=== PATIENT | female | born 1970 | race Caucasian/White ===

== ENCOUNTER 2021-07-05 22:36 | Inpatient (IN) ==
[2021-07-05] MEDS ORDERED: ADENOSINE IV SOLN 3 MG/ML 2 ML VIAL IV STA ×2 (22:57→23:16)
[2021-07-05] MEDS ORDERED: SODIUM CHLORIDE 0.9% 1000ML 1,000 ML IV STA (22:57)
--- NOTE | 2021-07-05 22:59 | Emergency Department Note ---
Impression & Plan Atrial flutter ADMIT ED Provider Note HPI: The patient is a 51-year-old female with history of atrial fibrillation, status post ablation in October 2020, no longer on any anticoagulation, presents emergency department with a chief complaint of shortness of breath. Patient is noted to have a narrow complex tachycardia in the 160s on arrival. Patient tells me that over the past 2 weeks she has had shortness of breath, this seems to acutely worsen just over the past day where she is having shortness of breath now even at rest. Patient denies any sensation of palpitations, states she does have a sensation of chest "tightness". On arrival patient is otherwise hemodynamically stable, heart rate is in the 160s, she is saturating well on room air on arrival, she is alert and in no acute distress on my initial history. ROS: -Cardio: Tachycardia -Pulmonary: Shortness of breath *10 point review systems was conducted and is otherwise negative unless stated a eladio *Outpatient medications and allergy history reviewed PE: General: Alert, NAD HEENT: Normocephalic, atraumatic Eyes: Extraocular eye movement is intact, no scleral erythema Pulmonary: Clear to auscultation bilaterally, no wheezing Cardio: Tachycardic rate and regular rhythm GI: Abdomen is soft, nontender : No suprapubic tenderness MSK: No evidence of trauma or malformation of the extremities, no edema Skin: No evidence of rash Neuro: Alert, no focal deficits Psychiatric: Cooperative personnel monitor: - An order was placed for continuous cardiac monitoring - Patient was noted to be in a narrow complex rhythm with rate of 161 EKG: Rate: 163 Rhythm: Sinus tachycardia Intervals: QRS 144 ms, otherwise within normal limits ST changes: No ST elevation Time: 2243 Medical Decision Making: Patient presented to the emergency department with issues of shortness of breath, states this is been worsening throughout the day today. She denies any sensation of palpitations, states she has had some chest "pressure". On arrival here to the ED the patient is hemodynamically stable and saturating well on room air, she is noted to be tachycardic in the 160s with a narrow complex on EKG suspicious for SVT. IV was established, lab work was obtained, patient was placed on manager cardiac cath, she was trialed with a dose of 6 of adenosine without response, she was then given 12 adenosine and obvious flutter waves were noted. Lab work does not show any critical electrolyte abnormalities, high-sensitivity troponin is within normal limits. Patient was therefore loaded with diltiazem bolus, placed on diltiazem drip, this did not have any response in the patient's heart rate but blood pressure did remain stable. Patient did have some drop in her oxygen saturations to about 90% and therefore was placed on oxime mask without much improvement, CT angiography of the chest was obtained that does not show any evidence of pulmonary embolism but does show some venous congestion. Patient was then placed on BiPAP, this did result in improvement in her oxygenation into the high 90s, work of breathing was improved, I did discuss the case with on-call cardiology for [facility], Dr. Belle, who recommended a dose of metoprolol IV and if there is no response to load the patient with digoxin. Will hold on any potential cardioversion at this time as the patient is not anticoagulated and and it is unclear how long the patient has been in this tachyarrhythmia. Toprol was trialed without response and therefore the patient was loaded with digoxin, shortly after the patient being placed on BiPAP and being loaded with digoxin she did have some response in her heart rates down to the 120s. She appears symptomatically improved on my reassessment. I discussed the case with the on-call hospitalist for [facility], Dr. Flores, and the patient was admitted to the [facility] service in improved condition for further care. * CRITICAL CARE TIME: ( 60 ) minutes -Stabilization of tachyarrhythmia requiring multiple IV rate control medicati ons, initiation of BiPAP for hypoxia despite supplemental oxygen with oxygen saturations less than 90% on oximask, time spent at the bedside, interpretation of diagnostic studies and EKG, discussion with specialty physician/cardiology, arrangement of admission Diagnosis: 1. Atrial flutter 2. Dyspnea secondary to tachyarrhythmia 3. Pulmonary venous congestion on CT imaging 4. Hypoxia, acute Disposition: Admission Triston Vang DO Emergency Medicine Past Med/Surg History Medical History Anxiety Atrial fibrillation + FLUTTER (NEWLY DX) On Eliquis GERD (gastroesophageal reflux disease) History of kidney stones History of TMJ disorder Hypertension Per records RA (rheumatoid arthritis) On Arava Surgical History H/O wisdom tooth extraction History of colonoscopy History of esophagogastroduodenoscopy (EGD) Family History Other No family history of adverse response to anesthesia No significant family history Social History Smoking Status: Current every day smoker Tobacco Type: E-cigarettes / Vaping Cigarettes Per Day: 1 CART. 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 Required: No Beliefs That Will Affect Care: None Current Living Situation: Family Feels Safe at Home: Yes Assistive Devices: None Allergies Allergies Allergy/AdvReac Type Severity Reaction Status Date / Time No Known Allergies Allergy Mild Verified 07/05/21 23:24 Home Meds Home Medications Medication Instructions Recorded Confirmed alprazolam 0.5 mg tablet 0.5 mg PO HS PRN 09/14/18 07/05/21 fluoxetine 20 mg capsule (Prozac) 60 mg PO QAM 09/14/18 07/05/21 glycopyrrolate 1 mg tablet 2 mg PO QAM 09/14/18 07/05/21 folic acid 1 mg tablet 2 mg PO QAM 12/24/18 07/05/21 omeprazole 20 mg capsule,delayed 20 mg PO QAM 12/24/18 07/05/21 release leflunomide 10 mg tablet 10 mg PO QAM 04/23/19 07/05/21 etanercept 50 mg/mL (1 mL) 0 mg SUBCUT WK 07/05/21 07/05/21 subcutaneous pen injector (Enbrel SureClick) methylprednisolone 4 mg tablets in 0 mg PO DIRECTED PRN 07/05/21 07/05/21 a dose pack metoprolol succinate 25 mg 25 mg PO DAILY 07/05/21 07/05/21 tablet,extended release 24 hr Results & Data (ED) Vital Signs Vital Signs - 24 hr 07/05/21 22:37 07/05/21 23:52 07/06/21 00:42 Temperature 36.4 C L Temperature Source Temporal Artery Scan Pulse Rate 164 H 164 H Pulse Rate [Apical] 163 H Pulse Rhythm [Apical] Respiratory Rate 22 18 Respiratory Effort / Characteristics Non-Labored Spontaneous Respiratory Depth Normal Respiratory Pattern Blood Pressure 148/93 H 155/102 H Blood Pressure [Right Arm] 141/94 H Blood Pressure Mean 111 Blood Pressure Mean [Right Arm] 109 Blood Pressure Position [Right Arm] Pulse Oximetry 96 94 Oxygen Delivery Method Room Air Oxygen Flow Rate Fraction of Inspired Oxygen SaO2/FiO2 Ratio Sepsis New/Unexplained Change in Mental Status N/A Sepsis Action Taken by Nursing No Action Required 07/06/21 00:46 07/06/21 00:58 07/06/21 01:00 Temperature Temperature Source Pulse Rate Pulse Rate [Apical] 162 H 162 H 161 H Pulse Rhythm [Apical] Regular Respiratory Rate 20 30 H 26 H Respiratory Effort / Characteristics Short of Breath SOB on Exertion Short of Breath SOB on Exertion Respiratory Depth Normal Shallow Respiratory Pattern Blood Pressure Blood Pressure [Right Arm] 147/103 H 149/110 H Blood Pressure Mean Blood Pressure Mean [Right Arm] 117 123 Blood Pressure Position [Right Arm] Pulse Oximetry 91 90 89 L Oxygen Delivery Method Nasal Cannula Oxymask Oxymask Oxygen Flow Rate 4 8 8 Fraction of Inspired Oxygen SaO2/FiO2 Ratio Sepsis New/Unexplained Change in Mental Status Sepsis Action Taken by Nursing 07/06/21 01:20 07/06/21 01:27 07/06/21 01:29 Temperature Temperature Source Pulse Rate 166 H 165 H Pulse Rate [Apical] 164 H Pulse Rhythm [Apical] Respiratory Rate 30 H 33 H Respiratory Effort / Characteristics Short of Breath Spontaneous Short of Breath Respiratory Depth Shallow Respiratory Pattern Tachypnea Tachypnea Blood Pressure Blood Pressure [Right Arm] 143/107 H Blood Pressure Mean Blood Pressure Mean [Right Arm] 119 Blood Pressure Position [Right Arm] Pulse Oximetry 97 97 Oxygen Delivery Method BiPAP Oxygen Flow Rate Fraction of Inspired Oxygen 45 45 SaO2/FiO2 Ratio 215 Sepsis New/Unexplained Change in Mental Status Sepsis Action Taken by Nursing 07/06/21 01:32 07/06/21 01:49 Temperature Temperature Source Pulse Rate Pulse Rate [Apical] 128 H 117 H Pulse Rhythm [Apical] Irregular Respiratory Rate 26 H 24 Respiratory Effort / Characteristics Non-Labored Spontaneous Respiratory Depth Normal Respiratory Pattern Blood Pressure Blood Pressure [Right Arm] 134/80 Blood Pressure Mean Blood Pressure Mean [Right Arm] 98 Blood Pressure Position [Right Arm] Sitting Semi-fowlers Pulse Oximetry 98 96 Oxygen Delivery Method BiPAP BiPAP Oxygen Flow Rate Fraction of Inspired Oxygen 45 SaO2/FiO2 Ratio 217 Sepsis New/Unexplained Change in Mental Status Sepsis Action Taken by Nursing Laboratory Data Result diagrams: 07/05/21 Unknown 07/05/21 Unknown Lab Results 07/05/21 07/05/21 07/05/21 Range/Units Unknown Unknown Unknown WBC 10.71 (4.8-10.8) K/uL RBC 4.18 L (4.2-5.4) M/uL Hgb 11.7 L (12.0-16.0) g/dL Hct 36.6 L (37-47) % MCV 87.6 (80-100) fL MCH 28.0 (25-34) pg MCHC 32.0 (32-36) g/dL RDW Std Deviation 49.2 H (36.4-46.3) fL RDW Coeff of Bridget 15.3 H (11.5-14.5) % Plt Count 403 H (130-400) K/uL MPV 10.7 H (7.4-10.4) fL Immature Gran % (Auto) 0.1 % Neut % (Auto) 64.3 % Lymph % (Auto) 26.8 % [place] % (Auto) 6.4 % Eos % (Auto) 1.9 % Baso % (Auto) 0.5 % Neut # (Auto) 6.89 H (1.4-6.5) K/uL Lymph # (Auto) 2.87 (1.2-3.4) K/uL [place] # (Auto) 0.69 H (0.11-0.59) K/uL Eos # (Auto) 0.20 (0-0.5) K/uL Baso # (Auto) 0.05 (0-0.2) K/uL Immature Gran # (Auto) 0.01 (0.00-0.02) K/uL PT 10.9 (9.0-12.0) Seconds INR 1.0 (0.9-1.1) APTT 26.8 (21.0-31.0) Seconds PTT Ratio 1.0 D-Dimer 1040 H* (0-500) ug/L FEU Sodium 138 (136-145) mmol/L Potassium 3.8 (3.5-5.1) mmol/L Chloride 104 (98-107) mmol/L Carbon Dioxide 22 (21-32) mmol/L Anion Gap 12 H (3-11) BUN 12 (6-23) mg/dl Creatinine 0.65 (0.6-1.2) mg/dl Est Cr Clr Drug Dosing 92.7 ml/min Est GFR ( Amer) 120.0 ml/min Est GFR (Non-Af Amer) 103.5 ml/min BUN/Creatinine Ratio 18.5 (10-20) Glucose 75 (70-99(Fasting)) mg/dl Calcium 9.3 (8.5-10.1) mg/dl Magnesium 1.7 (1.7-2.4) mg/dl Total Bilirubin 0.4 (0.2-1.0) mg/dl AST 39 (13-39) U/L ALT 39 (7-52) U/L Alkaline Phosphatase 82 (34-104) U/L Troponin I High Sens 11.9 (0-14) pg/ml Total Protein 6.8 (6.0-8.3) gm/dl Albumin 3.8 (3.4-5.0) gm/dl Globulin 3.0 (2.5-4.0) gm/dl Albumin/Globulin Ratio 1.3 (0.9-2) TSH (0.300-4.500) uIu/ml Free T4 (0.61-1.60) ng/dl SARS-CoV-2, RNA, NAAT (NEGATIVE) 07/05/21 07/06/21 Range/Units Unknown 00:18 WBC (4.8-10.8) K/uL RBC (4.2-5.4) M/uL Hgb (12.0-16.0) g/dL Hct (37-47) % MCV (80-100) fL MCH (25-34) pg MCHC (32-36) g/dL RDW Std Deviation (36.4-46.3) fL RDW Coeff of Bridget (11.5-14.5) % Plt Count (130-400) K/uL MPV (7.4-10.4) fL Immature Gran % (Auto) % Neut % (Auto) % Lymph % (Auto) % [place] % (Auto) % Eos % (Auto) % Baso % (Auto) % Neut # (Auto) (1.4-6.5) K/uL Lymph # (Auto) (1.2-3.4) K/uL [place] # (Auto) (0.11-0.59) K/uL Eos # (Auto) (0-0.5) K/uL Baso # (Auto) (0-0.2) K/uL Immature Gran # (Auto) (0.00-0.02) K/uL PT (9.0-12.0) Seconds INR (0.9-1.1) APTT (21.0-31.0) Seconds PTT Ratio D-Dimer (0-500) ug/L FEU Sodium (136-145) mmol/L Potassium (3.5-5.1) mmol/L Chloride (98-107) mmol/L Carbon Dioxide (21-32) mmol/L Anion Gap (3-11) BUN (6-23) mg/dl Creatinine (0.6-1.2) mg/dl Est Cr Clr Drug Dosing ml/min Est GFR ( Amer) ml/min Est GFR (Non-Af Amer) ml/min BUN/Creatinine Ratio (10-20) Glucose (70-99(Fasting)) mg/dl Calcium (8.5-10.1) mg/dl Magnesium (1.7-2.4) mg/dl Total Bilirubin (0.2-1.0) mg/dl AST (13-39) U/L ALT (7-52) U/L Alkaline Phosphatase (34-104) U/L Troponin I High Sens (0-14) pg/ml Total Protein (6.0-8.3) gm/dl Albumin (3.4-5.0) gm/dl Globulin (2.5-4.0) gm/dl Albumin/Globulin Ratio (0.9-2) TSH 6.656 H (0.300-4.500) uIu/ml Free T4 0.91 (0.61-1.60) ng/dl SARS-CoV-2, RNA, NAAT NEGATIVE (NEGATIVE) Administered Medications Diltiazem HCl 125 mg/ Dextrose 125 mls @ 5 mls/hr IV .Q24H FOR[facility], 1928–1983; Protocol Stop: 08/04/21 23:14 Last Titration: 07/05/21 23:38 Dose: 10 mg/hr, 10 mls/hr Documented by: [id number] Cosigned by: [id number] Admin: 07/05/21 23:30 Dose: 5 mg/hr, 5 mls/hr Documented by: [id number] Cosigned by: [id number] Discontinued Medications Adenosine (Adenosine Iv Soln 3 Mg/Ml 2 Ml Vial) 6 mg IV NOW STA Stop: 07/05/21 22:58 Last Admin: 07/05/21 23:05 Dose: 6 mg Documented by: [id number] Adenosine (Adenosine Iv Soln 3 Mg/Ml 2 Ml Vial) 12 mg IV NOW STA Stop: 07/05/21 23:17 Last Admin: 07/05/21 23:08 Dose: 12 mg Documented by: [id number] Diltiazem HCl (Diltiazem Hcl 5 Mg/Ml 5 Ml Vial) 15 mg IV NOW STA Stop: 07/05/21 23:12 Last Admin: 07/05/21 23:20 Dose: 15 mg Documented by: [id number] Cosigned by: [id number] Sodium Chloride (Nss 1000ml) 1,000 mls @ 999 mls/hr IV .Q1H1M STA Stop: 07/05/21 23:57 Last Infusion: 07/06/21 00:21 Dose: 0 mls/hr Documented by: [id number] Admin: 07/05/21 23:05 Dose: 999 mls/hr Documented by: [id number] Sodium Chloride (Nss 1000ml) 1,000 mls @ 999 mls/hr IV .Q1H1M ONE Stop: 07/06/21 00:11 Last Infusion: 07/06/21 01:34 Dose: 0 mls/hr Documented by: [id number] Admin: 07/06/21 00:42 Dose: 999 mls/hr Documented by: [id number] Digoxin 500 mcg/ Syringe 2 mls @ 2 mls/min IV ONE ONE Stop: 07/06/21 01:05 Last Admin: 07/06/21 01:20 Dose: 2 mls/min Documented by: [id number] Ioversol (Optiray 320 125ml) 125 ml IV ONCE ONE Stop: 07/06/21 00:39 Last Admin: 07/06/21 00:38 Dose: 97 ml Documented by: [id number] Lorazepam (Lorazepam 2 Mg/1 Ml Vial) Confirm Administered Dose 2 mg .ROUTE .STK- MED ONE Stop: 07/06/21 01:43 Last Admin: 07/06/21 01:49 Dose: Not Given Documented by: [id number] Lorazepam (Lorazepam 2 Mg/1 Ml Vial) 0.5 mg IV NOW STA Stop: 07/06/21 01:49 Last Admin: 07/06/21 01:49 Dose: 0.5 mg Documented by: [id number] Metoprolol Tartrate (Metoprolol Tartrate 1 Mg/Ml Vial) 5 mg IV NOW STA Stop: 07/06/21 00:08 Last Admin: 07/06/21 00:42 Dose: 5 mg Documented by: [id number] Miscellaneous (Stat Iv Infusion Titration Per Protocol) 1 ea N/A NOW STA Stop: 07/05/21 23:12 Last Admin: 07/05/21 23:17 Dose: Not Given Documented by: [id number] Ondansetron HCl (Ondansetron Inj 2 Mg/Ml 2 Ml Vial) 4 mg IV NOW STA Stop: 07/06/21 00:00 Last Admin: 07/06/21 00:04 Dose: 4 mg Documented by: [id number] Discharge Plan Visit Data Chief Complaint: Chest Pain Stated Complaint: CHEST PAIN, SOB ED Provider: Triston Vang Discharge Problem: Atrial flutter Forms Stand Alone Forms: [facility] Prescriptions Prescriptions: No Action glycopyrrolate 1 mg tablet 2 mg PO QAM RF: 0 alprazolam 0.5 mg Tablet 0.5 mg PO HS PRN (Reason: RESTLESSNESS) RF: 0 fluoxetine [Prozac] 20 mg Capsule 60 mg PO QAM RF: 0 omeprazole 20 mg capsule,delayed release(DR/EC) 20 mg PO QAM RF: 0 folic acid 1 mg tablet 2 mg PO QAM RF: 0 leflunomide 10 mg tablet 10 mg PO QAM RF: 0 metoprolol succinate 25 mg tablet extended release 24 hr 25 mg PO DAILY RF: 0 methylprednisolone 4 mg tablets,dose pack 0 mg PO DIRECTED PRN (Reason: RA FLARE UP) RF: 0 Enbrel SureClick 50 mg/mL (1 mL) pen injector 0 mg SUBCUT WK RF: 0 Referrals Referrals: Balbir Hernandez MD [Primary Care Provider] - Discharge Problem: Atrial flutter Qualifiers: Atrial flutter type: unspecified Qualified Code(s): I48.92 - Unspecified atrial flutter
[2021-07-05] MEDS ORDERED: STAT IV Infusion **Titration per Protocol STA (23:11)
[2021-07-05] MEDS ORDERED: dilTIAZem HCl 5 MG/ML 5 ML VIAL IV STA (23:11)
[2021-07-05] MEDS ORDERED: SODIUM CHLORIDE 0.9% 1000ML 1,000 ML IV ONE (23:11)
[2021-07-05] MEDS ORDERED: dilTIAZem HCL 125 MG in DEXTROSE 5% 100 ML IV SCH (23:15)
[2021-07-05 23:32] LABS: Hematocrit (blood only) 36.6 % (37-47); Hemoglobin 11.7 g/dL (12.0-16.0); Mean Corpuscular Volume 87.6 fL (80-100); Mean Platelet Volume 10.7 fL (7.4-10.4); Platelet Count 403 K/uL (130-400); RDW Coefficient of Variation 15.3 % (11.5-14.5); RDW Standard Deviation 49.2 fL (36.4-46.3); Red Blood Count 4.18 M/uL (4.2-5.4); White Blood Count 10.71 K/uL (4.8-10.8)
[2021-07-05 23:47] LABS: Partial Thromboplastin Time 26.8 Seconds (21.0-31.0); Prothrombin Time 10.9 Seconds (9.0-12.0)
[2021-07-05 23:52] LABS: Albumin Globulin Ratio 1.3 (0.9-2); Albumin Level 3.8 gm/dl (3.4-5.0); BUN Creatinine Ratio 18.5 (10-20); Bilirubin,Total 0.4 mg/dl (0.2-1.0); Calcium 9.3 mg/dl (8.5-10.1); Creatinine Clr Calc Pharmacy 92.7 ml/min; Est GFR (Non-African American) 103.5 ml/min; Magnesium 1.7 mg/dl (1.7-2.4); Potassium 3.8 mmol/L (3.5-5.1); Total Protein 6.8 gm/dl (6.0-8.3)
[2021-07-05 23:53] LABS: Basophils # (auto) 0.05 K/uL (0-0.2); Basophils % (auto) 0.5 %; Eosinophils % (auto) 1.9 %; Immature Granulocytes # (auto) 0.01 K/uL (0.00-0.02); Immature Granulocytes % (auto) 0.1 %; Lymphocytes # (auto) 2.87 K/uL (1.2-3.4); Lymphocytes % (auto) 26.8 %; Monocytes # (auto) 0.69 K/uL (0.11-0.59); Monocytes % (auto) 6.4 %; Neutrophils # (auto) 6.89 K/uL (1.4-6.5); Neutrophils % (auto) 64.3 %; Troponin I High Sensitivity 11.9 pg/ml (0-14)
[2021-07-05 23:54] LABS: D Dimer 1040 ug/L FEU (0-500)
[2021-07-05] MEDS ORDERED: ONDANSETRON INJ 2 MG/ML 2 ML VIAL IV STA (23:59)
[2021-07-06 00:02] LABS: Thyroid Stimulating Hormone 6.656 uIu/ml (0.300-4.500)
[2021-07-06] MEDS ORDERED: METOPROLOL TARTRATE 1 MG/ML VIAL IV STA (00:07)
[2021-07-06 00:35] LABS: T4 Free Thyroxine 0.91 ng/dl (0.61-1.60)
[2021-07-06] MEDS ORDERED: OPTIRAY 320 125ml IV ONE (00:38)
[2021-07-06] MEDS ORDERED: DIGOXIN 500 MCG in SYRINGE 0 ML IV ONE (01:04)
[2021-07-06] MEDS ORDERED: LORazepam 2 MG/1 ML VIAL ONE (01:42)
[2021-07-06] MEDS ORDERED: LORazepam 2 MG/1 ML VIAL IV STA (01:48)
[2021-07-06] MEDS ORDERED: FUROSEMIDE 40 MG/4 ML VIAL IV ONE (02:24)
[2021-07-06] MEDS ORDERED: STAT IV Infusion **Titration per Protocol STA (02:32)
--- NOTE | 2021-07-06 04:27 | History and Physical Report ---
DATE OF ADMISSION: 07/06/2021. CHIEF COMPLAINT: Shortness of breath, rapid AFib. HISTORY OF PRESENT ILLNESS: A 51-year-old female with past medical history significant for paroxysmal atrial fibrillation, atrial flutter, gastritis, history of sweating abnormality, chronic headaches, rheumatoid arthritis of multiple sites, insomnia, anxiety, tobacco use disorder, presents with shortness of breath and palpitations. The patient was short of breath a couple of times in the last 2 weeks, but today it got progressively worse and she was feeling palpitations, walking, short distance causing significantly short of breath and also soreness in the legs. In the ER, when she came in, she was saturating okay, heart rate in 160s narrow complex tachycardia. Initially iv adenosine was given which showed a flutter.. ER gave IV Cardizem and as she was not improving, cardiology was notified and given a dose of digoxin and Lopressor, but her heart rate was still in the 160s. At the same time, her oxygen saturation was going down and she was placed on BiPAP. With the BiPAP, heart rate improved and currently is on Cardizem drip. She had an episode of nausea when BiPAP was taken, then heart rate worsened and also she became hypoxic. She was is back on BiPAP. She also had some chest pressure, some dizziness, no headache, no blurred visions, no earache, no runny nose, no sore throat. She started coughing when placed on BiPAP. Otherwise, at home did not have any cough. No fevers, no abdominal pain. Normal bowel and bladder movements. ALLERGIES: No known drug allergies. PAST MEDICAL HISTORY: As mentioned above. PAST SURGICAL HISTORY: Colonoscopy, dental surgery, EGD. MEDICATIONS: The patient is on alprazolam 0.5 mg p.o. at bedtime p.r.n., Enbrel shots weekly, Prozac 60 mg p.o. a.m., folic acid 2 mg p.o. a.m., glycopyrrolate 2 mg p.o. a.m., leflunomide 10 mg p.o. a.m., methylprednisone as directed p.r.n., metoprolol succinate 25 mg p.o. daily, omeprazole 20 mg p.o. a.m. FAMILY HISTORY: Significant for father had alcoholism; paternal grandmother had breast cancer. SOCIAL HISTORY: , smokes quarter pack a day for last 23 years. Alcohol 4 times a week. No drug use. REVIEW OF SYSTEMS: As per HPI. Rest of the review of systems is negative. PHYSICAL EXAMINATION: GENERAL: The patient is of moderate build, currently somewhat in respiratory distress. VITAL SIGNS: Temperature 36.4, pulse 118, respiratory rate 22, blood pressure 100/76, oxygen 94% on BiPAP. HEENT: Pupils equal, round and reactive to light, on BiPAP mask. NECK: No JVD seen. No neck masses seen. CARDIOVASCULAR: S1 and S2 heard. Irregular rhythm, tachycardia. RESPIRATORY SYSTEM: Normal AP diameter. Some accessory muscle use noted. Bilateral crackles heard. No wheezing. ABDOMEN: Soft, bowel sounds present, nontender, no distention. CENTRAL NERVOUS SYSTEM: Alert and oriented. No facial droop. Extraocular muscles intact. Obeys simple commands. Moves extremities. EXTREMITIES: No edema, no erythema. LABORATORY DATA: WBC 10.7, hemoglobin 11.7, hematocrit 36.6, platelets 403. PT 10.9, INR 1, APTT 26.8, D-dimer 1040. Sodium 138, potassium 3.8, chloride 104, bicarbonate 22, BUN 12, creatinine 0.6, serum glucose 175, calcium 9.3, magnesium 1.7, total bilirubin 0.4, AST 39, ALT 39, alkaline phosphatase 82. Troponin I high sensitivity 11.9. TSH is 6.6, free T4 0.9. SARS-CoV-2 rapid test negative. DATA: CT chest, no PE. Interlobular septal thickening and peribronchial cuffing is most consistent with pulmonary vascular congestion, most notable in the inferior lung zones with areas of ground-glass opacity, which may represent asymmetric edema or atelectasis. Layering pleural effusion, right greater than left with right effusion measuring approximately 2 cm. No loculation. No pneumothorax. Chest x-ray, pulmonary congestion seen. EKG: Initially sinus tachycardia at a rate of 163, right bundle-branch block. ASSESSMENT AND PLAN: This 51-year-old female presents with rapid atrial flutter. 1. Rapid atrial flutter: Presented with narrow complex tachycardia, after adenosine, flutter waves were seen and she was started on Cardizem and has not improved ER called cardiology and was IV digoxin 500 mcg and IV Lopressor 5 mg still HR in 160's and currently continued on Cardizem drip.Patient has history of atrial flutter and atrial fibrillation, she is status post ablation in October 2020. She was on Eliquis, but Eliquis was stopped after ablation because of history of heavy menstrual bleeding. Plan to restart if the atrial fibrillation recurs. Currently continue with IV Cardizem, IV heparin. Follow serial cardiac enzymes, echocardiogram. We will keep her n.p.o. until seen by cardiology. Closely monitor in the ICU, as the patient became hypoxic, requiring BiPAP and also if deteriorates jonatan need to cardiovert.After placing on bipap heart rates seems improving. Will hold home Toprol xl for now. 2. Acute respiratory failure: Most likely secondary to congestive heart failure, possibly from rapid atrial fibrillation. Getting IV Lasix. Continue with the BiPAP. Follow echocardiogram. Closely monitor in the ICU.Follow CE and rule out ACS. 3. History of rheumatoid arthritis: On leflunomide and Enbrel shots. 4. Depression: On Prozac. 5. Gastroesophageal reflux disease: Omeprazole. 6. Sweating abnormalities: On glycopyrrolate 7. Anxiety: On alprazolam p.r.n. 8. Deep venous thrombosis prophylaxis: On IV heparin. DISPOSITION: Closely monitor in the ICU. Level 1 full code. Job ID: [id number] [facility]
[2021-07-06] MEDS ORDERED: dilTIAZem HCL 125 MG in DEXTROSE 5% 100 ML IV SCH (04:33)
[2021-07-06] MEDS ORDERED: ICU PROTOCOL FOR HYPERGLYCEMIA PRN (04:33)
[2021-07-06] MEDS ORDERED: Heparin IV Adult Wt-Based Standard *NO* Bolus Protocol IV SCH (04:33)
[2021-07-06 05:14] LABS: Basophils # (auto) 0.04 K/uL (0-0.2); Basophils % (auto) 0.3 %; Eosinophils # (auto) 0.05 K/uL (0-0.5); Eosinophils % (auto) 0.4 %; Hematocrit (blood only) 36.9 % (37-47); Hemoglobin 11.8 g/dL (12.0-16.0); Immature Granulocytes # (auto) 0.04 K/uL (0.00-0.02); Immature Granulocytes % (auto) 0.3 %; Lymphocytes # (auto) 1.25 K/uL (1.2-3.4); Lymphocytes % (auto) 10.4 %; Mean Corpuscular Hemoglobin 28.1 pg (25-34); Mean Corpuscular Volume 87.9 fL (80-100); Mean Platelet Volume 9.9 fL (7.4-10.4); Monocytes # (auto) 0.79 K/uL (0.11-0.59); Monocytes % (auto) 6.6 %; Neutrophils # (auto) 9.86 K/uL (1.4-6.5); Platelet Count 376 K/uL (130-400); RDW Coefficient of Variation 15.3 % (11.5-14.5); RDW Standard Deviation 49.1 fL (36.4-46.3); White Blood Count 12.03 K/uL (4.8-10.8)
[2021-07-06] MEDS ORDERED: HEPARIN 25000 UNIT/500 ML D5W IV ONE (05:44)
[2021-07-06 05:48] LABS: BUN Creatinine Ratio 15.2 (10-20); Calcium 8.5 mg/dl (8.5-10.1); Creatinine Clr Calc Pharmacy 91.3 ml/min; Est GFR (African American) 119.4 ml/min; Magnesium 1.6 mg/dl (1.7-2.4); Potassium 3.5 mmol/L (3.5-5.1); Troponin I High Sensitivity 13.9 pg/ml (0-14)
[2021-07-06 06:41] LABS: Basophils # (auto) 0.04 K/uL (0-0.2); Basophils % (auto) 0.3 %; Eosinophils # (auto) 0.06 K/uL (0-0.5); Eosinophils % (auto) 0.4 %; Hematocrit (blood only) 36.7 % (37-47); Hemoglobin 11.7 g/dL (12.0-16.0); Immature Granulocytes # (auto) 0.05 K/uL (0.00-0.02); Immature Granulocytes % (auto) 0.4 %; Lymphocytes # (auto) 1.39 K/uL (1.2-3.4); Lymphocytes % (auto) 10.2 %; Mean Corpuscular Hemoglobin 28.1 pg (25-34); Mean Platelet Volume 10.4 fL (7.4-10.4); Monocytes % (auto) 8.8 %; Neutrophils # (auto) 10.95 K/uL (1.4-6.5); Neutrophils % (auto) 79.9 %; Platelet Count 376 K/uL (130-400); RDW Coefficient of Variation 15.2 % (11.5-14.5); RDW Standard Deviation 48.9 fL (36.4-46.3); Red Blood Count 4.17 M/uL (4.2-5.4); White Blood Count 13.69 K/uL (4.8-10.8)
[2021-07-06 06:43] LABS: Mean Corpuscular Hgb Conc 31.9 g/dL (32-36)
[2021-07-06 06:51] LABS: Partial Thromboplastin Time 26.5 Seconds (21.0-31.0); Prothrombin Time 10.9 Seconds (9.0-12.0)
--- NOTE | 2021-07-06 06:58 | Critical Care Consultation ---
Date of Consultation July 06, 2021 Assessment & Plan (1) Admitted to intensive care unit: Reason Critically Ill: 51-year-old female presenting in A. fib/flutter rhythm requiring close hemodynamic monitoring with volume overload likely secondary to poor forward flow. Patient currently on diltiazem drip. NEURO - * CAM ICU: NEGATIVE CARDIAC/VASCULAR - * A. fib/flutter: * Received metoprolol, digoxin, and now diltiazem drips. * Defer to cardiology for possible need for cardioversion. * Hemodynamically stable at this time. * Agree with initiation of heparin drip. * Monitor on telemetry. RESPIRATORY - * Respiratory distress with hypoxia: * Secondary to pulmonary edema from poor forward flow in the setting of A. fib/flutter rhythm GI/NUTRITION - * N.p.o. while on BiPAP RENAL/LYTES - * No significant electrolyte derangements - * Winn in place - Strict I&Os. ENDO - * No significant electrolyte derangements * BSGs per unit protocol. ISS --> gtt per unit policy. HEME - * Stable H&H ID - * No concerns for infectious contribution. LINES/IV ACCESS - * PIVs x2 DVT PROPHYLAXIS - * Heparin drip * SCDs I have personally spent 35 minutes of critical care time in the direct management of this patient. This is a life/limb threatening event. This includes time spent evaluating patient, direct bedside care, chart review, placing orders, interpretation of diagnostic studies, discussion with consultants, patient, and family members, as well as other required patient management activities. This time is exclusive of all separately billable procedures, and teaching time and separate from and in addition to any other critical care service time. Thank you for allowing us to participate in the care of this patient. Please refer to my attending physician's documentation for any further recommendations. (2) Atrial flutter: (3) Respiratory distress: History of Present Illness Attending Physician: Michel Hawk MD History of Present Illness Patient is a 51-year-old female with a significant past medical history of atrial fibrillation previously successfully ablated in November 2020. She reports that over the last 2 weeks she has occasionally felt palpitations and some occasions of shortness of breath. She states when she checks her rhythm at home and states "undetermined rhythm". Today, she developed intense shortness of breath which prompted visit to the emergency department. Initially, patient was noted to have heart rates in the 160s. She received adenosine x3 which did elicit a flutter rhythm. She received metoprolol followed by digoxin and diltiazem. Diltiazem did seem to help improve her heart rate. Unfortunately, with rate control, she developed hypoxia requiring 8 L oxime mask. She was subsequently placed on BiPAP after evaluation of CT demonstrates pleural effusions and pulmonary edema. She received dose of Lasix and was brought to the ICU for ongoing management. Upon evaluation in the ICU, the patient is awake, alert, and oriented. She states that as long as she is not moving, she does not have chest pressure palpitations. She states she is breathing better with the BiPAP in place. She does not feel nauseous or vomiting. She reports some chest tightness with coughing. Allergies Allergy/AdvReac Type Severity Reaction Status Date / Time No Known Allergies Allergy Mild Verified 07/05/21 23:24 Home Medications Medication Instructions Recorded Confirmed Type alprazolam 0.5 mg tablet 0.5 mg PO HS PRN 09/14/18 07/05/21 History fluoxetine 20 mg capsule (Prozac) 60 mg PO QAM 09/14/18 07/05/21 History glycopyrrolate 1 mg tablet 2 mg PO QAM 09/14/18 07/05/21 History folic acid 1 mg tablet 2 mg PO QAM 12/24/18 07/05/21 History omeprazole 20 mg capsule,delayed 20 mg PO QAM 12/24/18 07/05/21 History release leflunomide 10 mg tablet 10 mg PO QAM 04/23/19 07/05/21 History etanercept 50 mg/mL (1 mL) 0 mg SUBCUT WK 07/05/21 07/05/21 History subcutaneous pen injector (Enbrel SureClick) methylprednisolone 4 mg tablets in 0 mg PO DIRECTED PRN 07/05/21 07/05/21 History a dose pack metoprolol succinate 25 mg 25 mg PO DAILY 07/05/21 07/05/21 History tablet,extended release 24 hr Patient History Medical History Anxiety Atrial fibrillation + FLUTTER (NEWLY DX) On Eliquis GERD (gastroesophageal reflux disease) History of kidney stones History of TMJ disorder Hypertension Per records RA (rheumatoid arthritis) On Arava Surgical History H/O wisdom tooth extraction History of colonoscopy History of esophagogastroduodenoscopy (EGD) Family History Other No family history of adverse response to anesthesia No significant family history Social History Smoking Status: Current every day smoker Tobacco Type: E-cigarettes / Vaping Cigarettes Per Day: 1 CART. DAILY; Second Hand Exposure: No; Do You Dip or Chew Tobacco: No; Tobacco Cessation Education Requested by Patient: No Hx Alcohol Use: Yes Alcohol type: beer, wine and hard liquor Hx Substance Use: No Preferred Language: Upper Sorbian Communication Ability: Effective Supervisor Tellers Required: No Beliefs That Will Affect Care: None Current Living Situation: Spouse Other Information That Helps Us Care for You: No Feels Safe at Home: Yes Safety Concerns: Feels Safe At This Time Assistive Devices: None Review of Systems Review of Systems: All systems reviewed & are unremarkable except as noted in HPI & below Physical Exam Physical Exam: VITAL SIGNS - Vital signs and nursing notes were reviewed. GENERAL - 51-year-old female appearing her stated age who is in mild distress. Communicates well with provider and answers questions appropriately. HEAD - NC/AT. EYES - PERRL with EOMI bilaterally. Sclera anicteric. Palpebral conjunctiva pink and moist with no injection noted. EARS - No deformities of external structures noted on gross examination bilaterally. NOSE - Midline and without cyanosis. No epistaxis or purulent drainage noted. MOUTH/OROPHARYNX - Without perioral cyanosis. Buccal mucosa pink and moist and without leukoplakia. NECK - Neck with FROM. LUNGS - Chest wall symmetric without accessory muscle use, intercostals retractions, or central cyanosis. Normal vesicular breath sounds CTA B/L. No wheezes, rales, or rhonchi appreciated. CARDIAC - RRR with S1/S2. No murmur, rubs, or gallops appreciated. No reproducible tenderness to palpation appreciated over the anterior chest wall. ABDOMEN - Abdominal contour flat without pulsations or visible masses. BS normoactive all four quadrants. No tenderness, palpable masses, hepatosplenomegaly, or ascites noted. EXTREMITIES - No clubbing or peripheral cyanosis. No pretibial edema present. +3/5 radial and dorsalis pedis pulses palpated throughout. +5/5 strength noted in UE/LE bilaterally. NEUROLOGIC - Cranial nerves II through XII grossly intact. Sensory intact to light touch throughout. PSYCH - A&Ox3 and cooperates fully with examiner. Pt is very pleasant and interacts well with examiner. Results & Data Results & Data ([facility]) Vital Signs (Past 12 Hours) Vital Signs Temp Pulse Pulse Resp BP BP Pulse Ox 07/06/21 06:00 122 H 29 H 100/69 93 07/06/21 05:45 112 H 22 121/70 94 07/06/21 05:30 123 H 53 H 118/73 96 07/06/21 05:15 135 H 24 121/75 99 07/06/21 05:01 130 H 14 121/93 98 07/06/21 04:45 159 H 23 106/74 84 L 07/06/21 04:40 137 H 16 133/79 98 07/06/21 04:33 37.2 C 171 H 148 H 27 H 111/91 97 07/06/21 04:31 169 H 11 L 111/91 96 07/06/21 04:25 164 H 29 H 98 07/06/21 02:27 118 H 22 122/76 94 07/06/21 01:49 117 H 24 134/80 96 07/06/21 01:32 128 H 26 H 98 07/06/21 01:29 165 H 33 H 97 07/06/21 01:27 164 H 30 H 143/107 H 97 07/06/21 01:20 166 H 07/06/21 01:00 161 H 26 H 149/110 H 89 L 07/06/21 00:58 162 H 30 H 90 07/06/21 00:46 162 H 20 147/103 H 91 07/06/21 00:42 164 H 155/102 H 07/05/21 23:52 163 H 18 141/94 H 94 07/05/21 22:37 36.4 C L 164 H 22 148/93 H 96 Pulse Ox 07/06/21 06:00 07/06/21 05:45 07/06/21 05:30 07/06/21 05:15 05/17/22 05:01 07/06/21 04:45 07/06/21 04:40 07/06/21 04:33 96 07/06/21 04:31 07/06/21 04:25 07/06/21 02:27 07/06/21 01:49 07/06/21 01:32 07/06/21 01:29 07/06/21 01:27 07/06/21 01:20 07/06/21 01:00 07/06/21 00:58 07/06/21 00:46 07/06/21 00:42 07/05/21 23:52 07/05/21 22:37 Coding Level of Care Code Critical Care 1st 30-74 mins Diagnoses Admitted to intensive care unit Z78.9 Atrial flutter I48.92 Atrial flutter type: unspecified Respiratory distress R06.03 Time Spent (min) 35 (1) Atrial flutter Atrial flutter type: unspecified Qualified Code(s): I48.92 - Unspecified atrial flutter
[2021-07-06] MEDS ORDERED: PERFLUTREN LIPID MICROSPHERE (DEFINITY) IV ONE (07:34)
[2021-07-06] MEDS: HEPARIN SODIUM/DEXTROSE 25,000 UNITS/500 ML BAG IV SCH (07:35)
--- NOTE | 2021-07-06 08:07 | XRay Report ---
SINGLE VIEW CHEST CLINICAL HISTORY: Dysrhythmia. Dyspnea and weakness. FINDINGS: An AP, portable, upright chest radiograph is compared to study dated 01/29/2007. The heart is enlarged. There is pulmonary vascular congestion. Bilateral airspace opacities likely represented pulmonary edema. Trace pleural effusions are suspected. No pneumothorax is seen. The bony thorax is g rossly intact. IMPRESSION: 1. Cardiomegaly with evidence of congestive failure. 2. Bilateral airspace opacities likely represent pulmonary edema. Correlate clinically for evidence o f a superimposed infectious/inflammatory pneumonitis. Radiographic follow-up to resolution is recomme nded. 3. Suspect trace pleural effusions. ACT 112: Negative or not required by law. Electronically signed by: Cameron Leos M.D. 07/06/2021 8:05 AM
--- NOTE | 2021-07-06 08:08 | CT Scan Report ---
CT ANGIOGRAPHY OF THE CHEST, PULMONARY EMBOLUS PROTOCOL CLINICAL HISTORY: Shortness of breath. Chest pain. Evaluate for pulmonary embolus. COMPARISON STUDY: Chest radiograph July 05, 2021. TECHNIQUE: Following IV administration of 97 mL of Optiray, helical axial images of the chest were ob tained utilizing the pulmonary embolus protocol. Maximal intensity projections and sagittal and layo nal reformats were viewed on an independent 3D workstation. IV contrast was administered without com plication. Automated exposure control was utilized for the study. A dose lowering technique was uti lized adhering to the principles of ALARA. CT DOSE: 283.02 mGy.cm FINDINGS: No pulmonary emboli are identified. There is no thoracic aortic dissection. Borderline car diomegaly is noted. There is no pericardial effusion. Small hiatal hernia is present. Prominent media stinal and bilateral hilar lymph nodes are present. These are probably benign. There are small bilate ral pleural effusions, right larger than left. No pneumothorax is present. Central airways are patent . Interlobular septal thickening is noted. There are additional groundglass opacities within the lung s with lower lobe predominance. 6 mm left lower lobe nodule on image 102 186 is noted. There is a six -month right middle lobe nodule on image 106. Bronchial wall thickening is present. This is likely re lated to pulmonary edema. No acute fracture or suspicious lesion within the visualized bony thorax. V isualized portions of the upper abdomen are unremarkable. IMPRESSION: 1. No pulmonary emboli identified. 2. Interstitial and alveolar pulmonary edema, as described above. Small bilateral pleural effusions. Borderline cardiomegaly. 3. A few low suspicion pulmonary nodules that measure up to 6 mm. Follow-up chest CT in 6 months is r ecommended to ensure stability. ACT 112: Negative or not required by law. Electronically signed by: Holger Kim M.D. 07/06/2021 8:07 AM
[2021-07-06] MEDS: LEFLUNOMIDE 10 MG TAB PO SCH (08:47)
[2021-07-06] MEDS: PANTOprazole 40 MG TAB PO SCH (08:47)
[2021-07-06] MEDS: FOLIC ACID 1 MG TAB PO SCH (08:47)
[2021-07-06] MEDS: FLUoxetine HCL 20 MG CAP PO SCH (08:48)
[2021-07-06] MEDS: GLYCOPYRROLATE 1 MG TAB PO SCH (08:48)
[2021-07-06] MEDS ORDERED: METOPROLOL SUCC 25MG EXT REL TAB PO SCH (09:00)
[2021-07-06] MEDS ORDERED: MAGNESIUM SULFATE / D5W 1 GM/100 ML BAG IV ONE (09:23)
[2021-07-06] MEDS ORDERED: POTASSIUM CHLORIDE 10 MEQ TABCR PO STA (09:23)
--- NOTE | 2021-07-06 09:30 | Cardiology Consultation ---
Date of Consultation July 06, 2021 Assessment & Plan (1) Atrial flutter with rapid ventricular response: (2) Respiratory distress: (3) Acute decompensated heart failure: 51 year old female admitted to [facility] on 07/05/2021 with progressive exertional dyspnea with associated leg heaviness/soreness, recurrent symptomatic atrial flutter with a rapid ventricular response with resultant acute decompensated diastolic heart failure. Volume status has improved following administration of IV furosemide with rhythm spontaneously converting back to sinus with frequent premature atrial contractions this morning, while on IV cardizem and IV heparin, without clinical sequela. RECOMMENDATIONS: Electrocardiogram now, RE: spontaneous conversion, initiation of antiarrhythmic therapy. Supplement potassium and magnesium Resume beta-brenden therapy, metoprolol succinate 50 mg/day (increased dose) Wean off IV diltiazem Initiate antiarrhythmic therapy, Flecainide 50 mg twice a day. IV Heparin to Eliquis, 5 mg twice a day Outpatient EP follow-up with Dr. Laboy. Check blood cultures, RE: Elevated WBC count, immunocompromised status. Supervising Physician Co-Signing Physician Notes Patient seen and examined with Triston Velazquez PA-C. Agree with findings and assessment as above. Recurrent atrial flutter despite ablation. Will increase BB and start Eliquis and Flecainide. Follow on telemetry. History of Present Illness Reason for Consultation: Atrial flutter Requesting Physician: Sandra Attending Physician: Ulysses History of Present Illness Ms. Roseanne Powell is a 51 year old female who is being seen at the requst of Dr. Flores. Reason for consultation is atrial flutter with a rapid ventricular response. Approximately two weeks ago the patient started experiencing heaviness and soreness in the legs bilaterally with associated progressive dyspnea to the point that she had trouble catching her breath with minimal activity such as walking from room to room. She notes that she kept thinking it would get better on its own. Notes checking her pulse via her [employer] with heart rates of 160 bpm, demonstrating an "unclassified rhythm." She presented to the ER on 07/05/2021 with EKG revealing a narrow complex regular rhythm at 163 bpm. Patient was initially given IV Adenosine with atrial flutter observed. She was then given IVCardizem, 500 mcg of IV digoxin and 5 mg of IV Lopressor. Patient placed on BiPAP due to observed hypoxia x 2, with associated cough and nausea. Overnight she received IV diltiazem. This morning, just prior to my evaluation, patient spontaneous converted back to sinus rhythm with frequent premature atrial contractions. High sensitivity Troponin I negative x 2 at 11.9 and 13.9 pg/mL. Preliminary echo unremarkable. CT negative for PE. Full ROS: History of atrial flutter status post October 2020 ablation. Off anticoagulation since November 2020 due to menstrual bleeding. On Toprol XL 25 mg/day. Shingles on her back two weeks ago. Recent Botox injection (forehead). Rheumatoid arthritis. Gastritis. Chronic headaches. Insomnia. Anxiety. Chronic tobacco use disorder. Allergies Allergy/AdvReac Type Severity Reaction Status Date / Time No Known Allergies Allergy Mild Verified 07/05/21 23:24 Home Medications Medication Instructions Recorded Confirmed Type alprazolam 0.5 mg tablet 0.5 mg PO HS PRN 09/14/18 07/05/21 History fluoxetine 20 mg capsule (Prozac) 60 mg PO QAM 09/14/18 07/05/21 History glycopyrrolate 1 mg tablet 2 mg PO QAM 09/14/18 07/05/21 History folic acid 1 mg tablet 2 mg PO QAM 12/24/18 07/05/21 History omeprazole 20 mg capsule,delayed 20 mg PO QAM 12/24/18 07/05/21 History release leflunomide 10 mg tablet 10 mg PO QAM 04/23/19 07/05/21 History etanercept 50 mg/mL (1 mL) 0 mg SUBCUT WK 07/05/21 07/05/21 History subcutaneous pen injector (Enbrel SureClick) methylprednisolone 4 mg tablets in 0 mg PO DIRECTED PRN 07/05/21 07/05/21 History a dose pack metoprolol succinate 25 mg 25 mg PO DAILY 07/05/21 07/05/21 History tablet,extended release 24 hr Patient History Medical History (Updated 07/06/21 @ 12:12 by Lenore Arora DO) Anxiety Atrial fibrillation + FLUTTER (NEWLY DX) On Eliquis GERD (gastroesophageal reflux disease) History of kidney stones History of TMJ disorder Hypertension Per records RA (rheumatoid arthritis) On Arava Surgical History H/O wisdom tooth extraction History of colonoscopy History of esophagogastroduodenoscopy (EGD) Family History Other No family history of adverse response to anesthesia No significant family history Social History Smoking Status: Current every day smoker Tobacco Type: E-cigarettes / Vaping Cigarettes Per Day: 1 CART. DAILY; Second Hand Exposure: No; Do You Dip or Chew Tobacco: No; Tobacco Cessation Education Requested by Patient: No Hx Alcohol Use: Yes Alcohol type: beer, wine and hard liquor Hx Substance Use: No Preferred Language: Uzbek Communication Ability: Effective Warehouse Inventory Clerk Required: No Beliefs That Will Affect Care: None marital status: Current Living Situation: Spouse Other Information That Helps Us Care for You: No Feels Safe at Home: Yes Safety Concerns: Feels Safe At This Time Assistive Devices: None Review of Systems Review of Systems: Complete Review of Systems is as stated above, negative, or noncontributory. Physical Exam Physical Exam: General: A&Ox3. NAD. HENT: Normocephalic. Atraumatic. Eyes: PER. Conjunctiva pink, sclera clear. Neck: No carotid bruits. No JVD. Heart: Regular at 90 bpm with an occasional ectopic beat. No murmur. No rub. PMI is nondisplaced. Lungs: Clear to auscultation. Abdomen: +BS. Soft. Nontender. No masses or organomegaly. Extremities: No clubbing, cyanosis, or edema. Limited neurological examination is without focal deficits. Pulses: Posterior tibial=1/4. Results & Data ([facility]) Vital Signs (Past 12 Hours) Vital Signs Temp Pulse Pulse Resp BP BP Pulse Ox 07/06/21 08:30 127 H 22 111/69 90 07/06/21 08:00 131 H 24 100/72 90 07/06/21 07:37 110 H 22 104/61 95 07/06/21 07:30 113 H 22 115/70 93 07/06/21 07:16 109 H 25 H 106/76 98 07/06/21 07:00 37.6 C H 114 H 32 H 94 07/06/21 06:45 109 H 27 H 112/73 93 07/06/21 06:31 93 H 21 113/65 97 07/06/21 06:15 117 H 35 H 112/77 94 07/06/21 06:00 122 H 29 H 100/69 93 07/06/21 05:45 112 H 22 121/70 94 07/06/21 05:30 123 H 53 H 118/73 96 07/06/21 05:15 135 H 24 121/75 99 07/06/21 05:01 130 H 14 121/93 98 07/06/21 04:45 159 H 23 106/74 84 L 07/06/21 04:40 137 H 16 133/79 98 07/06/21 04:33 37.2 C 171 H 148 H 27 H 111/91 97 07/06/21 04:31 169 H 11 L 111/91 96 07/06/21 04:25 164 H 29 H 98 07/06/21 02:27 118 H 22 122/76 94 07/06/21 01:49 117 H 24 134/80 96 07/06/21 01:32 128 H 26 H 98 07/06/21 01:29 165 H 33 H 97 07/06/21 01:27 164 H 30 H 143/107 H 97 07/06/21 01:20 166 H 07/06/21 01:00 161 H 26 H 149/110 H 89 L 07/06/21 00:58 162 H 30 H 90 07/06/21 00:46 162 H 20 147/103 H 91 07/06/21 00:42 164 H 155/102 H 07/05/21 23:52 163 H 18 141/94 H 94 07/05/21 22:37 36.4 C L 164 H 22 148/93 H 96 Pulse Ox 07/06/21 08:30 07/06/21 08:00 93 07/06/21 07:37 07/06/21 07:30 07/06/21 07:16 07/06/21 07:00 07/06/21 06:45 07/06/21 06:31 07/06/21 06:15 07/06/21 06:00 07/06/21 05:45 07/06/21 05:30 07/06/21 05:15 07/06/21 05:01 07/06/21 04:45 07/06/21 04:40 07/06/21 04:33 96 07/06/21 04:31 07/06/21 04:25 07/06/21 02:27 07/06/21 01:49 07/06/21 01:32 07/06/21 01:29 07/06/21 01:27 07/06/21 01:20 07/06/21 01:00 07/06/21 00:58 07/06/21 00:46 07/06/21 00:42 07/05/21 23:52 07/05/21 22:37 Laboratory Results Laboratory Results - last 24 hr 07/05/21 07/05/21 07/05/21 Unknown Unknown Unknown WBC 10.71 RBC 4.18 L Hgb 11.7 L Hct 36.6 L MCV 87.6 MCH 28.0 MCHC 32.0 RDW Std Deviation 49.2 H RDW Coeff of Bridget 15.3 H Plt Count 403 H MPV 10.7 H Immature Gran % (Auto) 0.1 Neut % (Auto) 64.3 Lymph % (Auto) 26.8 Platte % (Auto) 6.4 Eos % (Auto) 1.9 Baso % (Auto) 0.5 Neut # (Auto) 6.89 H Lymph # (Auto) 2.87 Platte # (Auto) 0.69 H Eos # (Auto) 0.20 Baso # (Auto) 0.05 Immature Gran # (Auto) 0.01 PT 10.9 INR 1.0 APTT 26.8 PTT Ratio 1.0 D-Dimer 1040 H* Sodium 138 Potassium 3.8 Chloride 104 Carbon Dioxide 22 Anion Gap 12 H BUN 12 Creatinine 0.65 Est Cr Clr Drug Dosing 92.7 Est GFR ( Amer) 120.0 Est GFR (Non-Af Amer) 103.5 BUN/Creatinine Ratio 18.5 Glucose 75 POC Glucose Calcium 9.3 Magnesium 1.7 Total Bilirubin 0.4 AST 39 ALT 39 Alkaline Phosphatase 82 Troponin I High Sens 11.9 Total Protein 6.8 Albumin 3.8 Globulin 3.0 Albumin/Globulin Ratio 1.3 TSH Free T4 Nasal Screen MRSA (PCR) SARS-CoV-2, RNA, NAAT 07/05/21 07/06/21 07/06/21 Unknown 00:18 04:33 WBC RBC Hgb Hct MCV MCH MCHC RDW Std Deviation RDW Coeff of Bridget Plt Count MPV Immature Gran % (Auto) Neut % (Auto) Lymph % (Auto) Platte % (Auto) Eos % (Auto) Baso % (Auto) Neut # (Auto) Lymph # (Auto) Platte # (Auto) Eos # (Auto) Baso # (Auto) Immature Gran # (Auto) PT INR APTT PTT Ratio D-Dimer Sodium Potassium Chloride Carbon Dioxide Anion Gap BUN Creatinine Est Cr Clr Drug Dosing Est GFR ( Amer) Est GFR (Non-Af Amer) BUN/Creatinine Ratio Glucose POC Glucose Calcium Magnesium Total Bilirubin AST ALT Alkaline Phosphatase Troponin I High Sens Total Protein Albumin Globulin Albumin/Globulin Ratio TSH 6.656 H Free T4 0.91 Nasal Screen MRSA (PCR) Negative SARS-CoV-2, RNA, NAAT NEGATIVE 07/06/21 07/06/21 07/06/21 05:05 05:05 05:16 WBC 12.03 H RBC 4.20 Hgb 11.8 L Hct 36.9 L MCV 87.9 MCH 28.1 MCHC 32.0 RDW Std Deviation 49.1 H RDW Coeff of Bridget 15.3 H Plt Count 376 MPV 9.9 Immature Gran % (Auto) 0.3 Neut % (Auto) 82.0 Lymph % (Auto) 10.4 [place]atte % (Auto) 6.6 Eos % (Auto) 0.4 Baso % (Auto) 0.3 Neut # (Auto) 9.86 H Lymph # (Auto) 1.25 Platte # (Auto) 0.79 H Eos # (Auto) 0.05 Baso # (Auto) 0.04 Immature Gran # (Auto) 0.04 H PT INR APTT PTT Ratio D-Dimer Sodium 138 Potassium 3.5 Chloride 103 Carbon Dioxide 23 Anion Gap 12 H BUN 10 Creatinine 0.66 Est Cr Clr Drug Dosing 91.3 Est GFR ( Amer) 119.4 Est GFR (Non-Af Amer) 103.0 BUN/Creatinine Ratio 15.2 Glucose 95 POC Glucose 101 H Calcium 8.5 Magnesium 1.6 L Total Bilirubin AST ALT Alkaline Phosphatase Troponin I High Sens 13.9 Total Protein Albumin Globulin Albumin/Globulin Ratio TSH Free T4 Nasal Screen MRSA (PCR) SARS-CoV-2, RNA, NAAT 07/06/21 07/06/21 06:22 06:22 WBC 13.69 H RBC 4.17 L Hgb 11.7 L Hct 36.7 L MCV 88.0 MCH 28.1 MCHC 31.9 L RDW Std Deviation 48.9 H RDW Coeff of Bridget 15.2 H Plt Count 376 MPV 10.4 Immature Gran % (Auto) 0.4 Neut % (Auto) 79.9 Lymph % (Auto) 10.2 Platte % (Auto) 8.8 Eos % (Auto) 0.4 Baso % (Auto) 0.3 Neut # (Auto) 10.95 H Lymph # (Auto) 1.39 Platte # (Auto) 1.20 H Eos # (Auto) 0.06 Baso # (Auto) 0.04 Immature Gran # (Auto) 0.05 H PT 10.9 INR 1.0 APTT 26.5 PTT Ratio 1.0 D-Dimer Sodium Potassium Chloride Carbon Dioxide Anion Gap BUN Creatinine Est Cr Clr Drug Dosing Est GFR ( Amer) Est GFR (Non-Af Amer) BUN/Creatinine Ratio Glucose POC Glucose Calcium Magnesium Total Bilirubin AST ALT Alkaline Phosphatase Troponin I High Sens Total Protein Albumin Globulin Albumin/Globulin Ratio TSH Free T4 Nasal Screen MRSA (PCR) SARS-CoV-2, RNA, NAAT Diagnostic Findings Telemetry: Atrial flutter with spontaneous conversion this morning, to sinus rhythm at 90 bpm with frequent atrial ectopy July 06, 2021 TTE Interpretation Summary ([facility], Dr. Moreau): Normal LV chamber size. Mild concentric LVH. Normal LV systolic function. EF 55-60%. No segmental LV WMA's. No significant valvular pathology.
--- NOTE | 2021-07-06 09:44 | Communication Note ---
Date of Service: July 06, 2021 Patient has had spontaneous conversion to normal sinus rhythm. Heparin per cardiology. Work to discontinue diltiazem and stable for downgrade out of ICU. BiPAP decreasing to as needed and nightly Coding Level of Care Code None
--- NOTE | 2021-07-06 10:06 | Electrocardiogram Report ---
Test Reason : Blood Pressure : / mmHG Vent. Rate : 163 BPM Atrial Rate : 163 BPM P-R Int : 120 ms QRS Dur : 144 ms QT Int : 296 ms P-R-T Axes : 000 042 -48 degrees QTc Int : 487 ms Poor data quality, interpretation may be adversely affected Atrial flutter Abnormal ECG When compared with ECG of 11-NOV-2020 11:17, Vent. rate has increased BY 88 BPM Atrial flutter has replaced sinus rhythm Confirmed by Musa Gonzalez ([id number]) on 07/06/2021 10:06:10 AM Referred By: REFERRED SELF Confirmed By:Harpreet Gonzalez
[2021-07-06] MEDS: METOPROLOL SUCC 50MG EXT REL TAB PO SCH (10:16)
--- NOTE | 2021-07-06 11:34 | Electrocardiogram Report ---
Test Reason : Blood Pressure : / mmHG Vent. Rate : 094 BPM Atrial Rate : 094 BPM P-R Int : 164 ms QRS Dur : 076 ms QT Int : 354 ms P-R-T Axes : 054 058 057 degrees QTc Int : 442 ms Sinus rhythm with Premature atrial complexes Nonspecific ST and T wave abnormality Abnormal ECG When compared with ECG of 06-JUL-2021 05:28, (unconfirmed) Sinus rhythm has replaced Atrial flutter Nonspecific T wave abnormality no longer evident in Inferior leads Confirmed by Musa Gonzalez ([id number]) on 07/06/2021 11:34:19 AM Referred By: REFERRED SELF Confirmed By:Harpreet Gonzalez
--- NOTE | 2021-07-06 11:37 | Electrocardiogram Report ---
Test Reason : Blood Pressure : / mmHG Vent. Rate : 123 BPM Atrial Rate : 357 BPM P-R Int : 000 ms QRS Dur : 102 ms QT Int : 392 ms P-R-T Axes : -83 051 059 degrees QTc Int : 561 ms Atrial flutter with variable A-V block Nonspecific T wave abnormality Abnormal ECG When compared with ECG of 05-JUL-2021 22:43, (unconfirmed) Atrial flutter has replaced Sinus rhythm Right bundle branch block is no longer Present Confirmed by Musa Gonzalez ([id number]) on 07/06/2021 11:36:55 AM Referred By: REFERRED SELF Confirmed By:Harpreet Gonzalez
--- NOTE | 2021-07-06 12:13 | Hospitalist Progress Note ---
Date of Service July 06, 2021 Assessment & Plan (1) Acute decompensated heart failure: Plan: 2/2 symptomatic atrial flutter with rapid ventricular response. Volume status has improved following administration of IV furosemide however she still hypoxic and will continue daily Lasix with potassium replacement as needed. Notably potassium and magnesium were supplemented today, will trend labs in AM. Continue strict I's and O's, continue hospital stay while hypoxia persists. (2) Atrial flutter with rapid ventricular response: Plan: Weaned off IV diltiazem, initiating antiarrhythmic therapy with flecainide 50 mg twice daily. Converting IV heparin to Eliquis 5 mg twice daily all per cardiology. Additionally will resume beta-brenden therapy with increased dose of metoprolol succinate to 50 mg daily. (3) Respiratory distress: Plan: Improved with spontaneous conversion to sinus rhythm and diuresis overnight. (4) Admitted to intensive care unit: Plan: Downgraded to PCU status this morning. (5) DVT prophylaxis: Plan: IV heparin converting to Eliquis Full code Disposition-continue PCU and hospital stay while patient is recovering from a symptom standpoint, being monitored on new antiarrhythmic therapy and was still hypoxic. Plan for home in next few days. Lenore Arora DO [facility] Hospitalist Admission and Anticipated Discharge Date Admission Date: July 06, 2021 Subjective 51-year-old female with known history of atrial fibrillation status post ablat ion in October 2020 no longer on any anticoagulation presented to the ER with chief complaint of shortness of breath. She was noted to have a narrow top complex tachycardia in the 160s on arrival and has been short of breath for 2 weeks. She was given 6 mg of adenosine without response and then 12 mg of adenosine with obvious flutter waves noted on telemetry. Highly sensitive troponin was within normal limits. She was loaded with diltiazem and placed on a diltiazem drip without any response and heart rate. Blood pressure remained stable but she required an oxygen mask without much improvement. CT chest with contrast did not reveal evidence of PE but she did have some venous congestion. She was then placed on BiPAP with resultant improvement in her oxygenation into the 90s and work of breathing was improved. IV metoprolol was then given and patient was loaded with digoxin. IV Lasix was also given overnight and her heart rate improved. She was admitted to the critical care unit for continued management. Cardiology was consulted and feels she has acute decompensated diastolic heart failure. Volume status has improved following the administration of IV furosemide with rhythm spontaneously converting back to sinus rhythm with frequent premature atrial contractions this morning. She continues on IV cardiac exam and IV heparin. Echocardiogram was performed revealing a normal left ventricular chamber size with mild concentric LVH and normal systolic function with an EF of 55 to 60%. There were no segmental left ventricular wall motion abnormalities noted and no significant valvular pathology. She has been downgraded from ICU status to PCU status. IV heparin will be converted to Eliquis and she will resume her metoprolol succinate at an increased dose of 50 mg daily. Today she reports an improvement in her leg and arm soreness which has been ongoing for the last 2 weeks. Denies shortness of breath Denies chest pain Overall feels better. Review of Systems Review of Systems: All systems were reviewed and negative except as indicated above. Physical Exam Physical Exam: CONSTITUTIONAL: WNWD, vitals as above, generally well- appearing, NAD EYES: normal conjunctivae, no scleral icterus ENT: external ear and nose normal, MMM NECK: trachea midline, no lymphadenopathy RESPIRATORY: clear to auscultation bilaterally, no crackles, rales or wheezes, normal respiratory effort CARDIOVASCULAR: regular rate and rhythm, S1 and 2 heard without murmurs, gallops or rubs, no JVD, no peripheral edema CHEST: inspection of chest was normal GASTROINTESTINAL: soft, nontender, no guarding MUSCULOSKELETAL: strength 5/5 throughout, head is normocephalic and atraumatic, neck supple, normal palpation of chest wall without tenderness SKIN: warm and dry NEUROLOGIC: No facial palsy, no dysarthria. CN 2-12 grossly intact, no sensory deficit, normal cognition, normal speech, PSYCHIATRIC: alert cooperative and oriented to person, place and time. Euthymic mood, makes good eye contact, language grossly intact, recent and remote memory grossly intact. Results & Data Results & Data ([facility]) Vital Signs (Past 12 Hours) Vital Signs Temp Pulse Pulse Resp BP BP Pulse Ox 07/06/21 08:30 127 H 22 111/69 90 07/06/21 08:00 131 H 24 100/72 90 07/06/21 07:37 110 H 22 104/61 95 07/06/21 07:30 113 H 22 115/70 93 07/06/21 07:16 109 H 25 H 106/76 98 07/06/21 07:00 37.6 C H 114 H 32 H 94 07/06/21 06:45 109 H 27 H 112/73 93 07/06/21 06:31 93 H 21 113/65 97 07/06/21 06:15 117 H 35 H 112/77 94 07/06/21 06:00 122 H 29 H 100/69 93 07/06/21 05:45 112 H 22 121/70 94 07/06/21 05:30 123 H 53 H 118/73 96 07/06/21 05:15 135 H 24 121/75 99 07/06/21 05:01 130 H 14 121/93 98 07/06/21 04:45 159 H 23 106/74 84 L 07/06/21 04:40 137 H 16 133/79 98 07/06/21 04:33 37.2 C 171 H 148 H 27 H 111/91 97 07/06/21 04:31 169 H 11 L 111/91 96 07/06/21 04:25 164 H 29 H 98 07/06/21 02:27 118 H 22 122/76 94 07/06/21 01:49 117 H 24 134/80 96 07/06/21 01:32 128 H 26 H 98 07/06/21 01:29 165 H 33 H 97 07/06/21 01:27 164 H 30 H 143/107 H 97 07/06/21 01:20 166 H 07/06/21 01:00 161 H 26 H 149/110 H 89 L 07/06/21 00:58 162 H 30 H 90 07/06/21 00:46 162 H 20 147/103 H 91 07/06/21 00:42 164 H 155/102 H Pulse Ox 07/06/21 08:30 07/06/21 08:00 93 07/06/21 07:37 07/06/21 07:30 07/06/21 07:16 07/06/21 07:00 07/06/21 06:45 07/06/21 06:31 07/06/21 06:15 07/06/21 06:00 07/06/21 05:45 07/06/21 05:30 07/06/21 05:15 07/06/21 05:01 07/06/21 04:45 07/06/21 04:40 07/06/21 04:33 96 07/06/21 04:31 07/06/21 04:25 07/06/21 02:27 07/06/21 01:49 07/06/21 01:32 07/06/21 01:29 07/06/21 01:27 07/06/21 01:20 07/06/21 01:00 07/06/21 00:58 07/06/21 00:46 07/06/21 00:42 Laboratory Results Short CBC 07/05/21 07/06/21 07/06/21 Range/Units Unknown 05:05 06: WBC 10.71 12.03 H 13.69 H (4.8-10.8) K/uL Hgb 11.7 L 11.8 L 11.7 L (12.0-16.0) g/dL Hct 36.6 L 36.9 L 36.7 L (37-47) % Plt Count 403 H 376 376 (130-400) K/uL BMP 07/05/21 07/06/21 Unknown 05:05 Sodium 138 138 Potassium 3.8 3.5 Chloride 104 103 Carbon Dioxide 22 23 BUN 12 10 Creatinine 0.65 0.66 Glucose 75 95 Calcium 9.3 8.5 Liver Function 07/05/21 Range/Units Unknown Total Bilirubin 0.4 (0.2-1.0) mg/dl AST 39 (13-39) U/L ALT 39 (7-52) U/L Alkaline Phosphatase 82 (34-104) U/L Albumin 3.8 (3.4-5.0) gm/dl Diagnostic Findings Chest X-Ray 07/05/21 22:57 SINGLE VIEW CHEST CLINICAL HISTORY: Dysrhythmia. Dyspnea and weakness. FINDINGS: An AP, portable, upright chest radiograph is compared to study dated 01/29/2007. The heart is enlarged. There is pulmonary vascular congestion. Bilateral airspace opacities likely represented pulmonary edema. Trace pleural effusions are suspected. No pneumothorax is seen. The bony thorax is grossly intact. IMPRESSION: 1. Cardiomegaly with evidence of congestive failure. 2. Bilateral airspace opacities likely represent pulmonary edema. Correlate clinically for evidence of a superimposed infectious/inflammatory pneumonitis. Radiographic follow-up to resolution is recommended. 3. Suspect trace pleural effusions. ACT 112: Negative or not required by law. Electronically signed by: Cameron Leos M.D. 07/06/2021 8:05 AM Chest CTA 07/05/21 23:58 CT ANGIOGRAPHY OF THE CHEST, PULMONARY EMBOLUS PROTOCOL CLINICAL HISTORY: Shortness of breath. Chest pain. Evaluate for pulmonary embolus. COMPARISON STUDY: Chest radiograph July 05, 2021. TECHNIQUE: Following IV administration of 97 mL of Optiray, helical axial images of the chest were obtained utilizing the pulmonary embolus protocol. Maximal in tensity projections and sagittal and coronal reformats were viewed on an independent 3D workstation. IV contrast was administered without complication. Automated exposure control was utilized for the study. A dose lowering technique was utilized adhering to the principles of ALARA. CT DOSE: 283.02 mGy.cm FINDINGS: No pulmonary emboli are identified. There is no thoracic aortic dissection. Borderline cardiomegaly is noted. There is no pericardial effusion. Small hiatal hernia is present. Prominent mediastinal and bilateral hilar lymph nodes are present. These are probably benign. There are small bilateral pleural effusions, right larger than left. No pneumothorax is present. Central airways are patent. Interlobular septal thickening is noted. There are additional groundglass opacities within the lungs with lower lobe predominance. 6 mm left lower lobe nodule on image 102 186 is noted. There is a six-month right middle lobe nodule on image 106. Bronchial wall thickening is present. This is likely related to pulmonary edema. No acute fracture or suspicious lesion within the visualized bony thorax. Visualized portions of the upper abdomen are unremarkable. IMPRESSION: 1. No pulmonary emboli identified. 2. Interstitial and alveolar pulmonary edema, as described above. Small bilateral pleural effusions. Borderline cardiomegaly. 3. A few low suspicion pulmonary nodules that measure up to 6 mm. Follow-up chest CT in 6 months is recommended to ensure stability. ACT 112: Negative or not required by law. Electronically signed by: Holger Kim M.D. 07/06/2021 8:07 AM Medications Administered Current Inpatient Medications Acetaminophen (Acetaminophen 325 Mg Tab) 650 mg PO Q4H PRN PRN Reason: pain/fever Stop: 08/05/21 11:47 Alprazolam (Alprazolam 0.5 Mg Tablet) 0.5 mg PO HS PRN PRN Reason: RESTLESSNESS Stop: 08/05/21 09:47 Flecainide Acetate (Flecainide Acetate 100 Mg Tablet) 50 mg PO Q12 [facility] Stop: 08/05/21 20:59 Fluoxetine HCl (Fluoxetine Hcl 20 Mg Cap) 60 mg PO [facility] Stop: 08/05/21 08:59 Last Admin: 07/06/21 08:48 Dose: 60 mg Documented by: Folic Acid (Folic Acid 1 Mg Tab) 2 mg PO [facility] Stop: 08/05/21 08:59 Last Admin: 07/06/21 08:47 Dose: 2 mg Documented by: Glycopyrrolate (Glycopyrrolate 1 Mg Tab) 2 mg PO [facility] Stop: 08/05/21 08:59 Last Admin: 07/06/21 08:48 Dose: 2 mg Documented by: Heparin Sodium/Dextrose (Heparin Sodium/Dextrose) 25,000 units in 500 mls @ 20 mls/hr IV .Q24H [facility]; Protocol Stop: 08/05/21 04:32 Last Admin: 07/06/21 07:35 Dose: 1,000 units/hr, 20 mls/hr Documented by: Diltiazem HCl 125 mg/ Dextrose 125 mls @ 10 mls/hr IV .[id number] [facility]; Protocol Stop: 08/05/21 04:32 Last Titration: 07/06/21 12:04 Dose: 5 mg/hr, 5 mls/hr Documented by: Leflunomide (Leflunomide 10 Mg Tab) 10 mg PO [facility] Stop: 08/05/21 08:59 Last Admin: 07/06/21 08:47 Dose: 10 mg Documented by: Metoprolol Succinate (Metoprolol Succ 50mg Ext Rel Tab) 50 mg PO [facility] Stop: 08/05/21 09:29 Last Admin: 07/06/21 10:16 Dose: 50 mg Documented by: Miscellaneous (Enbrel~Order Awaiting Action) 1 ea N/A QS [facility] Stop: 08/06/21 07:59 Pantoprazole Sodium (Pantoprazole 40 Mg Tab) 40 mg PO [facility] Stop: 08/05/21 08:59 Last Admin: 07/06/21 08:47 Dose: 40 mg Documented by:
[2021-07-06] MEDS: ACETAMINOPHEN 325 MG TAB PO PRN (13:16)
[2021-07-06 14:24] LABS: Partial Thromboplastin Ratio 1.3; Partial Thromboplastin Time 36.8 Seconds (21.0-31.0)
[2021-07-06] MEDS ORDERED: HEPARIN SOD (PORCINE) 1000 UNIT/ML IV ONE (15:00)
[2021-07-06] MEDS: FLECAINIDE ACETATE 100 MG TABLET PO SCH (20:05)
[2021-07-06 21:30] LABS: Partial Thromboplastin Ratio 1.7
[2021-07-06] MEDS: ALPRAZolam 0.5 MG TABLET PO PRN (21:38)
[2021-07-06 21:56] LABS: Partial Thromboplastin Time 46.1 Seconds (21.0-31.0)
[2021-07-07 06:20] LABS: Hematocrit (blood only) 32.2 % (37-47); Mean Corpuscular Hemoglobin 27.7 pg (25-34); Mean Corpuscular Hgb Conc 31.1 g/dL (32-36); Mean Corpuscular Volume 89.2 fL (80-100); Mean Platelet Volume 10.6 fL (7.4-10.4); Platelet Count 312 K/uL (130-400); RDW Coefficient of Variation 15.2 % (11.5-14.5); RDW Standard Deviation 49.3 fL (36.4-46.3); Red Blood Count 3.61 M/uL (4.2-5.4); White Blood Count 8.79 K/uL (4.8-10.8)
[2021-07-07 06:42] LABS: Partial Thromboplastin Ratio 1.5; Partial Thromboplastin Time 42.4 Seconds (21.0-31.0)
[2021-07-07 06:46] LABS: Basophils # (auto) 0.04 K/uL (0-0.2); Basophils % (auto) 0.5 %; Eosinophils # (auto) 0.15 K/uL (0-0.5); Eosinophils % (auto) 1.7 %; Immature Granulocytes # (auto) 0.03 K/uL (0.00-0.02); Immature Granulocytes % (auto) 0.3 %; Lymphocytes # (auto) 2.13 K/uL (1.2-3.4); Lymphocytes % (auto) 24.2 %; Monocytes # (auto) 1.26 K/uL (0.11-0.59); Monocytes % (auto) 14.3 %; Neutrophils # (auto) 5.18 K/uL (1.4-6.5); RBC Morphology Unremarkable
[2021-07-07] MEDS: HEPARIN SODIUM/DEXTROSE 25,000 UNITS/500 ML BAG IV SCH ×2 (06:53→07:15)
[2021-07-07 07:01] LABS: BUN Creatinine Ratio 14.3 (10-20); Calcium 8.6 mg/dl (8.5-10.1); Creatinine Clr Calc Pharmacy 99.9 ml/min; Est GFR (African American) 121.2 ml/min; Est GFR (Non-African American) 104.6 ml/min; Magnesium 2.2 mg/dl (1.7-2.4); Potassium 3.3 mmol/L (3.5-5.1)
[2021-07-07] MEDS: FOLIC ACID 1 MG TAB PO SCH (08:03)
[2021-07-07] MEDS: LEFLUNOMIDE 10 MG TAB PO SCH (08:03)
[2021-07-07] MEDS: METOPROLOL SUCC 50MG EXT REL TAB PO SCH (08:03)
[2021-07-07] MEDS: FLECAINIDE ACETATE 100 MG TABLET PO SCH ×2 (08:03→20:09)
[2021-07-07] MEDS: POTASSIUM CHLORIDE CRTAB 20 MEQ TABCR PO SCH (08:03)
[2021-07-07] MEDS ORDERED: POTASSIUM CHLORIDE 10 MEQ TABCR PO ONE (08:03)
[2021-07-07] MEDS: FLUoxetine HCL 20 MG CAP PO SCH (08:03)
[2021-07-07] MEDS: GLYCOPYRROLATE 1 MG TAB PO SCH (08:03)
[2021-07-07] MEDS: PANTOprazole 40 MG TAB PO SCH (08:03)
[2021-07-07] MEDS: FUROSEMIDE 40 MG/4 ML VIAL IV SCH (08:04)
--- NOTE | 2021-07-07 09:51 | Cardiology Progress Note ---
Date of Service July 07, 2021 Assessment & Plan (1) Atrial flutter with rapid ventricular response: (2) Respiratory distress: (3) Acute decompensated heart failure: Plan: 51 year old female admitted to [facility] on 07/05/2021 with progressive exertional dyspnea with associated leg heaviness/soreness, recurrent symptomatic atrial flutter with a rapid ventricular response with resultant acute decompensated diastolic heart failure status post spontaneous conversion back to sinus rhythm with frequent premature atrial contractions on July 06, 2021 at 08:54. Volume status appears euvolemic following IV diuresis. Patient tolerating the increased dose of metoprolol as well as flecainide with EKG this morning revealing sinus rhythm at 96 bpm with premature atrial contractions and a QTc of 457 ms. RECOMMENDATIONS: PA and lateral chest x-ray. Suspect patient will require low-dose loop diuretic therapy with supplemental potassium for a few days Increase metoprolol succinate to 75 mg daily Continue flecainide at 50 mg twice per day IV Heparin to Eliquis, 5 mg twice a day Maintain electrolytes Anemia work-up/evaluation as per Hospitalist/PCP Outpatient cardiology follow-up with EKG in 1-2 weeks; requests Dr. Laboy, at [facility]. Admission and Anticipated Discharge Date Admission Date: July 06, 2021 Supervising Physician Co-Signing Physician Notes Patient seen and examined with Triston Velazquez PA-C. Agree with findings and assessment as above. Recurrent atrial flutter despite ablation. Beta-brenden uptitrated and flecainide restarted. Continue Eliquis. Recurrent bursts of A. Flutter this a.m. resolved with IV metoprolol. May also use 200 mg of flecainide as an additional as needed dose following a pill in the pocket strategy. Not to exceed 300 mg daily. Subjective Patient seen and examined. Chart, medications, and telemetry reviewed. Feeling better overall. No longer dyspneic. Leg heaviness/soreness has improved. She has not been ambulatory. Winn catheter remains in place. EKG this morning reveals sinus rhythm at 96 bpm with premature atrial contractions. QTc interval was 457 ms. Continuous telemetry monitoring reveals sinus with frequent PACs since conversion from atrial flutter with RVR on July 06, 2021 at 08:54 July 06, 2021 TTE Interpretation Summary ([facility], Dr. Linden): Normal LV chamber size with mild concentric LVH. Normal LV systolic function, EF 55 to 60%. No segmental left ventricular wall motion abnormalities. No significant valvular pathology. Review of Systems Review of Systems: Complete Review of Systems is as stated above, negative, or noncontributory. Physical Exam Physical Exam: General: A&Ox3. NAD. HENT: Normocephalic. Atraumatic. Eyes: PER. Conjunctiva pink, sclera clear. Neck: No carotid bruits. No JVD. Heart: Regular with ectopic beats, 90 bpm. No murmur. No rub. PMI is nondisplaced. Lungs: Clear to auscultation. Abdomen: +BS. Soft. Nontender. No masses or organomegaly. Extremities: No clubbing, cyanosis, or edema. Limited neurological examination is without focal deficits. Pulses: Posterior tibial=1/4. Results & Data ([facility]) Vital Signs (Past 12 Hours) Vital Signs Temp Pulse Pulse Resp BP BP Pulse Ox 07/07/21 07:30 36.7 C 87 17 113/69 92 07/07/21 04:15 36.9 C 90 16 134/59 L 95 07/06/21 23:24 37.1 C 87 18 118/77 95 07/06/21 23:00 95 H Laboratory Results Laboratory Results - last 24 hr 07/06/21 07/06/21 07/06/21 10:48 13:56 16:28 WBC RBC Hgb Hct MCV MCH MCHC RDW Std Deviation RDW Coeff of Bridget Plt Count MPV Immature Gran % (Auto) Neut % (Auto) Lymph % (Auto) Potter % (Auto) Eos % (Auto) Baso % (Auto) Neut # (Auto) Lymph # (Auto) Potter # (Auto) Eos # (Auto) Baso # (Auto) Immature Gran # (Auto) RBC Morphology APTT 36.8 H PTT Ratio 1.3 Sodium Potassium Chloride Carbon Dioxide Anion Gap BUN Creatinine Est Cr Clr Drug Dosing Est GFR ( Amer) Est GFR (Non-Af Amer) BUN/Creatinine Ratio Glucose Calcium Magnesium Troponin I High Sens 13.5 13.2 07/06/21 07/06/21 07/07/21 20:41 20:41 05:48 WBC 8.79 RBC 3.61 L Hgb 10.0 L Hct 32.2 L MCV 89.2 MCH 27.7 MCHC 31.1 L RDW Std Deviation 49.3 H RDW Coeff of Bridget 15.2 H Plt Count 312 MPV 10.6 H Immature Gran % (Auto) 0.3 Neut % (Auto) 59.0 Lymph % (Auto) 24.2 Potter % (Auto) 14.3 Eos % (Auto) 1.7 Baso % (Auto) 0.5 Neut # (Auto) 5.18 Lymph # (Auto) 2.13 Potter # (Auto) 1.26 H Eos # (Auto) 0.15 Baso # (Auto) 0.04 Immature Gran # (Auto) 0.03 H RBC Morphology Unremarkable APTT 46.1 H* PTT Ratio 1.7 Sodium Potassium Chloride Carbon Dioxide Anion Gap BUN Creatinine Est Cr Clr Drug Dosing Est GFR ( Amer) Est GFR (Non-Af Amer) BUN/Creatinine Ratio Glucose Calcium Magnesium Troponin I High Sens 12.7 07/07/21 07/07/21 05:48 05:48 WBC RBC Hgb Hct MCV MCH MCHC RDW Std Deviation RDW Coeff of Bridget Plt Count MPV Immature Gran % (Auto) Neut % (Auto) Lymph % (Auto) Potter % (Auto) Eos % (Auto) Baso % (Auto) Neut # (Auto) Lymph # (Auto) Potter # (Auto) Eos # (Auto) Baso # (Auto) Immature Gran # (Auto) RBC Morphology APTT 42.4 H PTT Ratio 1.5 Sodium 138 Potassium 3.3 L Chloride 105 Carbon Dioxide 26 Anion Gap 7 BUN 9 Creatinine 0.63 Est Cr Clr Drug Dosing 99.9 Est GFR ( Amer) 121.2 Est GFR (Non-Af Amer) 104.6 BUN/Creatinine Ratio 14.3 Glucose 91 Calcium 8.6 Magnesium 2.2 Troponin I High Sens
[2021-07-07] MEDS ORDERED: METOPROLOL SUCC 25MG EXT REL TAB PO ONE (10:15)
--- NOTE | 2021-07-07 11:04 | XRay Report ---
XR chest 2V PA/lateral HISTORY: 51 years-old Female CHF acute shortness of breath COMPARISON: CTA chest 07/06/2021 TECHNIQUE: PA and lateral views of the chest FINDINGS: Cardiac silhouette is upper limits of normal in size. Small pleural effusions. There is improved aera tion of the lungs with decreased pulmonary vascular congestion and interstitial coarsening. Bones antonio ear grossly intact. IMPRESSION: Small pleural effusions with resolving pulmonary edema. ACT 112: Negative or not required by law. The above report was generated using voice recognition software. It may contain grammatical, syntax o r spelling errors. Electronically signed by: Guilherme iMstry M.D. 07/07/2021 11:03 AM
[2021-07-07] MEDS ORDERED: METOPROLOL TARTRATE 1 MG/ML VIAL IV STA (11:48)
[2021-07-07] MEDS ORDERED: METOPROLOL TARTRATE 1 MG/ML VIAL IV ONE (11:53)
--- NOTE | 2021-07-07 12:04 | Hospitalist Progress Note ---
Date of Service July 07, 2021 Assessment & Plan (1) Acute decompensated heart failure: Plan: 2/2 symptomatic atrial flutter with rapid ventricular response. Volume status has improved following administration of IV furosemide however she still hypoxic and will continue daily Lasix with potassium replacement as needed. Continue strict I's and O's, continue hospital stay while hypoxia persists. With return to aflutter with RVR today, will likely continue to stay so will ensure no 2 step test needed prior to going home off oxygen in am. CXR today reveals resolving pulmonary edema and she is not SOB. Encouraged to ambulate around the hallways and test her abilities here prior to discharge. (2) Atrial flutter with rapid ventricular response: Plan: Weaned off IV diltiazem, initiating antiarrhythmic therapy with flecainide 50 mg twice daily. Converting IV heparin to Eliquis 5 mg twice daily. Cont increased dose of metoprolol succinate to 50 mg daily. This morning around 1130am convert ed back into atrial flutter with a rate of 150bpm. She is asymptomatic. Lopressor 5mg IV x 1 given. Cont to monitor on telemetry. (3) Respiratory distress: Plan: Improved with spontaneous conversion to sinus rhythm and diuresis overnight. She is still requiring a small amount of oxygen which is expected to resolve in the next 24-48 hours. (4) Hypokalemia: Plan: replacement given this morning. Repeat level in am. (5) DVT prophylaxis: Plan: IV heparin converting to Eliquis Full code Disposition-continue PCU. Likely to home once rhythm is improved. Lenore Arora DO [facility] Hospitalist Admission and Anticipated Discharge Date Admission Date: July 06, 2021 Subjective 51-year-old female with known history of atrial fibrillation status post ablation in October 2020 no longer on any anticoagulation presented to the ER with chief complaint of shortness of breath 2/2 atrial flutter with RVR. She is feeling well enough to go home but hasn't walked around much to test herself. Still on oxygen supplementation and 92% on 3LPM this am with CXR this am revealing resolving pulmonary edema. Denies shortness of breath Denies chest pain Overall feels better. Converted back into flutter with a rate of 150bpm-remained asymptomatic Lopressor 5mg IV given. Continuing to monitor on PCU. Cardiology team was made aware of the change. Review of Systems Review of Systems: All systems were reviewed and negative except as indicated above. Physical Exam Physical Exam: CONSTITUTIONAL: WNWD, vitals as above, generally well- appearing, NAD EYES: normal conjunctivae, no scleral icterus ENT: external ear and nose normal, MMM NECK: trachea midline, no lymphadenopathy RESPIRATORY: clear to auscultation bilaterally, no crackles, rales or wheezes, normal respiratory effort CARDIOVASCULAR: regular rate and rhythm, S1 and 2 heard without murmurs, gallops or rubs, no JVD, no peripheral edema CHEST: inspection of chest was normal GASTROINTESTINAL: soft, nontender, no guarding MUSCULOSKELETAL: strength 5/5 throughout, head is normocephalic and atraumatic, neck supple, normal palpation of chest wall without tenderness SKIN: warm and dry NEUROLOGIC: No facial palsy, no dysarthria. CN 2-12 grossly intact, no sensory deficit, normal cognition, normal speech, PSYCHIATRIC: alert cooperative and oriented to person, place and time. Euthymic mood, makes good eye contact, language grossly intact, recent and remote memory grossly intact. Results & Data Results & Data ([facility]) Vital Signs (Past 12 Hours) Vital Signs Temp Pulse Pulse Resp BP BP Pulse Ox 07/07/21 08:00 93 H 07/07/21 07:30 36.7 C 87 17 113/69 92 07/07/21 04:15 36.9 C 90 16 134/59 L 95 Laboratory Results Short CBC 07/07/21 Range/Units 05:48 WBC 8.79 (4.8-10.8) K/uL Hgb 10.0 L (12.0-16.0) g/dL Hct 32.2 L (37-47) % Plt Count 312 (130-400) K/uL BMP 07/07/21 05:48 Sodium 138 Potassium 3.3 L Chloride 105 Carbon Dioxide 26 BUN 9 Creatinine 0.63 Glucose 91 Calcium 8.6 Diagnostic Findings Chest X-Ray 07/07/21 09:52 XR chest 2V PA/lateral HISTORY: 51 years-old Female CHF acute shortness of breath COMPARISON: CTA chest 07/06/2021 TECHNIQUE: PA and lateral views of the chest FINDINGS: Cardiac silhouette is upper limits of normal in size. Small pleural effusions. There is improved aeration of the lungs with decreased pulmonary vascular congestion and interstitial coarsening. Bones appear grossly intact. IMPRESSION: Small pleural effusions with resolving pulmonary edema. ACT 112: Negative or not required by law. The above report was generated using voice recognition software. It may contain grammatical, syntax or spelling errors. Electronically signed by: Guilherme Mistry M.D. 07/07/2021 11:03 AM Medications Administered Current Inpatient Medications Acetaminophen (Acetaminophen 325 Mg Tab) 650 mg PO Q4H PRN PRN Reason: pain/fever Stop: 08/05/21 11:47 Last Admin: 07/06/21 13:16 Dose: 650 mg Documented by: Alprazolam (Alprazolam 0.5 Mg Tablet) 0.5 mg PO HS PRN PRN Reason: RESTLESSNESS Stop: 08/05/21 09:47 Last Admin: 07/06/21 21:38 Dose: 0.5 mg Documented by: Apixaban (Apixaban 5 Mg Tablet) 5 mg PO BID [facility] Stop: 08/06/21 20:59 Flecainide Acetate (Flecainide Acetate 100 Mg Tablet) 50 mg PO Q12 [facility] Stop: 08/05/21 20:59 Last Admin: 07/07/21 08:03 Dose: 50 mg Documented by: Fluoxetine HCl (Fluoxetine Hcl 20 Mg Cap) 60 mg PO QAM [facility] Stop: 08/05/21 08:59 Last Admin: 07/07/21 08:03 Dose: 60 mg Documented by: Folic Acid (Folic Acid 1 Mg Tab) 2 mg PO QAM [facility] Stop: 08/05/21 08:59 Last Admin: 07/07/21 08:03 Dose: 2 mg Documented by: Furosemide (Furosemide 40 Mg/4 Ml Vial) 40 mg IV DAILY [facility] Stop: 08/06/21 08:59 Last Admin: 07/07/21 08:04 Dose: 40 mg Documented by: Glycopyrrolate (Glycopyrrolate 1 Mg Tab) 2 mg PO QAM [facility] Stop: 08/05/21 08:59 Last Admin: 07/07/21 08:03 Dose: 2 mg Documented by: Heparin Sodium/Dextrose (Heparin Sodium/Dextrose) 25,000 units in 500 mls @ 23 mls/hr IV .[id number] [facility]; Protocol Stop: 07/07/21 21:00 Last Admin: 07/07/21 07:15 Dose: 1,150 units/hr, 23 mls/hr Documented by: Leflunomide (Leflunomide 10 Mg Tab) [address] [facility] Stop: 08/05/21 08:59 Last Admin: 07/07/21 08:03 Dose: 10 mg Documented by: Metoprolol Succinate (Metoprolol Succ 25mg Ext Rel Tab) [address] [facility] Stop: 08/07/21 08:59 Miscellaneous (Enbrel~Order Awaiting Action) 1 ea N/A [facility] Stop: 08/06/21 07:59 Last Admin: 07/07/21 08:02 Dose: Not Given Documented by: Pantoprazole Sodium (Pantoprazole 40 Mg Tab) [address] [facility] Stop: 08/05/21 08:59 Last Admin: 07/07/21 08:03 Dose: 40 mg Documented by: Potassium Chloride (Potassium Chloride Crtab 20 Meq Tabcr) [address] [facility] Stop: 08/06/21 08:59 Last Admin: 07/07/21 08:03 Dose: 20 meq Documented by:
[2021-07-07] MEDS ORDERED: STAT IV Infusion **Titration per Protocol STA (12:21)
[2021-07-07] MEDS ORDERED: dilTIAZem HCl 5 MG/ML 5 ML VIAL IV STA (12:21)
[2021-07-07] MEDS ORDERED: dilTIAZem HCl 5 MG/ML 5 ML VIAL IV ONE (12:31)
[2021-07-07 13:10] LABS: Partial Thromboplastin Ratio 1.4; Partial Thromboplastin Time 37.6 Seconds (21.0-31.0)
[2021-07-07] MEDS: dilTIAZem HCL 125 MG in DEXTROSE 5% 100 ML IV SCH ×2 (13:11→21:15)
[2021-07-07] MEDS ORDERED: HEPARIN SOD (PORCINE) 1000 UNIT/ML IV ONE (13:50)
--- NOTE | 2021-07-07 14:54 | Electrocardiogram Report ---
Test Reason : Blood Pressure : / mmHG Vent. Rate : 096 BPM Atrial Rate : 096 BPM P-R Int : 138 ms QRS Dur : 080 ms QT Int : 362 ms P-R-T Axes : 060 056 068 degrees QTc Int : 457 ms Sinus rhythm with Premature atrial complexes Otherwise normal ECG When compared with ECG of 06-JUL-2021 09:56, Nonspecific T wave abnormality no longer evident in Anterior leads Confirmed by Musa Gonzalez ([id number]) on 07/07/2021 2:53:41 PM Referred By: REFERRED SELF Confirmed By:Harpreet Gonzalez
--- NOTE | 2021-07-07 16:07 | Electrocardiogram Report ---
Test Reason : Blood Pressure : / mmHG Vent. Rate : 150 BPM Atrial Rate : 150 BPM P-R Int : 112 ms QRS Dur : 176 ms QT Int : 336 ms P-R-T Axes : 000 032 -58 degrees QTc Int : 530 ms Atrial flutter T wave abnormality, consider lateral ischemia Abnormal ECG When compared with ECG of 07-JUL-2021 05:33, (unconfirmed) Atrial flutter has replaced sinus rhythm Vent. rate has increased BY 54 BPM QRS duration has increased Nonspecific T wave abnormality now evident in Inferior leads T wave inversion now evident in Lateral leads Confirmed by Musa Gonzalez ([id number]) on 07/07/2021 4:07:14 PM Referred By: REFERRED SELF Confirmed By:Harpreet Gonzalez
[2021-07-07] MEDS: APIXABAN 5 MG TABLET PO SCH (20:09)
[2021-07-07 20:14] LABS: Partial Thromboplastin Ratio 1.5
[2021-07-07] MEDS: ALPRAZolam 0.5 MG TABLET PO PRN (21:20)
[2021-07-08] MEDS: dilTIAZem HCL 125 MG in DEXTROSE 5% 100 ML IV SCH ×3 (05:33→19:40)
[2021-07-08 07:34] LABS: BUN Creatinine Ratio 16.1 (10-20); Creatinine Clr Calc Pharmacy 112.4 ml/min; Est GFR (Non-African American) 108.7 ml/min; Magnesium 2.1 mg/dl (1.7-2.4); Potassium 3.5 mmol/L (3.5-5.1)
[2021-07-08] MEDS ORDERED: POTASSIUM CHLORIDE CRTAB 20 MEQ TABCR PO STA (07:57)
[2021-07-08] MEDS ORDERED: METOPROLOL SUCC 25MG EXT REL TAB PO SCH (09:00)
[2021-07-08] MEDS: APIXABAN 5 MG TABLET PO SCH ×2 (09:01→20:23)
[2021-07-08] MEDS: FLECAINIDE ACETATE 100 MG TABLET PO SCH ×2 (09:01→21:13)
[2021-07-08] MEDS: PANTOprazole 40 MG TAB PO SCH (09:04)
[2021-07-08] MEDS: GLYCOPYRROLATE 1 MG TAB PO SCH (09:04)
[2021-07-08] MEDS: FOLIC ACID 1 MG TAB PO SCH (09:05)
[2021-07-08] MEDS: FLUoxetine HCL 20 MG CAP PO SCH (09:05)
[2021-07-08] MEDS: LEFLUNOMIDE 10 MG TAB PO SCH (09:07)
[2021-07-08] MEDS: POTASSIUM CHLORIDE CRTAB 20 MEQ TABCR PO SCH (09:08)
--- NOTE | 2021-07-08 09:38 | Cardiology Progress Note ---
Date of Service July 08, 2021 Assessment & Plan (1) Atrial flutter with rapid ventricular response: (2) Respiratory distress: (3) Acute decompensated heart failure: Plan: 51 year old female admitted to [facility] on 07/05/2021 with progressive exertional dyspnea with associated leg heaviness/soreness, recurrent symptomatic atrial flutter with a rapid ventricular response with resultant acute decompensated diastolic heart failure. Patient spontaneous converted to sinus rhythm with frequent premature atrial contractions on July 06, 2021 at 08:54 with significant improvement in presenting symptoms, without overt clinical sequela. Patient unfortunately reverted back to atrial flutter on 07/07/2021 at 11:44 AM. Patient has been maintained on anticoagulation since presentation, initially with IV heparin and now Eliquis. Volume status appears euvolemic. 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 Potential risks fully explained. Plan as outlined below. RECOMMENDATIONS: Attempt pharmacological cardioversion with 200 mg Flecainide x 1. Continue beta-brenden therapy, metoprolol succinate at 75 mg/day. Consider titration of Flecainide to 100 mg twice a day pending the above Continue anticoagulation without interruption - Eliquis 5 mg twice a day Supplement potassium (already done), maintain electrolytes Maintain continuous telemetry monitoring Further recommendations to come. Admission and Anticipated Discharge Date Admission Date: July 06, 2021 Supervising Physician Co-Signing Physician Notes Patient seen and examined with Triston Velazquez PA-C. Agree with findings and assessment as above. Recurrent atrial flutter despite ablation. Beta-brenden uptitrated and flecainide restarted. Continue Eliquis. Recurrent bursts of A. Flutter without cardioversion despte 200mg of Flecainide. Staffing unavailable for ablation at this time. Discussed with EP with perform a cardioversion in the AM and f/u with EP as outpatient. Subjective Patient seen and examined. Chart, medications, and telemetry reviewed. Revert back to atrial flutter with a rapid ventricular response on 07/07/2021 at 11:44 AM. Receiving IV Cardizem. Notes dyspnea when ambulating to the bathroom. No chest pain. No overt palpitations. EKG this morning reveals atrial flutter with variable A-V block with premature ventricular or aberrantly conducted complexes, nonspecific ST abnormality, QTc 443 ms. Continuous telemetry monitoring reveals recurrent atrial flutter with variable ventricular rates since 11:44 AM on 07/07/2021. July 06, 2021 TTE Interpretation Summary ([facility], Dr. Moreau): Normal LV chamber size with mild concentric LVH. Normal LV systolic function, EF 55 to 60%. No segmental left ventricular wall motion abnormalities. No significant valvular pathology. Review of Systems Review of Systems: Complete Review of Systems is as stated above, negative, or noncontributory. Physical Exam Physical Exam: General: A&Ox3. NAD. HENT: Normocephalic. Atraumatic. Eyes: PER. Conjunctiva pink, sclera clear. Neck: No carotid bruits. No JVD. Heart: Irregular at 90 bpm. No murmur. No rub. PMI is nondisplaced. Lungs: Clear to auscultation. Abdomen: +BS. Soft. Nontender. No masses or organomegaly. Extremities: No clubbing, cyanosis, or edema. Limited neurological examination is without focal deficits. Pulses: Posterior tibial=1/4. Results & Data ([facility]) Vital Signs (Past 12 Hours) Vital Signs Temp Pulse Pulse Resp BP BP Pulse Ox 07/08/21 08:00 80 07/08/21 07:42 36.7 C 95 H 18 104/67 94 07/08/21 02:49 36.5 C 84 16 103/65 95 07/07/21 23:31 36.7 C 107 H 16 120/72 93 07/07/21 23:00 87 Laboratory Results Laboratory Results - last 24 hr 07/07/21 07/07/21 07/08/21 12:42 19:36 06:39 APTT 37.6 H 41.0 H PTT Ratio 1.4 1.5 Sodium 138 Potassium 3.5 Chloride 105 Carbon Dioxide 24 Anion Gap 9 BUN 9 Creatinine 0.56 L Est Cr Clr Drug Dosing 112.4 Est GFR ( Amer) 126.0 Est GFR (Non-Af Amer) 108.7 BUN/Creatinine Ratio 16.1 Glucose 91 Calcium 9.0 Magnesium 2.1
[2021-07-08] MEDS ORDERED: FLECAINIDE ACETATE 100 MG TABLET PO ONE (09:45)
[2021-07-08] MEDS: FUROSEMIDE 40 MG/4 ML VIAL IV SCH (10:25)
--- NOTE | 2021-07-08 11:16 | Hospitalist Progress Note ---
Date of Service July 08, 2021 Assessment & Plan (1) Acute decompensated heart failure: Plan: 2/2 symptomatic atrial flutter with rapid ventricular response. Volume status has improved following administration of IV furosemide-hypoxia has resolved. Continue strict I's and O's, and daily weights. CXR on 07/07 reveals resolving pulmonary edema and she is not SOB. Encouraged to ambulate around the hallways and test her abilities here prior to discharge. (2) Atrial flutter with rapid ventricular response: Plan: Weaned off IV diltiazem and initiated antiarrhythmic therapy with flecainide 50 mg twice daily. Converted IV heparin to Eliquis 5 mg twice daily. Increased dose of metoprolol succinate to 50 mg daily. Converted to sinus rhythm on morning of 07/06 07/07 converted back to aflutt with rate of 150bpm. She is asymptomatic. Lopressor 5mg IV given and dilt drip reinitiated. 07/08 continues at higher rates on max dilt drip 15mg/hr Considering inpatient transfer to [facility] for ablation. (3) Respiratory distress: Plan: resolved and hypoxia resolved. (4) Hypokalemia: Plan: replacement given this morning. Repeat level in am. (5) DVT prophylaxis: Plan: Eliquis Full code Disposition-continue PCU. Uncertain at this time. Lenore Arora DO [facility] Hospitalist Admission and Anticipated Discharge Date Admission Date: July 06, 2021 Subjective 51-year-old female with known history of atrial fibrillation status post ablation in October 2020 no longer on any anticoagulation presented to the ER with chief complaint of shortness of breath 2/2 atrial flutter with RVR. Feeling well but remains in atrial flutter with RVR this morning Dilt drip overnight was successful at controlling heart rate but now she is needing more. HR is 130-150 on max diltiazem drip Giving additional Lopressor now and consdering inpatient transfer to [facility] for ablation per cardiology Denies chest pain/SOB and is feeling well otherwise. Review of Systems Review of Systems: All systems were reviewed and negative except as indicated above. Physical Exam Physical Exam: CONSTITUTIONAL: WNWD, vitals as above, generally well- appearing, NAD EYES: normal conjunctivae, no scleral icterus ENT: external ear and nose normal, MMM NECK: trachea midline, no lymphadenopathy RESPIRATORY: clear to auscultation bilaterally, no crackles, rales or wheezes, normal respiratory effort CARDIOVASCULAR: tachy rate and reg rhythm, S1 and 2 heard without murmurs, gallops or rubs, no JVD, no peripheral edema CHEST: inspection of chest was normal GASTROINTESTINAL: soft, nontender, no guarding MUSCULOSKELETAL: strength 5/5 throughout, head is normocephalic and atraumatic, neck supple, normal palpation of chest wall without tenderness SKIN: warm and dry NEUROLOGIC: No facial palsy, no dysarthria. CN 2-12 grossly intact, no sensory deficit, normal cognition, normal speech, PSYCHIATRIC: alert cooperative and oriented to person, place and time. Euthymic mood, makes good eye contact, language grossly intact, recent and remote memory grossly intact. Results & Data Results & Data ([facility]) Vital Signs (Past 12 Hours) Vital Signs Temp Pulse Pulse Resp BP BP Pulse Ox 07/08/21 08:00 80 07/08/21 07:42 36.7 C 95 H 18 104/67 94 07/08/21 02:49 36.5 C 84 16 103/65 95 07/07/21 23:31 36.7 C 107 H 16 120/72 93 Laboratory Results [facility] 07/08/21 06:39 Sodium 138 Potassium 3.5 Chloride 105 Carbon Dioxide 24 BUN 9 Creatinine 0.56 L Glucose 91 Calcium 9.0 Medications Administered Current Inpatient Medications Acetaminophen (Acetaminophen 325 Mg Tab) 650 mg PO Q4H PRN PRN Reason: pain/fever Stop: 08/05/21 11:47 Last Admin: 07/06/21 13:16 Dose: 650 mg Documented by: Alprazolam (Alprazolam 0.5 Mg Tablet) 0.5 mg PO HS PRN PRN Reason: RESTLESSNESS Stop: 08/05/21 09:47 Last Admin: 07/07/21 21:20 Dose: 0.5 mg Documented by: Apixaban (Apixaban 5 Mg Tablet) 5 mg PO BID [facility] Stop: 08/06/21 20:59 Last Admin: 07/08/21 09:01 Dose: 5 mg Documented by: Flecainide Acetate (Flecainide Acetate 100 Mg Tablet) 50 mg PO Q12 [facility] Stop: 08/05/21 20:59 Last Admin: 07/08/21 09:01 Dose: 50 mg Documented by: Fluoxetine HCl (Fluoxetine Hcl 20 Mg Cap) 60 mg PO [facility] Stop: 08/05/21 08:59 Last Admin: 07/08/21 09:05 Dose: 60 mg Documented by: Folic Acid (Folic Acid 1 Mg Tab) [facility] Stop: 08/05/21 08:59 Last Admin: 07/08/21 09:05 Dose: 2 mg Documented by: Furosemide (Furosemide 40 Mg/4 Ml Vial) 40 mg IV DAILY [facility] Stop: 08/06/21 08:59 Last Admin: 07/08/21 10:25 Dose: 40 mg Documented by: Glycopyrrolate (Glycopyrrolate 1 Mg Tab) 2 mg PO [facility] Stop: 08/05/21 08:59 Last Admin: 07/08/21 09:04 Dose: 2 mg Documented by: Diltiazem HCl 125 mg/ Dextrose 125 mls @ 15 mls/hr IV .Q8H20M [facility]; Protocol Stop: 08/06/21 12:44 Last Admin: 07/08/21 05:33 Dose: 15 mg/hr, 15 mls/hr Documented by: Leflunomide (Leflunomide 10 Mg Tab) 10 mg PO [facility] Stop: 08/05/21 08:59 Last Admin: 07/08/21 09:07 Dose: 10 mg Documented by: Metoprolol Succinate (Metoprolol Succ 25mg Ext Rel Tab) 75 mg PO [facility] Stop: 08/07/21 08:59 Last Admin: 07/08/21 09:07 Dose: 75 mg Documented by: Miscellaneous (Enbrel~Order Awaiting Action) 1 ea N/A QS [facility] Stop: 08/06/21 07:59 Last Admin: 07/08/21 09:00 Dose: Not Given Documented by: Pantoprazole Sodium (Pantoprazole 40 Mg Tab) 40 mg PO [facility] Stop: 08/05/21 08:59 Last Admin: 07/08/21 09:04 Dose: 40 mg Documented by: Potassium Chloride (Potassium Chloride Crtab 20 Meq Tabcr) 20 meq PO [facility] Stop: 08/06/21 08:59 Last Admin: 07/08/21 09:08 Dose: 20 meq Documented by:
[2021-07-08] MEDS ORDERED: METOPROLOL TARTRATE 1 MG/ML VIAL IV STA (15:34)
[2021-07-08] MEDS ORDERED: METOPROLOL TARTRATE 1 MG/ML VIAL IV ONE (15:36)
[2021-07-08] MEDS: ACETAMINOPHEN 325 MG TAB PO PRN (15:48)
[2021-07-08] MEDS: ALPRAZolam 0.5 MG TABLET PO PRN (20:23)
[2021-07-09] MEDS: dilTIAZem HCL 125 MG in DEXTROSE 5% 100 ML IV SCH ×5 (04:07→16:12)
[2021-07-09] MEDS ORDERED: POTASSIUM CHLORIDE CRTAB 20 MEQ TABCR PO STA (06:07)
[2021-07-09] MEDS ORDERED: DIGOXIN 250 MCG in SYRINGE 9 ML IV ONE (06:20)
[2021-07-09] MEDS ORDERED: METOPROLOL SUCC 25MG EXT REL TAB PO SCH (06:30)
[2021-07-09 07:28] LABS: Calcium 9.5 mg/dl (8.5-10.1); Creatinine Clr Calc Pharmacy 91.1 ml/min; Est GFR (African American) 117.6 ml/min; Est GFR (Non-African American) 101.5 ml/min; Potassium 4.2 mmol/L (3.5-5.1)
[2021-07-09] MEDS: APIXABAN 5 MG TABLET PO SCH (08:16)
[2021-07-09] MEDS: FLUoxetine HCL 20 MG CAP PO SCH (08:17)
[2021-07-09] MEDS: PANTOprazole 40 MG TAB PO SCH (08:19)
[2021-07-09] MEDS: FOLIC ACID 1 MG TAB PO SCH (08:19)
[2021-07-09] MEDS: LEFLUNOMIDE 10 MG TAB PO SCH (08:20)
[2021-07-09] MEDS: GLYCOPYRROLATE 1 MG TAB PO SCH (08:21)
[2021-07-09] MEDS: FUROSEMIDE 40 MG/4 ML VIAL IV SCH (08:28)
[2021-07-09] MEDS: POTASSIUM CHLORIDE CRTAB 20 MEQ TABCR PO SCH (08:33)
[2021-07-09] MEDS ORDERED: MIDAZOLAM HCL 5 MG/ML 1 ML VIAL ONE (09:21)
--- NOTE | 2021-07-09 09:21 | Pre Anesthesia Assessment ---
Date of Service July 09, 2021 Pre Sedation Assessment Vital Signs Temp Pulse Pulse Resp BP BP BP 07/09/21 09:18 105 H 16 99/80 L 07/09/21 07:22 36.7 C 138 H 20 118/64 07/09/21 06:31 136 H 07/09/21 06:30 135 H 112/80 07/09/21 05:38 126 H 109/68 07/09/21 04:05 118 H 108/71 07/09/21 03:40 36.6 C 132 H 16 108/71 07/08/21 23:36 36.5 C 116 H 18 114/80 07/08/21 20:30 120 H 113/79 07/08/21 19:11 36.6 C 120 H 18 119/83 07/08/21 16:06 36.5 C 127 H 18 106/71 07/08/21 16:00 118 H 07/08/21 15:53 125 H 103/70 07/08/21 15:40 125 H 103/70 07/08/21 12:01 36.8 C 129 H 18 103/70 Pulse Ox 07/09/21 09:18 94 07/09/21 07:22 95 07/09/21 06:31 07/09/21 06:30 07/09/21 05:38 07/09/21 04:05 07/09/21 03:40 94 07/08/21 23:36 94 07/08/21 20:30 07/08/21 19:11 95 07/08/21 16:06 95 07/08/21 16:00 07/08/21 15:53 07/08/21 15:40 07/08/21 12:01 96 Pre-Sedation Airway Assessment Smoking Status: Current every day smoker Hx Sleep Apnea: No Short, Thick Neck: No Thyromental Distance: > or= 3.5 Finger Breadths Oral Cavity: + WNL Mallampati Class: II ASA: ASA3 NPO Status Date of Last Intake of Fluids: 07/08/21 Time of Last Intake of Fluids: 20:00 Date of Last Intake of Solid Food: 07/08/21 Time of Last Intake of Solid Foods: 20:00 Notes The planned sedation has been discussed with the patient. Informed Consent was obtained. I have identified the patient, determined the appropriateness of sedation and have assessed the patient immediately prior to the procedure. All medicine(s) and interventions are by my order.
--- NOTE | 2021-07-09 09:21 | Cardiology Progress Note ---
Date of Service July 09, 2021 Assessment & Plan (1) Atrial flutter with rapid ventricular response: (2) Respiratory distress: (3) Acute decompensated heart failure: Plan: 51 year old female admitted to [facility] on 07/05/2021 with progressive exertional dyspnea with associated leg heaviness/soreness, recurrent symptomatic atrial flutter with a rapid ventricular response with resultant acute decompensated diastolic heart failure. Patient spontaneous converted to sinus rhythm with frequent premature atrial contractions on July 06, 2021 at 08:54 with significant improvement in presenting symptoms, without overt clinical sequela. Patient unfortunately reverted back to atrial flutter on 07/07/2021 at 11:44 AM. Patient has been maintained on anticoagulation since presentation, initially with IV heparin and now Eliquis. Volume status appears euvolemic. 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 Potential risks fully explained. Plan as outlined below. RECOMMENDATIONS: Status post successful cardioversion to normal sinus rhythm. Continue Eliquis. Cardizem drip DC'd. Continue flecainide 50 mg p.o. twice daily. Discharge home on metoprolol succinate 50 mg p.o. daily. Discharge home with Lasix and potassium as needed volume overload. My office will call to arrange follow-up with EP as an outpatient. Okay to DC to home later today. Admission and Anticipated Discharge Date Admission Date: July 06, 2021 Subjective Patient seen and examined, chart reviewed. No events overnight. Still with continued heart racing. Telemetry reviewed: Atrial flutter with variable AV block Review of Systems Review of Systems: All systems reviewed & are unremarkable except as noted in HPI & below Physical Exam Physical Exam: General: Awake, alert and oriented x 3. No acute distress. HEENT: Normocephalic, atraumatic. Pupils equal, round and reactive to light and accommodation. Extraocular muscles are intact. Anicteric sclera. Moist mucous membranes. Neck: No JVD. No bruit. Cardiovascular: irregularly irregular, unable to appreciate murmur, rub or gallop. Pulmonary: Clear to auscultation bilaterally. No rales, rhonchi, or wheezing. Abdomen: Bowel sounds x 4, soft. No rebound, guarding or tenderness. No organomegaly. Extremities: No clubbing, cyanosis or edema. +2 pedal pulses bilaterally. Skin: Warm and dry. Results & Data ([facility]) Vital Signs (Past 12 Hours) Vital Signs Temp Pulse Pulse Resp BP BP Pulse Ox 07/09/21 07:22 36.7 C 138 H 20 118/64 95 07/09/21 06:31 136 H 07/09/21 06:30 135 H 112/80 07/09/21 05:38 126 H 109/68 07/09/21 04:05 118 H 108/71 07/09/21 03:40 36.6 C 132 H 16 108/71 94 07/08/21 23:36 36.5 C 116 H 18 114/80 94
[2021-07-09] MEDS ORDERED: fentaNYL citrate 100 MCG/2 ML VIAL ONE ×2 (09:22→09:40)
--- NOTE | 2021-07-09 09:23 | Hospitalist Progress Note ---
Date of Service July 09, 2021 Assessment & Plan (1) Acute decompensated heart failure: Plan: 2/2 symptomatic atrial flutter with rapid ventricular response. Volume status has improved following administration of IV furosemide-hypoxia has resolved. Continue strict I's and O's, and daily weights. CXR on 07/07 reveals resolving pulmonary edema and she is not SOB. Encouraged to ambulate around the hallways and test her abilities here prior to discharge. (2) Atrial flutter with rapid ventricular response: Plan: Weaned off IV diltiazem and initiated antiarrhythmic therapy with flecainide 50 mg twice daily. Converted IV heparin to Eliquis 5 mg twice daily. Increased dose of metoprolol succinate to 50 mg daily. Converted to sinus rhythm on morning of 07/06 07/07 converted back to aflutt with rate of 150bpm. She is asymptomatic. Lopressor 5mg IV given and dilt drip reinitiated. 07/08 continues at higher rates on max dilt drip 15mg/hr Considering inpatient transfer to [facility] for ablation. (3) Respiratory distress: Plan: resolved and hypoxia resolved. (4) Hypokalemia: Plan: replacement given this morning. Repeat level in am. (5) DVT prophylaxis: Plan: Eliquis Full code Disposition-continue PCU. Uncertain at this time. Lenore Arora DO [facility] Hospitalist Admission and Anticipated Discharge Date Admission Date: July 06, 2021 Subjective 51-year-old female with known history of atrial fibrillation status post ablation in October 2020 no longer on any anticoagulation presented to the ER with chief complaint of shortness of breath 2/2 atrial flutter with RVR. Feeling well but remains in atrial flutter with RVR this morning Dilt drip overnight was successful at controlling heart rate but now she is needing more. HR is 130-150 on max diltiazem drip Giving additional Lopressor now and consdering inpatient transfer to [facility] for ablation per cardiology Denies chest pain/SOB and is feeling well otherwise. Physical Exam Physical Exam: CONSTITUTIONAL: WNWD, vitals as above, generally well- appearing, NAD EYES: normal conjunctivae, no scleral icterus ENT: external ear and nose normal, MMM NECK: trachea midline, no lymphadenopathy RESPIRATORY: clear to auscultation bilaterally, no crackles, rales or wheezes, normal respiratory effort CARDIOVASCULAR: tachy rate and reg rhythm, S1 and 2 heard without murmurs, gallops or rubs, no JVD, no peripheral edema CHEST: inspection of chest was normal GASTROINTESTINAL: soft, nontender, no guarding MUSCULOSKELETAL: strength 5/5 throughout, head is normocephalic and atraumatic, neck supple, normal palpation of chest wall without tenderness SKIN: warm and dry NEUROLOGIC: No facial palsy, no dysarthria. CN 2-12 grossly intact, no sensory deficit, normal cognition, normal speech, PSYCHIATRIC: alert cooperative and oriented to person, place and time. Euthymic mood, makes good eye contact, language grossly intact, recent and remote memory grossly intact. Results & Data Results & Data ([facility]) Vital Signs (Past 12 Hours) Vital Signs Temp Pulse Pulse Resp BP BP Pulse Ox 07/09/21 09:18 105 H 16 99/80 L 94 07/09/21 07:22 36.7 C 138 H 20 118/64 95 07/09/21 06:31 136 H 07/09/21 06:30 135 H 112/80 07/09/21 05:38 126 H 109/68 07/09/21 04:05 118 H 108/71 07/09/21 03:40 36.6 C 132 H 16 108/71 94 07/08/21 23:36 36.5 C 116 H 18 114/80 94 Laboratory Results [facility] 07/09/21 06:45 Sodium 136 Potassium 4.2 Chloride 104 Carbon Dioxide 24 BUN 9 Creatinine 0.69 Glucose 101 H Calcium 9.5 Medications Administered Current Inpatient Medications Acetaminophen (Acetaminophen 325 Mg Tab) 650 mg PO Q4H PRN PRN Reason: pain/fever Stop: 08/05/21 11:47 Last Admin: 07/08/21 15:48 Dose: 650 mg Documented by: Alprazolam (Alprazolam 0.5 Mg Tablet) 0.5 mg PO HS PRN PRN Reason: RESTLESSNESS Stop: 08/05/21 09:47 Last Admin: 07/08/21 20:23 Dose: 0.5 mg Documented by: Apixaban (Apixaban 5 Mg Tablet) 5 mg PO BID MARY Stop: 08/06/21 20:59 Last Admin: 07/09/21 08:16 Dose: 5 mg Documented by: Flecainide Acetate (Flecainide Acetate 100 Mg Tablet) 50 mg PO Q12 [facility] Stop: 08/05/21 20:59 Last Admin: 07/08/21 21:13 Dose: 50 mg Documented by: Fluoxetine HCl (Fluoxetine Hcl 20 Mg Cap) 60 mg PO [facility] Stop: 08/05/21 08:59 Last Admin: 07/09/21 08:17 Dose: 60 mg Documented by: Folic Acid (Folic Acid 1 Mg Tab) 2 mg [facility] [place] Stop: 08/05/21 08:59 Last Admin: 07/09/21 08:19 Dose: 2 mg Documented by: Furosemide (Furosemide 40 Mg/4 Ml Vial) 40 mg IV DAILY [facility] Stop: 08/06/21 08:59 Last Admin: 07/09/21 08:28 Dose: 40 mg Documented by: Glycopyrrolate (Glycopyrrolate 1 Mg Tab) 2 mg PO [facility] Stop: 08/05/21 08:59 Last Admin: 07/09/21 08:21 Dose: 2 mg Documented by: Diltiazem HCl 125 mg/ Dextrose 125 mls @ 15 mls/hr IV .Q8H20M [facility]; Protocol Stop: 08/06/21 12:44 Last Titration: 07/09/21 07:13 Dose: 15 mg/hr, 15 mls/hr Documented by: Leflunomide (Leflunomide 10 Mg Tab) 10 mg PO [facility] Stop: 08/05/21 08:59 Last Admin: 07/09/21 08:20 Dose: 10 mg Documented by: Metoprolol Succinate (Metoprolol Succ 25mg Ext Rel Tab) 75 mg PO [facility] Stop: 08/08/21 06:29 Last Admin: 07/09/21 06:33 Dose: 75 mg Documented by: Miscellaneous (Enbrel~Order Awaiting Action) 1 ea N/A QS [facility] Stop: 08/06/21 07:59 Last Admin: 07/09/21 08:42 Dose: Not Given Documented by: Pantoprazole Sodium (Pantoprazole 40 Mg Tab) 40 mg PO [facility] Stop: 08/05/21 08:59 Last Admin: 07/09/21 08:19 Dose: 40 mg Documented by: Potassium Chloride (Potassium Chloride Crtab 20 Meq Tabcr) 20 meq PO [facility] Stop: 08/06/21 08:59 Last Admin: 07/09/21 08:33 Dose: 20 meq Documented by:
--- NOTE | 2021-07-09 09:43 | Post Anesthesia Assessment ---
Date of Service July 09, 2021 Post Sedation Assessment Vital Signs Temp Pulse Pulse Resp BP BP BP 07/09/21 09:18 105 H 16 99/80 L 07/09/21 07:22 36.7 C 138 H 20 118/64 07/09/21 06:31 136 H 07/09/21 06:30 135 H 112/80 07/09/21 05:38 126 H 109/68 07/09/21 04:05 118 H 108/71 07/09/21 03:40 36.6 C 132 H 16 108/71 07/08/21 23:36 36.5 C 116 H 18 114/80 07/08/21 20:30 120 H 113/79 07/08/21 19:11 36.6 C 120 H 18 119/83 07/08/21 16:06 36.5 C 127 H 18 106/71 07/08/21 16:00 118 H 07/08/21 15:53 125 H 103/70 07/08/21 15:40 125 H 103/70 07/08/21 12:01 36.8 C 129 H 18 103/70 Pulse Ox 07/09/21 09:18 94 07/09/21 07:22 95 07/09/21 06:31 07/09/21 06:30 07/09/21 05:38 07/09/21 04:05 07/09/21 03:40 94 07/08/21 23:36 94 07/08/21 20:30 07/08/21 19:11 95 07/08/21 16:06 95 07/08/21 16:00 07/08/21 15:53 07/08/21 15:40 07/08/21 12:01 96 Discharge Sedation Level of Care: Fast Track Phase II Post Sedation Plan On clinical assessment, the patient appears to have tolerated the sedation without complications. Patient is recovering as anticipated. Patient will continue to be monitored by nursing and may be discharged when sedation discharge criteria are met per below protocol. Upon Completions of procedure up to 15 minutes continue every 5 minute vital signs and the P.A.R. score; then discharge to a Phase I or Fast Track to Phase II per the following guidelines: * Discharge Patient to appropriate Phase II area if PAR is 8 or greater or return to pre- procedure baseline. The post - procedure orders will be as directed. * If PAR score is less than 8 or not return to pre-procedure baseline then patient will follow Phase I monitoring till PAR is reached for Phase II. The Phase I may be done in procedure room or may call to secure a Phase I area. * If naloxone or flumazenil are used for reversal, hold in Phase I for continued monitoring from when last reversal dose was given for a minimum of 60 minutes or longer pending the nurse and/or physician discretion of patient condition before discharge to Phase II. Please call the Sedation Physician to re-evaluate and complete post-note for discharge to Phase II area. Do NOT discharge from procedure sedation or Phase 1 until post- sedation evaluation note is complete by procedure /sedation MD Sedation Discharge Instructions to be given to the patient at discharge to home.
--- NOTE | 2021-07-09 09:44 | Cardioversion ---
Date of Service July 09, 2021 Electrical Cardioversion Rpt Electrical Cardioversion Report Informed consent obtained. Pt prepped. Adequate moderate sedation achieved with a total of Versed and Fentanyl 360J of energy deivered with successful cardioversion to sinus rhythm pt tolerated well. recover per protocol Start time: Stop time:
[2021-07-09] MEDS: FLECAINIDE ACETATE 100 MG TABLET PO SCH (12:31)
--- NOTE | 2021-07-09 17:46 | Electrocardiogram Report ---
Test Reason : Blood Pressure : / mmHG Vent. Rate : 076 BPM Atrial Rate : 303 BPM P-R Int : 000 ms QRS Dur : 074 ms QT Int : 394 ms P-R-T Axes : 265 044 028 degrees QTc Int : 443 ms Atrial flutter with variable A-V block with premature ventricular or aberrantly conducted complexes Abnormal ECG When compared with ECG of 07-JUL-2021 11:50, QRS duration has decreased ST now depressed in Inferior leads Nonspecific T wave abnormality, improved in Inferior leads T wave inversion no longer evident in Lateral leads Confirmed by Musa Gonzalez ([id number]) on 07/09/2021 5:45:39 PM Referred By: REFERRED SELF Confirmed By:Harpreet Gonzalez
--- NOTE | 2021-07-09 18:11 | Electrocardiogram Report ---
Test Reason : Blood Pressure : / mmHG Vent. Rate : 066 BPM Atrial Rate : 066 BPM P-R Int : 146 ms QRS Dur : 082 ms QT Int : 380 ms P-R-T Axes : 021 046 029 degrees QTc Int : 398 ms Normal sinus rhythm Normal ECG When compared with ECG of 08-JUL-2021 05:55, (unconfirmed) Sinus rhythm has replaced Atrial flutter Confirmed by Musa Gonzalez ([id number]) on 07/09/2021 6:11:14 PM Referred By: REFERRED SELF Confirmed By:Harpreet Gonzalez
--- NOTE | 2021-07-15 10:22 | Discharge Summary ---
Date of Service July 09, 2021 Admission HPI Per Admitting Provider A 51-year-old female with past medical history significant for paroxysmal atrial fibrillation, atrial flutter, gastritis, history of sweating abnormality, chronic headaches, rheumatoid arthritis of multiple sites, insomnia, anxiety, tobacco use disorder, presents with shortness of breath and palpitations. The patient was short of breath a couple of times in the last 2 weeks, but today it got progressively worse and she was feeling palpitations, walking, short distance causing significantly short of breath and also soreness in the legs. In the ER, when she came in, she was saturating okay, heart rate in 160s narrow complex tachycardia. Initially iv adenosine was given which showed a flutter.. ER gave IV Cardizem and as she was not improving, cardiology was notified and given a dose of digoxin and Lopressor, but her heart rate was still in the 160s. At the same time, her oxygen saturation was going down and she was placed on BiPAP. With the BiPAP, heart rate improved and currently is on Cardizem drip. She had an episode of nausea when BiPAP was taken, then heart rate worsened and also she became hypoxic. She was is back on BiPAP. She also had some chest pressure, some dizziness, no headache, no blurred visions, no earache, no runny nose, no sore throat. She started coughing when placed on BiPAP. Otherwise, at home did not have any cough. No fevers, no abdominal pain. Normal bowel and bladder movements. Admission Exam Per Admitting Provider GENERAL: The patient is of moderate build, currently somewhat in respiratory distress. VITAL SIGNS: Temperature 36.4, pulse 118, respiratory rate 22, blood pressure 100/76, oxygen 94% on BiPAP. HEENT: Pupils equal, round and reactive to light, on BiPAP mask. NECK: No JVD seen. No neck masses seen. CARDIOVASCULAR: S1 and S2 heard. Irregular rhythm, tachycardia. RESPIRATORY SYSTEM: Normal AP diameter. Some accessory muscle use noted. Bilateral crackles heard. No wheezing. ABDOMEN: Soft, bowel sounds present, nontender, no distention. CENTRAL NERVOUS SYSTEM: Alert and oriented. No facial droop. Extraocular muscles intact. Obeys simple commands. Moves extremities. EXTREMITIES: No edema, no erythema. Principal Diagnosis atrial flutter with rapid ventricular response s/p DCCV acute decompensated diastolic heart failure Discharge Exam CONSTITUTIONAL: WNWD, vitals as above, generally well-appearing, NAD EYES: normal conjunctivae, no scleral icterus ENT: external ear and nose normal, MMM NECK: trachea midline, no lymphadenopathy RESPIRATORY: clear to auscultation bilaterally, no crackles, rales or wheezes, normal respiratory effort CARDIOVASCULAR: reg rate and reg rhythm, S1 and 2 heard without murmurs, gallops or rubs, no JVD, no peripheral edema CHEST: inspection of chest was normal GASTROINTESTINAL: soft, nontender, no guarding MUSCULOSKELETAL: strength 5/5 throughout, head is normocephalic and atraumatic, neck supple, normal palpation of chest wall without tenderness SKIN: warm and dry NEUROLOGIC: No facial palsy, no dysarthria. CN 2-12 grossly intact, no sensory deficit, normal cognition, normal speech, PSYCHIATRIC: alert cooperative and oriented to person, place and time. Euthymic mood, makes good eye contact, language grossly intact, recent and remote memory grossly intact. Discharge Data Allergies Allergy/AdvReac Type Severity Reaction Status Date / Time No Known Allergies Allergy Mild Verified 07/05/21 23:24 Consultations 07/06/21 01:16 ED Decision to Admit Stat 07/06/21 04:33 Consult Garment Mender Routine 07/06/21 08:00 Consult Cardiology Routine Procedures Performed Operation Date: 07/09/21 09:30 Actual Procedures p Cardioversion - Po Moreau DO Ordered Studies 07/05/21 23:58 CT angio chest PE protocol Urgent Hospital Course (1) Acute decompensated heart failure: (2) Atrial flutter with rapid ventricular response: (3) Respiratory distress: (4) Hypokalemia: 51-year-old female with known history of atrial fibrillation status post ablation in October 2020 no longer on any anticoagulation presented to the ER with chief complaint of shortness of breath. She was noted to have a narrow complex tachycardia in the 160s on arrival and had been short of breath for 2 weeks. She was given 6 mg of adenosine without response and then 12 mg of adenosine with obvious flutter waves noted on telemetry. Highly sensitive troponin was within normal limits. She was loaded with diltiazem and placed on a diltiazem drip without any response in heart rate. Blood pressure remained stable, but she required an oxygen mask without much improvement. CT chest with contrast did not reveal evidence of PE but she did have some venous congestion. She was then placed on BiPAP with resultant improvement in her oxygenation into the 90s and work of breathing was improved. IV metoprolol was then given, and she was loaded with digoxin. IV Lasix was also given overnight, and her heart rate improved. She was admitted to the critical care unit for continued management. Cardiology was consulted and diagnosed her with acute decompensated diastolic heart failure. Volume status improved following the administration of IV furosemide with rhythm spontaneously converting back to sinus rhythm with frequent premature atrial contractions on HD2. She continued on IV cardizem and IV heparin and was moved out of the ICU to the PCU. She remained mildly hypoxic for the next couple of days. Echocardiogram was performed revealing a normal left ventricular chamber size with mild concentric LVH and normal systolic function with an EF of 55 to 60%. There were no segmental left ventricular wall motion abnormalities noted and no significant valvular pathology. IV heparin was converted to Eliquis, and she was placed back on metoprolol succinate at an increased dose of 50 mg daily. She was started on flecainide. Shortly afterwards she converted back into rapid atrial flutter and was placed back on intravenous diltiazem, receiving additional parenteral AV viola brenden medications. A one time dose of flecainide was unsuccessful at converting her rhythm back to sinus. Despite max dose diltiazem and an increase in her oral betablocker, she was still tachycardic, therefore, underwent a DCCV on the morning of 07/09. She was successfully converted to sinus rhythm and was asymptomatic. She was breathing well on room air at this point and was discharged in stable condition with close primary care follow-up recommended. She was also scheduled for a repeat ablation within the next week. Total Time Total Time Spent Total Time Spent (In Minutes): 60 Discharge Plan Discharge Items Patient Disposition: Home - Self-Care Reason For Visit: CHEST PRESSURE, SOB Discharge Diagnosis: (1) Atrial flutter with rapid ventricular response: (2) Respiratory distress: (3) Acute decompensated heart failure Condition on Discharge: Good Activity: Resume your previous activity Non-emergency contact: Primary Care Provider and Lock Assembler Call non-emergency contact if: you have any medication questions, your symptoms worsen, your pain is not controlled, your pain is worsening, your pain is unusual for you and your pain is concerning for you Follow-up/Referrals: Balbir Hernandez MD [Primary Care Provider] - (Date & Time 07/12/2021 10:00 AM Provider Balbir Hernandez MD Department Family Practice [facility] ) Vesna Laboy DO [Physician] - (Date & Time 07/20/2021 11:00 AM Provider Vesna Laboy DO Department Cardiology, [facility] ) Diet: Regular Addtl Attending Provider Instructions: Please take all medications as instructed on discharge list below. Please note the following changes: Start apixaban twice daily Start Flecainide twice daily Increase Metoprolol dose to 50mg once daily Use Lasix and potassium only as needed for swelling or weight gain Please follow-up with Cardiology per the appointment time above. It is recommended to follow-up with your primary care physician in one week to ensure you are still doing well after discharge, especially with medication changes. It was a pleasure taking care of you! Please call if you have any questions or problems. You can reach a [facility] hospitalist on duty at [facility] 24 hours a day by calling [phone]. Take care of yourself. Lenore Arora DO [facility] Addtl Agricultural Produce Sorter Provider Instructions: Call [phone] and go to the Emergency Room if: * You have tightness or pain in your chest that does not go away with rest or Nitroglycerin * You are very short of breath even with rest Call your doctor if any of the following symptoms or problems start or get worse: * Shortness of breath or difficulty breathing * Wake up at night short of breath * Chest pain * Cough * Swelling of your hands, fee, or legs * More fatigued or tired with your normal activity * Palpitations - sudden fast heart beats WEIGHT * Weigh yourself every morning after using the bathroom. * Use the same scale. * Wear the same amount of clothing. * Write your weight down on your chart. * Call your doctor if you gain more than 2-3 pounds in 1-2 days. MEDICATIONS * Use this discharge instruction sheet for instructions. * Take your medications at the time your doctor ordered. * Do not skip a dose of your medicines. * If you miss a dose of medicine, take as soon as possible, but DO NOT DOUBLE A DOSE. * Read your medicine information when you get home. * Know all of the side effects of your medicine. * Call your doctor's office if you have any side effects. * Be sure all of your doctors know what medicine and herbs you take (including cold, flu, and herbal medicine). * Pain Medicine: If you do not get relief from your pain, please call your doctor for help. Take the following with you to your follow-up doctor appointments: * Weight Chart * Medication List * List of questions Do not drink excessive alcohol, beer or wine. Pending Studies at Discharge: No Stand-Alone Forms: My [facility] Medications and DC Order Prescriptions: New Eliquis 5 mg Tablet 5 mg PO BID Qty: 60 RF: 0 metoprolol succinate [Toprol XL] 50 mg tablet extended release 24 hr 50 mg PO DAILY Qty: 30 RF: 0 flecainide 100 mg Tablet 50 mg PO Q12 Qty: 30 RF: 0 furosemide [Lasix] 20 mg tablet 20 mg PO DAILY PRN (Reason: swelling/weight gain) Qty: 30 RF: 0 potassium chloride 10 mEq capsule, extended release 10 meq PO DAILY PRN (Reason: only when taking furosemide) Qty: 30 RF: 0 Continued glycopyrrolate 1 mg tablet 2 mg PO QAM RF: 0 alprazolam 0.5 mg Tablet 0.5 mg PO HS PRN (Reason: RESTLESSNESS) RF: 0 fluoxetine [Prozac] 20 mg Capsule 60 mg PO QAM RF: 0 omeprazole 20 mg capsule,delayed release(DR/EC) 20 mg PO QAM RF: 0 folic acid 1 mg tablet 2 mg PO QAM RF: 0 leflunomide 10 mg tablet 10 mg PO QAM RF: 0 methylprednisolone 4 mg tablets,dose pack 0 mg PO DIRECTED PRN (Reason: RA FLARE UP) RF: 0 Enbrel SureClick 50 mg/mL (1 mL) pen injector 50 mg SUBCUT WK RF: 0 Discontinued metoprolol succinate 25 mg tablet extended release 24 hr 25 mg PO DAILY RF: 0 Discharge Orders: Discharge Order (Routine); Ordered 07/09/21 Ordered By: Lenore Arora Admission Data Admit Date/Time: 07/06/21 02:28 Attending Provider: Jones,Lenore M. Admit Provider: Calderon Flores Primary Care Provider: Balbir Hernandez Other Providers: Calderon Flores ; José Manuel Torres ; Neto Belle Other Interventions: Discharge Summary Assessment (RN) Last Done: 07/09/21 17:23
== END 2021-07-09 17:53 | disposition home or self-care (01) | DRG 308 ==
LOC: ED 22:36 → SUATTDRO 07-06 02:28 → 1E 07-06 02:28 → 2S 07-06 18:58

== ENCOUNTER 2021-07-14 09:20 | Inpatient (IN) ==
[2021-07-14] MEDS ORDERED: METOPROLOL TARTRATE 1 MG/ML VIAL IV STA (09:30)
[2021-07-14] MEDS: SODIUM CHLORIDE 0.9% 1000ML 1,000 ML IV STA ×2 (09:43→12:22)
[2021-07-14] MEDS ORDERED: dilTIAZem HCL 125 MG in DEXTROSE 5% 100 ML IV ONE (09:54)
[2021-07-14 10:04] LABS: Basophils # (auto) 0.07 K/uL (0-0.2); Basophils % (auto) 0.8 %; Eosinophils % (auto) 1.2 %; Hematocrit (blood only) 37.5 % (37-47); Immature Granulocytes # (auto) 0.01 K/uL (0.00-0.02); Immature Granulocytes % (auto) 0.1 %; Lymphocytes # (auto) 2.05 K/uL (1.2-3.4); Lymphocytes % (auto) 24.7 %; Mean Corpuscular Hemoglobin 28.4 pg (25-34); Mean Corpuscular Volume 88.9 fL (80-100); Mean Platelet Volume 10.7 fL (7.4-10.4); Monocytes # (auto) 0.85 K/uL (0.11-0.59); Monocytes % (auto) 10.2 %; Neutrophils # (auto) 5.23 K/uL (1.4-6.5); Platelet Count 383 K/uL (130-400); RDW Coefficient of Variation 14.2 % (11.5-14.5); RDW Standard Deviation 46.3 fL (36.4-46.3); Red Blood Count 4.22 M/uL (4.2-5.4); White Blood Count 8.31 K/uL (4.8-10.8)
[2021-07-14 10:07] LABS: Partial Thromboplastin Ratio 1.2; Partial Thromboplastin Time 33.6 Seconds (21.0-31.0); Prothrombin Time 10.9 Seconds (9.0-12.0)
[2021-07-14] MEDS ORDERED: ACETAMINOPHEN 500 MG TAB PO STA (10:08)
--- NOTE | 2021-07-14 10:10 | XRay Report ---
XR chest 1V portable HISTORY: Dysrhythmia COMPARISON: Chest 07/07/2021. FINDINGS: The lungs are clear. Cardiac silhouette is normal in size. No pleural effusions. No pneumot horax. IMPRESSION: No acute process. ACT 112: Negative or not required by law. Electronically signed by: Van William M.D. 07/14/2021 10:08 AM
[2021-07-14 10:18] LABS: Albumin Globulin Ratio 1.2 (0.9-2); Albumin Level 4.2 gm/dl (3.4-5.0); BUN Creatinine Ratio 16.9 (10-20); Bilirubin,Total 0.3 mg/dl (0.2-1.0); Calcium 9.6 mg/dl (8.5-10.1); Creatinine Clr Calc Pharmacy 95.8 ml/min; Est GFR (Non-African American) 103.5 ml/min; Globulin 3.4 gm/dl (2.5-4.0); Magnesium 2.1 mg/dl (1.7-2.4); Potassium 3.9 mmol/L (3.5-5.1); Total Protein 7.6 gm/dl (6.0-8.3)
[2021-07-14 10:20] LABS: Troponin I High Sensitivity 5.8 pg/ml (0-14)
--- NOTE | 2021-07-14 11:39 | History & Physical Report ---
Date of Service July 14, 2021 Assessment & Plan (1) Atrial flutter with rapid ventricular response: (2) RA (rheumatoid arthritis): Plan: This is a 51-year-old female who has significant past medical history of paroxysmal atrial fibrillation/flutter, rheumatoid arthritis, nicotine use, alcohol use, anxiety who presents ED secondary to tachycardia that started this morning. Atrial Flutter with RVR admit to PCU consult cardiology echo done during recent admit on 07/07- EF 55-60%, mild concentric LVH, no valvular pathology give 20meq kcl x 1, keep K > 4.0, mag > 2 NPO after midnight continue diltiazem gtt start metoprolol tartrate 25mg QID continue flecaninde continue eliquis - pt has been taking and has not missed any doses since discharge pt had previous DCCV on 07/09/21; also had EP ablation 10/[address] Laboy Nicotine use alcohol use pt uses vape, and admits to drinking 6 drinks/wk encourage cessation of both Hx of decompensated HFrEF in setting of aflutter with RVR pt currently euvolemic and saturating well on room air daily weights monitor volume status DVT ppx: continue eliquis Dispo: PCU PCP: Mary FULL CODE Pt was seen and examined in collaboration with Dr. Livingston, please see addendum History of Present Illness Chief Complaint: Tachycardia that started this morning. Primary Care Provider: Balbir Hernandez MD This is a 51-year-old female who has significant past medical history of paroxysmal atrial fibrillation/flutter, rheumatoid arthritis, tobacco use, anxiety who presents ED secondary to tachycardia that started this morning. Of significance patient was recently hospitalized 07/06-07/09 secondary to atrial flutter. She initially required admission to ICU secondary to decompensation of diastolic failure in setting of poor forward flow requiring BiPAP and IV diuresi s. Patient eventually required DCCV as she did not spontaneously convert. She was also treated with digoxin and diltiazem. She was placed on IV heparin drip and transition to Eliquis. She previously was not anticoagulated. During hospitalization she did undergo echocardiogram which revealed normal LV systolic function, EF 55 to 60%, no wall motion abnormalities, significant valvular pathology and normal LV chamber size with mild concentric LVH. She does have prior history of A. fib in the past and is established with EP Dr. Laboy as OP. She previously had an ablation in October. She has not missed any of her medications including metoprolol, flecaninde and eliquis. She went to bed last evening and felt well. When she first woke up this morning she felt really well, all things considered. She was sitting at her island drinking coffee and felt herself develop palpitations. She had a smart watch and checked her HR and it was showing high HRs. She sent Dr. Laboy a message to see what she should do and was instructed to come to ER. When she presented to hospital 1 week ago she was also have SOB and heavy legs and arms. At discharge she was told any HR over 100 is to be concerned about. She did follow up with Dr. Hernandez on 07/12 for ER follow up. She denies f/c/s, lightheaded, chest pain, URI sx, cough, n/v/d, abd pain, change in bowel or urinary habits. She did have some SOB this morning with palpitations when trying to put shoes on. She also complains of dizziness in a.m. which she feels is likely due to her RA. In ED patient was in A. fib/flutter with heart rates in the 150s to 160s. She initially was given IV metoprolol and started on diltiazem drip per cardiology. Her CBC and CMP was generally unremarkable except for mild low sodium 135. Her chest x-ray was negative for acute process. She was saturating well on room air. Allergies Allergy/AdvReac Type Severity Reaction Status Date / Time No Known Allergies Allergy Mild Verified 07/05/21 23:24 Home Medications Medication Instructions Recorded Confirmed Type alprazolam 0.5 mg tablet 0.5 mg PO HS PRN 09/14/18 07/14/21 History fluoxetine 20 mg capsule (Prozac) 60 mg PO QAM 09/14/18 07/14/21 History glycopyrrolate 1 mg tablet 2 mg PO QAM 09/14/18 07/14/21 History folic acid 1 mg tablet 2 mg PO QAM 12/24/18 07/14/21 History omeprazole 20 mg capsule,delayed 20 mg PO QAM 12/24/18 07/14/21 History release leflunomide 10 mg tablet 10 mg PO QAM 04/23/19 07/14/21 History etanercept 50 mg/mL (1 mL) 50 mg SUBCUT WK 07/05/21 07/14/21 History subcutaneous pen injector (Enbrel SureClick) methylprednisolone 4 mg tablets in 0 mg PO DIRECTED PRN 07/05/21 07/14/21 History a dose pack apixaban 5 mg tablet (Eliquis) 5 mg PO BID #60 tab 07/09/21 07/14/21 Rx flecainide 100 mg tablet 50 mg PO Q12 #30 tab 07/09/21 07/14/21 Rx furosemide 20 mg tablet (Lasix) 20 mg PO DAILY PRN #30 tab 07/09/21 07/14/21 Rx metoprolol succinate 50 mg 50 mg PO DAILY #30 tab 07/09/21 07/14/21 Rx tablet,extended release 24 hr (Toprol XL) potassium chloride 10 mEq 10 meq PO DAILY PRN #30 cap 07/09/21 07/14/21 Rx capsule,extended release Past Med/Surg History Medical History Anxiety Atrial fibrillation + FLUTTER (NEWLY DX) On Eliquis GERD (gastroesophageal reflux disease) History of kidney stones History of TMJ disorder Hypertension Per records RA (rheumatoid arthritis) On Arava Surgical History H/O wisdom tooth extraction History of colonoscopy History of esophagogastroduodenoscopy (EGD) Family History (Updated 07/14/21 @ 12:17 by Aimee Mayorga PA-C) Father Alcohol use Grandmother (Paternal) Breast cancer Other No family history of adverse response to anesthesia No significant family history Social History (Updated 07/14/21 @ 12:08 by Aimee Mayorga PA-C) Smoking Status: Current every day smoker Tobacco Type: E-cigarettes / Vaping Cigarettes Per Day: 1 CART. DAILY; Second Hand Exposure: No; Hx Alcohol Use: Yes Alcohol type: beer, wine and hard liquor Alcohol Intake Frequency: 2-3 x/Week Alcohol Intake Frequency Comment: 6 drinks/week Hx Substance Use: No Preferred Language: [place] Communication Ability: Effective Speech Scientist Required: No Beliefs That Will Affect Care: None marital status: Current Living Situation: Spouse Feels Safe at Home: Yes Assistive Devices: None Review of Systems Review of Systems: All systems reviewed & are unremarkable except as noted in HPI & below Physical Exam Physical Exam: Constitutional: WD/WN, vitals as above, NAD, sitting up in bed, pleasant, conversing easily Head: Normocephalic, Atraumatic Eyes: PERRL, conjunctivae normal, anicteric sclerae ENMT: external ear and nose normal, oropharynx normal Neck: trachea midline, no thyromegaly normal visual inspection Respiratory: normal respiratory effort, lungs clear to auscultation, no wheeze, rales, rhonchi. Normal insp/exp effort, no accessory muscle use Cardiovascular: Tachycardic rate, regular rhythm, no murmur, no edema Vessels: no JVD or carotid bruit Chest: normal inspection of chest Abdomen: normal bowel sounds, soft, nontender, no hepatosplenomegaly Musculoskeletal: no cyanosis or clubbing, AROM X 4 Skin: no rashes, warm and dry normal turgor Neurologic: PERRL, EOMI, accommodation nl, no face palsy, no dysarthria CN's II-XI intact bilaterally and moves all extremities Psychiatric: A+Ox3, euthymic affect : deferred Results & Data Results & Data ([facility]) Vital Signs (Past 12 Hours) Vital Signs Temp Pulse Pulse Resp BP BP Pulse Ox 07/14/21 10:21 148 H 14 130/97 98 07/14/21 10:08 146 H 14 114/89 99 07/14/21 09:42 146 H 132/101 H 07/14/21 09:24 36.7 C 148 H 18 104/81 97 Diagnostic Findings Chest X-Ray 07/14/21 09:27 XR chest 1V portable HISTORY: Dysrhythmia COMPARISON: Chest 07/07/2021. FINDINGS: The lungs are clear. Cardiac silhouette is normal in size. No pleural effusions. No pneumothorax. IMPRESSION: No acute process. ACT 112: Negative or not required by law. Electronically signed by: Van William M.D. 07/14/2021 10:08 AM Medications Administered Medication List Sodium Chloride (Nss 1000ml) 1,000 mls @ 125 mls/hr IV .Q8H STA Stop: 07/14/21 17:26 Last Admin: 07/14/21 09:43 Dose: 125 mls/hr Documented by: [id number] Diltiazem HCl 125 mg/ Dextrose 125 mls @ 5 mls/hr IV .Q24H ONE; Protocol Stop: 07/15/21 09:53 Last Titration: 07/14/21 11:16 Dose: 10 mg/hr, 10 mls/hr Documented by: [id number] Cosigned by: [id number] Admin: 07/14/21 10:17 Dose: 5 mg/hr, 5 mls/hr Documented by: [id number] Cosigned by: [id number] Discontinued Medications Acetaminophen (Acetaminophen 500 Mg Tab) 1,000 mg PO NOW STA Stop: 07/14/21 10:09 Last Admin: 07/14/21 10:11 Dose: 1,000 mg Documented by: [id number] Metoprolol Tartrate (Metoprolol Tartrate 1 Mg/Ml Vial) 5 mg IV NOW STA Stop: 07/14/21 09:31 Last Admin: 07/14/21 09:42 Dose: 5 mg Documented by: [id number] ECG Rate (beats per minute): 150 Rhythm: atrial flutter COVID-19 Results Results COVID-19 Adm Lab Results: RBC 4.22 M/uL (4.2-5.4) 07/14/21 WBC 8.31 K/uL (4.8-10.8) 07/14/21 Hgb 12.0 g/dL (12.0-16.0) 07/14/21 Hct 37.5 % (37-47) 07/14/21 Plt Count 383 K/uL (130-400) 07/14/21 Neutrophils (%) (Auto) 63.0 % 07/14/21 Lymphocytes (%) (Auto) 24.7 % 07/14/21 Monocytes # (Auto) 0.85 K/uL (0.11-0.59) H 07/14/21 Eosinophils # (Auto) 0.10 K/uL (0-0.5) 07/14/21 Immature Granulocyte % (Auto) 0.1 % 07/14/21 Neutrophils # (Auto) 5.23 K/uL (1.4-6.5) 07/14/21 Lymphocytes # (Auto) 2.05 K/uL (1.2-3.4) 07/14/21 Monocytes # (Auto) 0.85 K/uL (0.11-0.59) H 07/14/21 Eosinophils # (Auto) 0.10 K/uL (0-0.5) 07/14/21 Basophils # (Auto) 0.07 K/uL (0-0.2) 07/14/21 Immature Granulocyte # (Auto) 0.01 K/uL (0.00-0.02) 07/14/21 Na 135 mmol/L (136-145) L 07/14/21 K 3.9 mmol/L (3.5-5.1) 07/14/21 Cl 103 mmol/L (98-107) 07/14/21 CO2 23 mmol/L (21-32) 07/14/21 Anion Gap 9 (3-11) 07/14/21 BUN 11 mg/dl (6-23) 07/14/21 Creatinine 0.65 mg/dl (0.6-1.2) 07/14/21 BUN/Creatinine Ratio 16.9 (10-20) 07/14/21 Glucose Level 81 mg/dl (70-99(Fasting)) 07/14/21 Ca 9.6 mg/dl (8.5-10.1) 07/14/21 Total Bilirubin 0.3 mg/dl (0.2-1.0) 07/14/21 AST/SGOT 25 U/L (13-39) 07/14/21 ALT/SGPT 38 U/L (7-52) 07/14/21 Alkaline Phosphatase 80 U/L (34-104) 07/14/21 Total Protein 7.6 gm/dl (6.0-8.3) 07/14/21 Albumin 4.2 gm/dl (3.4-5.0) 07/14/21 Globulin 3.4 gm/dl (2.5-4.0) 07/14/21 Albumin/Globulin Ratio 1.2 (0.9-2) 07/14/21 PTT 33.6 Seconds (21.0-31.0) H 07/14/21 INR 1.0 (0.9-1.1) 07/14/21 SARS-CoV-2, RNA, NAAT NEGATIVE (NEGATIVE) 07/14/21 Chest X-Ray 07/14/21 Code Status & VTE Plan Code Status FULL CODE VTE Prophylaxis Plan VTE Prophylaxis will be ordered: No Supervising Physician Co-Signing Physician Notes Patient is a 51-year-old female with history of paroxysmal atrial fibrillation, rheumatoid arthritis, tobacco use and other medical problems presents with history of palpitations which started this morning. Palpitations are associated with shortness of breath on exertion, dizziness. She denies any chest pain, nausea, vomiting, fever, chills, abdominal pain, diarrhea. Patient is scheduled for ablation in October. She was recently admitted for similar episode and underwent successful cardioversion. She is states being compliant with her medications. Please review HPI for complete details of presentation. On exam patient is well-built and nourished, no apparent distress, normocephalic atraumatic, EOMI, normal breath sounds, clear to auscultation, tachycardia, no pedal edema, no obvious murmur, abdomen soft, nontender, normal bowel sounds, alert, awake, oriented, grossly no focal deficits. Heart rate was noted to be in 140s in ED. Blood work suggestive of normal TSH. Sodium 135, potassium 3.9, magnesium 2.1. Chest x-ray is normal. Patient is started on Cardizem drip while in ED. Patient is being admitted for management of atrial flutter RVR. Continue Cardizem drip. Metoprolol succinate changed to metoprolol tartrate 25 mg daily. Continue flecainide. Continue Eliquis for anticoagulation. Cardiology Consulted. Keep her n.p.o. after midnight for possible cardioversion/ablation. Monitor electrolytes, repeat EKG tomorrow. I personally reviewed the record. Patient is interviewed and examined at bedside. Patient's care is coordinated with Aimee Mayorga PA-C. Please refer to the documentation above for details of patient's presentation and for discussion of other issues.
--- NOTE | 2021-07-14 11:51 | Emergency Department Note ---
Impression & Plan Atrial flutter with rapid ventricular response ED Provider Note INFORMANT: Patient ED PROVIDER(S): Андрей Ha MD CHIEF COMPLAINT: Tachycardic PLAN: Disposition: Admitted Condition: Good Outpatient prescription management: none Referral: None MEDICAL DECISION MAKING: Patient presented due to complaints of tachycardia. Patient felt similar but although better than her last presentation I did review her EMR and discussed the case with her treating physician at that time patient had respiratory symptoms and required BiPAP. Currently she does not have any. ECG showed the rapid atrial flutter. She was given 5 mg of IV metoprolol with no effect. Patient had a consultation placed with [facility] cardiology, Dr. Belle. He was aware of the patient from her last hospitalization. He recommended initiation of a diltiazem drip and admission to the hospital. Diltiazem drip was initiated. Laboratory testing did not reveal any significant leukocytosis, electrolyte abnormality, or elevated troponin. Chest x-ray was unremarkable. Consultation was made with the [facility] hospitalist service. Patient was evaluated in the ER and admitted for further management. Triage Nursing notes reviewed and agree them. Vital Signs: reviewed and remarkable for tachycardia Differential diagnosis: Premature contractions, electrolyte abnormality, cardiac dysrhythmia, thyroid dysfunction, pulmonary embolism, infection, gastrointestinal, as well as other pathologies. Diagnostics interpreted by me: ECG: Twelve-lead ECG reveals atrial flutter at [address] elevation or depression. No PVCs. Cardiac Monitoring: Cardiac monitoring ordered by me: The patient was placed on continuous cardiac monitoring and observed. It revealed atrial flutter at 146 b pm Imaging studies: Chest x-ray. Findings: A chest x-ray was performed and revealed no pneumothorax, effusion, infiltrate, pulmonary edema, free air under the diaphragm, or wide mediastinum. Impression: No acute disease. HPI: The patient is a 51 year old female who presents to the Emergency Room with complaints of tachycardia. This started this morning at 6 AM and is persisting . The patient also notes the following associated symptoms, mild headache. The patient has taken no medication for relieving factors. Current pain is rated as 2/10. Patient has a history of rapid a flutter. She was recently admitted to the hospital and discharged about 5 days ago after requiring cardioversion pt denies LOC, fevers, chills, diaphoresis, visual changes, neck pain, chest pain, breathing difficulties, nausea, vomiting, abdominal pain, back pain, melena, hematochezia, urinary symptoms, numbness, weakness, lymphadenopathy, rash, or other complaints. ROS: See above HPI for pertinent positives & negatives. A total of 10 systems reviewed and were otherwise negative. PAST MEDICAL HISTORY:See Below , atrial flutter PAST SURGICAL HISTORY:See Below, ablation FAMILY HISTORY:See Below SOCIAL HISTORY:See Below, HOME MEDICATIONS:See Below ALLERGIES:See Below VITALS:See Below PHYSICAL EXAMINATION: GENERAL: Awake, alert, well-appearing, in no distress HENT: Normocephalic, atraumatic. Oropharynx unremarkable. EYES: Normal conjunctiva. Sclera non-icteric. NECK: Inspection normal. Non-tender. Supple. No nuchal rigidity. FROM. No masses. RESPIRATORY: Clear to auscultation. No wheezes. No rales. Normal respiratory effort. CARDIAC: Very tachycardic rate. Normal rhythm. No murmurs. No rubs. Extremities warm and well perfused. Pulses equal. No JVD. GI: Soft, non-distended. No tenderness to palpation. No rebound or guarding. No masses. RECTAL: Deferred. MUSCULOSKELETAL: Atraumatic. Chest examination reveals no tenderness. The back is symmetrical on inspection without obvious abnormality. There is no CVA tenderness to palpation. No joint edema. LOWER EXTREMITIES: Calves are equal size bilaterally and non-tender. No edema. No discoloration. NEURO: Normal sensorium. No sensory or motor deficits noted. SKIN: No rash or jaundice noted. CRITICAL CARE: I have personally spent greater than 35 minutes of critical care time in the direct management of this patient. This includes bedside care, interpretation of diagnostic studies, and testing, discussion with consultants, patient, and family members, and other required patient management activities. These minutes are in excess of all separately billable procedures. Андрей Ha MD Past Med/Surg History Medical History Anxiety Atrial fibrillation + FLUTTER (NEWLY DX) On Eliquis GERD (gastroesophageal reflux disease) History of kidney stones History of TMJ disorder Hypertension Per records RA (rheumatoid arthritis) On Arava Surgical History H/O wisdom tooth extraction History of colonoscopy History of esophagogastroduodenoscopy (EGD) Family History Other No family history of adverse response to anesthesia No significant family history Social History Smoking Status: Current every day smoker Tobacco Type: E-cigarettes / Vaping Cigarettes Per Day: 1 CART. 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 Required: No Beliefs That Will Affect Care: None marital status: Current Living Situation: Spouse Feels Safe at Home: Yes Assistive Devices: None Allergies Allergies Allergy/AdvReac Type Severity Reaction Status Date / Time No Known Allergies Allergy Mild Verified 07/05/21 23:24 Home Meds Home Medications Medication Instructions Recorded Confirmed alprazolam 0.5 mg tablet 0.5 mg PO HS PRN 09/14/18 07/05/21 fluoxetine 20 mg capsule (Prozac) 60 mg PO QAM 09/14/18 07/05/21 glycopyrrolate 1 mg tablet 2 mg PO QAM 09/14/18 07/05/21 folic acid 1 mg tablet 2 mg PO QAM 12/24/18 07/05/21 omeprazole 20 mg capsule,delayed 20 mg PO QAM 12/24/18 07/05/21 release leflunomide 10 mg tablet 10 mg PO QAM 04/23/19 07/05/21 etanercept 50 mg/mL (1 mL) 0 mg SUBCUT WK 07/05/21 07/05/21 subcutaneous pen injector (Enbrel SureClick) methylprednisolone 4 mg tablets in 0 mg PO DIRECTED PRN 07/05/21 07/05/21 a dose pack Previous Rx's Medication Instructions Recorded apixaban 5 mg tablet (Eliquis) 5 mg PO BID #60 tab 07/09/21 flecainide 100 mg tablet 50 mg PO Q12 #30 tab 07/09/21 furosemide 20 mg tablet (Lasix) 20 mg PO DAILY PRN #30 tab 07/09/21 metoprolol succinate 50 mg 50 mg PO DAILY #30 tab 07/09/21 tablet,extended release 24 hr (Toprol XL) potassium chloride 10 mEq 10 meq PO DAILY PRN #30 cap 07/09/21 capsule,extended release Results & Data (ED) Vital Signs Vital Signs - 24 hr 07/14/21 09:24 07/14/21 09:42 07/14/21 10:08 Temperature 36.7 C Temperature Source Temporal Artery Scan Pulse Rate 148 H 146 H Pulse Rate [Finger] 146 H Respiratory Rate 18 14 Respiratory Effort / Characteristics Non-Labored Respiratory Depth Normal Respiratory Pattern Regular Blood Pressure 104/81 132/101 H Blood Pressure [Left Arm] 114/89 Blood Pressure Mean 88 Blood Pressure Mean [Left Arm] 97 Pulse Oximetry 97 99 Oxygen Delivery Method Room Air Room Air Sepsis Recent Fever Within 48 Hours No Sepsis New/Unexplained Change in Mental Status No Sepsis Action Taken by Nursing No Action Required 07/14/21 10:21 Temperature Temperature Source Pulse Rate Pulse Rate [Finger] 148 H Respiratory Rate 14 Respiratory Effort / Characteristics Respiratory Depth Respiratory Pattern Blood Pressure Blood Pressure [Left Arm] 130/97 Blood Pressure Mean Blood Pressure Mean [Left Arm] 108 Pulse Oximetry 98 Oxygen Delivery Method Room Air Sepsis Recent Fever Within 48 Hours Sepsis New/Unexplained Change in Mental Status Sepsis Action Taken by Nursing Laboratory Data Result diagrams: 07/14/21 09:35 07/14/21 09:35 Lab Results 07/14/21 07/14/21 07/14/21 Range/Units 09:35 09:35 09:35 WBC 8.31 (4.8-10.8) K/uL RBC 4.22 (4.2-5.4) M/uL Hgb 12.0 (12.0-16.0) g/dL Hct 37.5 (37-47) % MCV 88.9 (80-100) fL MCH 28.4 (25-34) pg MCHC 32.0 (32-36) g/dL RDW Std Deviation 46.3 (36.4-46.3) fL RDW Coeff of Bridget 14.2 (11.5-14.5) % Plt Count 383 (130-400) K/uL MPV 10.7 H (7.4-10.4) fL Immature Gran % (Auto) 0.1 % Neut % (Auto) 63.0 % Lymph % (Auto) 24.7 % Murray % (Auto) 10.2 % Eos % (Auto) 1.2 % Baso % (Auto) 0.8 % Neut # (Auto) 5.23 (1.4-6.5) K/uL Lymph # (Auto) 2.05 (1.2-3.4) K/uL Murray # (Auto) 0.85 H (0.11-0.59) K/uL Eos # (Auto) 0.10 (0-0.5) K/uL Baso # (Auto) 0.07 (0-0.2) K/uL Immature Gran # (Auto) 0.01 (0.00-0.02) K/uL PT 10.9 (9.0-12.0) Seconds INR 1.0 (0.9-1.1) APTT 33.6 H (21.0-31.0) Seconds PTT Ratio 1.2 Sodium 135 L (136-145) mmol/L Potassium 3.9 (3.5-5.1) mmol/L Chloride 103 (98-107) mmol/L Carbon Dioxide 23 (21-32) mmol/L Anion Gap 9 (3-11) BUN 11 (6-23) mg/dl Creatinine 0.65 (0.6-1.2) mg/dl Est Cr Clr Drug Dosing 95.8 ml/min Est GFR ( Amer) 120.0 ml/min Est GFR (Non-Af Amer) 103.5 ml/min BUN/Creatinine Ratio 16.9 (10-20) Glucose 81 (70-99(Fasting)) mg/dl Calcium 9.6 (8.5-10.1) mg/dl Magnesium 2.1 (1.7-2.4) mg/dl Total Bilirubin 0.3 (0.2-1.0) mg/dl AST 25 (13-39) U/L ALT 38 (7-52) U/L Alkaline Phosphatase 80 (34-104) U/L Troponin I High Sens 5.8 D (0-14) pg/ml Total Protein 7.6 (6.0-8.3) gm/dl Albumin 4.2 (3.4-5.0) gm/dl Globulin 3.4 (2.5-4.0) gm/dl Albumin/Globulin Ratio 1.2 (0.9-2) TSH (0.300-4.500) uIu/ml Digoxin (0.8-2.0) ng/ml SARS-CoV-2, RNA, NAAT (NEGATIVE) 07/14/21 07/14/21 07/14/21 Range/Units 09:35 09:50 10:06 WBC (4.8-10.8) K/uL RBC (4.2-5.4) M/uL Hgb (12.0-16.0) g/dL Hct (37-47) % MCV (80-100) fL MCH (25-34) pg MCHC (32-36) g/dL RDW Std Deviation (36.4-46.3) fL RDW Coeff of Bridget (11.5-14.5) % Plt Count (130-400) K/uL MPV (7.4-10.4) fL Immature Gran % (Auto) % Neut % (Auto) % Lymph % (Auto) % Murray % (Auto) % Eos % (Auto) % Baso % (Auto) % Neut # (Auto) (1.4-6.5) K/uL Lymph # (Auto) (1.2-3.4) K/uL Murray # (Auto) (0.11-0.59) K/uL Eos # (Auto) (0-0.5) K/uL Baso # (Auto) (0-0.2) K/uL Immature Gran # (Auto) (0.00-0.02) K/uL PT (9.0-12.0) Seconds INR (0.9-1.1) APTT (21.0-31.0) Seconds PTT Ratio Sodium (136-145) mmol/L Potassium (3.5-5.1) mmol/L Chloride (98-107) mmol/L Carbon Dioxide (21-32) mmol/L Anion Gap (3-11) BUN (6-23) mg/dl Creatinine (0.6-1.2) mg/dl Est Cr Clr Drug Dosing ml/min Est GFR ( Amer) ml/min Est GFR (Non-Af Amer) ml/min BUN/Creatinine Ratio (10-20) Glucose (70-99(Fasting)) mg/dl Calcium (8.5-10.1) mg/dl Magnesium (1.7-2.4) mg/dl Total Bilirubin (0.2-1.0) mg/dl AST (13-39) U/L ALT (7-52) U/L Alkaline Phosphatase (34-104) U/L Troponin I High Sens (0-14) pg/ml Total Protein (6.0-8.3) gm/dl Albumin (3.4-5.0) gm/dl Globulin (2.5-4.0) gm/dl Albumin/Globulin Ratio (0.9-2) TSH 1.194 (0.300-4.500) uIu/ml Digoxin < 0.3 L (0.8-2.0) ng/ml SARS-CoV-2, RNA, NAAT NEGATIVE (NEGATIVE) Administered Medications Sodium Chloride (Nss 1000ml) 1,000 mls @ 125 mls/hr IV .Q8H STA Stop: 07/14/21 17:26 Last Admin: 07/14/21 09:43 Dose: 125 mls/hr Documented by: [id number] Diltiazem HCl 125 mg/ Dextrose 125 mls @ 10 mls/hr IV .[id number] ONE; Protocol Stop: 07/14/21 22:23 Last Titration: 07/14/21 11:16 Dose: 10 mg/hr, 10 mls/hr Documented by: [id number] Cosigned by: [id number] Admin: 07/14/21 10:17 Dose: 5 mg/hr, 5 mls/hr Documented by: [id number] Cosigned by: [id number] Discontinued Medications Acetaminophen (Acetaminophen 500 Mg Tab) 1,000 mg PO NOW STA Stop: 07/14/21 10:09 Last Admin: 07/14/21 10:11 Dose: 1,000 mg Documented by: [id number] Metoprolol Tartrate (Metoprolol Tartrate 1 Mg/Ml Vial) 5 mg IV NOW STA Stop: 07/14/21 09:31 Last Admin: 07/14/21 09:42 Dose: 5 mg Documented by: [id number] Imaging Data Radiologist's Impression: Chest X-Ray 07/14/21 09:27 XR chest 1V portable HISTORY: Dysrhythmia COMPARISON: Chest 07/07/2021. FINDINGS: The lungs are clear. Cardiac silhouette is normal in size. No pleural effusions. No pneumothorax. IMPRESSION: No acute process. ACT 112: Negative or not required by law. Electronically signed by: Van William M.D. 07/14/2021 10:08 AM Discharge Plan Visit Data Chief Complaint: Tachycardia Stated Complaint: TACHYCARDIA ED Provider: Андрей Ha Discharge Problem: Atrial flutter with rapid ventricular response Forms Stand Alone Forms: [facility] [place] [facility] Prescriptions Prescriptions: No Action glycopyrrolate 1 mg tablet 2 mg PO QAM RF: 0 alprazolam 0.5 mg Tablet 0.5 mg PO HS PRN (Reason: RESTLESSNESS) RF: 0 fluoxetine [Prozac] 20 mg Capsule 60 mg PO QAM RF: 0 omeprazole 20 mg capsule,delayed release(DR/EC) 20 mg PO QAM RF: 0 folic acid 1 mg tablet 2 mg PO QAM RF: 0 leflunomide 10 mg tablet 10 mg PO QAM RF: 0 methylprednisolone 4 mg tablets,dose pack 0 mg PO DIRECTED PRN (Reason: RA FLARE UP) RF: 0 Enbrel SureClick 50 mg/mL (1 mL) pen injector 0 mg SUBCUT WK RF: 0 Eliquis 5 mg Tablet 5 mg PO BID Qty: 60 RF: 0 metoprolol succinate [Toprol XL] 50 mg tablet extended release 24 hr 50 mg PO DAILY Qty: 30 RF: 0 flecainide 100 mg Tablet 50 mg PO Q12 Qty: 30 RF: 0 furosemide [Lasix] 20 mg tablet 20 mg PO DAILY PRN (Reason: swelling/weight gain) Qty: 30 RF: 0 potassium chloride 10 mEq capsule, extended release 10 meq PO DAILY PRN (Reason: only when taking furosemide) Qty: 30 RF: 0 Referrals Referrals: Balbir Hernandez MD [Primary Care Provider] -
[2021-07-14] MEDS ORDERED: POTASSIUM CHLORIDE CRTAB 20 MEQ TABCR PO STA (11:53)
[2021-07-14] MEDS ORDERED: STAT IV Infusion **Titration per Protocol STA (12:04)
[2021-07-14] MEDS ORDERED: ONDANSETRON INJ 2 MG/ML 2 ML VIAL IV PRN (13:06)
[2021-07-14] MEDS ORDERED: dilTIAZem HCL 125 MG in DEXTROSE 5% 100 ML IV SCH (13:06)
[2021-07-14] MEDS ORDERED: POLYETHYLENE (MIRALAX) 17 GM PACK PO PRN (13:06)
[2021-07-14] MEDS ORDERED: ALPRAZolam 0.5 MG TABLET PO PRN (13:06)
[2021-07-14] MEDS ORDERED: METOPROLOL TARTRATE 25 MG TAB PO SCH (13:06)
--- NOTE | 2021-07-14 14:09 | Electrocardiogram Report ---
Test Reason : Blood Pressure : / mmHG Vent. Rate : 150 BPM Atrial Rate : 150 BPM P-R Int : 082 ms QRS Dur : 158 ms QT Int : 296 ms P-R-T Axes : 000 051 -63 degrees QTc Int : 467 ms Poor data quality, interpretation may be adversely affected Atrial flutter with 2 to 1 block Abnormal ECG When compared with ECG of 09-JUL-2021 09:33, Significant changes have occurred Confirmed by Ash Ramon ([id number]) on 07/14/2021 2:09:43 PM Referred By: REFERRED SELF Confirmed By:Ash Ramon
[2021-07-14] MEDS: ACETAMINOPHEN 325 MG TAB PO PRN ×2 (16:37→20:37)
[2021-07-14] MEDS: FLECAINIDE ACETATE 100 MG TABLET PO SCH (19:38)
[2021-07-14] MEDS: APIXABAN 5 MG TABLET PO SCH (19:38)
[2021-07-14] MEDS ORDERED: FLECAINIDE ACETATE 100 MG TABLET PO SCH (21:00)
[2021-07-14] MEDS ORDERED: dilTIAZem HCl 60 MG TAB PO SCH (21:00)
[2021-07-15 05:43] LABS: Hematocrit (blood only) 32.5 % (37-47); Hemoglobin 10.2 g/dL (12.0-16.0); Mean Corpuscular Hemoglobin 27.6 pg (25-34); Mean Corpuscular Hgb Conc 31.4 g/dL (32-36); Mean Corpuscular Volume 87.8 fL (80-100); Mean Platelet Volume 9.9 fL (7.4-10.4); Platelet Count 325 K/uL (130-400); RDW Coefficient of Variation 14.5 % (11.5-14.5); RDW Standard Deviation 46.6 fL (36.4-46.3); White Blood Count 6.35 K/uL (4.8-10.8)
[2021-07-15 06:14] LABS: Albumin Globulin Ratio 1.2 (0.9-2); Albumin Level 3.7 gm/dl (3.4-5.0); BUN Creatinine Ratio 15.8 (10-20); Bilirubin,Total 0.3 mg/dl (0.2-1.0); Calcium 9.1 mg/dl (8.5-10.1); Creatinine Clr Calc Pharmacy 108.6 ml/min; Est GFR (African American) 125.3 ml/min; Est GFR (Non-African American) 108.1 ml/min; Potassium 3.7 mmol/L (3.5-5.1); Total Protein 6.7 gm/dl (6.0-8.3)
[2021-07-15] MEDS ORDERED: GLYCOPYRROLATE 1 MG TAB PO SCH (09:00)
[2021-07-15] MEDS ORDERED: dilTIAZem ER 180 MG CAPCR PO SCH (09:00)
[2021-07-15] MEDS ORDERED: PANTOprazole 40 MG TAB PO SCH (09:00)
[2021-07-15] MEDS ORDERED: LEFLUNOMIDE 10 MG TAB PO SCH (09:00)
[2021-07-15] MEDS ORDERED: FOLIC ACID 1 MG TAB PO SCH (09:00)
[2021-07-15] MEDS ORDERED: FLUoxetine HCL 20 MG CAP PO SCH (09:00)
[2021-07-15] MEDS: FLECAINIDE ACETATE 100 MG TABLET PO SCH (09:21)
[2021-07-15] MEDS: APIXABAN 5 MG TABLET PO SCH (09:23)
--- NOTE | 2021-07-15 11:34 | Cardiology Progress Note ---
Date of Service July 15, 2021 Assessment & Plan (1) Atrial flutter with rapid ventricular response: Plan: The patient is tolerating the increased dose of flecainide as well as oral Cardizem. She can be discharged today and we will arrange follow-up for her ablation next week. Admission and Anticipated Discharge Date Admission Date: July 14, 2021 Subjective The patient had an uneventful night. She maintained sinus rhythm Review of Systems Review of Systems: Review of Systems: See HPI for pertinent positives. All other 10 point review of systems are negative. Physical Exam Physical Exam: General: no acute distress and stated age Head: normocephalic, no masses, lesions, tenderness or abnormalities Eyes: conjunctiva are pink and non-injected, sclera clear Neck: supple, no adenopathy, no bruits, normal jugular venous pulse, no hepatojugular reflux Chest: normal shape and normal respiratory effort Lungs: clear to auscultation and percussion Cardiac Exam: - regular rate & rhythm, no murmurs gallops or rubs - normal S1, normal S2 Pulses: 2(+) throughout Abdomen: abdomen soft, non-tender, no abnormal masses and no hepatosplenomegaly Musculoskeletal: no gait disturbance, no joint inflammation, no deforming arthritis Extremities: no edema and no cyanosis Neuro: grossly normal exam Results & Data ([facility]) Vital Signs (Past 12 Hours) Vital Signs Temp Pulse Pulse Resp BP BP Pulse Ox 07/15/21 04:00 36.5 C 69 16 122/59 L 97 07/15/21 01:55 67 07/14/21 23:36 36.6 C 66 16 126/65 95 Laboratory Results Laboratory Results - last 24 hr 07/14/21 07/14/21 07/15/21 16:05 22:31 05:34 WBC 6.35 RBC 3.70 L Hgb 10.2 L Hct 32.5 L MCV 87.8 MCH 27.6 MCHC 31.4 L RDW Std Deviation 46.6 H RDW Coeff of Bridget 14.5 Plt Count 325 MPV 9.9 Sodium Potassium Chloride Carbon Dioxide Anion Gap BUN Creatinine Est Cr Clr Drug Dosing Est GFR ( Amer) Est GFR (Non-Af Amer) BUN/Creatinine Ratio Glucose Calcium Magnesium Total Bilirubin AST ALT Alkaline Phosphatase Troponin I High Sens 5.2 4.5 Total Protein Albumin Globulin Albumin/Globulin Ratio 07/15/21 05:34 WBC RBC Hgb Hct MCV MCH MCHC RDW Std Deviation RDW Coeff of Bridget Plt Count MPV Sodium 139 Potassium 3.7 Chloride 108 H Carbon Dioxide 24 Anion Gap 7 BUN 9 Creatinine 0.57 L Est Cr Clr Drug Dosing 108.6 Est GFR ( Amer) 125.3 Est GFR (Non-Af Amer) 108.1 BUN/Creatinine Ratio 15.8 Glucose 91 Calcium 9.1 Magnesium 2.0 Total Bilirubin 0.3 AST 16 ALT 27 Alkaline Phosphatase 63 Troponin I High Sens Total Protein 6.7 Albumin 3.7 Globulin 3.0 Albumin/Globulin Ratio 1.2 Medications Administered Current Inpatient Medications Acetaminophen (Acetaminophen 325 Mg Tab) 650 mg PO Q4H PRN PRN Reason: Pain or Fever Stop: 08/13/21 13:05 Last Admin: 07/14/21 20:37 Dose: 650 mg Documented by: Alprazolam (Alprazolam 0.5 Mg Tablet) 0.5 mg PO HS PRN PRN Reason: RESTLESSNESS Stop: 08/13/21 13:05 Last Admin: 07/14/21 20:37 Dose: 0.5 mg Documented by: Apixaban (Apixaban 5 Mg Tablet) 5 mg PO BID [facility] Stop: 08/13/21 20:59 Last Admin: 07/15/21 09:23 Dose: 5 mg Documented by: Diltiazem HCl (Diltiazem Er 180 Mg Capcr) [facility] Stop: 08/14/21 08:59 Last Admin: 07/15/21 09:28 Dose: 180 mg Documented by: Flecainide Acetate (Flecainide Acetate 100 Mg Tablet) 100 mg PO Q12 [facility] Stop: 08/13/21 20:59 Last Admin: 07/15/21 09:21 Dose: 100 mg Documented by: Fluoxetine HCl (Fluoxetine Hcl 20 Mg Cap) 60 mg PO QAM [facility] Stop: 08/14/21 08:59 Last Admin: 07/15/21 09:22 Dose: 60 mg Documented by: Folic Acid (Folic Acid 1 Mg Tab) 2 mg PO QAM [facility] Stop: 08/14/21 08:59 Last Admin: 07/15/21 09:22 Dose: 2 mg Documented by: Glycopyrrolate (Glycopyrrolate 1 Mg Tab) 2 [facility] [place] Stop: 08/14/21 08:59 Last Admin: 07/15/21 09:23 Dose: 2 mg Documented by: Leflunomide (Leflunomide 10 Mg Tab) 10 mg PO QAM [facility] Stop: 08/14/21 08:59 Last Admin: 07/15/21 09:21 Dose: 10 mg Documented by: Ondansetron HCl (Ondansetron Inj 2 Mg/Ml 2 Ml Vial) 4 mg IV Q6H PRN PRN Reason: Nausea Stop: 08/13/21 13:05 Pantoprazole Sodium (Pantoprazole 40 Mg Tab) 40 [facility] [place] Stop: 08/14/21 08:59 Last Admin: 07/15/21 09:21 Dose: 40 mg Documented by: Polyethylene Glycol (Polyethylene (Miralax) 17 Gm Pack) 17 gm PO DAILY PRN PRN Reason: Constipation Stop: 08/13/21 13:05
--- NOTE | 2021-07-15 12:56 | Hospitalist Progress Note ---
Date of Service July 15, 2021 Assessment & Plan (1) Atrial flutter with rapid ventricular response: (2) RA (rheumatoid arthritis): Plan: per admitting service notes with addendum: This is a 51-year-old female who has significant past medical history of paroxysmal atrial fibrillation/flutter, rheumatoid arthritis, nicotine use, alcohol use, anxiety who presents ED secondary to tachycardia that started this morning. Atrial Flutter with RVR admitted to PCU echo done during recent admit on 07/07- EF 55-60%, mild concentric LVH, no valvular pathology pt had previous DCCV on 07/09/21; also had EP ablation 10/[address] Laboy 07/15 converted to sinus rhythm asymptomatic evaluated by Dr. Belle recommend to d/c on the following medications: Diltiazem 180mg daily increase Flecainide to 100mg BID stop Metoprolol continue Eliquis patient to be called by Cardiology clinic for ablation Nicotine use alcohol use pt uses vape, and admits to drinking 6 drinks/wk encourage cessation of both Hx of decompensated HFrEF in setting of aflutter with RVR pt currently euvolemic and saturating well on room air DVT ppx: continue eliquis Dispo: d/c home ff up with [employer] in 1 week Admission and Anticipated Discharge Date Admission Date: July 14, 2021 Subjective ff up for a flutter, etc seen resting in bed, sitting up in good spirits no chest pain, dyspnea, palpitations, dizziness no other symptoms states she is ready for discharge today Review of Systems Review of Systems: all noted and negative except for above Physical Exam Physical Exam: General- oriented x 3, not in distress, speaks in sentences with no effort or accessory muscle use Eyes- anicteric Neck- no JVD Lungs- clear breath sounds bilaterally, no rales/wheezes Heart- normal rate, regular rhythm; no murmurs Abdomen- normal bowel sounds, nondistended, soft, nontender Extremities- no pretibial edema, no calf tenderness Neuro- alert, oriented x 3; no gross focal neurologic deficits Skin- warm & dry Results & Data Results & Data ([facility]) Vital Signs (Past 12 Hours) Vital Signs Temp Pulse Pulse Resp BP BP Pulse Ox 07/15/21 11:58 36.5 C 69 16 126/65 122/59 L 97 07/15/21 04:00 36.5 C 69 16 122/59 L 97 07/15/21 01:55 67 all noted and reviewed including below
--- NOTE | 2021-07-15 12:57 | Discharge Summary ---
Date of Service July 15, 2021 Admission HPI Per Admitting Provider This is a 51-year-old female who has significant past medical history of paroxysmal atrial fibrillation/flutter, rheumatoid arthritis, tobacco use, anxiety who presents ED secondary to tachycardia that started this morning. Of significance patient was recently hospitalized 07/06-07/09 secondary to atrial flutter. She initially required admission to ICU secondary to decompensation of diastolic failure in setting of poor forward flow requiring BiPAP and IV diuresis. Patient eventually required DCCV as she did not spontaneously convert. She was also treated with digoxin and diltiazem. She was placed on IV heparin drip and transition to Eliquis. She previously was not anticoagulated. During hospitalization she did undergo echocardiogram which revealed normal LV systolic function, EF 55 to 60%, no wall motion abnormalities, significant valvular pathology and normal LV chamber size with mild concentric LVH. She does have prior history of A. fib in the past and is established with EP Dr. Laboy as OP. She previously had an ablation in October. She has not missed any of her medications including metoprolol, flecaninde and eliquis. She went to bed last evening and felt well. When she first woke up this morning she felt really well, all things considered. She was sitting at her island drinking coffee and felt herself develop palpitations. She had a smart watch and checked her HR and it was showing high HRs. She sent Dr. Laboy a message to see what she should do and was instructed to come to ER. When she presented to hospital 1 week ago she was also have SOB and heavy legs and arms. At discharge she was told any HR over 100 is to be concerned about. She did follow up with Dr. Hernandez on 07/12 for ER follow up. She denies f/c/s, lightheaded, chest pain, URI sx, cough, n/v/d, abd pain, change in bowel or urinary habits. She did have some SOB this morning with palpitations when trying to put shoes on. She also complains of dizziness in a.m. which she feels is likely due to her RA. In ED patient was in A. fib/flutter with heart rates in the 150s to 160s. She initially was given IV metoprolol and started on diltiazem drip per cardiology. Her CBC and CMP was generally unremarkable except for mild low sodium 135. Her chest x-ray was negative for acute process. She was saturating well on room air. Admission Exam Per Admitting Provider Constitutional: WD/WN, vitals as above, NAD, sitting up in bed, pleasant, conversing easily Head: Normocephalic, Atraumatic Eyes: PERRL, conjunctivae normal, anicteric sclerae ENMT: external ear and nose normal, oropharynx normal Neck: trachea midline, no thyromegaly normal visual inspection Respiratory: normal respiratory effort, lungs clear to auscultation, no wheeze, rales, rhonchi. Normal insp/exp effort, no accessory muscle use Cardiovascular: Tachycardic rate, regular rhythm, no murmur, no edema Vessels: no JVD or carotid bruit Chest: normal inspection of chest Abdomen: normal bowel sounds, soft, nontender, no hepatosplenomegaly Musculoskeletal: no cyanosis or clubbing, AROM X 4 Skin: no rashes, warm and dry normal turgor Neurologic: PERRL, EOMI, accommodation nl, no face palsy, no dysarthria CN's II-XI intact bilaterally and moves all extremities Psychiatric: A+Ox3, euthymic affect : deferred Principal Diagnosis ATRIAL FLUTTER IN RVR Discharge Exam General- oriented x 3, not in distress, speaks in sentences with no effort or accessory muscle use Eyes- anicteric Neck- no JVD Lungs- clear breath sounds bilaterally, no rales/wheezes Heart- normal rate, regular rhythm; no murmurs Abdomen- normal bowel sounds, nondistended, soft, nontender Extremities- no pretibial edema, no calf tenderness Neuro- alert, oriented x 3; no gross focal neurologic deficits Skin- warm & dry Discharge Data Allergies Allergy/AdvReac Type Severity Reaction Status Date / Time No Known Allergies Allergy Mild Verified 07/05/21 23:24 Consultations 07/14/21 11:35 Consult Cardiology Routine 07/14/21 11:49 ED Decision to Admit Stat Hospital Course (1) Atrial flutter with rapid ventricular response: (2) RA (rheumatoid arthritis): per admitting service notes with addendum: This is a 51-year-old female who has significant past medical history of paroxysmal atrial fibrillation/flutter, rheumatoid arthritis, nicotine use, alcohol use, anxiety who presents ED secondary to tachycardia that started this morning. Atrial Flutter with RVR admitted to PCU echo done during recent admit on 07/07- EF 55-60%, mild concentric LVH, no valvular pathology pt had previous DCCV on 07/09/21; also had EP ablation 10/[address] Laboy 07/15 converted to sinus rhythm asymptomatic evaluated by Dr. Belle recommend to d/c on the following medications: Diltiazem 180mg daily increase Flecainide to 100mg BID stop Metoprolol continue Eliquis patient to be called by Cardiology clinic for ablation Nicotine use alcohol use pt uses vape, and admits to drinking 6 drinks/wk encourage cessation of both Hx of decompensated HFrEF in setting of aflutter with RVR pt currently euvolemic and saturating well on room air DVT ppx: continue eliquis Dispo: d/c home ff up with [employer] in 1 week Total Time Total Time Spent Total Time Spent (In Minutes): >30 MINUTES Discharge Plan Discharge Items Patient Disposition: Home - Self-Care Reason For Visit: RECURRENT AFIB/FLUTTER Discharge Diagnosis: ATRIAL FLUTTER IN RAPID VENTRICULAR RESPONSE Activity: As commented below Activity Comment: INCREASE GRADUALLY TOLERATED Lifting: Wait until after follow-up appointment Exercise/Sports: Wait until after follow-up appointment Driving/Machine Use: NO DRIVING UNTIL RE-EVALUATED AND ALLOWED BY PRIMARY CARE PHYSICIAN Non-emergency contact: Primary Care Provider Call non-emergency contact if: you have any medication questions and your symptoms worsen Follow-up/Referrals: Balbir Hernandez MD [Primary Care Provider] - (Date & Time 07/22/2021 10:00 AM Provider Kurtis Loza MD Department Family Practice [facility] ) Neto Belle DO [[employer]] - Vesna Laboy DO [Physician] - (Date & Time 07/20/2021 11:00 AM Provider Vesna Laboy DO Department Cardiology, [facility] ) Diet: Heart Healthy Addtl Attending Provider Instructions: PLEASE REFER TO YOUR NEW MEDICATION LIST AND FOLLOW INSTRUCTIONS CAREFULLY. YOUR NEW MEDICATIONS INCLUDE: DILTIAZEM - for atrial flutter INCREASE FLECAINIDE TO 100MG EVERY 12 HOURS. PLEASE CALL YOUR PRIMARY CARE PHYSICIAN OR RETURN TO THE ER IF WITH WORSENING OF SYMPTOMS, INCLUDING CHEST PAIN, PALPITATIONS, DIZZINESS, SHORTNESS OF BREATH. FOLLOW UP WITH PRIMARY CARE PHYSICIAN OUTLINED ABOVE. Pending Studies at Discharge: No Stand-Alone Forms: [facility] [place], Smoking Cessation Medications and DC Order Prescriptions: New diltiazem HCl [Tiazac] 180 mg Capsule,Extended Release 24 Hr 180 mg PO QAM 30 Days Qty: 30 RF: 1 flecainide 100 mg Tablet 100 mg PO Q12 30 Days Qty: 60 RF: 1 Continued glycopyrrolate 1 mg tablet 2 mg PO QAM RF: 0 alprazolam 0.5 mg Tablet 0.5 mg PO HS PRN (Reason: RESTLESSNESS) RF: 0 fluoxetine [Prozac] 20 mg Capsule 60 mg PO QAM RF: 0 omeprazole 20 mg capsule,delayed release(DR/EC) 20 mg PO QAM RF: 0 folic acid 1 mg tablet 2 mg PO QAM RF: 0 leflunomide 10 mg tablet 10 mg PO QAM RF: 0 methylprednisolone 4 mg tablets,dose pack 0 mg PO DIRECTED PRN (Reason: RA FLARE UP) RF: 0 Enbrel SureClick 50 mg/mL (1 mL) pen injector 50 mg SUBCUT WK RF: 0 Eliquis 5 mg Tablet 5 mg PO BID Qty: 60 RF: 0 furosemide [Lasix] 20 mg tablet 20 mg PO DAILY PRN (Reason: swelling/weight gain) Qty: 30 RF: 0 potassium chloride 10 mEq capsule, extended release 10 meq PO DAILY PRN (Reason: only when taking furosemide) Qty: 30 RF: 0 Discontinued metoprolol succinate [Toprol XL] 50 mg tablet extended release 24 hr 50 mg PO DAILY Qty: 30 RF: 0 flecainide 100 mg Tablet 50 mg PO Q12 Qty: 30 RF: 0 Discharge Orders: Discharge Order (Routine); Ordered 07/15/21 Ordered By: Michel Hawk Admission Data Admit Date/Time: 07/14/21 11:35 Attending Provider: Michel Hawk Admit Provider: Roque Livingston Primary Care Provider: Balbir Hernandez Other Providers: Neto Belle ; Roque Livingston Other Interventions: Discharge Summary Assessment (RN) Last Done: 07/15/21 11:58
--- NOTE | 2021-07-16 06:10 | Electrocardiogram Report ---
Test Reason : Blood Pressure : / mmHG Vent. Rate : 079 BPM Atrial Rate : 079 BPM P-R Int : 120 ms QRS Dur : 078 ms QT Int : 398 ms P-R-T Axes : 000 058 049 degrees QTc Int : 456 ms Sinus rhythm When compared with ECG of 14-JUL-2021 09:35, Sinus rhythm has replaced Atrial flutter Confirmed by Julio De La Cruz ([id number]) on 07/16/2021 6:10:05 AM Referred By: REFERRED SELF Confirmed By:Julio De La Cruz
== END 2021-07-15 12:30 | disposition home or self-care (01) | DRG 309 ==
LOC: ED 09:20 → EDINP 11:35 → SUATTDRO 11:35 → EDINP 13:03 → 1E 15:14

== ENCOUNTER 2021-10-10 19:25 | Inpatient (IN) ==
[2021-10-10] MEDS ORDERED: dilTIAZem HCl 5 MG/ML 5 ML VIAL IV STA ×2 (19:44→20:36)
[2021-10-10] MEDS ORDERED: dilTIAZem HCL 125 MG in DEXTROSE 5% 100 ML IV ONE (19:44)
[2021-10-10 19:49] LABS: Basophils # (auto) 0.12 K/uL (0-0.2); Basophils % (auto) 1.2 %; Eosinophils # (auto) 0.21 K/uL (0-0.50); Hematocrit (blood only) 33.3 % (34.1-44.9); Hemoglobin 10.8 g/dl (12.0-16.0); Immature Granulocytes # (auto) 0.03 K/uL (0.00-0.02); Immature Granulocytes % (auto) 0.3 %; Lymphocytes # (auto) 3.62 K/uL (1.2-3.4); Lymphocytes % (auto) 35.2 %; Mean Corpuscular Hemoglobin 27.5 pg (25.0-34.0); Mean Corpuscular Hgb Conc 32.4 g/dL (32.0-36.0); Mean Corpuscular Volume 84.7 fL (80.0-100.0); Mean Platelet Volume 10.4 fL (9.4-12.3); Monocytes % (auto) 10.7 %; Neutrophils # (auto) 5.19 K/uL (1.4-6.5); Neutrophils % (auto) 50.6 %; Platelet Count 455 K/uL (130-400); RDW Coefficient of Variation 15.2 % (11.5-14.5); RDW Standard Deviation 46.5 fL (36.4-46.3); Red Blood Count 3.93 M/uL (3.93-5.22); White Blood Count 10.27 K/ul (4.8-10.8)
[2021-10-10 20:02] LABS: Partial Thromboplastin Ratio 1.1; Partial Thromboplastin Time 30.2 Seconds (21.0-31.0); Prothrombin Time 10.7 Seconds (9.0-12.0)
--- NOTE | 2021-10-10 20:05 | XRay Report ---
XR chest 1V portable HISTORY: Atypical Chest Pain COMPARISON: Chest 07/14/2021. FINDINGS: The lungs are clear. Cardiac silhouette is normal in size. No pleural effusions. No pneumot horax. IMPRESSION: No acute process. ACT 112: Negative or not required by law. Electronically signed by: Van William M.D. 10/10/2021 8:03 PM
[2021-10-10 20:16] LABS: Albumin Globulin Ratio 1.3 (0.9-2); BUN Creatinine Ratio 14.9 (10-20); Bilirubin,Total 0.2 mg/dl (0.2-1.0); Calcium 9.4 mg/dl (8.5-10.1); Creatinine Clr Calc Pharmacy 85.3 ml/min; Est GFR (African American) 109.5 ml/min; Est GFR (Non-African American) 94.5 ml/min; Globulin 3.2 gm/dl (2.5-4.0); Total Protein 7.2 gm/dl (6.0-8.3)
[2021-10-10 20:17] LABS: Troponin I High Sensitivity 5.3 pg/ml (0-14)
--- NOTE | 2021-10-10 21:02 | Emergency Department Note ---
Impression & Plan Atrial flutter with rapid ventricular response ED Provider Note INFORMANT: Patient ED PROVIDER(S): Андрей Ha MD CHIEF COMPLAINT: Tachycardia PLAN: Disposition: Admitted Condition: Good Outpatient prescription management: none Referral: None MEDICAL DECISION MAKING: Patient presented because of tachycardia. She was found to be in an a flutter with variable response. She had periods of sinus rhythm. She went back into a flutter in the rate of 150 and was given 2 doses of 10 mg of IV Cardizem. Her blood work was unremarkable. I did discuss the case with Dr. Biggs of [facility]. He asked for the patient to get 20 mEq of oral potassium and 80 mg of oral sotalol. Patient would be treated with a 5 mg/h diltiazem drip. Prior to the administration of the sotalol and the drip the patient converted back to a sinus rhythm. He asked for the sotalol to be decreased to 40 mg and to hold the diltiazem drip. He asked that no diltiazem be given now that she has converted back to sinus rhythm and has gotten the extra sotalol. He did recommend observation in the hospital. I discussed this with the patient. She was in agreement. [facility] Patient was evaluated in the ER admitted for further management. Triage Nursing notes reviewed and agree them. Vital Signs: reviewed and remarkable for tachycardia Differential diagnosis: Premature contractions, electrolyte abnormality, cardiac dysrhythmia, thyroid dysfunction, pulmonary embolism, infection, gastrointestinal, as well as other pathologies. Diagnostics interpreted by me: ECG: Twelve-lead ECG reveals atrial flutter with variable block at [address] elevation. When compared to 15 Jul 2021 a flutter has replaced sinus rhythm. Cardiac Monitoring: Cardiac monitoring ordered by me: The patient was placed on continuous cardiac monitoring and observed. It revealed a flutter at a rate of 155 bpm. Imaging studies: Chest x-ray. Findings: A chest x-ray was performed and revealed no pneumothorax, effusion, infiltrate, pulmonary edema, free air under the diaphragm, or wide mediastinum. Impression: No acute disease. HPI: The patient is a 51 year old female who presents to the Emergency Room with complaints of tachycardia. This started about 3 hours ago and is persisting. The patient also notes the following associated symptoms, shortness of breath. The patient has taken no new medication relieving factors. Current pain is rated as 0/10. Patient has a history of atrial flutter with rapid response. She has had multiple cardioversions in the past. She is pending a surgical ablation like treatment. Denies any recent illness. Pt denies LOC, headache, fevers, chills, diaphoresis, visual changes, neck pain, chest pain, nausea, vomiting, abdominal pain, back pain, melena, hematochezia, urinary symptoms, numbness, weakness, lymphadenopathy, rash, or other complaints. ROS: See above HPI for pertinent positives & negatives. A total of 10 systems reviewed and were otherwise negative. PAST MEDICAL HISTORY:See Below , a flutter PAST SURGICAL HISTORY:See Below, FAMILY HISTORY:See Below SOCIAL HISTORY:See Below, HOME MEDICATIONS:See Below ALLERGIES:See Below VITALS:See Below PHYSICAL EXAMINATION: GENERAL: Awake, alert, mildly anxious-appearing, in no distress HENT: Normocephalic, atraumatic. Oropharynx unremarkable. EYES: Normal conjunctiva. Sclera non-icteric. NECK: Inspection normal. Non-tender. Supple. No nuchal rigidity. FROM. No masses. RESPIRATORY: Clear to auscultation. No wheezes. No rales. Normal respiratory effort. CARDIAC: Tachycardic rate. Irregular rhythm. No murmurs. No rubs. Extremities warm and well perfused. Pulses equal. No JVD. GI: Soft, non-distended. No tenderness to palpation. No rebound or guarding. No masses. RECTAL: Deferred. MUSCULOSKELETAL: Atraumatic. Chest examination reveals no tenderness. The back is symmetrical on inspection without obvious abnormality. There is no CVA tenderness to palpation. No joint edema. LOWER EXTREMITIES: Calves are equal size bilaterally and non-tender. No edema. No discoloration. NEURO: Normal sensorium. No sensory or motor deficits noted. SKIN: No rash or jaundice noted. CRITICAL CARE: I have personally spent greater than 33 minutes of critical care time in the direct management of this patient. This includes bedside care, interpretation of diagnostic studies, and testing, discussion with consultants, patient, and family members, and other required patient management activities. These minutes are in excess of all separately billable procedures. Андрей Ha MD Past Med/Surg History Medical History Anxiety Atrial fibrillation + FLUTTER (NEWLY DX) On Eliquis Atrial flutter GERD (gastroesophageal reflux disease) History of kidney stones History of TMJ disorder Hypertension Per records RA (rheumatoid arthritis) On Arava Surgical History H/O wisdom tooth extraction History of colonoscopy History of esophagogastroduodenoscopy (EGD) Family History Father Alcohol use Grandmother (Paternal) Breast cancer Other No family history of adverse response to anesthesia No significant family history Social History Smoking Status: Current every day smoker Tobacco Type: Cigarettes Cigarettes Per Day: 1 CART. DAILY; Second Hand Exposure: No; Hx Alcohol Use: No Hx Substance Use: No Preferred Language: Palestinian Communication Ability: Effective Compliance Monitor Required: No Beliefs That Will Affect Care: None marital status: Current Living Situation: Spouse Feels Safe at Home: Yes Assistive Devices: None Allergies Allergies Allergy/AdvReac Type Severity Reaction Status Date / Time No Known Allergies Allergy Mild Verified 10/10/21 22:44 Home Meds Home Medications Medication Instructions Recorded Confirmed fluoxetine 20 mg capsule (Prozac) 60 mg PO QAM 09/14/18 10/10/21 folic acid 1 mg tablet 2 mg PO QAM 12/24/18 10/10/21 omeprazole 20 mg capsule,delayed 20 mg PO QAM 12/24/18 10/10/21 release leflunomide 10 mg tablet 10 mg PO QAM 04/23/19 10/10/21 alprazolam 0.5 mg tablet 0.5 mg PO HS 10/10/21 10/10/21 etanercept 50 mg/mL (1 mL) 50 mg subcut WK 10/10/21 10/10/21 subcutaneous pen injector (Enbrel SureJuanick) glycopyrrolate 1 mg tablet 2 mg PO QAM 10/10/21 10/10/21 prednisone 1 mg tablet 4 mg PO DAILY PRN .FLARES 10/10/21 10/10/21 sotalol 80 mg tablet 80 mg PO BID 10/10/21 10/10/21 Previous Rx's Medication Instructions Recorded apixaban 5 mg tablet (Eliquis) 5 mg PO BID #60 tabs 07/09/21 Results & Data (ED) Vital Signs Vital Signs - 24 hr 10/10/21 19:29 10/10/21 19:51 10/10/21 19:33 Temperature 36.4 C L Temperature Source Temporal Artery Scan Pulse Rate 89 87 Pulse Rate [Apical] Pulse Rate from SpO2 Sensor Respiratory Rate 18 Respiratory Effort / Characteristics Non-Labored Spontaneous Respiratory Depth Normal Blood Pressure 134/86 Blood Pressure [Right Arm] Blood Pressure Mean 102 Blood Pressure Mean [Right Arm] Pulse Oximetry 98 98 99 Oxygen Delivery Method Room Air Room Air Room Air Sepsis Recent Fever Within 48 Hours No Sepsis New/Unexplained Change in Mental Status No Sepsis Action Taken by Nursing No Action Required 10/10/21 20:17 10/10/21 19:49 10/10/21 20:00 Temperature Temperature Source Pulse Rate 89 157 H Pulse Rate [Apical] 153 H Pulse Rate from SpO2 Sensor 80 157 H Respiratory Rate 20 12 14 Respiratory Effort / Characteristics Respiratory Depth Blood Pressure Blood Pressure [Right Arm] 137/93 Blood Pressure Mean Blood Pressure Mean [Right Arm] 107 Pulse Oximetry 98 99 99 Oxygen Delivery Method Room Air Room Air Room Air Sepsis Recent Fever Within 48 Hours Sepsis New/Unexplained Change in Mental Status Sepsis Action Taken by Nursing 10/10/21 20:44 10/10/21 20:34 10/10/21 20:46 Temperature Temperature Source Pulse Rate 152 H Pulse Rate [Apical] 153 H 80 Pulse Rate from SpO2 Sensor 154 H Respiratory Rate 18 16 Respiratory Effort / Characteristics Respiratory Depth Blood Pressure 140/99 Blood Pressure [Right Arm] Blood Pressure Mean 112 Blood Pressure Mean [Right Arm] Pulse Oximetry 97 98 97 Oxygen Delivery Method Room Air Room Air Room Air Sepsis Recent Fever Within 48 Hours Sepsis New/Unexplained Change in Mental Status Sepsis Action Taken by Nursing 10/10/21 21:00 10/10/21 21:15 10/10/21 21:30 Temperature Temperature Source Pulse Rate 69 65 65 Pulse Rate [Apical] Pulse Rate from SpO2 Sensor 69 68 68 Respiratory Rate 20 17 21 Respiratory Effort / Characteristics Respiratory Depth Blood Pressure 102/79 126/83 124/79 Blood Pressure [Right Arm] Blood Pressure Mean 86 97 94 Blood Pressure Mean [Right Arm] Pulse Oximetry 95 98 96 Oxygen Delivery Method Room Air Room Air Room Air Sepsis Recent Fever Within 48 Hours Sepsis New/Unexplained Change in Mental Status Sepsis Action Taken by Nursing 10/10/21 22:00 Temperature Temperature Source Pulse Rate 66 Pulse Rate [Apical] Pulse Rate from SpO2 Sensor 65 Respiratory Rate 15 Respiratory Effort / Characteristics Respiratory Depth Blood Pressure 138/75 Blood Pressure [Right Arm] Blood Pressure Mean 96 Blood Pressure Mean [Right Arm] Pulse Oximetry 98 Oxygen Delivery Method Room Air Sepsis Recent Fever Within 48 Hours Sepsis New/Unexplained Change in Mental Status Sepsis Action Taken by Nursing Laboratory Data Result diagrams: 10/10/21 19:38 10/10/21 19:38 Lab Results 10/10/21 10/10/21 10/10/21 Range/Units 19:38 19:38 19:38 WBC 10.27 (4.8-10.8) K/ul RBC 3.93 (3.93-5.22) M/uL Hgb 10.8 L (12.0-16.0) g/dl Hct 33.3 L (34.1-44.9) % MCV 84.7 (80.0-100.0) fL MCH 27.5 (25.0-34.0) pg MCHC 32.4 (32.0-36.0) g/dL RDW Std Deviation 46.5 H (36.4-46.3) fL RDW Coeff of Bridget 15.2 H (11.5-14.5) % Plt Count 455 H (130-400) K/uL MPV 10.4 (9.4-12.3) fL Immature Gran % (Auto) 0.3 % Neut % (Auto) 50.6 % Lymph % (Auto) 35.2 % [place] % (Auto) 10.7 % Eos % (Auto) 2.0 % Baso % (Auto) 1.2 % Neut # (Auto) 5.19 (1.4-6.5) K/uL Lymph # (Auto) 3.62 H (1.2-3.4) K/uL [place] # (Auto) 1.10 H (0.24-0.82) K/uL Eos # (Auto) 0.21 (0-0.50) K/uL Baso # (Auto) 0.12 (0-0.2) K/uL Immature Gran # (Auto) 0.03 H (0.00-0.02) K/uL PT 10.7 (9.0-12.0) Seconds INR 1.0 (0.9-1.1) APTT 30.2 (21.0-31.0) Seconds PTT Ratio 1.1 Sodium 138 (136-145) mmol/L Potassium 4.0 (3.5-5.1) mmol/L Chloride 105 (98-107) mmol/L Carbon Dioxide 22 (21-32) mmol/L Anion Gap 11 (3-11) BUN 11 (6-23) mg/dl Creatinine 0.74 (0.6-1.2) mg/dl Est Cr Clr Drug Dosing 85.3 ml/min Est GFR ( Amer) 109.5 ml/min Est GFR (Non-Af Amer) 94.5 ml/min BUN/Creatinine Ratio 14.9 (10-20) Glucose 88 (70-99(Fasting)) mg/dl Calcium 9.4 (8.5-10.1) mg/dl Magnesium 2.0 (1.7-2.4) mg/dl Total Bilirubin 0.2 (0.2-1.0) mg/dl AST 15 (13-39) U/L ALT 12 (7-52) U/L Alkaline Phosphatase 71 (34-104) U/L Troponin I High Sens 5.3 (0-14) pg/ml Total Protein 7.2 (6.0-8.3) gm/dl Albumin 4.0 (3.4-5.0) gm/dl Globulin 3.2 (2.5-4.0) gm/dl Albumin/Globulin Ratio 1.3 (0.9-2) Lipase 19 (11-82) U/L SARS-CoV-2, RNA, NAAT (NEGATIVE) 10/10/21 Range/Units 20:01 WBC (4.8-10.8) K/ul RBC (3.93-5.22) M/uL Hgb (12.0-16.0) g/dl Hct (34.1-44.9) % MCV (80.0-100.0) fL MCH (25.0-34.0) pg MCHC (32.0-36.0) g/dL RDW Std Deviation (36.4-46.3) fL RDW Coeff of Bridget (11.5-14.5) % Plt Count (130-400) K/uL MPV (9.4-12.3) fL Immature Gran % (Auto) % Neut % (Auto) % Lymph % (Auto) % [place] % (Auto) % Eos % (Auto) % Baso % (Auto) % Neut # (Auto) (1.4-6.5) K/uL Lymph # (Auto) (1.2-3.4) K/uL [place] # (Auto) (0.24-0.82) K/uL Eos # (Auto) (0-0.50) K/uL Baso # (Auto) (0-0.2) K/uL Immature Gran # (Auto) (0.00-0.02) K/uL PT (9.0-12.0) Seconds INR (0.9-1.1) APTT (21.0-31.0) Seconds PTT Ratio Sodium (136-145) mmol/L Potassium (3.5-5.1) mmol/L Chloride (98-107) mmol/L Carbon Dioxide (21-32) mmol/L Anion Gap (3-11) BUN (6-23) mg/dl Creatinine (0.6-1.2) mg/dl Est Cr Clr Drug Dosing ml/min Est GFR ( Amer) ml/min Est GFR (Non-Af Amer) ml/min BUN/Creatinine Ratio (10-20) Glucose (70-99(Fasting)) mg/dl Calcium (8.5-10.1) mg/dl Magnesium (1.7-2.4) mg/dl Total Bilirubin (0.2-1.0) mg/dl AST (13-39) U/L ALT (7-52) U/L Alkaline Phosphatase (34-104) U/L Troponin I High Sens (0-14) pg/ml Total Protein (6.0-8.3) gm/dl Albumin (3.4-5.0) gm/dl Globulin (2.5-4.0) gm/dl Albumin/Globulin Ratio (0.9-2) Lipase (11-82) U/L SARS-CoV-2, RNA, NAAT NEGATIVE (NEGATIVE) Administered Medications Discontinued Medications Diltiazem HCl (Diltiazem Hcl 5 Mg/Ml 5 Ml Vial) 10 mg IV NOW STA Stop: 10/10/21 19:45 Last Admin: 10/10/21 20:13 Dose: 10 mg Documented By: STEPHANIE Co-signed By: JAKOB Diltiazem HCl (Diltiazem Hcl 5 Mg/Ml 5 Ml Vial) 10 mg IV NOW STA Stop: 10/10/21 20:37 Last Admin: 10/10/21 20:39 Dose: 10 mg Documented By: STEPHANIE Co-signed By: GOLDIE Diltiazem HCl 125 mg/ Dextrose 125 mls @ 5 mls/hr IV .Q24H ONE; Protocol Stop: 10/11/21 19:43 Last Admin: 10/10/21 21:19 Dose: Not Given Documented By: STEPHANIE Potassium Chloride (Potassium Chloride Crtab 20 Meq Tabcr) 20 meq PO NOW STA Stop: 10/10/21 21:05 Last Admin: 10/10/21 21:11 Dose: 20 meq Documented By: STEPHANIE Sotalol HCl (Sotalol Hcl 80 Mg Tab) 80 mg PO NOW ONE Stop: 10/10/21 21:05 Last Admin: 10/10/21 21:30 Dose: Not Given Documented By: STEPHANIE Sotalol HCl (Sotalol Hcl 80 Mg Tab) 40 mg PO NOW ONE Stop: 10/10/21 21:17 Last Admin: 10/10/21 21:56 Dose: 40 mg Documented By: STEPHANIE Imaging Data Radiologist's Impression: Chest X-Ray 10/10/21 19:33 XR chest 1V portable HISTORY: Atypical Chest Pain COMPARISON: Chest 07/14/2021. FINDINGS: The lungs are clear. Cardiac silhouette is normal in size. No pleural effusions. No pneumothorax. IMPRESSION: No acute process. ACT 112: Negative or not required by law. Electronically signed by: Van William M.D. 10/10/2021 8:03 PM Discharge Plan Visit Data Chief Complaint: Cardiac Assessment Stated Complaint: CHEST PAINS, TACHYCARDIA 172, SOB ED Provider: Андрей Ha Discharge Problem: Atrial flutter with rapid ventricular response Patient Disposition: Admitted As Inpatient Discharge Instructions Interventions: ED Discharge Assessment Last Done: 10/10/21 22:55
[2021-10-10] MEDS ORDERED: POTASSIUM CHLORIDE CRTAB 20 MEQ TABCR PO STA (21:04)
[2021-10-10] MEDS ORDERED: SOTALOL HCL 80 MG TAB PO ONE ×2 (21:04→21:16)
[2021-10-10] MEDS ORDERED: POTASSIUM CHLORIDE 10 MEQ TABCR PO PRN (23:00)
[2021-10-10] MEDS ORDERED: ALPRAZolam 0.5 MG TABLET PO PRN (23:00)
[2021-10-10] MEDS ORDERED: ACETAMINOPHEN 325 MG TAB PO PRN (23:00)
[2021-10-10] MEDS ORDERED: FUROSEMIDE 20 MG TAB PO PRN (23:00)
[2021-10-10] MEDS ORDERED: NITROGLYCERIN SL 0.4 MG/TAB TAB SL PRN (23:00)
--- NOTE | 2021-10-11 00:20 | History and Physical Report ---
DATE OF ADMISSION: 10/10/2021. CHIEF COMPLAINT: Rapid AFib. HISTORY OF PRESENT ILLNESS: A 51-year-old female with past medical history significant for AFib, paroxysmal atrial flutter, history of gastritis, history of sweating abnormality, chronic headaches, rheumatoid arthritis of multiple sites, anxiety, insomnia, tobacco use, presents with rapid AFib. At one time, she required ICU admission for diastolic failure in the setting of rapid AFib, requiring Bipap IV diuretics and eventually required a direct cardioversion. The patient also had ablation done in 10/2020. She was on diltiazem and also she was on flecainide in the past. She also used to take metoprolol in the past. Currently, she is only on sotalol. She is on Eliquis. The patient says there is a plan for surgical ablation at the end of this month or next month. Today at 4:00 p.m. when she was sitting on the couch , she noticed palpitations coming on. Generally, they resolve in about 10 minutes, but it was not getting better. She called her cardiology office and was advised to come to the ER. When she came to the ER, she was in on and off AFib/A-flutter. ER initially started on Cardizem drip, then she converted to regular rhythm. Again, she went into rapid AFib. ER called cardiology and they recommended to give a dose of sotalol. Initially was planned to do 80mg, but as she converted back to regular rhythm, she was given 40 of sotalol. Plan to observe overnight. Currently resting comfortably, hemodynamically stable. When she had the symptoms, she had some mild chest discomfort, shortness of breath, dizziness that is all resolved now. She also had some mild headache. Currently, denies any headache. No blurred visions, no earache, no runny nose, no sore throat, no cough. Appetite is okay. No difficulty swallowing. Currently, no chest pain, no shortness of breath, no nausea, no vomiting, no abdominal pain. Normal bowel and bladder movements. No swelling in the legs. She says she has some dyspnea on exertion. Coming from the basement steps, she feels tired in the legs and also gets short of breath. ALLERGIES: No known drug allergies. PAST MEDICAL HISTORY: As mentioned above. PAST SURGICAL HISTORY: Colonoscopy, dental surgery, EGD, heart cardioversion, status post ablation. MEDICATIONS: The patient is on sotalol 80 mg p.o. b.i.d., alprazolam 0.5 mg p.o. at bedtime p.r.n., Eliquis 5 mg p.o. b.i.d., Enbrel 50 mg subcutaneous weekly, Prozac 60 mg p.o. a.m., folic acid 4 mg p.o. daily, Lasix 20 mg p.r.n. for swelling, potassium chloride 10 mEq when taking Lasix, glycopyrrolate 1 mg p.o. b.i.d., leflunomide 10 mg p.o. a.m., omeprazole 20 mg p.o. a.m. FAMILY HISTORY: Significant for father has alcoholism; paternal grandmother has breast cancer. SOCIAL HISTORY: . Smokes quarter pack a day for 23 years. Alcohol occasional. No drug use. REVIEW OF SYSTEMS: As per HPI. Rest of the review of systems is negative. PHYSICAL EXAMINATION: GENERAL: The patient is of moderate build, not in acute distress. VITAL SIGNS: Temperature 36.4, pulse 66, respiratory rate 15, blood pressure 138/75, oxygen 98% on room air. HEENT: Pupils equal, round and reactive to light. Oral mucosa moist. NECK: No JVD, no neck masses. CARDIOVASCULAR: S1 and S2 heard. Irregular rhythm. No murmur, no gallop. RESPIRATORY SYSTEM: Normal AP diameter. No accessory muscle use. No wheezing, no crackles. ABDOMEN: Soft, bowel sounds present, nontender, no distention. CENTRAL NERVOUS SYSTEM: Cranial nerves II through XII are grossly intact, nonfocal. EXTREMITIES: No edema, no erythema. LABORATORY DATA: WBC 10.2, hemoglobin 10.8, hematocrit 33.3, platelets 455. PT 10.7, INR 1, APTT 30.2. Sodium 138, potassium 4, chloride 105, bicarbonate 22, BUN 11, creatinine 0.7, serum glucose 88, calcium 9.4, magnesium 2, total bilirubin 0.2, AST 15, ALT 12, alkaline phosphatase 71. Troponin I high sensitivity 5.3. Lipase 19. SARS-CoV-2 rapid test negative. IMAGING: Chest x-ray, no acute process. ELECTROCARDIOGRAM: Initial EKG showed atrial fibrillation with rapid ventricular response at a rate of 138, no acute ST-T changes seen. Repeat EKG currently showing sinus rhythm with PVCs at a rate of 67. ASSESSMENT AND PLAN: This is a 51-year-old female who presents with rapid atrial fibrillation, currently converted to regular sinus rhythm. 1. Rapid atrial fibrillation, history of cardioversion, history of ablation: Plan for surgical ablation as per patient. Currently on sotalol 80 mg b.i.d. Initially started on Cardizem drip. Emergency Room spoke with cardiology and recommended extra dose of sotalol 40 mg and monitor for now as she converted to sinus rhythm. Continue her Eliquis. We will closely monitor in the telemetry floor. We will keep her n.p.o. for now. Cardiology consult in a.m.Plan for cardioversion if necessary 2. History of rheumatoid arthritis: On leflunomide. She is also on Enbrel for rheumatoid arthritis. 3. History of anxiety: On Ativan p.r.n. and also fluoxetine. 4. Gastroesophageal reflux disease: On omeprazole. 5. Deep venous thrombosis prophylaxis: On Eliquis. DISPOSITION: Closely monitor in the tele floor. Level 1, full code. Expect to discharge home and follow with family doctor. Job ID: [id number] [facility] CENTERDarling
[2021-10-11] MEDS ORDERED: SOTALOL HCL 80 MG TAB PO STA (00:50)
[2021-10-11 05:56] LABS: Basophils # (auto) 0.09 K/uL (0-0.2); Basophils % (auto) 1.3 %; Eosinophils # (auto) 0.18 K/uL (0-0.50); Eosinophils % (auto) 2.6 %; Hematocrit (blood only) 32.4 % (34.1-44.9); Hemoglobin 10.3 g/dl (12.0-16.0); Immature Granulocytes # (auto) 0.03 K/uL (0.00-0.02); Immature Granulocytes % (auto) 0.4 %; Lymphocytes # (auto) 2.48 K/uL (1.2-3.4); Lymphocytes % (auto) 35.8 %; Mean Corpuscular Hemoglobin 27.7 pg (25.0-34.0); Mean Corpuscular Hgb Conc 31.8 g/dL (32.0-36.0); Mean Corpuscular Volume 87.1 fL (80.0-100.0); Mean Platelet Volume 10.1 fL (9.4-12.3); Neutrophils # (auto) 3.25 K/uL (1.4-6.5); Neutrophils % (auto) 46.9 %; Platelet Count 391 K/uL (130-400); RDW Coefficient of Variation 15.4 % (11.5-14.5); RDW Standard Deviation 48.9 fL (36.4-46.3); Red Blood Count 3.72 M/uL (3.93-5.22); White Blood Count 6.93 K/ul (4.8-10.8)
[2021-10-11 06:17] LABS: BUN Creatinine Ratio 16.7 (10-20); Creatinine Clr Calc Pharmacy 94.2 ml/min; Est GFR (African American) 119.4 ml/min; Magnesium 2.2 mg/dl (1.7-2.4)
[2021-10-11] MEDS: APIXABAN 5 MG TABLET PO SCH ×2 (08:17→20:34)
[2021-10-11] MEDS: FLUoxetine HCL 20 MG CAP PO SCH (08:18)
[2021-10-11] MEDS: FOLIC ACID 1 MG TAB PO SCH (08:18)
[2021-10-11] MEDS: PANTOprazole 40 MG TAB PO SCH (08:18)
[2021-10-11] MEDS: LEFLUNOMIDE 10 MG TAB PO SCH (08:18)
[2021-10-11] MEDS: GLYCOPYRROLATE 1 MG TAB PO SCH ×2 (08:19→20:33)
[2021-10-11] MEDS ORDERED: SOTALOL HCL 80 MG TAB PO SCH (09:00)
[2021-10-11] MEDS ORDERED: SOTALOL HCL 80 MG TAB PO ONE (10:15)
--- NOTE | 2021-10-11 10:39 | Cardiology Consultation ---
Date of Consultation October 11, 2021 Assessment & Plan (1) Paroxysmal atrial flutter: (2) Hypertension: (3) RA (rheumatoid arthritis): Plan Patient is a 51-year-old female with paroxysmal atypical atrial flutter with recurrence on current dosing of sotalol recently initiated. Tolerated additional dose last evening and currently in sinus rhythm Plan: Maintain telemetry additional 24 hours with increase in sotalol to 120 mg twice per day. Change potassium supplement to 10 mill colons daily Continue Eliquis anticoagulation Discussed options of long-term management in detail with patient. Patient already being considered for repeat ablation attempt. Additional options of antiarrhythmic therapy with Tikosyn discussed but would need to fail higher dose sotalol as initiated today History of Present Illness Reason for Consultation: Paroxysmal atrial fibrillation Requesting Physician: Dr Flores Attending Physician: Douglas Schaeffer MD History of Present Illness Patient is a 51-year-old female with ongoing issues which include 1. Paroxysmal atypical atrial flutter on antiarrhythmic therapy with sotalol, status post flutter ablation October 2019 2. Rheumatoid arthritis 3. Hypertension Patient presents this admission with recent history notable for change in antiarrhythmic therapy from flecainide and diltiazem to sotalol in July 2021. Patient underwent electrical cardioversion at that time Patient initially been doing well with rare episodes of brief tachypalpitations but evening of admission lapsed into sustained A. fib flutter and presented to the emergency room. Patient treated with IV diltiazem with intermittent break and arrhythmia. Additional dose of oral sotalol 40 mg given with ultimate conversion to sinus rhythm. No further arrhythmias overnight. Patient denies fevers chills or unexplained infections. No chest pains. Does feel breathless and tight in the chest when tachycardic. No acute weight loss or gain. No edema. No bleeding difficulties on anticoagulation. Allergies Allergy/AdvReac Type Severity Reaction Status Date / Time No Known Allergies Allergy Mild Verified 10/10/21 22:44 Home Medications Medication Instructions Recorded Confirmed Type fluoxetine 20 mg capsule (Prozac) 60 mg PO QAM 09/14/18 10/10/21 History folic acid 1 mg tablet 2 mg PO QAM 12/24/18 10/10/21 History omeprazole 20 mg capsule,delayed 20 mg PO QAM 12/24/18 10/10/21 History release leflunomide 10 mg tablet 10 mg PO QAM 04/23/19 10/10/21 History apixaban 5 mg tablet (Eliquis) 5 mg PO BID #60 tabs 07/09/21 10/10/21 Rx alprazolam 0.5 mg tablet 0.5 mg PO HS 10/10/21 10/10/21 History etanercept 50 mg/mL (1 mL) 50 mg subcut WK 10/10/21 10/10/21 History subcutaneous pen injector (Enbrel SureClick) glycopyrrolate 1 mg tablet 2 mg PO QAM 10/10/21 10/10/21 History prednisone 1 mg tablet 4 mg PO DAILY PRN .FLARES 10/10/21 10/10/21 History sotalol 80 mg tablet 80 mg PO BID 10/10/21 10/10/21 History Patient History Medical History Anxiety Atrial fibrillation + FLUTTER (NEWLY DX) On Eliquis Atrial flutter GERD (gastroesophageal reflux disease) History of kidney stones History of TMJ disorder Hypertension Per records RA (rheumatoid arthritis) On Arava Surgical History H/O wisdom tooth extraction History of colonoscopy History of esophagogastroduodenoscopy (EGD) Family History Father Alcohol use Grandmother (Paternal) Breast cancer Other No family history of adverse response to anesthesia No significant family history Social History Smoking Status: Current every day smoker Tobacco Type: Cigarettes Cigarettes Per Day: 1 CART. 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: No Beliefs That Will Affect Care: None marital status: Current Living Situation: Spouse and Family How many Children do You have: 2 Feels Safe at Home: Yes Safety Concerns: Feels Safe At This Time Assistive Devices: None Review of Systems Review of Systems: All systems reviewed & are unremarkable except as noted in HPI & below Physical Exam Constitutional: WD/WN, vitals as above Eyes: PERRL, conjunctivae normal, anicteric sclerae ENMT: external ear and nose normal, oropharynx normal Neck: trachea midline, no thyromegaly Respiratory: normal respiratory effort, lungs clear to auscultation Cardiovascular: Rate/Rhythm: regular rate and regular rhythm Heart Sounds: normal S1 and normal S2; no gallop and no murmur Palpation: normal PMI Vessels: normal carotid upstroke and radial pulses present; no JVD and no carotid bruit Extremities: no edema Gastrointestinal (Abdomen): normal bowel sounds, soft, nontender, no hepatosplenomegaly Musculoskeletal: no cyanosis or clubbing, extremities motor strength 5/5 Skin: no rashes, warm and dry Neurologic: PERRL, EOMI, accommodation nl, no face palsy, no dysarthria Psychiatric: A+Ox3, euthymic affect Results & Data ([facility]) Vital Signs (Past 12 Hours) Vital Signs Temp Pulse Pulse Resp BP Pulse Ox O2 Del Method 10/11/21 09:41 Room Air 10/11/21 09:35 Room Air 10/11/21 08:05 36.6 C 60 16 120/75 98 Room Air 10/11/21 04:21 36.5 C 63 16 117/77 98 Room Air 10/10/21 22:50 36.5 C 91 H 18 145/69 H 99 Room Air 10/10/21 23:12 72 Laboratory Results Laboratory Results - last 24 hr 10/10/21 10/10/21 10/10/21 19:38 19:38 19:38 WBC 10.27 RBC 3.93 Hgb 10.8 L Hct 33.3 L MCV 84.7 MCH 27.5 MCHC 32.4 RDW Std Deviation 46.5 H RDW Coeff of Bridget 15.2 H Plt Count 455 H MPV 10.4 Immature Gran % (Auto) 0.3 Neut % (Auto) 50.6 Lymph % (Auto) 35.2 [place] % (Auto) 10.7 Eos % (Auto) 2.0 Baso % (Auto) 1.2 Neut # (Auto) 5.19 Lymph # (Auto) 3.62 H [place] # (Auto) 1.10 H Eos # (Auto) 0.21 Baso # (Auto) 0.12 Immature Gran # (Auto) 0.03 H PT 10.7 INR 1.0 APTT 30.2 PTT Ratio 1.1 Sodium 138 Potassium 4.0 Chloride 105 Carbon Dioxide 22 Anion Gap 11 BUN 11 Creatinine 0.74 Est Cr Clr Drug Dosing 85.3 Est GFR ( Amer) 109.5 Est GFR (Non-Af Amer) 94.5 BUN/Creatinine Ratio 14.9 Glucose 88 Calcium 9.4 Magnesium 2.0 Total Bilirubin 0.2 AST 15 ALT 12 Alkaline Phosphatase 71 Troponin I High Sens 5.3 Total Protein 7.2 Albumin 4.0 Globulin 3.2 Albumin/Globulin Ratio 1.3 Lipase 19 SARS-CoV-2, RNA, NAAT 10/10/21 10/11/21 10/11/21 20:01 05:24 05:24 WBC 6.93 RBC 3.72 L Hgb 10.3 L Hct 32.4 L MCV 87.1 MCH 27.7 MCHC 31.8 L RDW Std Deviation 48.9 H RDW Coeff of Bridget 15.4 H Plt Count 391 MPV 10.1 Immature Gran % (Auto) 0.4 Neut % (Auto) 46.9 Lymph % (Auto) 35.8 [place] % (Auto) 13.0 Eos % (Auto) 2.6 Baso % (Auto) 1.3 Neut # (Auto) 3.25 Lymph # (Auto) 2.48 [place] # (Auto) 0.90 H Eos # (Auto) 0.18 Baso # (Auto) 0.09 Immature Gran # (Auto) 0.03 H PT INR APTT PTT Ratio Sodium Potassium Chloride Carbon Dioxide Anion Gap BUN Creatinine Est Cr Clr Drug Dosing Est GFR ( Amer) Est GFR (Non-Af Amer) BUN/Creatinine Ratio Glucose Calcium Magnesium Total Bilirubin AST ALT Alkaline Phosphatase Troponin I High Sens 5.1 Total Protein Albumin Globulin Albumin/Globulin Ratio Lipase SARS-CoV-2, RNA, NAAT NEGATIVE 10/11/21 05:24 WBC RBC Hgb Hct MCV MCH MCHC RDW Std Deviation RDW Coeff of Bridget Plt Count MPV Immature Gran % (Auto) Neut % (Auto) Lymph % (Auto) [place] % (Auto) Eos % (Auto) Baso % (Auto) Neut # (Auto) Lymph # (Auto) [place] # (Auto) Eos # (Auto) Baso # (Auto) Immature Gran # (Auto) PT INR APTT PTT Ratio Sodium 139 Potassium 4.0 Chloride 106 Carbon Dioxide 28 Anion Gap 5 BUN 11 Creatinine 0.66 Est Cr Clr Drug Dosing 94.2 Est GFR ( Amer) 119.4 Est GFR (Non-Af Amer) 103.0 BUN/Creatinine Ratio 16.7 Glucose 84 Calcium 9.0 Magnesium 2.2 Total Bilirubin AST ALT Alkaline Phosphatase Troponin I High Sens Total Protein Albumin Globulin Albumin/Globulin Ratio Lipase SARS-CoV-2, RNA, NAAT ECG Additional Comments: EKG 10/11/2021 Normal sinus rhythm normal tracing at 67 bpm QT corrected 458
[2021-10-11] MEDS: POTASSIUM CHLORIDE 10 MEQ TABCR PO SCH (10:44)
--- NOTE | 2021-10-11 10:59 | Electrocardiogram Report ---
Test Reason : Blood Pressure : / mmHG Vent. Rate : 067 BPM Atrial Rate : 067 BPM P-R Int : 120 ms QRS Dur : 080 ms QT Int : 434 ms P-R-T Axes : 034 052 057 degrees QTc Int : 458 ms Normal sinus rhythm Normal ECG When compared with ECG of 10-OCT-2021 21:16, Premature supraventricular complexes are no longer Present Confirmed by Tobias Lagos ([id number]) on 10/11/2021 10:59:38 AM Referred By: Miles Mendoza Confirmed By:Tobias Lagos
--- NOTE | 2021-10-11 12:28 | Electrocardiogram Report ---
Test Reason : Blood Pressure : / mmHG Vent. Rate : 138 BPM Atrial Rate : 166 BPM P-R Int : 000 ms QRS Dur : 066 ms QT Int : 328 ms P-R-T Axes : 000 056 042 degrees QTc Int : 496 ms Poor data quality, interpretation may be adversely affected Atrial fibrillation with rapid ventricular response Abnormal ECG When compared with ECG of 15-JUL-2021 05:30, Atrial fibrillation has replaced Sinus rhythm Vent. rate has increased BY 59 BPM Confirmed by Tobias Lagos ([id number]) on 10/11/2021 12:28:24 PM Referred By: Miles Mendoza Confirmed By:Tobias Lagos
--- NOTE | 2021-10-11 12:29 | Electrocardiogram Report ---
Test Reason : Blood Pressure : / mmHG Vent. Rate : 067 BPM Atrial Rate : 067 BPM P-R Int : 118 ms QRS Dur : 082 ms QT Int : 422 ms P-R-T Axes : 029 046 052 degrees QTc Int : 445 ms Sinus rhythm with Premature supraventricular complexes Otherwise normal ECG When compared with ECG of 10-OCT-2021 19:33, Sinus rhythm has replaced Atrial fibrillation Vent. rate has decreased BY 71 BPM Confirmed by Tobias Lagos ([id number]) on 10/11/2021 12:29:15 PM Referred By: Miles Mendoza Confirmed By:Tobias Lagos
--- NOTE | 2021-10-11 14:15 | Hospitalist Progress Note ---
Date of Service October 11, 2021 Assessment & Plan (1) Atrial fibrillation with RVR: Plan: Hx of Cardioversion and ablation in the past. EKG on admission showed A. fib with ventricular rate of 138. She converted to sinus rhythm without any intervention Her last echo is from 07/11 which showed mild concentric LVH with EF of 55 to 60% with no significant valvular pathology. Plan; Plan for telemetry monitoring for next 24 hours. Sotalol dose increased to 120 mg twice daily. -Continue Eliquis for anticoagulation. Chronic Conditions: 2. History of rheumatoid arthritis: On leflunomide. She is also on Enbrel for rheumatoid arthritis. 3. History of anxiety: On Ativan p.r.n. and also fluoxetine. 4. Gastroesophageal reflux disease: On omeprazole. 5. Deep venous thrombosis prophylaxis: On Eliquis. (2) RA (rheumatoid arthritis): Admission and Anticipated Discharge Date Admission Date: October 10, 2021 Subjective Patient seen and examined at bedside. She is sitting up on the bed; not in any acute distress. She denies any palpitation, shortness of breath or dizziness. She is currently in sinus rhythm Review of Systems Review of Systems: All systems reviewed & are unremarkable except as noted in Subjective Physical Exam Physical Exam: Constitutional: Comfortable; sitting up on the bed. Respiratory: normal respiratory effort, lungs clear to auscultation, no wheeze, rales, rhonchi. Normal insp/exp effort, no accessory muscle use Cardiovascular: RRR, no murmur, no edema Vessels: no JVD or carotid bruit Chest: normal inspection of chest Abdomen: normal bowel sounds, soft, nontender, no hepatosplenomegaly Musculoskeletal: no cyanosis or clubbing, extremities motor strength 5/5 Skin: no rashes, warm and dry normal turgor Neurologic: PERRL, EOMI, accommodation nl, no face palsy, no dysarthria CN's II- XI intact bilaterally and moves all extremities Psychiatric: A+Ox3, euthymic affect Lymphatic: no cervical or axillary lymphadenopathy : deferred Results & Data Results & Data ([facility]) Vital Signs (Past 12 Hours) Vital Signs Temp Pulse Resp BP Pulse Ox O2 Del Method 10/11/21 11:49 36.6 C 68 16 129/79 97 Room Air 10/11/21 09:41 Room Air 10/11/21 09:35 Room Air 10/11/21 08:05 36.6 C 60 16 120/75 98 Room Air 10/11/21 04:21 36.5 C 63 16 117/77 98 Room Air COVID-19 Results Results COVID-19 Adm Lab Results: RBC 3.72 M/uL (3.93-5.22) L 10/11/21 WBC 6.93 K/ul (4.8-10.8) 10/11/21 Hgb 10.3 g/dl (12.0-16.0) L 10/11/21 Hct 32.4 % (34.1-44.9) L 10/11/21 Plt Count 391 K/uL (130-400) 10/11/21 Neutrophils (%) (Auto) 46.9 % 10/11/21 Lymphocytes (%) (Auto) 35.8 % 10/11/21 Monocytes # (Auto) 0.90 K/uL (0.24-0.82) H 10/11/21 Eosinophils # (Auto) 0.18 K/uL (0-0.50) 10/11/21 Immature Granulocyte % (Auto) 0.4 % 10/11/21 Neutrophils # (Auto) 3.25 K/uL (1.4-6.5) 10/11/21 Lymphocytes # (Auto) 2.48 K/uL (1.2-3.4) 10/11/21 Monocytes # (Auto) 0.90 K/uL (0.24-0.82) H 10/11/21 Eosinophils # (Auto) 0.18 K/uL (0-0.50) 10/11/21 Basophils # (Auto) 0.09 K/uL (0-0.2) 10/11/21 Immature Granulocyte # (Auto) 0.03 K/uL (0.00-0.02) H 10/11 Na 139 mmol/L (136-145) 10/11/21 K 4.0 mmol/L (3.5-5.1) 10/11/21 Cl 106 mmol/L (98-107) 10/11/21 CO2 28 mmol/L (21-32) 10/11/21 Anion Gap 5 (3-11) 10/11/21 BUN 11 mg/dl (6-23) 10/11/21 Creatinine 0.66 mg/dl (0.6-1.2) 10/11/21 BUN/Creatinine Ratio 16.7 (10-20) 10/11/21 Glucose Level 84 mg/dl (70-99(Fasting)) 10/11/21 Ca 9.0 mg/dl (8.5-10.1) 10/11/21 Total Bilirubin 0.2 mg/dl (0.2-1.0) 10/10/21 AST/SGOT 15 U/L (13-39) 10/10/21 ALT/SGPT 12 U/L (7-52) 10/10/21 Alkaline Phosphatase 71 U/L (34-104) 10/10/21 Total Protein 7.2 gm/dl (6.0-8.3) 10/10/21 Albumin 4.0 gm/dl (3.4-5.0) 10/10/21 Globulin 3.2 gm/dl (2.5-4.0) 10/10/21 Albumin/Globulin Ratio 1.3 (0.9-2) 10/10/21 PTT 30.2 Seconds (21.0-31.0) 10/10/21 INR 1.0 (0.9-1.1) 10/10/21 SARS-CoV-2, RNA, NAAT NEGATIVE (NEGATIVE) 10/10/21 Chest X-Ray 10/10/21
[2021-10-11] MEDS: SOTALOL HCL 80 MG TAB PO SCH (20:34)
[2021-10-12] MEDS: SOTALOL HCL 80 MG TAB PO SCH (08:41)
[2021-10-12] MEDS: APIXABAN 5 MG TABLET PO SCH (08:41)
[2021-10-12] MEDS: POTASSIUM CHLORIDE 10 MEQ TABCR PO SCH (08:46)
[2021-10-12] MEDS: GLYCOPYRROLATE 1 MG TAB PO SCH (08:47)
[2021-10-12] MEDS: FOLIC ACID 1 MG TAB PO SCH (08:47)
[2021-10-12] MEDS: FLUoxetine HCL 20 MG CAP PO SCH (08:47)
[2021-10-12] MEDS: PANTOprazole 40 MG TAB PO SCH (08:48)
[2021-10-12] MEDS: LEFLUNOMIDE 10 MG TAB PO SCH (08:48)
--- NOTE | 2021-10-12 09:01 | Electrocardiogram Report ---
Test Reason : Blood Pressure : / mmHG Vent. Rate : 061 BPM Atrial Rate : 061 BPM P-R Int : 122 ms QRS Dur : 072 ms QT Int : 458 ms P-R-T Axes : 044 046 040 degrees QTc Int : 461 ms Normal sinus rhythm Normal ECG When compared with ECG of 11-OCT-2021 05:32, No significant change was found Confirmed by Tobias Lagos ([id number]) on 10/12/2021 9:00:53 AM Referred By: Miles Mendoza Confirmed By:Tobias Lagos
--- NOTE | 2021-10-12 09:40 | Electrocardiogram Report ---
Test Reason : Blood Pressure : / mmHG Vent. Rate : 066 BPM Atrial Rate : 066 BPM P-R Int : 132 ms QRS Dur : 082 ms QT Int : 450 ms P-R-T Axes : 040 048 044 degrees QTc Int : 471 ms Normal sinus rhythm Normal ECG When compared with ECG of 11-OCT-2021 10:54, No significant change was found Confirmed by Tobias Lagos ([id number]) on 10/12/2021 9:39:52 AM Referred By: Miles Mendoza Confirmed By:Tobias Lagos
--- NOTE | 2021-10-12 11:31 | Cardiology Progress Note ---
Date of Service October 12, 2021 Assessment & Plan (1) Paroxysmal atrial flutter: (2) Hypertension: (3) RA (rheumatoid arthritis): Plan Patient is a 51-year-old female with paroxysmal atypical atrial flutter with recurrence on current dosing of sotalol recently initiated. Tolerated additional dose last evening and currently in sinus rhythm Plan: Maintain telemetry additional 24 hours with increase in sotalol to 120 mg twice per day. Change potassium supplement to 10 mill colons daily Continue Eliquis anticoagulation Discussed options of long-term management in detail with patient. Patient already being considered for repeat ablation attempt. Additional o ptions of antiarrhythmic therapy with Tikosyn discussed but would need to fail higher dose sotalol as initiated today 10/12/2021. Patient doing well tolerated increase in sotalol dosing without any significant change in QT interval. Plan discharge to home on sotalol 120 mg twice per day. Follow-up EP as scheduled for consideration of atypical atrial flutter ablation Admission and Anticipated Discharge Date Admission Date: October 10, 2021 Subjective Patient was seen and examined, chart, medications telemetry reviewed. No difficulties overnight. No arrhythmias no recurrence of atrial fibrillation. EKG this morning without QT prolongation Physical Exam Constitutional: WD/WN, vitals as above Eyes: PERRL, conjunctivae normal, anicteric sclerae ENMT: external ear and nose normal, oropharynx normal Neck: trachea midline, no thyromegaly Respiratory: normal respiratory effort, lungs clear to auscultation Cardiovascular: Rate/Rhythm: regular rate and regular rhythm Heart Sounds: normal S1 and normal S2; no gallop and no murmur Palpation: normal PMI Vessels: normal carotid upstroke and radial pulses present; no JVD and no carot id bruit Extremities: no edema Gastrointestinal (Abdomen): normal bowel sounds, soft, nontender, no hepatosplenomegaly Musculoskeletal: no cyanosis or clubbing, extremities motor strength 5/5 Skin: no rashes, warm and dry Neurologic: PERRL, EOMI, accommodation nl, no face palsy, no dysarthria Psychiatric: A+Ox3, euthymic affect Results & Data ([facility]) Vital Signs (Past 12 Hours) Vital Signs Temp Pulse Pulse Resp BP BP Pulse Ox 10/12/21 11:12 36.4 C L 70 18 137/77 130/81 98 10/12/21 07:20 36.4 C L 70 18 137/77 98 10/12/21 07:04 67 10/12/21 03:00 36.6 C 72 16 130/81 98 O2 Del Method 10/12/21 11:12 10/12/21 07:20 Room Air 10/12/21 07:04 10/12/21 03:00 Laboratory Results Laboratory Results - last 24 hr 10/11/21 10/11/21 11:05 16:54 Troponin I High Sens 4.1 3.9
--- NOTE | 2021-10-12 15:20 | Discharge Summary ---
Date of Service October 12, 2021 Admission HPI Per Admitting Provider A 51-year-old female with past medical history significant for AFib, paroxysmal atrial flutter, history of gastritis, history of sweating abnormality, chronic headaches, rheumatoid arthritis of multiple sites, anxiety, insomnia, tobacco use, presents with rapid AFib. At one time, she required ICU admission for diastolic failure in the setting of rapid AFib, requiring Bipap IV diuretics and eventually required a direct cardioversion. The patient also had ablation done in 10/2020. She was on diltiazem and also she was on flecainide in the past. She also used to take metoprolol in the past. Currently, she is only on sotalol. She is on Eliquis. The patient says there is a plan for surgical ablation at the end of this month or next month. Today at 4:00 p.m. when she was sitting on the couch , she noticed palpitations coming on. Generally, they resolve in about 10 minutes, but it was not getting better. She called her cardiology office and was advised to come to the ER. When she came to the ER, she was in on and off AFib/A-flutter. ER initially started on Cardizem drip, then she converted to regular rhythm. Again, she went into rapid AFib. ER called cardiology and they recommended to give a dose of sotalol. Initially was planned to do 80mg, but as she converted back to regular rhythm, she was given 40 of sotalol. Plan to observe overnight. Currently resting comfortably, hemodynamically stable. When she had the symptoms, she had some mild chest discomfort, shortness of breath, dizziness that is all resolved now. She also had some mild headache. Currently, denies any headache. No blurred visions, no earache, no runny nose, no sore throat, no cough. Appetite is okay. No difficulty swallowing. Currently, no chest pain, no shortness of breath, no nausea, no vomiting, no abdominal pain. Normal bowel and bladder movements. No swelling in the legs. She says she has some dyspnea on exertion. Coming from the basement steps, she feels tired in the legs and also gets short of breath. Admission Exam Per Admitting Provider GENERAL: The patient is of moderate build, not in acute distress. VITAL SIGNS: Temperature 36.4, pulse 66, respiratory rate 15, blood pressure 138/75, oxygen 98% on room air. HEENT: Pupils equal, round and reactive to light. Oral mucosa moist. NECK: No JVD, no neck masses. CARDIOVASCULAR: S1 and S2 heard. Irregular rhythm. No murmur, no gallop. RESPIRATORY SYSTEM: Normal AP diameter. No accessory muscle use. No wheezing, no crackles. ABDOMEN: Soft, bowel sounds present, nontender, no distention. CENTRAL NERVOUS SYSTEM: Cranial nerves II through XII are grossly intact, nonfocal. EXTREMITIES: No edema, no erythema. Principal Diagnosis 1) Atrial Fibrillation with RVR 2) Hx of RA Discharge Exam Constitutional: Comfortable; sitting up on the bed. Respiratory: normal respiratory effort, lungs clear to auscultation, no wheeze, rales, rhonchi. Normal insp/exp effort, no accessory muscle use Cardiovascular: RRR, no murmur, no edema Vessels: no JVD or carotid bruit Chest: normal inspection of chest Abdomen: normal bowel sounds, soft, nontender, no hepatosplenomegaly Musculoskeletal: no cyanosis or clubbing, extremities motor strength 5/5 Skin: no rashes, warm and dry normal turgor Neurologic: PERRL, EOMI, accommodation nl, no face palsy, no dysarthria CN's II- XI intact bilaterally and moves all extremities Psychiatric: A+Ox3, euthymic affect Lymphatic: no cervical or axillary lymphadenopathy : deferred Discharge Data Allergies Allergy/AdvReac Type Severity Reaction Status Date / Time No Known Allergies Allergy Mild Verified 10/10/21 22:44 Consultations 10/10/21 22:12 ED Decision to Admit Stat 10/11/21 08:00 Consult Cardiology Routine Hospital Course (1) Atrial flutter with rapid ventricular response: (2) Hypertension: Plan Patient is a 51-year-old female with past medical history of A. fib ( Hx of ablation) on sotalol and eliquis, HTN presented to the ED with shortness of breath and palpitation. She converted to sinus rhythm after presentation to the ED without any intervention. Cardiology was consulted for further recommendation. Her sotalol was increased from 80mg twice daily to 120 mg twice daily. Patient was then monitored on telemetry for 24 hours. She continued to maintain sinus rhythm throughout the hospitalization. EKG done at the time of the discharge shows normal sinus rhythm with QTC of 471. Prescription for sotalol 120 mg and potassium supplement was sent to the pharmacy. Patient was asked to follow-up with PCP and cardiology. Total Time Total Time Spent Total Time Spent (In Minutes): 35 Total Time Includes: Examination of the Patient, Discharge Planning, Medication Reconciliation, Communication With Other Providers and Other Discharge Plan Discharge Items Patient Disposition: Home - Self-Care Reason For Visit: PALPITATIONS Discharge Diagnosis: Atrial Fibrillation with RVR. Activity: Resume your previous activity Non-emergency contact: Primary Care Provider and Rail Specialist Call non-emergency contact if: you have any medication questions and your symptoms worsen Follow-up/Referrals: Balbir Hernandez MD [Primary Care Provider] - (Date & Time 10/18/2021 11:00 AM Provider Tobias Munoz MD Department Family [facility] ) Diet: Regular Addtl Attending Provider Instructions: We are increasing dose of Sotalol to 120mg twice daily. Take 80mg one and half tablet twice daily. We are prescribing you Potassium supplement 10meq once daily. Pending Studies at Discharge: No Stand-Alone Forms: My [facility] [employer], Smoking Cessation Medications and DC Order Prescriptions: New sotalol 80 mg Tablet 120 mg PO BID 30 Days Qty: 90 0RF potassium chloride 10 mEq Tablet,Er Particles/Crystals 10 meq PO DAILY 30 Days Qty: 30 0RF Continued fluoxetine [Prozac] 20 mg Capsule 60 mg PO QAM omeprazole 20 mg capsule,delayed release(DR/EC) 20 mg PO QAM folic acid 1 mg tablet 2 mg PO QAM leflunomide 10 mg tablet 10 mg PO QAM Eliquis 5 mg Tablet 5 mg PO BID Qty: 60 0RF alprazolam 0.5 mg tablet 0.5 mg PO HS glycopyrrolate 1 mg tablet 2 mg PO QAM Enbrel SureClick 50 mg/mL (1 mL) pen injector 50 mg SUBCUT WK Rx Instructions: TAKE THIS MED EVERY MONDAY prednisone 1 mg Tablet 4 mg PO DAILY PRN (Reason: .FLARES) Discontinued sotalol 80 mg tablet 80 mg PO BID Discharge Orders: Discharge Order (Routine); Ordered 10/12/21 Ordered By: Douglas Schaeffer Admission Data Admit Date/Time: 10/10/21 22:25 Attending Provider: Douglas Schaeffer Admit Provider: Calderon Flores Primary Care Provider: Balbir Hernandez Other Providers: Calderon Flores ; Sundeep Biggs Other Interventions: Discharge Summary Assessment (RN) Last Done: 10/12/21 11:12
== END 2021-10-12 11:30 | disposition home or self-care (01) | DRG 310 ==
LOC: ED 19:25 → 2S 22:25

== ENCOUNTER 2022-07-25 06:07 | Inpatient (IN) ==
[2022-07-25] MEDS ORDERED: OPTIRAY 320 500ml IV ONE (06:50)
--- NOTE | 2022-07-25 06:51 | Emergency Department Note ---
ED Provider Note CHIEF COMPLAINT: Shortness of breath HISTORY OF PRESENT ILLNESS: This 52-year-old female with past medical history of rheumatoid arthritis, paroxysmal atrial fib, hypertension patient presents to the emergency department with complaints of increased shortness of breath. Patient states she has been under evaluation for anemia and was due to have an iron infusion today. Her shortness of breath has been progressive but became much worse overnight. She is anticoagulated due to her history of paroxysmal atrial fibrillation. She does have chronic diarrhea and is a daily smoker. The patient admits to some dark stools recently but states she had an upper EGD and there was no active bleeding found. She is scheduled for colonoscopy soon. Patient denies any fevers, vomiting. She denies any significant chest pain. She does not wear home oxygen. REVIEW OF SYSTEMS: A review of systems was performed with positives and pertinent negatives listed in the history of present illness. 10 systems were reviewed and are otherwise negative. ALLERGIES: see below MEDICATIONS: see below PMH: see below SOCIAL HISTORY: Smokes 1/2 pack of cigarettes per day. DDx: Reactive airway disease, pneumonia, pneumothorax, COPD, CHF, infections, cardiac ischemia, pulmonary embolism, musculoskeletal, gastrointestinal, as well as other pathologies. PHYSICAL EXAM: Vital signs reviewed. Noted to be hypoxic and hypertensive. General: Chronically ill-appearing 52 yo female, in no significant distress. HEENT: No scleral icterus, PERRLA, neck supple. Atraumatic. Cardiovascular: Regular rate and rhythm, no extra sounds. Pulmonary: Faint crackles bilaterally with diminished lung sounds at the bases, increased work of breathing. Abdomen: Soft, nontender, nondistended, positive bowel sounds. Musculoskeletal: Atraumatic, no peripheral edema. Neurologic: Patient awake alert and oriented x 3, speech is clear Skin: Clammy, pale, no rash EMERGENCY DEPARTMENT COURSE/MDM: [] MONITORING: An order for cardiac monitoring was placed and the patient is noted to be in a normal sinus rhythm at 97 beats per minute. RADIOLOGY: Chest x-ray to my interpretation reveals bilateral pulmonary infiltrates, pleural effusions. Otherwise defer to radiology. CT imaging of the chest to my review reveals bilateral pulmonary infiltrates and pleural effusions. Otherwise defer to radiology below EKG: To my interpretation reveals a sinus rhythm at [address] segments. QTc is 434. When compared to previous dated October 12, 2021, no significant changes found DISPOSITION: Admission Past Med/Surg History Medical History Anxiety Atrial fibrillation + FLUTTER (NEWLY DX) On Eliquis Atrial flutter GERD (gastroesophageal reflux disease) History of kidney stones History of TMJ disorder Hypertension Per records RA (rheumatoid arthritis) On Arava Surgical History H/O wisdom tooth extraction History of colonoscopy History of esophagogastroduodenoscopy (EGD) Family History Father Alcohol use Grandmother (Paternal) Breast cancer Other No family history of adverse response to anesthesia No significant family history Social History Smoking Status: Current every day smoker Tobacco Type: Cigarettes Cigarettes Per Day: 1 CART. DAILY; Second Hand Exposure: No; Do You Dip or Chew Tobacco: No; Hx Alcohol Use: Yes Alcohol type: beer, wine and hard liquor Alcohol Intake Frequency: 2-3 x/Week Alcohol Intake Frequency Comment: 6 drinks/week Hx Substance Use: No Preferred Language: Yi Communication Ability: Effective Disassembler Product Required: No Beliefs That Will Affect Care: None marital status: Current Living Situation: Spouse and Family How many Children do You have: 2 Feels Safe at Home: Yes Assistive Devices: None Allergies Allergies Allergy/AdvReac Type Severity Reaction Status Date / Time No Known Allergies Allergy Mild Verified 10/10/21 22:44 Home Meds Home Medications Medication Instructions Recorded Confirmed fluoxetine 20 mg capsule (Prozac) 60 mg PO QAM 09/14/18 10/10/21 folic acid 1 mg tablet 2 mg PO QAM 12/24/18 10/10/21 omeprazole 20 mg capsule,delayed 20 mg PO QAM 12/24/18 10/10/21 release leflunomide 10 mg tablet 10 mg PO QAM 04/23/19 10/10/21 alprazolam 0.5 mg tablet 0.5 mg PO HS 10/10/21 10/10/21 etanercept 50 mg/mL (1 mL) 50 mg subcut WK 10/10/21 10/10/21 subcutaneous pen injector (Enbrel SureClick) glycopyrrolate 1 mg tablet 2 mg PO QAM 10/10/21 10/10/21 prednisone 1 mg tablet 4 mg PO DAILY PRN .FLARES 10/10/21 10/10/21 Previous Rx's Medication Instructions Recorded apixaban 5 mg tablet (Eliquis) 5 mg PO BID #60 tabs 07/09/21 Results & Data (ED) Vital Signs Vital Signs - 24 hr 07/25/22 06:14 07/25/22 06:23 07/25/22 06:20 Temperature 36.8 C Temperature Source Temporal Artery Scan Pulse Rate 92 H 97 H 86 Respiratory Rate 26 H 22 Respiratory Effort / Characteristics Labored Respiratory Depth Deep Blood Pressure 151/87 H 165/114 H Blood Pressure Mean 108 131 Pulse Oximetry 91 88 L Oxygen Delivery Method Room Air Room Air Oxygen Flow Rate Sepsis Recent Fever Within 48 Hours No Sepsis New/Unexplained Change in Mental Status N/A Sepsis Action Taken by Nursing No Action Required 07/25/22 06:20 07/25/22 06:43 Temperature Temperature Source Pulse Rate Respiratory Rate Respiratory Effort / Characteristics Respiratory Depth Blood Pressure Blood Pressure Mean Pulse Oximetry 98 Oxygen Delivery Method Nasal Cannula Nasal Cannula Oxygen Flow Rate 4 4 Sepsis Recent Fever Within 48 Hours Sepsis New/Unexplained Change in Mental Status Sepsis Action Taken by Halfway Medications Current Medication List: was personally reviewed by me Laboratory Data Attestation: I reviewed the patient's lab results. 07/25/22 06:29 07/25/22 06:29 Lab Results 07/25/22 07/25/22 07/25/22 Range/Units 06:26 06:29 06:29 WBC 10.81 H (4.8-10.8) K/ul RBC 3.51 L (4.20-5.40) M/uL Hgb 9.3 L (12.0-16.0) g/dl POC Hgb (12.0-16.0) g/dl Hct 29.2 L (37.0-47.0) % POC Hct (37-47) % MCV 83.2 (80.0-100.0) fL MCH 26.5 (25.0-34.0) pg MCHC 31.8 L (32.0-36.0) g/dL RDW Std Deviation 48.2 H (36.4-46.3) fL RDW Coeff of Bridget 15.9 H (11.5-14.5) % Plt Count 405 H (130-400) K/uL MPV 10.6 (9.4-12.4) fL Immature Gran % (Auto) 0.3 % Neut % (Auto) 71.0 % Lymph % (Auto) 16.9 % [place] % (Auto) 9.1 % Eos % (Auto) 2.0 % Baso % (Auto) 0.7 % Neut # (Auto) 7.67 H (1.40-6.50) K/uL Lymph # (Auto) 1.83 (1.2-3.4) K/uL [place] # (Auto) 0.98 H (0.11-0.59) K/uL Eos # (Auto) 0.22 (0-0.50) K/uL Baso # (Auto) 0.08 (0-0.2) K/uL Immature Gran # (Auto) 0.03 (0.01-0.20) K/uL PT (9.0-12.0) Seconds INR (0.9-1.1) APTT (21.0-31.0) Seconds PTT Ratio POC Sodium (135-144) mmol/L Sodium 140 (136-145) mmol/L POC Potassium (3.3-5.0) mmol/L Potassium 4.0 (3.5-5.1) mmol/L POC Chloride (101-112) mmol/L Chloride 108 H (98-107) mmol/L Carbon Dioxide 24 (21-32) mmol/L POC Total CO2 (24-31) mmol/L Anion Gap 8 (3-11) POC Anion Gap (16-25) mmol/L POC BUN (7-18) mg/dl BUN 11 (6-23) mg/dl Creatinine 0.70 (0.6-1.2) mg/dl POC Creatinine (0.6-1.3) mg/dl Est Cr Clr Drug Dosing 95.6 ml/min Est GFR ( Amer) 116.3 ml/min Est GFR (Non-Af Amer) 100.3 ml/min BUN/Creatinine Ratio 15.7 (10-20) Glucose 91 (70-99(Fasting)) mg/dl POC Glucose (other) (70-99) mg/dl Lactate (0.4-2.0) mmol/L Calcium 9.1 (8.6-10.3) mg/dl POC Ioniz Calcium Chris (1.12-1.32) mmol/l Total Bilirubin 0.3 (0.2-1.0) mg/dl AST 16 (13-39) U/L ALT 13 (7-52) U/L Alkaline Phosphatase 93 (34-104) U/L Troponin I High Sens 6.6 (0-14) pg/ml B-Natriuretic Peptide (0-100) pg/ml Total Protein 6.8 (6.0-8.3) gm/dl Albumin 3.8 (3.4-5.0) gm/dl Globulin 3.0 (2.5-4.0) gm/dl Albumin/Globulin Ratio 1.3 (0.9-2) SARS-CoV-2, RNA, NAAT NEGATIVE (NEGATIVE) Blood Type Antibody Screen 07/25/22 07/25/22 07/25/22 Range/Units 06:29 06:30 06:31 WBC (4.8-10.8) K/ul RBC (4.20-5.40) M/uL Hgb (12.0-16.0) g/dl POC Hgb (12.0-16.0) g/dl Hct (37.0-47.0) % POC Hct (37-47) % MCV (80.0-100.0) fL MCH (25.0-34.0) pg MCHC (32.0-36.0) g/dL RDW Std Deviation (36.4-46.3) fL RDW Coeff of Bridget (11.5-14.5) % Plt Count (130-400) K/uL MPV (9.4-12.4) fL Immature Gran % (Auto) % Neut % (Auto) % Lymph % (Auto) % [place] % (Auto) % Eos % (Auto) % Baso % (Auto) % Neut # (Auto) (1.40-6.50) K/uL Lymph # (Auto) (1.2-3.4) K/uL [place] # (Auto) (0.11-0.59) K/uL Eos # (Auto) (0-0.50) K/uL Baso # (Auto) (0-0.2) K/uL Immature Gran # (Auto) (0.01-0.20) K/uL PT 11.3 (9.0-12.0) Seconds INR 1.0 (0.9-1.1) APTT 29.3 (21.0-31.0) Seconds PTT Ratio 1.0 POC Sodium (135-144) mmol/L Sodium (136-145) mmol/L POC Potassium (3.3-5.0) mmol/L Potassium (3.5-5.1) mmol/L POC Chloride (101-112) mmol/L Chloride (98-107) mmol/L Carbon Dioxide (21-32) mmol/L POC Total CO2 (24-31) mmol/L Anion Gap (3-11) POC Anion Gap (16-25) mmol/L POC BUN (7-18) mg/dl BUN (6-23) mg/dl Creatinine (0.6-1.2) mg/dl POC Creatinine (0.6-1.3) mg/dl Est Cr Clr Drug Dosing ml/min Est GFR ( Amer) ml/min Est GFR (Non-Af Amer) ml/min BUN/Creatinine Ratio (10-20) Glucose (70-99(Fasting)) mg/dl POC Glucose (other) (70-99) mg/dl Lactate (0.4-2.0) mmol/L Calcium (8.6-10.3) mg/dl POC Ioniz Calcium Chris (1.12-1.32) mmol/l Total Bilirubin (0.2-1.0) mg/dl AST (13-39) U/L ALT (7-52) U/L Alkaline Phosphatase (34-104) U/L Troponin I High Sens (0-14) pg/ml B-Natriuretic Peptide 550 H (0-100) pg/ml Total Protein (6.0-8.3) gm/dl Albumin (3.4-5.0) gm/dl Globulin (2.5-4.0) gm/dl Albumin/Globulin Ratio (0.9-2) SARS-CoV-2, RNA, NAAT (NEGATIVE) Blood Type A Positive Antibody Screen NEGATIVE 07/25/22 07/25/22 Range/Units 06:35 07:35 WBC (4.8-10.8) K/ul RBC (4.20-5.40) M/uL Hgb (12.0-16.0) g/dl POC Hgb 10.2 L (12.0-16.0) g/dl Hct (37.0-47.0) % POC Hct 30 L (37-47) % MCV (80.0-100.0) fL MCH (25.0-34.0) pg MCHC (32.0-36.0) g/dL RDW Std Deviation (36.4-46.3) fL RDW Coeff of Bridget (11.5-14.5) % Plt Count (130-400) K/uL MPV (9.4-12.4) fL Immature Gran % (Auto) % Neut % (Auto) % Lymph % (Auto) % [place] % (Auto) % Eos % (Auto) % Baso % (Auto) % Neut # (Auto) (1.40-6.50) K/uL Lymph # (Auto) (1.2-3.4) K/uL [place] # (Auto) (0.11-0.59) K/uL Eos # (Auto) (0-0.50) K/uL Baso # (Auto) (0-0.2) K/uL Immature Gran # (Auto) (0.01-0.20) K/uL PT (9.0-12.0) Seconds INR (0.9-1.1) APTT (21.0-31.0) Seconds PTT Ratio POC Sodium 141 (135-144) mmol/L Sodium (136-145) mmol/L POC Potassium 4.1 (3.3-5.0) mmol/L Potassium (3.5-5.1) mmol/L POC Chloride 106 (101-112) mmol/L Chloride (98-107) mmol/L Carbon Dioxide (21-32) mmol/L POC Total CO2 20 L (24-31) mmol/L Anion Gap (3-11) POC Anion Gap 19.0 (16-25) mmol/L POC BUN 9 (7-18) mg/dl BUN (6-23) mg/dl Creatinine (0.6-1.2) mg/dl POC Creatinine 0.7 (0.6-1.3) mg/dl Est Cr Clr Drug Dosing ml/min Est GFR ( Amer) ml/min Est GFR (Non-Af Amer) ml/min BUN/Creatinine Ratio (10-20) Glucose (70-99(Fasting)) mg/dl POC Glucose (other) 97 (70-99) mg/dl Lactate 0.7 (0.4-2.0) mmol/L Calcium (8.6-10.3) mg/dl POC Ioniz Calcium Chris 1.22 (1.12-1.32) mmol/l Total Bilirubin (0.2-1.0) mg/dl AST (13-39) U/L ALT (7-52) U/L Alkaline Phosphatase (34-104) U/L Troponin I High Sens (0-14) pg/ml B-Natriuretic Peptide (0-100) pg/ml Total Protein (6.0-8.3) gm/dl Albumin (3.4-5.0) gm/dl Globulin (2.5-4.0) gm/dl Albumin/Globulin Ratio (0.9-2) SARS-CoV-2, RNA, NAAT (NEGATIVE) Blood Type Antibody Screen Administered Medications Discontinued Medications Albuterol (Albut/Ipratrop 3mg/0.5mg Neb 3 Ml Vial) 3 ml NEB NOW STA; Protocol Stop: 07/25/22 07:22 Last Admin: 07/25/22 07:43 Dose: 3 ml Documented By: CARMINE Furosemide (Furosemide 40 Mg/4 Ml Vial) 40 mg IV ONE ONE Stop: 07/25/22 07:04 Last Admin: 07/25/22 07:58 Dose: Not Given Documented By: RSL Piperacillin Sod/Tazobactam Sod (Zosyn) 4.5 gm in 120 mls @ 240 mls/hr IV NOW ONE Stop: 07/25/22 07:49 Last Admin: 07/25/22 07:43 Dose: 240 mls/hr Documented By: RSAnthony Ioversol (Optiray 320 500ml) 120 ml IV ONCE ONE Stop: 07/25/22 06:51 Last Admin: 07/25/22 06:51 Dose: 120 ml Documented By: YOUSIF Imaging Data Radiologist's Impression: Chest X-Ray 07/25/22 06:18 XR chest 1V portable CLINICAL HISTORY: Dyspnea TECHNIQUE: Single frontal radiograph of the chest was obtained. Comparison: Comparison is made to chest radiograph 10/10/2021 FINDINGS: No lines and tubes are seen. The cardiomediastinal silhouette is normal. Bilateral airspace opacities are seen. No evidence of pleural effusion or pneumothorax. IMPRESSION: Bilateral airspace opacities are compatible with pneumonia, with or without superimposed aspiration/atelectasis. ACT 112: Negative or not required by law. Electronically signed by: Ghassan Higuera M.D. 07/25/2022 7:38 AM Chest CTA 07/25/22 06:37 CT angio chest PE protocol CLINICAL HISTORY: PE TECHNIQUE: Multidetector row helical CT of the chest was performed with angiographic protocol. Coronal and sagittal reformations were obtained. Coronal and sagittal MIPS were obtained from the axial data set and were submitted for review. Automated dose lowering techniques and/or adjustment according to patient size were utilized for this exam. Comparison: Comparison is made to CTA chest 07/06/2021 FINDINGS: Lungs and pleura: Moderate bilateral pleural effusions and bronchial wall thickening are seen. Airspace opacities are seen in the bilateral lower lungs. Heart and pericardium: Heart size is normal. No pericardial effusion. Vessels: No evidence of pulmonary embolism. Mediastinum and mikki: Subcentimeter lymph nodes are seen. Chest wall and lower neck: Unremarkable. Abdomen: Unremarkable. Bones: Degenerative changes in the thoracic spine. IMPRESSION: 1. No pulmonary embolus is seen. 2. Scattered groundglass opacities are seen compatible with pneumonia. 3. Moderate bilateral pleural effusions, increased from prior. ACT 112: Negative or not required by law. Electronically signed by: Ghassan Higuera M.D. 07/25/2022 7:10 AM Discharge Plan Visit Data Chief Complaint: Respiratory Problems Stated Complaint: HAVING TROUBLE BREATHING, CAN'T CATCH BREATH ED Provider: Andria Lockwood Forms Stand Alone Forms: My [facility] Prescriptions Prescriptions: No Action fluoxetine [Prozac] 20 mg Capsule 60 mg PO QAM omeprazole 20 mg capsule,delayed release(DR/EC) 20 mg PO QAM folic acid 1 mg tablet 2 mg PO QAM leflunomide 10 mg tablet 10 mg PO QAM Eliquis 5 mg Tablet 5 mg PO BID Qty: 60 0RF alprazolam 0.5 mg tablet 0.5 mg PO HS glycopyrrolate 1 mg tablet 2 mg PO QAM Enbrel SureClick 50 mg/mL (1 mL) pen injector 50 mg SUBCUT WK Rx Instructions: TAKE THIS MED EVERY MONDAY prednisone 1 mg Tablet 4 mg PO DAILY PRN (Reason: .FLARES) Referrals Referrals: Balbir Hernandez MD [Primary Care Provider] -
[2022-07-25 06:52] LABS: iSTAT Creatinine 0.7 mg/dl (0.6-1.3); iSTAT Hemoglobin 10.2 g/dl (12.0-16.0); iSTAT Ionized Calcium 1.22 mmol/l (1.12-1.32); iSTAT Potassium 4.1 mmol/L (3.3-5.0)
[2022-07-25] MEDS ORDERED: FUROSEMIDE 40 MG/4 ML VIAL IV ONE ×2 (07:03→08:00)
--- NOTE | 2022-07-25 07:13 | CT Scan Report ---
CT angio chest PE protocol CLINICAL HISTORY: PE TECHNIQUE: Multidetector row helical CT of the chest was performed with angiographic protocol. Finch l and sagittal reformations were obtained. Coronal and sagittal MIPS were obtained from the axial helga a set and were submitted for review. Automated dose lowering techniques and/or adjustment according to patient size were utilized for this exam. Comparison: Comparison is made to CTA chest 07/06/2021 FINDINGS: Lungs and pleura: Moderate bilateral pleural effusions and bronchial wall thickening are seen. Airspa ce opacities are seen in the bilateral lower lungs. Heart and pericardium: Heart size is normal. No pericardial effusion. Vessels: No evidence of pulmonary embolism. Mediastinum and mikki: Subcentimeter lymph nodes are seen. Chest wall and lower neck: Unremarkable. Abdomen: Unremarkable. Bones: Degenerative changes in the thoracic spine. IMPRESSION: 1. No pulmonary embolus is seen. 2. Scattered groundglass opacities are seen compatible with pneumonia. 3. Moderate bilateral pleural effusions, increased from prior. ACT 112: Negative or not required by law. Electronically signed by: Ghassan Higuera M.D. 07/25/2022 7:10 AM
[2022-07-25 07:17] LABS: Basophils # (auto) 0.08 K/uL (0-0.2); Basophils % (auto) 0.7 %; Eosinophils # (auto) 0.22 K/uL (0-0.50); Hematocrit (blood only) 29.2 % (37.0-47.0); Hemoglobin 9.3 g/dl (12.0-16.0); Immature Granulocytes # (auto) 0.03 K/uL (0.01-0.20); Immature Granulocytes % (auto) 0.3 %; Lymphocytes # (auto) 1.83 K/uL (1.2-3.4); Lymphocytes % (auto) 16.9 %; Mean Corpuscular Hemoglobin 26.5 pg (25.0-34.0); Mean Corpuscular Hgb Conc 31.8 g/dL (32.0-36.0); Mean Corpuscular Volume 83.2 fL (80.0-100.0); Mean Platelet Volume 10.6 fL (9.4-12.4); Monocytes # (auto) 0.98 K/uL (0.11-0.59); Monocytes % (auto) 9.1 %; Neutrophils # (auto) 7.67 K/uL (1.40-6.50); Platelet Count 405 K/uL (130-400); RDW Coefficient of Variation 15.9 % (11.5-14.5); RDW Standard Deviation 48.2 fL (36.4-46.3); Red Blood Count 3.51 M/uL (4.20-5.40); White Blood Count 10.81 K/ul (4.8-10.8)
[2022-07-25] MEDS ORDERED: PIPERACILLIN/TAZOBACTAM 4.5 GM/120 ML BAG IV ONE (07:20)
[2022-07-25] MEDS ORDERED: ALBUT/IPRATROP 3MG/0.5MG NEB 3 ML VIAL NEB STA (07:21)
[2022-07-25 07:26] LABS: Albumin Globulin Ratio 1.3 (0.9-2); Albumin Level 3.8 gm/dl (3.4-5.0); BUN Creatinine Ratio 15.7 (10-20); Bilirubin,Total 0.3 mg/dl (0.2-1.0); Calcium 9.1 mg/dl (8.6-10.3); Creatinine Clr Calc Pharmacy 95.6 ml/min; Est GFR (African American) 116.3 ml/min; Est GFR (Non-African American) 100.3 ml/min; Total Protein 6.8 gm/dl (6.0-8.3)
[2022-07-25 07:32] LABS: Troponin I High Sensitivity 6.6 pg/ml (0-14)
[2022-07-25 07:37] LABS: Partial Thromboplastin Time 29.3 Seconds (21.0-31.0); Prothrombin Time 11.3 Seconds (9.0-12.0)
--- NOTE | 2022-07-25 07:40 | XRay Report ---
XR chest 1V portable CLINICAL HISTORY: Dyspnea TECHNIQUE: Single frontal radiograph of the chest was obtained. Comparison: Comparison is made to chest radiograph 10/10/2021 FINDINGS: No lines and tubes are seen. The cardiomediastinal silhouette is normal. Bilateral airspace opacities are seen. No evidence of pleural effusion or pneumothorax. IMPRESSION: Bilateral airspace opacities are compatible with pneumonia, with or without superimposed aspiration/a telectasis. ACT 112: Negative or not required by law. Electronically signed by: Ghassan Higuera M.D. 07/25/2022 7:38 AM
[2022-07-25] MEDS ORDERED: AZITHROMYCIN 250 MG TAB PO SCH (07:50)
--- NOTE | 2022-07-25 08:34 | History & Physical Report ---
Date of Service July 25, 2022 Assessment & Plan (1) Acute respiratory failure with hypoxia: (2) Bilateral pneumonia: (3) Immunosuppressed status: (4) Paroxysmal atrial flutter: (5) RA (rheumatoid arthritis): (6) Tobacco abuse: Plan This is a 52-year-old female who has a significant past medical history of atrial fibrillation/flutter anticoagulated on Eliquis, history of ablation 11/11/2020 and 10/11 now on sotalol, rheumatoid arthritis, chronic headaches, iron deficiency anemia, anxiety, tobacco use disorder who presents to ED secondary to shortness of breath. Acute hypoxic respiratory failure Bilateral pneumonia Immunosuppressed status Admit to telemetry Continue supplemental oxygen, titrate to keep O2 sats greater than 92% IV antibiotics with Zosyn, oral azithromycin Urine Legionella Blood cultures pending Pulmonary toilet with incentive spirometry, nebs as needed Mucinex twice daily Repeat chest x-ray in a.m. If no significant improvement consider pulm consult Obtain echocardiogram Procalcitonin WNL Possible CHF component as well check ecg in a.m. and monitor qtc History of atrial flutter History of ablation Currently in sinus rhythm Continue sotalol and Eliquis History of HFpEF Decompensation in setting of arrhythmias in past Patient with elevated BNP and complaining of orthopnea, 10 pound weight gain No overt overload on exam Received 40 mg IV Lasix in ED [place] placed due to desaturation with minimal walking Obtain echocardiogram We will monitor diuretic response today Consider additional diuresis in a.m. or this afternoon Rheumatoid arthritis hold Enbrel Discussed with rheumatology Iron deficiency anemia Patient recently established with hematology [place] anemia likely multifactorial in setting of immunosuppression ferritin level 8 Receive IV Venofer today, will need to reschedule this Tobacco abuse encourage cessation patch declined Anxiety continue xanax at HS DVT ppx: Rajesh PCP: Mary FULL CODE Dispo: admit to PCU Pt was seen and examined in collaboration with Dr. Rios, please see addendum A total of 75was spent coordinating, documenting, and providing care for this patient excluding time spent in the performance of separately billed services. This included personally viewing all current laboratories and imaging studies, medication reconciliation, outpatient chart review, and discussion with specialists. History of Present Illness Chief Complaint: SOB. Primary Care Provider: Balbir Hernandez MD This is a 52-year-old female who has a significant past medical history of atrial fibrillation/flutter anticoagulated on Eliquis, history of ablation 11/11/2020 and 10/11 now on sotalol, rheumatoid arthritis, chronic headaches, iron deficiency anemia, anxiety, tobacco use disorder who presents to ED secondary to shortness of breath. Of significance patient recently established with hematology. She has past medical history of gastric ulceration/erosions in 2019 found on EGD. At that time she was taking a lot of NSAIDs. She is on PPI twice daily. She has had a mild normocytic anemia's in October 2020, hemoglobin in the 11 range. It has since slowly decreased to 9 over the last year. Patient symptomatic including extreme fatigue. Recently underwent EGD which was normal. [place] because of anemia likely multifactorial in setting of RA, immunosuppression, vitamin B12 deficiency and likely iron deficiency. She was started on oral B12 supplement. She was also started on IV iron which was to start today. Her ferritin was 8. Patient states her shortness of breath started approximately 1 month ago. It has progressively worsened. Initially she was mostly short of breath with activity but now even minimal activity causes her to be short of breath including walking to and from the bathroom. She also complains of orthopnea that is worsened over the past 2 weeks. She admits to a 10 pound weight gain and has had off-and-on lower extremity edema, but today denies any edema.Cough that is occasionally productive. This morning she produced a significant amount of clear/white sputum. She denies feeling fever or chills. She does occas ionally get dizziness with standing for [place] in the morning. She denies any sick contacts. She denies any chest pain, hemoptysis, nausea, vomiting, abdominal pain, dysuria, increased urgency or frequency with urination. She does have chronic diarrhea over the past 5 years.Of significance patient is immunosuppressed on Enbrel, her next dose was to be today. She also was to receive iron infusion today. She thought a lot of her shortness of breath over the last month was attributed to her anemia and iron deficiency. She denies history of pneumonia or requiring oxygen in the past. She is a daily smoker using a vape. She also uses alcohol approximately 3 times a week. She follows with Dr. Laboy of EP and Daniela Peoples of cardiology. Her last echocardiogram was 06/2021 which revealed EF 55%, no wall motion abn, mild left atrial enlargement, mild MR. Improved since arriving in the ED with supplemental oxygen. She also received nebulizer treatment which helped her symptoms. She also received IV antibiotic with Zosyn and oral azithromycin. Allergies Allergy/AdvReac Type Severity Reaction Status Date / Time No Known Allergies Allergy Mild Verified 10/10/21 22:44 Home Medications Medication Instructions Recorded Confirmed Type fluoxetine 20 mg capsule (Prozac) 60 mg PO QAM 09/14/18 07/25/22 History folic acid 1 mg tablet 2 mg PO QAM 12/24/18 07/25/22 History apixaban 5 mg tablet (Eliquis) 5 mg PO BID #60 tabs 07/09/21 07/25/22 Rx alprazolam 0.5 mg tablet 0.5 mg PO HS 10/10/21 07/25/22 History etanercept 50 mg/mL (1 mL) 50 mg subcut WK 10/10/21 07/25/22 History subcutaneous pen injector (Enbrel SureClick) glycopyrrolate 1 mg tablet 2 mg PO QAM 10/10/21 07/25/22 History prednisone 1 mg tablet 4 mg PO DAILY PRN .FLARES 10/10/21 07/25/22 History famotidine 20 mg tablet 20 mg PO BID 07/25/22 07/25/22 History omeprazole 40 mg capsule,delayed 40 mg PO BID 07/25/22 07/25/22 History release sotalol 80 mg tablet 120 mg PO BID 07/25/22 07/25/22 History Past Med/Surg History Medical History Acute decompensated heart failure Admitted to intensive care unit Anxiety Atrial fibrillation + FLUTTER (NEWLY DX) On Eliquis Atrial fibrillation with RVR Atrial flutter Atrial flutter with rapid ventricular response Atrial flutter with rapid ventricular response DVT prophylaxis GERD (gastroesophageal reflux disease) History of kidney stones History of TMJ disorder Hypertension Per records Hypokalemia RA (rheumatoid arthritis) On Arava Respiratory distress Surgical History H/O wisdom tooth extraction History of colonoscopy History of esophagogastroduodenoscopy (EGD) Family History Father Alcohol use Grandmother (Paternal) Breast cancer Other No family history of adverse response to anesthesia No significant family history Social History Smoking Status: Current every day smoker Tobacco Type: Cigarettes Cigarettes Per Day: 1 CART. DAILY; Second Hand Exposure: No; Do You Dip or Chew Tobacco: No; Hx Alcohol Use: Yes Alcohol type: beer, wine and hard liquor Alcohol Intake Frequency: 2-3 x/Week Alcohol Intake Frequency Comment: 6 drinks/week Hx Substance Use: No Preferred Language: Bruneian Communication Ability: Effective Consulting Solution Manager Required: No Beliefs That Will Affect Care: None marital status: Current Living Situation: Spouse How many Children do You have: 2 Feels Safe at Home: Yes Safety Concerns: Feels Safe At This Time Assistive Devices: None Review of Systems Review of Systems: All systems reviewed & are unremarkable except as noted in HPI & below Physical Exam Physical Exam: Constitutional: WD/WN, vitals as above, NAD, sitting up in bed, pleasant, conversing easily Head: Normocephalic, Atraumatic Eyes: PERRL, conjunctivae normal, anicteric sclerae ENMT: external ear and nose normal, oropharynx normal Neck: trachea midline, no thyromegaly normal visual inspection Respiratory: normal respiratory effort, on 4L of O2 via NC, lungs clear to auscultation, b/l crackles L > R, no no wheeze or rhonchi. Normal insp/exp effort, no accessory muscle use Cardiovascular: RRR, no murmur, trace pre tibial edema Vessels: no JVD or carotid bruit Chest: normal inspection of chest Abdomen: normal bowel sounds, soft, nontender, no hepatosplenomegaly Musculoskeletal: no cyanosis or clubbing, extremities motor strength 5/5 Skin: no rashes, warm and dry normal turgor Neurologic: PERRL, EOMI, accommodation nl, no face palsy, no dysarthria CN's II-XI intact bilaterally and moves all extremities Psychiatric: A+Ox3, euthymic affect Lymphatic: no cervical or axillary lymphadenopathy : deferred Results & Data Results & Data Vital Signs (Past 12 Hours) Vital Signs Temp Pulse Resp BP Pulse Ox O2 Del Method O2 Flow Rate 07/25/22 06:43 98 Nasal Cannula 4 07/25/22 06:20 Nasal Cannula 4 07/25/22 06:20 86 22 165/114 H 88 L Room Air 07/25/22 06:23 97 H 07/25/22 06:14 36.8 C 92 H 26 H 151/87 H 91 Room Air Diagnostic Findings Chest X-Ray 07/25/22 06:18 XR chest 1V portable CLINICAL HISTORY: Dyspnea TECHNIQUE: Single frontal radiograph of the chest was obtained. Comparison: Comparison is made to chest radiograph 10/10/2021 FINDINGS: No lines and tubes are seen. The cardiomediastinal silhouette is normal. Bilateral airspace opacities are seen. No evidence of pleural effusion or pneumothorax. IMPRESSION: Bilateral airspace opacities are compatible with pneumonia, with or without superimposed aspiration/atelectasis. ACT 112: Negative or not required by law. Electronically signed by: Ghassan Higuera M.D. 07/25/2022 7:38 AM Chest CTA 07/25/22 06:37 CT angio chest PE protocol CLINICAL HISTORY: PE TECHNIQUE: Multidetector row helical CT of the chest was performed with angiographic protocol. Coronal and sagittal reformations were obtained. Coronal and sagittal MIPS were obtained from the axial data set and were submitted for review. Automated dose lowering techniques and/or adjustment according to patient size were utilized for this exam. Comparison: Comparison is made to CTA chest 07/06/2021 FINDINGS: Lungs and pleura: Moderate bilateral pleural effusions and bronchial wall thickening are seen. Airspace opacities are seen in the bilateral lower lungs. Heart and pericardium: Heart size is normal. No pericardial effusion. Vessels: No evidence of pulmonary embolism. Mediastinum and mikki: Subcentimeter lymph nodes are seen. Chest wall and lower neck: Unremarkable. Abdomen: Unremarkable. Bones: Degenerative changes in the thoracic spine. IMPRESSION: 1. No pulmonary embolus is seen. 2. Scattered groundglass opacities are seen compatible with pneumonia. 3. Moderate bilateral pleural effusions, increased from prior. ACT 112: Negative or not required by law. Electronically signed by: Ghassan Higuera M.D. 07/25/2022 7:10 AM Medications Administered Medication List Azithromycin (Azithromycin 250 Mg Tab) 500 mg PO DAILY MARY Stop: 08/01/22 07:49 Last Admin: 07/25/22 08:05 Dose: 500 mg Documented By: RSAnthony Discontinued Medications Albuterol (Albut/Ipratrop 3mg/0.5mg Neb 3 Ml Vial) 3 ml NEB NOW STA; Protocol Stop: 07/25/22 07:22 Last Admin: 07/25/22 07:43 Dose: 3 ml Documented By: RSAnthony Furosemide (Furosemide 40 Mg/4 Ml Vial) 40 mg IV ONE ONE Stop: 07/25/22 07:04 Last Admin: 07/25/22 07:58 Dose: Not Given Documented By: RSAnthony Piperacillin Sod/Tazobactam Sod (Zosyn) 4.5 gm in 120 mls @ 240 mls/hr IV NOW ONE Stop: 07/25/22 07:49 Last Infusion: 07/25/22 08:17 Dose: 0 mls/hr Documented By: RSAnthony Admin: 07/25/22 07:43 Dose: 240 mls/hr Documented By: RSAnthony Ioversol (Optiray 320 500ml) 120 ml IV ONCE ONE Stop: 07/25/22 06:51 Last Admin: 07/25/22 06:51 Dose: 120 ml Documented By: YOUSIF ECG Rate (beats per minute): 96 Additional Comments: SR @96bpm, QC 434ms. COVID-19 Results Results COVID-19 Adm Lab Results: RBC 3.51 M/uL (4.20-5.40) L 07/25/22 WBC 10.81 K/ul (4.8-10.8) H 07/25/22 Hgb 9.3 g/dl (12.0-16.0) L 07/25/22 Hct 29.2 % (37.0-47.0) L 07/25/22 Plt Count 405 K/uL (130-400) H 07/25/22 Neutrophils (%) (Auto) 71.0 % 07/25/22 Lymphocytes (%) (Auto) 16.9 % 07/25/22 Monocytes # (Auto) 0.98 K/uL (0.11-0.59) H 07/25/22 Eosinophils # (Auto) 0.22 K/uL (0-0.50) 07/25/22 Immature Granulocyte % (Auto) 0.3 % 07/25/22 Neutrophils # (Auto) 7.67 K/uL (1.40-6.50) H 07/25/22 Lymphocytes # (Auto) 1.83 K/uL (1.2-3.4) 07/25/22 Monocytes # (Auto) 0.98 K/uL (0.11-0.59) H 07/25/22 Eosinophils # (Auto) 0.22 K/uL (0-0.50) 07/25/22 Basophils # (Auto) 0.08 K/uL (0-0.2) 07/25/22 Immature Granulocyte # (Auto) 0.03 K/uL (0.01-0.20) 3 Na 140 mmol/L (136-145) 07/25/22 K 4.0 mmol/L (3.5-5.1) 07/25/22 Cl 108 mmol/L (98-107) H 07/25/22 CO2 24 mmol/L (21-32) 07/25/22 Anion Gap 8 (3-11) 07/25/22 BUN 11 mg/dl (6-23) 07/25/22 Creatinine 0.70 mg/dl (0.6-1.2) 07/25/22 BUN/Creatinine Ratio 15.7 (10-20) 07/25/22 Glucose Level 91 mg/dl (70-99(Fasting)) 07/25/22 Ca 9.1 mg/dl (8.6-10.3) 07/25/22 Total Bilirubin 0.3 mg/dl (0.2-1.0) 07/25/22 AST/SGOT 16 U/L (13-39) 07/25/22 ALT/SGPT 13 U/L (7-52) 07/25/22 Alkaline Phosphatase 93 U/L (34-104) 07/25/22 Total Protein 6.8 gm/dl (6.0-8.3) 07/25/22 Albumin 3.8 gm/dl (3.4-5.0) 07/25/22 Globulin 3.0 gm/dl (2.5-4.0) 07/25/22 Albumin/Globulin Ratio 1.3 (0.9-2) 07/25/22 Procalcitonin < 0.05 ng/ml (0-0.5) 07/25/22 PTT 29.3 Seconds (21.0-31.0) 07/25/22 INR 1.0 (0.9-1.1) 07/25/22 Adenovirus (PCR) Not Detected (NotDetected) 07/25/22 B. parapertussis DNA (PCR) Not Detected (NotDetected) 07/12 B. pertussis DNA (PCR) Not Detected (NotDetected) 07/25/22 C. pneumoniae DNA (PCR) Not Detected (NotDetected) 3 Coronavirus Type OC43 (PCR) Not Detected (NotDetected) 07/12 Coronavirus Type HKU1 (PCR) Not Detected (NotDetected) 07/12 Coronavirus Type 229E (PCR) Not Detected (NotDetected) 07/12 COVID-19 PCR Not Detected (NotDetected) 07/25/22 Coronavirus Type NL63 (PCR) Not Detected (NotDetected) 07/12 Human Metapneumovirus (PCR) Not Detected (NotDetected) 07/12 Influenza Virus Type A (PCR) Not Detected (NotDetected) Influenza Virus Type B (PCR) Not Detected (NotDetected) M. pneumoniae (PCR) Not Detected (NotDetected) 07/25/22 Parainfluenza Type 1 (PCR) Not Detected (NotDetected) 07/12 Parainfluenza Type 2 (PCR) Not Detected (NotDetected) 07/12 Parainfluenza Type 3 (PCR) Not Detected (NotDetected) 07/12 Parainfluenza Type 4 (PCR) Not Detected (NotDetected) 07/12 RSV (PCR) Not Detected (NotDetected) 07/25/22 Enterovirus/Rhinovirus (PCR) Not Detected (NotDetected) SARS-CoV-2, RNA, NAAT NEGATIVE (NEGATIVE) 07/25/22 Chest X-Ray 07/25/22 Code Status & VTE Plan Code Status FULL CODE Supervising Physician Co-Signing Physician Notes Pt was seen and examined. Agreed with Aimee CHENEY exam, assessment and plan. 52-year-old female with significant past medical history of atrial fibrilla tion/flutter anticoagulated on Eliquis, history of ablation 11/11/2020 and 10/11 now on sotalol, rheumatoid arthritis, chronic headaches, iron deficiency anemia, anxiety, tobacco use disorder who presents to ED secondary to shortness of breath. Pt has been having SOB for the past 1 month. She was supposed to start on iron infusion today, but due to worsening SOB she came to the ER. Currently she said that she feels much better. Denies any chest pain, palpitation, dizziness and fever. CTA chest showed showed Scattered ground glass opacities are seen compatible with pneumonia. Moderate bilateral pleural effusions, increased from prior. Received IV lasix, Zithromax and Zosyn in the ER. Blood cx collected in the ER, pending result. Check for legionella. Will continue Lasix daily. Will repeat CXR in am to re-assess the pleural effusion. Will get an echo. Continue abx for now. Continue monitor closely. MD Blanca
[2022-07-25 08:54] LABS: Adenovirus PCR Not Detected (NotDetected); Bordetella parapertussis PCR Not Detected (NotDetected); Bordetella pertussis PCR Not Detected (NotDetected); Chlamydia pneumoniae PCR Not Detected (NotDetected); Coronavirus 229E PCR Not Detected (NotDetected); Coronavirus CoV-2 (COVID19)PCR Not Detected (NotDetected); Coronavirus HKU1 PCR Not Detected (NotDetected); Coronavirus NL63 PCR Not Detected (NotDetected); Coronavirus OC43PCR Not Detected (NotDetected); Human Metapneumovirus PCR Not Detected (NotDetected); Influenza A PCR Not Detected (NotDetected); Influenza B PCR Not Detected (NotDetected); Mycoplasma pneumoniae PCR Not Detected (NotDetected); Parainfluenza Virus 1 PCR Not Detected (NotDetected); Parainfluenza Virus 2 PCR Not Detected (NotDetected); Parainfluenza Virus 3 PCR Not Detected (NotDetected); Parainfluenza Virus 4 PCR Not Detected (NotDetected); Respiratory Syncytial VirusPCR Not Detected (NotDetected); Rhinovirus/Enterovirus PCR Not Detected (NotDetected)
[2022-07-25 09:01] LABS: Appearance Urine Clear (Clear); Bilirubin Urine Negative (Negative); Blood Urine Negative (Negative); Color Urine Yellow; Glucose Urine UA Negative (Negative); Ketones Urine Negative (Negative); Leukocyte Esterase Urine Negative (Negative); Nitrite Urine Negative (Negative); Protein Urine Negative (Negative); Specific Gravity Urine > 1.045 (1.000-1.030); Urobilinogen Urine Negative (Negative)
[2022-07-25] MEDS ORDERED: APIXABAN 5 MG TABLET PO STA (09:09)
[2022-07-25] MEDS ORDERED: SOTALOL HCL 80 MG TAB PO ONE (09:10)
[2022-07-25] MEDS ORDERED: ALBUT/IPRATROP 3MG/0.5MG NEB 3 ML VIAL NEB PRN (09:53)
[2022-07-25] MEDS ORDERED: ACETAMINOPHEN 325 MG TAB PO PRN (09:53)
[2022-07-25] MEDS ORDERED: ONDANSETRON INJ 2 MG/ML 2 ML VIAL IV PRN (09:53)
[2022-07-25] MEDS ORDERED: ALUMINUM/MAGNESIUM SUSP 30 ML UDC PO PRN (09:53)
[2022-07-25] MEDS: PIPERACILLIN/TAZOBACTAM 4.5 GM in DEXTROSE 5% 100 ML IV SCH ×2 (12:02→19:48)
[2022-07-25] MEDS: SOTALOL HCL 80 MG TAB PO SCH (19:49)
[2022-07-25] MEDS: PANTOprazole 40 MG TAB PO SCH (19:50)
[2022-07-25] MEDS: FAMOTIDINE 20 MG TAB PO SCH (19:51)
[2022-07-25] MEDS: APIXABAN 5 MG TABLET PO SCH (19:51)
[2022-07-25] MEDS: ALPRAZolam 0.5 MG TABLET PO SCH (21:43)
[2022-07-26] MEDS: PIPERACILLIN/TAZOBACTAM 4.5 GM in DEXTROSE 5% 100 ML IV SCH ×3 (04:18→19:25)
[2022-07-26 06:35] LABS: Basophils # (auto) 0.05 K/uL (0-0.2); Basophils % (auto) 0.7 %; Eosinophils # (auto) 0.21 K/uL (0-0.50); Hematocrit (blood only) 28.6 % (37.0-47.0); Hemoglobin 8.9 g/dl (12.0-16.0); Immature Granulocytes # (auto) 0.01 K/uL (0.01-0.20); Immature Granulocytes % (auto) 0.1 %; Lymphocytes # (auto) 1.66 K/uL (1.2-3.4); Lymphocytes % (auto) 23.9 %; Mean Corpuscular Hemoglobin 25.6 pg (25.0-34.0); Mean Corpuscular Hgb Conc 31.1 g/dL (32.0-36.0); Mean Corpuscular Volume 82.2 fL (80.0-100.0); Mean Platelet Volume 10.5 fL (9.4-12.4); Monocytes # (auto) 0.96 K/uL (0.11-0.59); Monocytes % (auto) 13.8 %; Neutrophils # (auto) 4.05 K/uL (1.40-6.50); Neutrophils % (auto) 58.5 %; Platelet Count 306 K/uL (130-400); RDW Coefficient of Variation 15.7 % (11.5-14.5); RDW Standard Deviation 46.5 fL (36.4-46.3); Red Blood Count 3.48 M/uL (4.20-5.40); White Blood Count 6.94 K/ul (4.8-10.8)
[2022-07-26 06:46] LABS: Albumin Globulin Ratio 1.1 (0.9-2); Albumin Level 3.6 gm/dl (3.4-5.0); BUN Creatinine Ratio 14.5 (10-20); Bilirubin,Total 0.6 mg/dl (0.2-1.0); Calcium 9.2 mg/dl (8.6-10.3); Creatinine Clr Calc Pharmacy 87.4 ml/min; Est GFR (African American) 116.8 ml/min; Est GFR (Non-African American) 100.8 ml/min; Globulin 3.4 gm/dl (2.5-4.0); Magnesium 2.1 mg/dl (1.7-2.4); Potassium 2.9 mmol/L (3.5-5.1)
--- NOTE | 2022-07-26 07:20 | XRay Report ---
XR chest 1V portable HISTORY: 52 years-old Female repeat xr acute shortness of breath COMPARISON: 07/25/2022 TECHNIQUE: AP view of the chest FINDINGS: Moderately improved aeration of the lungs. Trace pleural effusions without pneumothorax. Cardiac silh ouette is upper limits of normal in size with persistent pulmonary vascular congestion. Bones appear grossly intact. IMPRESSION: 1. Cardiomegaly with moderately improved pulmonary edema. 2. Small pleural effusions have also decreased in size. ACT 112: Negative or not required by law. The above report was generated using voice recognition software. It may contain grammatical, syntax o r spelling errors. Electronically signed by: Guilherme Mistry M.D. 07/26/2022 7:17 AM
[2022-07-26] MEDS: FAMOTIDINE 20 MG TAB PO SCH ×2 (08:16→20:52)
[2022-07-26] MEDS: POTASSIUM CHLORIDE CRTAB 20 MEQ TABCR PO SCH ×3 (08:16→20:53)
[2022-07-26] MEDS: FUROSEMIDE 40 MG/4 ML VIAL IV SCH (08:16)
[2022-07-26] MEDS: APIXABAN 5 MG TABLET PO SCH ×2 (08:16→20:53)
[2022-07-26] MEDS: FOLIC ACID 1 MG TAB PO SCH (08:17)
[2022-07-26] MEDS: PANTOprazole 40 MG TAB PO SCH ×2 (08:17→20:53)
[2022-07-26] MEDS: FLUoxetine HCL 20 MG CAP PO SCH (08:17)
[2022-07-26] MEDS: SOTALOL HCL 80 MG TAB PO SCH ×2 (08:17→20:54)
[2022-07-26] MEDS: GLYCOPYRROLATE 1 MG TAB PO SCH (08:17)
[2022-07-26] MEDS: POTASSIUM CHLORIDE / WTR 10 MEQ/100 ML PLCT IV SCH ×2 (08:22→09:21)
[2022-07-26] MEDS ORDERED: AZITHROMYCIN 250 MG TAB PO SCH (09:00)
--- NOTE | 2022-07-26 11:22 | Hospitalist Progress Note ---
Date of Service July 26, 2022 Assessment & Plan (1) Acute respiratory failure with hypoxia: (2) Bilateral pneumonia: (3) Immunosuppressed status: (4) Paroxysmal atrial flutter: (5) RA (rheumatoid arthritis): (6) Tobacco abuse: Plan This is a 52-year-old female who has a significant past medical history of atrial fibrillation/flutter anticoagulated on Eliquis, history of ablation 11/11/2020 and 10/11 now on sotalol, rheumatoid arthritis, chronic headaches, iron deficiency anemia, anxiety, tobacco use disorder who presents to ED secondary to shortness of breath. CTA chest 1. No pulmonary embolus is seen. 2. Scattered groundglass opacities are seen compatible with pneumonia. 3. Moderate bilateral pleural effusions, increased from prior. Repeat chest x-ray this morning 07/26 1. Cardiomegaly with moderately improved pulmonary edema. 2. Small pleural effusions have also decreased in size. Echo-EF 60-65%, normal left ventricle systolic and diastolic function, mild MR Acute hypoxic respiratory failure due to pneumonia and pulmonary edema-resolved. Currently on room air, maintaining saturations well. Multifocal pneumonia with bilateral pleural effusion Immunosuppressed status - CT and chest x-ray reviewed as above. Respiratory pathogen panel negative. Blood cultures negative till date. Urine Legionella antigen pending. Procalcitonin negative. Mild leukocytosis resolved. - BNP 550. Echo unremarkable. - Improving on empiric antibiotics Zosyn/azithromycin and IV Lasix. Since QTc significantly prolonged with azithromycin, and she is on sotalol, will change azithromycin to doxycycline, otherwise continue current management. Since she is significantly improved with current management, will hold off on pulm consult/thoracentesis. Hypokalemia-due to diuresis. Aggressively repleted. Recheck in a.m. Paroxysmal atrial flutter status post ablation- currently in sinus rhythm, Continue sotalol and Eliquis History of HFpEF- BNP 550 on admission. Echo unremarkable. She had orthopnea and 10 pound weight gain prior to admission. -No overt volume overload, however CT with bilateral pleural effusion and pulm edema on x-ray. -Currently on IV Lasix daily and responding well, will continue for now. Reevaluate in a.m. for need for further Lasix. Rheumatoid arthritis- hold Enbrel, Discussed with rheumatology Iron deficiency anemia- Patient recently established with hematology, [place] anemia likely multifactorial in setting of immunosuppression - ferritin level 8, Patient was scheduled to receive IV Venofer yesterday, will need to reschedule this Tobacco abuse- encourage cessation, NicoDerm patch declined Anxiety- continue xanax at HS DVT ppx: Rajesh Dispo: Continue current management. Anticipate stable for discharge home in 1 to 2 days Admission and Anticipated Discharge Date Admission Date: July 25, 2022 Subjective Patient was seen and examined at bedside. She feels much better compared to yesterday. Her shortness of breath has significantly improved. She has been off of oxygen and was maintaining saturation at 95% during my encounter. States she walked into her room and felt okay. No fever, chills, chest pain, nausea or vomiting. Review of Systems Review of Systems: All systems reviewed & are unremarkable except as noted in Subjective Physical Exam Physical Exam: General: Lying comfortably in bed, not in distress, on room air HEENT: EOMI, KUMAR, MMM Chest: Fair breath sounds bilaterally, decreased at bases CVS: Regular rate and rhythm, normal heart sounds, no murmur Abdomen: Soft, non tender, not distended, normal bowel sounds Neuro: Awake, alert, oriented, conversing well, non focal Extremities: No cyanosis, clubbing or edema On [place] with clear urine Results & Data Results & Data Vital Signs (Past 12 Hours) Vital Signs Temp Pulse Pulse Resp BP Pulse Ox O2 Del Method 07/26/22 11:08 36.9 C 76 18 109/68 92 Room Air 07/26/22 07:58 60 07/26/22 07:58 Nasal Cannula 07/26/22 07:43 36.9 C 76 18 119/68 96 Nasal Cannula 07/26/22 03:04 37.1 C 72 14 133/68 90 Nasal Cannula 07/26/22 01:08 67 O2 Flow Rate 07/26/22 11:08 07/26/22 07:58 07/26/22 07:58 2 07/26/22 07:43 2.0 07/26/22 03:04 2 07/26/22 01:08 Laboratory Results Short CBC 07/26/22 Range/Units 05:52 WBC 6.94 (4.8-10.8) K/ul Hgb 8.9 L (12.0-16.0) g/dl Hct 28.6 L (37.0-47.0) % Plt Count 306 (130-400) K/uL BMP 07/26/22 05:52 Sodium 139 Potassium 2.9 L D Chloride 103 Carbon Dioxide 27 BUN 10 Creatinine 0.69 Glucose 90 Calcium 9.2 Liver Function 07/26/22 Range/Units 05:52 Total Bilirubin 0.6 (0.2-1.0) mg/dl AST 17 (13-39) U/L ALT 13 (7-52) U/L Alkaline Phosphatase 85 (34-104) U/L Albumin 3.6 (3.4-5.0) gm/dl Diagnostic Findings Current Inpatient Medications Acetaminophen (Acetaminophen 325 Mg Tab) 650 mg PO Q4H PRN PRN Reason: Pain or Fever Stop: 08/24/22 09:52 Al Hydrox/Mg Hydrox/Simethicone (Aluminum/Magnesium Susp 30 Ml Udc) 15 ml PO Q4H PRN PRN Reason: Dyspepsia Stop: 08/24/22 09:52 Albuterol (Albut/Ipratrop 3mg/0.5mg Neb 3 Ml Vial) 3 ml NEB Q4R PRN; Protocol PRN Reason: sob/wheezing Stop: 08/24/22 09:52 Alprazolam (Alprazolam 0.5 Mg Tablet) 0.5 mg PO [facility] Stop: 08/24/22 20:59 Last Admin: 07/25/22 21:43 Dose: Not Given Apixaban (Apixaban 5 Mg Tablet) 5 mg PO BID [facility] Stop: 08/24/22 20:59 Last Admin: 07/26/22 08:16 Dose: 5 mg Azithromycin (Azithromycin 250 Mg Tab) 500 mg PO [facility]; Protocol Stop: 07/31/22 09:01 Last Admin: 07/26/22 08:17 Dose: 500 mg Famotidine (Famotidine 20 Mg Tab) 20 mg PO BID [facility] Stop: 08/24/22 20:59 Last Admin: 07/26/22 08:16 Dose: 20 mg Fluoxetine HCl (Fluoxetine Hcl 20 Mg Cap) 60 mg PO [facility] Stop: 08/25/22 08:59 Last Admin: 07/26/22 08:17 Dose: 60 mg Folic Acid (Folic Acid 1 Mg Tab) 2 mg PO [facility] Stop: 08/25/22 08:59 Last Admin: 07/26/22 08:17 Dose: 2 mg Furosemide (Furosemide 40 Mg/4 Ml Vial) 40 mg IV DAILY [facility] Stop: 08/25/22 08:59 Last Admin: 07/26/22 08:16 Dose: 40 mg Glycopyrrolate (Glycopyrrolate 1 Mg Tab) 2 mg PO QAM [facility] Stop: 08/25/22 08:59 Last Admin: 07/26/22 08:17 Dose: 2 mg Piperacillin Sod/Tazobactam (Sod 4.5 gm/ Dextrose) 120 mls @ 30 mls/hr IV Q8H [facility]; Protocol Stop: 08/01/22 11:59 Last Infusion: 07/26/22 08:39 Dose: Infused Ondansetron HCl (Ondansetron Inj 2 Mg/Ml 2 Ml Vial) 4 mg IV Q6H PRN; Protocol PRN Reason: Nausea Stop: 08/24/22 09:52 Last Admin: 07/26/22 09:17 Dose: 4 mg Pantoprazole Sodium (Pantoprazole 40 Mg Tab) 40 mg PO BID [facility] Stop: 08/24/22 20:59 Last Admin: 07/26/22 08:17 Dose: 40 mg Potassium Chloride (Potassium Chloride Crtab 20 Meq Tabcr) 40 meq PO BID [facility] Stop: 08/25/22 07:44 Last Admin: 07/26/22 08:16 Dose: 40 meq Sotalol HCl (Sotalol Hcl 80 Mg Tab) 120 mg PO BID [facility]; Protocol Stop: 08/24/22 20:59 Last Admin: 07/26/22 08:17 Dose: 120 mg Medications Administered Current Inpatient Medications Acetaminophen (Acetaminophen 325 Mg Tab) 650 mg PO Q4H PRN PRN Reason: Pain or Fever Stop: 08/24/22 09:52 Al Hydrox/Mg Hydrox/Simethicone (Aluminum/Magnesium Susp 30 Ml Udc) 15 ml PO Q4H PRN PRN Reason: Dyspepsia Stop: 08/24/22 09:52 Albuterol (Albut/Ipratrop 3mg/0.5mg Neb 3 Ml Vial) 3 ml NEB Q4R PRN; Protocol PRN Reason: sob/wheezing Stop: 08/24/22 09:52 Alprazolam (Alprazolam 0.5 Mg Tablet) 0.5 mg PO HS [facility] Stop: 08/24/22 20:59 Last Admin: 07/25/22 21:43 Dose: Not Given Apixaban (Apixaban 5 Mg Tablet) 5 mg PO BID [facility] Stop: 08/24/22 20:59 Last Admin: 07/26/22 08:16 Dose: 5 mg Azithromycin (Azithromycin 250 Mg Tab) 500 mg PO QAM [facility]; Protocol Stop: 07/31/22 09:01 Last Admin: 07/26/22 08:17 Dose: 500 mg Famotidine (Famotidine 20 Mg Tab) 20 mg PO BID [facility] Stop: 08/24/22 20:59 Last Admin: 07/26/22 08:16 Dose: 20 mg Fluoxetine HCl (Fluoxetine Hcl 20 Mg Cap) 60 mg PO QAM [facility] Stop: 08/25/22 08:59 Last Admin: 07/26/22 08:17 Dose: 60 mg Folic Acid (Folic Acid 1 Mg Tab) 2 mg PO QAM [facility] Stop: 08/25/22 08:59 Last Admin: 07/26/22 08:17 Dose: 2 mg Furosemide (Furosemide 40 Mg/4 Ml Vial) 40 mg IV DAILY [facility] Stop: 08/25/22 08:59 Last Admin: 07/26/22 08:16 Dose: 40 mg Glycopyrrolate (Glycopyrrolate 1 Mg Tab) 2 mg PO QAM [facility] Stop: 08/25/22 08:59 Last Admin: 07/26/22 08:17 Dose: 2 mg Piperacillin Sod/Tazobactam (Sod 4.5 gm/ Dextrose) 120 mls @ 30 mls/hr IV Q8H [facility]; Protocol Stop: 08/01/22 11:59 Last Infusion: 07/26/22 08:39 Dose: Infused Ondansetron HCl (Ondansetron Inj 2 Mg/Ml 2 Ml Vial) 4 mg IV Q6H PRN; Protocol PRN Reason: Nausea Stop: 08/24/22 09:52 Last Admin: 07/26/22 09:17 Dose: 4 mg Pantoprazole Sodium (Pantoprazole 40 Mg Tab) 40 mg PO BID [facility] Stop: 08/24/22 20:59 Last Admin: 07/26/22 08:17 Dose: 40 mg Potassium Chloride (Potassium Chloride Crtab 20 Meq Tabcr) 40 meq PO BID [facility] Stop: 08/25/22 07:44 Last Admin: 07/26/22 08:16 Dose: 40 meq Sotalol HCl (Sotalol Hcl 80 Mg Tab) 120 mg PO BID [facility]; Protocol Stop: 08/24/22 20:59 Last Admin: 07/26/22 08:17 Dose: 120 mg
[2022-07-26] MEDS: ALPRAZolam 0.5 MG TABLET PO SCH (20:53)
[2022-07-26] MEDS: DOXYCYCLINE HYCLATE 100 MG CAP PO SCH (20:53)
[2022-07-27] MEDS: PIPERACILLIN/TAZOBACTAM 4.5 GM in DEXTROSE 5% 100 ML IV SCH ×2 (04:03→11:17)
--- NOTE | 2022-07-27 05:17 | Electrocardiogram Report ---
Test Reason : Blood Pressure : / mmHG Vent. Rate : 096 BPM Atrial Rate : 000 BPM P-R Int : 000 ms QRS Dur : 066 ms QT Int : 344 ms P-R-T Axes : 000 058 049 degrees QTc Int : 434 ms Sinus rhythm When compared with ECG of 12-OCT-2021 05:24, No significant change Confirmed by Julio De La Cruz ([id number]) on 07/27/2022 5:17:07 AM Referred By: REFERRED SELF Confirmed By:Julio De La Cruz
[2022-07-27 06:54] LABS: BUN Creatinine Ratio 15.3 (10-20); Calcium 9.2 mg/dl (8.6-10.3); Creatinine Clr Calc Pharmacy 84.1 ml/min; Est GFR (African American) 112.4 ml/min; Magnesium 2.2 mg/dl (1.7-2.4); Potassium 4.1 mmol/L (3.5-5.1)
[2022-07-27 07:34] LABS: Hematocrit (blood only) 30.2 % (37.0-47.0); Hemoglobin 9.3 g/dl (12.0-16.0); Mean Corpuscular Hgb Conc 30.8 g/dL (32.0-36.0); Mean Corpuscular Volume 84.4 fL (80.0-100.0); Mean Platelet Volume 10.6 fL (9.4-12.4); Platelet Count 297 K/uL (130-400); RDW Coefficient of Variation 15.8 % (11.5-14.5); Red Blood Count 3.58 M/uL (4.20-5.40); White Blood Count 6.41 K/ul (4.8-10.8)
[2022-07-27] MEDS: PANTOprazole 40 MG TAB PO SCH (08:32)
[2022-07-27] MEDS: FAMOTIDINE 20 MG TAB PO SCH (08:32)
[2022-07-27] MEDS: APIXABAN 5 MG TABLET PO SCH (08:32)
[2022-07-27] MEDS: SOTALOL HCL 80 MG TAB PO SCH (08:32)
[2022-07-27] MEDS: FLUoxetine HCL 20 MG CAP PO SCH (08:33)
[2022-07-27] MEDS: FOLIC ACID 1 MG TAB PO SCH (08:33)
[2022-07-27] MEDS: POTASSIUM CHLORIDE CRTAB 20 MEQ TABCR PO SCH (08:33)
[2022-07-27] MEDS: DOXYCYCLINE HYCLATE 100 MG CAP PO SCH (08:33)
[2022-07-27] MEDS: GLYCOPYRROLATE 1 MG TAB PO SCH (08:33)
[2022-07-27] MEDS: FUROSEMIDE 40 MG/4 ML VIAL IV SCH (08:33)
--- NOTE | 2022-07-27 12:25 | Discharge Summary ---
Date of Service July 27, 2022 Admission HPI Per Admitting Provider This is a 52-year-old female who has a significant past medical history of atrial fibrillation/flutter anticoagulated on Eliquis, history of ablation 11/11/2020 and 10/11 now on sotalol, rheumatoid arthritis, chronic headaches, iron deficiency anemia, anxiety, tobacco use disorder who presents to ED secondary to shortness of breath. Of significance patient recently established with hematology. She has past medical history of gastric ulceration/erosions in 2019 found on EGD. At that time she was taking a lot of NSAIDs. She is on PPI twice daily. She has had a mild normocytic anemia's in October 2020, hemoglobin in the 11 range. It has since slowly decreased to 9 over the last year. Patient symptomatic including extreme fatigue. Recently underwent EGD which was normal. [place] because of anemia likely multifactorial in setting of RA, immunosuppression, vitamin B12 deficiency and likely iron deficiency. She was started on oral B12 supplement. She was also started on IV iron which was to start today. Her ferritin was 8. Patient states her shortness of breath started approximately 1 month ago. It has progressively worsened. Initially she was mostly short of breath with activity but now even minimal activity causes her to be short of breath including walking to and from the bathroom. She also complains of orthopnea that is worsened over the past 2 weeks. She admits to a 10 pound weight gain and has had off-and-on lower extremity edema, but today denies any edema.Cough that is occasionally productive. This morning she produced a significant amount of clear/white sputum. She denies feeling fever or chills. She does occasionally get dizziness with standing for [place] in the morning. She denies any sick contacts. She denies any chest pain, hemoptysis, nausea, vomiting, abdominal pain, dysuria, increased urgency or frequency with urination. She does have chronic diarrhea over the past 5 years.Of significance patient is immunosuppressed on Enbrel, her next dose was to be today. She also was to receive iron infusion today. She thought a lot of her shortness of breath over the last month was attributed to her anemia and iron deficiency. She denies history of pneumonia or requiring oxygen in the past. She is a daily smoker using a vape. She also uses alcohol approximately 3 times a week. She follows with Dr. Laboy of EP and Daniela Peoples of cardiology. Her last echocardiogram was 06/2021 which revealed EF 55%, no wall motion abn, mild left atrial enlargement, mild MR. Improved since arriving in the ED with supplemental oxygen. She also received nebulizer treatment which helped her symptoms. She also received IV antibiotic with Zosyn and oral azithromycin. Admission Exam Per Admitting Provider Constitutional: WD/WN, vitals as above, NAD, sitting up in bed, pleasant, conversing easily Head: Normocephalic, Atraumatic Eyes: PERRL, conjunctivae normal, anicteric sclerae ENMT: external ear and nose normal, oropharynx normal Neck: trachea midline, no thyromegaly normal visual inspection Respiratory: normal respiratory effort, on 4L of O2 via NC, lungs clear to auscultation, b/l crackles L > R, no no wheeze or rhonchi. Normal insp/exp effort, no accessory muscle use Cardiovascular: RRR, no murmur, trace pre tibial edema Vessels: no JVD or carotid bruit Chest: normal inspection of chest Abdomen: normal bowel sounds, soft, nontender, no hepatosplenomegaly Musculoskeletal: no cyanosis or clubbing, extremities motor strength 5/5 Skin: no rashes, warm and dry normal turgor Neurologic: PERRL, EOMI, accommodation nl, no face palsy, no dysarthria CN's II-XI intact bilaterally and moves all extremities Psychiatric: A+Ox3, euthymic affect Lymphatic: no cervical or axillary lymphadenopathy : deferred Principal Diagnosis Multifocal pneumonia Iron deficiency anemia Discharge Exam Constitutional: WD/WN, vitals as above, NAD, sitting up in bed, pleasant, conversing easily Respiratory: normal respiratory effort, lungs clear to auscultation, no wheeze, rales, rhonchi. Normal insp/exp effort, no accessory muscle use Cardiovascular: RRR, no murmur, no edema Vessels: no JVD or carotid bruit Chest: normal inspection of chest Abdomen: normal bowel sounds, soft, nontender, no hepatosplenomegaly Musculoskeletal: no cyanosis or clubbing, extremities motor strength 5/5 Skin: no rashes, warm and dry normal turgor Neurologic: PERRL, EOMI, accommodation nl, no face palsy, no dysarthria CN's II- XI intact bilaterally and moves all extremities Psychiatric: A+Ox3, euthymic affect Discharge Data Allergies Allergy/AdvReac Type Severity Reaction Status Date / Time No Known Allergies Allergy Mild Verified 10/10/21 22:44 Consultations 07/25/22 07:28 ED Decision to Admit Stat Ordered Studies 07/25/22 06:37 CT angio chest PE protocol Stat Hospital Course (1) Acute respiratory failure with hypoxia: (2) Bilateral pneumonia: (3) Immunosuppressed status: (4) Paroxysmal atrial flutter: (5) RA (rheumatoid arthritis): (6) Tobacco abuse: Plan This is a 52-year-old female who has a significant past medical history of atrial fibrillation/flutter anticoagulated on Eliquis, history of ablation 11/11/2020 and 10/11 now on sotalol, rheumatoid arthritis, chronic headaches, iron deficiency anemia, anxiety, tobacco use disorder who presents to ED secondary to shortness of breath. She was admitted to telemetry for and underwent treatment for following conditions Acute hypoxic respiratory failure Multifocal pneumonia with bilateral pleural effusion Immunosuppressed status -CTA chest 1. No pulmonary embolus is seen. 2. Scattered groundglass opacities are seen compatible with pneumonia. 3. Moderate bilateral pleural effusions, increased from prior. Repeat chest x-ray this morning 07/26 1. Cardiomegaly with moderately improved pulmonary edema. 2. Small pleural effusions have also decreased in size. Echo-EF 60-65%, normal left ventricle systolic and diastolic function, mild MR. Respiratory pathogen panel negative. Blood cultures negative till date. Urine Legionella antigen pending. Procalcitonin negative. Mild leukocytosis resolved. - BNP 550. During the hospitalization, patient was started on IV antibiotics and IV Lasix. She continued to show signs of improvement with weaning down off for supplemental oxygen. Repeat chest x-ray showed improvement in venous congestion and pleural effusions. Patient was discharged home on oral antibiotics. She was asked to follow-up with PCP and cardiology. Also recommended to repeat chest x-ray/CT chest in 4 weeks time to ensure resolution of pneumonia. Paroxysmal atrial flutter status post ablation-remained sinus rhythm throughout the hospitalization. On sotalol and Eliquis. History of HFpEF- BNP 550 on admission. Echo unremarkable. She had orthopnea and 10 pound weight gain prior to admission. -No overt volume overload, however CT with bilateral pleural effusion and pulm edema on x-ray. -Treated with IV diuretics. Needs to follow-up with PCP and cardiology. Total Time Total Time Spent Total Time Spent (In Minutes): 40 Total Time Includes: Examination of the Patient, Discharge Planning, Medication Reconciliation, Communication With Other Providers and Other Discharge Plan Discharge Items Patient Disposition: Home - Self-Care Reason For Visit: ACUTE HYPOXIC RESP FAILURE, PNEUMONIA Discharge Diagnosis: (1) Acute respiratory failure with hypoxia: (2) Bilateral pneumonia: Activity: Resume your previous activity Non-emergency contact: Primary Care Provider Call non-emergency contact if: you have any medication questions and your symptoms worsen Follow-up/Referrals: Balbir Hernandez MD [Primary Care Provider] - (Date & Time 08/03/2022 10:00 AM Provider Balbir Hernandez MD Department Family [facility] ) Diet: Regular Addtl Attending Provider Instructions: You were admitted to the hospital with bilateral pneumonia. You are prescribed cefdinir and doxycycline to be taken twice daily for 6 more days to complete the treatment course. CT chest done during the hospitalization showed scattered groundglass opacities bilaterally and moderate bilateral pleural effusion. You will need follow-up chest x-ray or CT chest to follow-up on the pleural effusions in 4 weeks. Please discuss that with your primary care doctor. Please schedule follow-up with cardiology given your history of atrial fibrillation. Follow-up with gastroenterology for work-up for anemia. Pending Studies at Discharge: No Stand-Alone Forms: My [facility], Smoking Cessation Medications and DC Order Prescriptions: New doxycycline hyclate 100 mg Capsule 100 mg PO BID 6 Days Qty: 12 0RF cefdinir 300 mg capsule 300 mg PO BID 6 Days Qty: 12 0RF Continued fluoxetine [Prozac] 20 mg Capsule 60 mg PO QAM folic acid 1 mg tablet 2 mg PO QAM Eliquis 5 mg Tablet 5 mg PO BID Qty: 60 0RF alprazolam 0.5 mg tablet 0.5 mg PO HS glycopyrrolate 1 mg tablet 2 mg PO QAM Enbrel SureClick 50 mg/mL (1 mL) pen injector 50 mg SUBCUT WK Rx Instructions: TAKE THIS MED EVERY MONDAY- Patient stated she takes this medication every Monday or Monday prednisone 1 mg Tablet 4 mg PO DAILY PRN (Reason: .FLARES) sotalol 80 mg tablet 120 mg PO BID famotidine 20 mg tablet 20 mg PO BID omeprazole 40 mg capsule,delayed release(DR/EC) 40 mg PO BID Discharge Orders: Discharge Order (Routine); Ordered 07/27/22 Ordered By: Douglas Schaeffer Admission Data Admit Date/Time: 07/25/22 08:42 Attending Provider: Douglas Schaeffer Admit Provider: Ben Riso Primary Care Provider: Balbir Hernandez Other Providers: Carmita Virk ; Willie Navarro
--- NOTE | 2022-07-27 23:08 | Electrocardiogram Report ---
Test Reason : Blood Pressure : / mmHG Vent. Rate : 068 BPM Atrial Rate : 068 BPM P-R Int : 116 ms QRS Dur : 072 ms QT Int : 472 ms P-R-T Axes : 045 058 045 degrees QTc Int : 501 ms Normal sinus rhythm Prolonged QT Abnormal ECG When compared with ECG of 25-JUL-2022 06:25, QT has lengthened Confirmed by Julio De La Cruz ([id number]) on 07/27/2022 11:08:23 PM Referred By: REFERRED SELF Confirmed By:Julio De La Cruz
== END 2022-07-27 17:30 | disposition home or self-care (01) | DRG 193 ==
LOC: ED 06:07 → SUATTDRO 08:42 → 2E 08:42

== ENCOUNTER 2024-08-17 18:05 | Observation (INO) ==
--- NOTE | 2024-08-17 18:18 | Emergency Department Note ---
History of Present Illness General Chief Complaint: Tachycardia Stated Complaint: TACHYCARDIA Time Seen by Provider: 08/17/24 18:12 History of Present Illness Provider Complaint: + "heart racing" and + palpitations Onset (ago): 1 day(s) Duration: + Constant Severity: similar to previous episodes (Atrial fibrillation) Context: + occurred during rest Arrhythmia history: + atrial fibrillation; no on anti-coagulants Associated symptoms: + shortness of breath; no chest pain, no syncope, no vomiting or no cough Home Medications Medication Instructions Recorded Confirmed Type fluoxetine 20 mg capsule (Prozac) 60 mg PO QAM 09/14/18 08/17/24 History alprazolam 0.5 mg tablet 0.5 mg PO BID PRN Anxiety 10/10/21 08/17/24 History etanercept 50 mg/mL (1 mL) 50 mg subcut WK 10/10/21 08/17/24 History subcutaneous pen injector (Enbrel SureClick) famotidine 20 mg tablet 20 mg PO AMHS 07/25/22 08/17/24 History bupropion HCl 300 mg 24 hr tablet, 300 mg PO QAM 08/17/24 08/17/24 History extended release cyanocobalamin (vitamin B-12) 1,000 mcg sublingual DAILY 08/17/24 08/17/24 History 1,000 mcg sublingual tablet estradiol 0.05 mg-norethindrone 1 patch transdermal 2XWK 08/17/24 08/17/24 History 0.14 mg/24 hr semiwkly transderm patch (CombiPatch) glycopyrrolate 1 mg tablet 1 mg PO BID 08/17/24 08/17/24 History pantoprazole 40 mg tablet,delayed 40 mg PO DAILYBB 08/17/24 08/17/24 History release rosuvastatin 5 mg tablet 5 mg PO QAM 08/17/24 08/17/24 History semaglutide (weight loss) 1 mg/0.5 1 mg subcut WK 08/17/24 08/17/24 History mL subcutaneous pen injector (Wegovy) Allergies Allergy/AdvReac Type Severity Reaction Status Date / Time No Known Allergies Allergy Mild Verified 10/10/21 22:44 Past Med/Surg History Problem List (Updated 08/17/24 @ 22:56 by Dallin Coker MD) Elevated troponin (Acute) Palpitations (Acute) Bilateral pleural effusion (Acute) Immunosuppressed status Bilateral pneumonia (Acute) Acute respiratory failure with hypoxia (Acute) Paroxysmal atrial flutter Hypertension Per records RA (rheumatoid arthritis) On Arava Open wound of lip due to dog bite Encounter for pre-operative examination Medical History Tobacco abuse Atrial fibrillation with RVR Atrial flutter with rapid ventricular response Hypokalemia DVT prophylaxis Acute decompensated heart failure Atrial flutter with rapid ventricular response Respiratory distress Admitted to intensive care unit Atrial flutter GERD (gastroesophageal reflux disease) History of TMJ disorder Atrial fibrillation + FLUTTER (NEWLY DX) On Eliquis History of kidney stones Anxiety Surgical History History of esophagogastroduodenoscopy (EGD) H/O wisdom tooth extraction History of colonoscopy Family History Father Alcohol use Grandmother (Paternal) Breast cancer Other No family history of adverse response to anesthesia No significant family history Social History Smoking Status: Never smoker Tobacco Type: Cigarettes Cigarettes Per Day: 1 CART. DAILY; Second Hand Exposure: No; Do You Dip or Chew Tobacco: No; Hx Alcohol Use: Yes Alcohol type: beer, wine and hard liquor Alcohol Intake Frequency: 2-3 x/Week Alcohol Intake Frequency Comment: 6 drinks/week Hx Substance Use: No Preferred Language: Kazakh Communication Ability: Effective Ice Skating Instructor Required: No Beliefs That Will Affect Care: None marital status: Current Living Situation: Spouse How many Children do You have: 2 Feels Safe at Home: Yes Assistive Devices: None Physical Exam 2 Vital Signs: Vital Signs - 24 hr 08/17/24 18:09 08/17/24 18:12 08/17/24 18:14 Temperature 36.6 C Temperature Source Temporal Artery Sc an Pulse Rate 187 H 188 H 108 H Pulse Rate from Sp O2 Sensor Respiratory Rate 18 16 Respiratory Effort / Characteristics Non-Labored Sponta neous Respiratory Depth Normal Respiratory Patter n Regular Blood Pressure 109/73 161/101 H Blood Pressure Kirsten n 85 118 Blood Pressure Pos ition Sitting Pulse Oximetry 98 95 Oxygen Delivery Me thod Room Air Room Air Sepsis Recent Feve r Within 48 Hours No Sepsis New/Unexpla ined Change in Men alfredo Status N/A Sepsis Action Take n by Nursing No Action Required 08/17/24 18:20 08/17/24 18:36 08/17/24 18:39 Temperature Temperature Source Pulse Rate 110 H 98 H 102 H Pulse Rate from Sp O2 Sensor 101 H Respiratory Rate 22 16 Respiratory Effort / Characteristics Respiratory Depth Respiratory Patter n Blood Pressure 137/94 Blood Pressure Kirsten n 108 Blood Pressure Pos ition Pulse Oximetry 97 97 Oxygen Delivery Me thod Room Air Sepsis Recent Feve r Within 48 Hours Sepsis New/Unexpla ined Change in Men alfredo Status Sepsis Action Take n by Nursing 08/17/24 18:40 08/17/24 18:57 08/17/24 19:00 Temperature Temperature Source Pulse Rate 94 H Pulse Rate from Sp O2 Sensor 94 H Respiratory Rate 16 Respiratory Effort / Characteristics Respiratory Depth Respiratory Patter n Blood Pressure 137/94 156/91 H Blood Pressure Kirsten n 111 124 Blood Pressure Pos ition Pulse Oximetry 97 Oxygen Delivery Me thod Sepsis Recent Feve r Within 48 Hours Sepsis New/Unexpla ined Change in Men alfredo Status Sepsis Action Take n by Nursing 08/17/24 19:00 08/17/24 19:03 08/17/24 19:27 Temperature Temperature Source Pulse Rate 97 H 90 Pulse Rate from Sp O2 Sensor 98 H 90 Respiratory Rate 21 15 Respiratory Effort / Characteristics Respiratory Depth Respiratory Patter n Blood Pressure 156/91 H Blood Pressure Kirsten n 124 Blood Pressure Pos ition Pulse Oximetry 97 98 Oxygen Delivery Me thod Sepsis Recent Feve r Within 48 Hours Sepsis New/Unexpla ined Change in Men alfredo Status Sepsis Action Take n by Nursing 08/17/24 19:30 08/17/24 19:39 08/17/24 20:01 Temperature Temperature Source Pulse Rate 92 H Pulse Rate from Sp O2 Sensor 92 H Respiratory Rate 16 Respiratory Effort / Characteristics Respiratory Depth Respiratory Patter n Blood Pressure 119/91 127/78 Blood Pressure Kirsten n 101 100 Blood Pressure Pos ition Pulse Oximetry 99 Oxygen Delivery Me thod Sepsis Recent Feve r Within 48 Hours Sepsis New/Unexpla ined Change in Men alfredo Status Sepsis Action Take n by Nursing 08/17/24 20:09 08/17/24 20:45 08/17/24 20:57 Temperature Temperature Source Pulse Rate 93 H 88 87 Pulse Rate from Sp O2 Sensor 92 H 88 87 Respiratory Rate 23 23 16 Respiratory Effort / Characteristics Respiratory Depth Respiratory Patter n Blood Pressure Blood Pressure Kirsten n Blood Pressure Pos ition Pulse Oximetry 99 98 98 Oxygen Delivery Me thod Sepsis Recent Feve r Within 48 Hours Sepsis New/Unexpla ined Change in Men alfredo Status Sepsis Action Take n by Nursing 08/17/24 21:03 08/17/24 21:30 08/17/24 21:30 Temperature Temperature Source Pulse Rate 85 Pulse Rate from Sp O2 Sensor 85 Respiratory Rate 21 Respiratory Effort / Characteristics Respiratory Depth Respiratory Patter n Blood Pressure 143/82 H 134/79 134/79 Blood Pressure Kirsten n 102 98 98 Blood Pressure Pos ition Pulse Oximetry 98 Oxygen Delivery Me thod Sepsis Recent Feve r Within 48 Hours Sepsis New/Unexpla ined Change in Men alfredo Status Sepsis Action Take n by Nursing 08/17/24 21:30 08/17/24 21:54 08/17/24 21:56 Temperature Temperature Source Pulse Rate 89 Pulse Rate from Sp O2 Sensor 89 86 Respiratory Rate 20 Respiratory Effort / Characteristics Respiratory Depth Respiratory Patter n Blood Pressure 128/81 Blood Pressure Kirsten n 97 Blood Pressure Pos ition Pulse Oximetry 98 98 Oxygen Delivery Me thod Sepsis Recent Feve r Within 48 Hours Sepsis New/Unexpla ined Change in Men alfredo Status Sepsis Action Take n by Nursing 08/17/24 21:56 08/17/24 22:00 08/17/24 22:00 Temperature Temperature Source Pulse Rate Pulse Rate from Sp O2 Sensor Respiratory Rate Respiratory Effort / Characteristics Non-Labored Sponta neous Respiratory Depth Normal Respiratory Patter n Blood Pressure 128/81 140/88 Blood Pressure Kirsten n 97 113 Blood Pressure Pos ition Pulse Oximetry Oxygen Delivery Me thod Sepsis Recent Feve r Within 48 Hours Sepsis New/Unexpla ined Change in Men alfredo Status Sepsis Action Take n by Nursing 08/17/24 22:06 Temperature Temperature Source Pulse Rate Pulse Rate from Sp O2 Sensor 92 H Respiratory Rate 16 Respiratory Effort / Characteristics Respiratory Depth Respiratory Patter n Blood Pressure Blood Pressure Kirsten n Blood Pressure Pos ition Pulse Oximetry 100 Oxygen Delivery Me thod Sepsis Recent Feve r Within 48 Hours Sepsis New/Unexpla ined Change in Men alfredo Status Sepsis Action Take n by Nursing Physical Exam: Physical Exam GENERAL: oriented to person, place, and time. appears well-developed and well- nourished. HENT: Exam performed. - Head: Normocephalic and atraumatic. EYES: Conjunctivae and EOM are normal. Right eye exhibits no discharge. Left eye exhibits no discharge. No scleral icterus. NECK: Normal range of motion. Neck supple. No JVD present. CV: Tachycardic rate, regular rhythm, normal heart sounds and intact distal pulses. There is no peripheral edema. Palpable radial pulses bue. PULM/CHEST: Effort normal and breath sounds normal. No respiratory distress. No stridor. no wheezes. no rales. ABD: The abdomen is soft. There is no tenderness. NEURO: Motor and sensation grossly intact. SKIN: Skin is warm and dry. He is not diaphoretic. PSYCH: normal mood and affect. Behavior is normal. Judgment and thought content normal. Course Course 1811: The patient was evaluated in room B1. A complete history and physical exam was performed Cardiac monitoring: An order was placed for continuous cardiac monitoring. The monitor shows a rate of 180 with atrial fibrillation rhythm interpreted by me While large-bore IV access was being obtained and EKG was being obtained the patient converted into sinus rhythm with a rate of 100 on the sanitation worker. EKG confirms sinus rhythm. 1954: Vital signs stable. Patient remains in sinus rhythm. Labs are significant for an elevated high-sensitivity troponin of 17.4. D-dimer negative. Chest x-ray negative. Will conduct delta troponin. 2254: Vital signs stable. Patient reporting no chest pain. Patient marcela in sinus rhythm. Delta troponin 1-25.4 greater than 20% increase. Given the patient's rising delta troponin, history of atrial fibrillation on any medications, patient will be admitted to the hospitalist team for cardiology further evaluation. Patient is in agreement. Administered Medications Discontinued Medications Aspirin (Aspirin Chew 324 Mg) 324 mg PO NOW STA Stop: 08/17/24 18:16 Last Admin: 08/17/24 18:24 Dose: 324 mg Documented By: FLIP Sodium Chloride (Nss) 1,000 mls @ 999 mls/hr IV .Q1H1M STA Stop: 08/17/24 19:15 Last Infusion: 08/17/24 20:59 Dose: Infused Documented By: Admin: 08/17/24 18:26 Dose: 999 mls/hr Documented By: FLIP Medical Decision Making Laboratory Data Attestation: I reviewed the patient's lab results. 08/17/24 18:20 08/17/24 19:55 Lab Results 08/17/24 08/17/24 Range/Units 18:20 19:55 WBC 9.03 (4.8-10.8) K/ul RBC 4.84 (4.20-5.40) M/uL Hgb 14.8 (12.0-16.0) g/dl Hct 43.5 (37.0-47.0) % MCV 89.9 (80.0-100.0) fL MCH 30.6 (25.0-34.0) pg MCHC 34.0 (32.0-36.0) g/dL RDW Std Deviation 43.3 (36.4-46.3) fL RDW Coeff of Bridget 13.2 (11.5-14.5) % Plt Count 338 (130-400) K/uL MPV 10.8 (9.4-12.4) fL Immature Gran % (Auto) 0.2 % Neut % (Auto) 51.4 % Lymph % (Auto) 33.3 % Wood % (Auto) 12.5 % Eos % (Auto) 1.8 % Baso % (Auto) 0.8 % Neut # (Auto) 4.64 (1.40-6.50) K/uL Lymph # (Auto) 3.01 (1.20-3.40) K/uL Wood # (Auto) 1.13 H (0.11-0.59) K/uL Eos # (Auto) 0.16 (0.00-0.50) K/uL Baso # (Auto) 0.07 (0.00-0.20) K/uL Immature Gran # (Auto) 0.02 (0.01-0.20) K/uL PT 10.9 (9.0-12.0) Seconds INR 1.0 (0.9-1.1) APTT 29 (21-31) Seconds PTT Ratio 1.1 D-Dimer < 190 (0-500) ug/L FEU Sodium 141 (136-145) mmol/L Potassium TNP 3.0 L Chloride 105 (98-107) mmol/L Carbon Dioxide 28 (21-32) mmol/L Anion Gap 8 (3-11) BUN 9 (6-23) mg/dl Creatinine 0.78 (0.6-1.2) mg/dl Est Cr Clr Drug Dosing Not Reportable eGFR 90.76 BUN/Creatinine Ratio 11.5 (10-20) Glucose 73 (70-99(Fasting)) mg/dl Calcium 9.6 (8.6-10.3) mg/dl Magnesium 2.1 (1.7-2.4) mg/dl Troponin I High Sens 17.4 H 25.4 H (0-14) pg/ml Lipase 16 (11-82) U/L Imaging Data Attestation: I personally reviewed and interpreted this imaging study as follows: My Impression: Chest x-ray negative. Airway clear. No pneumothorax. No consolidation. No cardiomegaly or cephalization.. No free air under the diaphragm. No fractures of the skeletal structures. Radiologist's Impression: Chest X-Ray 08/17/24 18:15 Chest radiograph, one view History: Chest pain Comparison: None Findings: Single AP view of the chest performed. No focal consolidation or pleural effusion. No pneumothorax. The cardiomediastinal silhouette is within normal limits. Normal pulmonary vascularity. No evidence for lymphadenopathy. No visualized bony or soft tissue abnormality. Impression: Normal chest radiograph Electronically signed by Musa Mendoza 08-17-2024 7:06 PM ECG Data Attestation: I personally reviewed and interpreted this ECG as follows: Rate (beats per minute): 108 Rhythm: normal sinus Findings: no ST depression, no ST elevation or no prolonged QT Additional Comments: RI 116 QRS 72 QTc 415. No delta wave. [facility] Narrative 1811: The patient was evaluated in room B1. A complete history and physical exam was performed Cardiac monitoring: An order was placed for continuous cardiac monitoring. The monitor shows a rate of 180 with atrial fibrillation rhythm interpreted by me While large-bore IV access was being obtained and EKG was being obtained the patient converted into sinus rhythm with a rate of 100 on the sanitation worker. EKG confirms sinus rhythm. 1954: Vital signs stable. Patient remains in sinus rhythm. Labs are significant for an elevated high-sensitivity troponin of 17.4. D-dimer negative. Chest x-ray negative. Will conduct delta troponin. 2254: Vital signs stable. Patient reporting no chest pain. Patient marcela in sinus rhythm. Delta troponin 1-25.4 greater than 20% increase. Given the patient's rising delta troponin, history of atrial fibrillation on any medications, patient will be admitted to the hospitalist team for cardiology further evaluation. Patient is in agreement. Impression & Plan Palpitations, Elevated troponin Discharge Plan Visit Data Chief Complaint: Tachycardia Stated Complaint: TACHYCARDIA ED Provider: Dallin Coker Discharge Problem: Palpitations, Elevated troponin Patient Disposition: Admitted As Inpatient Condition: Fair Forms Stand Alone Forms: [facility] Prescriptions Prescriptions: No Action fluoxetine [Prozac] 20 mg Capsule 60 mg PO QAM alprazolam 0.5 mg tablet 0.5 mg PO BID PRN (Reason: Anxiety) Enbrel SureClick 50 mg/mL (1 mL) pen injector 50 mg SUBCUT WK famotidine 20 mg tablet 20 mg PO AMHS Wegovy 1 mg/0.5 mL pen injector 1 mg SUBCUT WK bupropion HCl 300 mg tablet extended release 24 hr 300 mg PO QAM CombiPatch 0.05-0.14 mg/24 hr patch semiweekly 1 patch transdermal 2XWK glycopyrrolate 1 mg tablet 1 mg PO BID pantoprazole 40 mg tablet,delayed release (DR/EC) 40 mg PO DAILYBB rosuvastatin 5 mg tablet 5 mg PO QAM cyanocobalamin (vitamin B-12) [Vitamin B-12] 1,000 mcg Tablet, Sublingual 1,000 mcg SUBLINGUAL DAILY Referrals Referrals: Balbir Hernandez MD [Primary Care Provider] -
[2024-08-17] MEDS: ASPIRIN CHEW 324 MG PO STA (18:24)
[2024-08-17] MEDS: SODIUM CHLORIDE 0.9% 1,000 ML IV STA (18:26)
[2024-08-17 18:33] LABS: Basophils # (auto) 0.07 K/uL (0.00-0.20); Basophils % (auto) 0.8 %; Eosinophils # (auto) 0.16 K/uL (0.00-0.50); Eosinophils % (auto) 1.8 %; Hematocrit (blood only) 43.5 % (37.0-47.0); Hemoglobin 14.8 g/dl (12.0-16.0); Immature Granulocytes # (auto) 0.02 K/uL (0.01-0.20); Immature Granulocytes % (auto) 0.2 %; Lymphocytes # (auto) 3.01 K/uL (1.20-3.40); Lymphocytes % (auto) 33.3 %; Mean Corpuscular Hemoglobin 30.6 pg (25.0-34.0); Mean Corpuscular Volume 89.9 fL (80.0-100.0); Mean Platelet Volume 10.8 fL (9.4-12.4); Monocytes # (auto) 1.13 K/uL (0.11-0.59); Monocytes % (auto) 12.5 %; Neutrophils # (auto) 4.64 K/uL (1.40-6.50); Neutrophils % (auto) 51.4 %; Platelet Count 338 K/uL (130-400); RDW Coefficient of Variation 13.2 % (11.5-14.5); RDW Standard Deviation 43.3 fL (36.4-46.3); Red Blood Count 4.84 M/uL (4.20-5.40); White Blood Count 9.03 K/ul (4.8-10.8)
[2024-08-17 18:57] LABS: Anion Gap 8 (3-11); BUN Creatinine Ratio 11.5 (10-20); Blood Urea Nitrogen 9 mg/dl (6-23); Calcium 9.6 mg/dl (8.6-10.3); Carbon Dioxide 28 mmol/L (21-32); Chloride 105 mmol/L (98-107); Glucose 73 mg/dl (70-99(Fasting)); Lipase 16 U/L (11-82); Magnesium 2.1 mg/dl (1.7-2.4); Sodium 141 mmol/L (136-145); Troponin I High Sensitivity 17.4 pg/ml (0-14)
[2024-08-17 19:00] LABS: D Dimer < 190 ug/L FEU (0-500); Partial Thromboplastin Ratio 1.1; Partial Thromboplastin Time 29 Seconds (21-31); Prothrombin Time 10.9 Seconds (9.0-12.0)
--- NOTE | 2024-08-17 19:06 | XRay Report ---
Chest radiograph, one view History: Chest pain Comparison: None Findings: Single AP view of the chest performed. No focal consolidation or pleural effusion. No pneumothorax. The cardiomediastinal silhouette is within normal limits. Normal pulmonary vascularity. No evidence for lymphadenopathy. No visualized bony or soft tissue abnormality. Impression: Normal chest radiograph Electronically signed by Musa Mendoza 08-17-2024 7:06 PM
[2024-08-17 22:09] LABS: Troponin I High Sensitivity 25.4 pg/ml (0-14)
[2024-08-17] MEDS ORDERED: POTASSIUM CHLORIDE 10 MEQ TABCR PO STA (22:38)
--- NOTE | 2024-08-17 22:42 | History & Physical Report ---
Date of Service August 17, 2024 Assessment & Plan (1) PSVT (paroxysmal supraventricular tachycardia): Plan: Assessment and plan below following discussion of case with ED provider and reviewing patient history/pertinent normal/abnormal diagnostic test results. PSVT hx PAF/atrial flutter status post ablation currently not on maintenance medication/anticoagulation Intermittent episodes for almost a year Troponin elevation secondary to above Hypokalemia mild MR hypertension, stable off maintenance medications rheumatoid arthritis on Enbrel anxiety disorder, at baseline ongoing vape use OBS PCU TTE, Cardiology consult re: PSVT, history PAF/PAFL (Discussed with Dr. Lama who recommends metoprolol for now and restarting patient's Eliquis. Possible sotalol load after evaluation in a.m as per discussion.) Follow troponin Replace potassium DVT prophylaxis. Eliquis Full code Text document was generated using Kalion voice recognition software. It may contain grammatical or spelling errors. Kindly contact undersigned for clarification of any documentation item in question. History of Present Illness Chief Complaint: Palpitations, SOB Primary Care Provider: Balbir Hernandez MD History obtained from patient, family, and records. Medical history significant for PAF/atrial flutter status post ablation currently not on maintenance medication/anticoagulation, mild MR, hypertension, rheumatoid arthritis on Enbrel, GERD, anxiety disorder, ongoing vape use. Last confinement July 2022 for multifocal pneumonia and iron deficiency anemia. Patient off sotalol and Eliquis Rx following last outpatient [facility] visit last February,. Patient with weekly episodes of palpitations with occasional SOB since August,. No chest pain. No unusual stress. 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 Symptoms noted to be worse yesterday. She told her who urged her to come to ER. Patient noted to be in SVT, heart rate 180s upon arrival at the ER. Spontaneous conversion later noted. Patient currently comfortable. Medical History as above Surgical History : None Family History : Breast cancer, alcoholism Personal/Social history : Ongoing vape use, occasional EtOH intake, [employer] employee Allergies Allergy/AdvReac Type Severity Reaction Status Date / Time No Known Allergies Allergy Mild Verified 10/10/21 22:44 Home Medications Medication Instructions Recorded Confirmed Type fluoxetine 20 mg capsule (Prozac) 60 mg PO QAM 09/14/18 08/17/24 History alprazolam 0.5 mg tablet 0.5 mg PO BID PRN Anxiety 10/10/21 08/17/24 History etanercept 50 mg/mL (1 mL) 50 mg subcut WK 10/10/21 08/17/24 History subcutaneous pen injector (Enbrel SureClick) famotidine 20 mg tablet 20 mg PO AMHS 07/25/22 08/17/24 History bupropion HCl 300 mg 24 hr tablet, 300 mg PO QAM 08/17/24 08/17/24 History extended release cyanocobalamin (vitamin B-12) 1,000 mcg sublingual DAILY 08/17/24 08/17/24 History 1,000 mcg sublingual tablet estradiol 0.05 mg-norethindrone 1 patch transdermal 2XWK 08/17/24 08/17/24 History 0.14 mg/24 hr semiwkly transderm patch (CombiPatch) glycopyrrolate 1 mg tablet 1 mg PO BID 08/17/24 08/17/24 History pantoprazole 40 mg tablet,delayed 40 mg PO DAILYBB 08/17/24 08/17/24 History release rosuvastatin 5 mg tablet 5 mg PO QAM 08/17/24 08/17/24 History semaglutide (weight loss) 1 mg/0.5 1 mg subcut WK 08/17/24 08/17/24 History mL subcutaneous pen injector (Wegovy) Past Med/Surg History Problem List (Updated 08/18/24 @ 08:31 by Juarez Jerome MD) PSVT (paroxysmal supraventricular tachycardia) Elevated troponin (Acute) Palpitations (Acute) Bilateral pleural effusion (Acute) Immunosuppressed status Bilateral pneumonia (Acute) Acute respiratory failure with hypoxia (Acute) Paroxysmal atrial flutter Hypertension Per records RA (rheumatoid arthritis) On Arava Open wound of lip due to dog bite Encounter for pre-operative examination Medical History Tobacco abuse Atrial fibrillation with RVR Atrial flutter with rapid ventricular response Hypokalemia DVT prophylaxis Acute decompensated heart failure Atrial flutter with rapid ventricular response Respiratory distress Admitted to intensive care unit Atrial flutter GERD (gastroesophageal reflux disease) History of TMJ disorder Atrial fibrillation + FLUTTER (NEWLY DX) On Eliquis History of kidney stones Anxiety Surgical History History of esophagogastroduodenoscopy (EGD) H/O wisdom tooth extraction History of colonoscopy Family History Father Alcohol use Grandmother (Paternal) Breast cancer Other No family history of adverse response to anesthesia No significant family history Social History Smoking Status: Current every day smoker Tobacco Type: E-cigarettes / Vaping Cigarettes Per Day: 1 CART. 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 Required: No Beliefs That Will Affect Care: None marital status: Current Living Situation: Spouse How many Children do You have: 2 Feels Safe at Home: Yes Safety Concerns: Feels Safe At This Time Assistive Devices: Glasses Review of Systems Review of Systems: As per HPI, all other systems reviewed and negative Physical Exam Physical Exam: GENERAL: Comfortable, pleasant, slightly anxious, no respiratory distress SKIN: Normal color, warm HEENT: Caroline palpebral conjunctivae, no ptosis, moist buccal mucosa NECK : Supple, no tenderness CHEST : CTA, no tenderness HEART : RRR, no obvious murmurs ABDOMEN: Some distention, nontender EXTREMITIES : No LE swelling/tenderness, palpable pulses, no other conspicuous deformities noted NEUROLOGIC : Coherent, no facial asymmetry, no other gross focality Results & Data Results & Data Vital Signs (Past 12 Hours) Vital Signs Temp Pulse Resp BP Pulse Ox O2 Del Method 08/17/24 22:06 16 100 08/17/24 22:00 140/88 08/17/24 21:56 128/81 08/17/24 21:56 128/81 08/17/24 21:54 98 08/17/24 21:30 89 20 98 08/17/24 21:30 134/79 08/17/24 21:30 134/79 08/17/24 21:03 85 21 143/82 H 98 08/17/24 20:57 87 16 98 06/28/25 20:45 88 23 98 08/17/24 20:09 93 H 23 99 08/17/24 20:01 127/78 08/17/24 19:39 92 H 16 99 08/17/24 19:30 119/91 08/17/24 19:27 90 15 98 08/17/24 19:03 97 H 21 97 08/17/24 19:00 156/91 H 08/17/24 19:00 156/91 H 08/17/24 18:57 94 H 16 97 08/17/24 18:40 137/94 08/17/24 18:39 102 H 16 97 08/17/24 18:36 98 H 22 137/94 97 Room Air 08/17/24 18:20 110 H 08/17/24 18:14 108 H 16 161/101 H 95 Room Air 08/17/24 18:12 188 H 08/17/24 18:09 36.6 C 187 H 18 109/73 98 Room Air Laboratory Results Laboratory Results WBC 9.03 K/ul (4.8-10.8) 08/17/24 18:20 RBC 4.84 M/uL (4.20-5.40) 08/17/24 18:20 Hgb 14.8 g/dl (12.0-16.0) 08/17/24 18:20 Hct 43.5 % (37.0-47.0) 08/17/24 18:20 MCV 89.9 fL (80.0-100.0) 08/17/24 18:20 MCH 30.6 pg (25.0-34.0) 08/17/24 18:20 MCHC 34.0 g/dL (32.0-36.0) 08/17/24 18:20 RDW Std Deviation 43.3 fL (36.4-46.3) 08/17/24 18:20 RDW Coeff of Bridget 13.2 % (11.5-14.5) 08/17/24 18:20 Plt Count 338 K/uL (130-400) 08/17/24 18:20 MPV 10.8 fL (9.4-12.4) 08/17/24 18:20 Immature Gran % (Auto) 0.2 % 08/17/24 18:20 Neut % (Auto) 51.4 % 08/17/24 18:20 Lymph % (Auto) 33.3 % 08/17/24 18:20 [place] % (Auto) 12.5 % 08/17/24 18:20 Eos % (Auto) 1.8 % 08/17/24 18:20 Baso % (Auto) 0.8 % 08/17/24 18:20 Neut # (Auto) 4.64 K/uL (1.40-6.50) 08/17/24 18:20 Lymph # (Auto) 3.01 K/uL (1.20-3.40) 08/17/24 18:20 [place] # (Auto) 1.13 K/uL (0.11-0.59) H 08/17/24 18:20 Eos # (Auto) 0.16 K/uL (0.00-0.50) 08/17/24 18:20 Baso # (Auto) 0.07 K/uL (0.00-0.20) 08/17/24 18:20 Immature Gran # (Auto) 0.02 K/uL (0.01-0.20) 08/17/24 18:20 PT 10.9 Seconds (9.0-12.0) 08/17/24 18:20 INR 1.0 (0.9-1.1) 08/17/24 18:20 APTT 29 Seconds (21-31) 08/17/24 18:20 PTT Ratio 1.1 08/17/24 18:20 D-Dimer < 190 ug/L FEU (0-500) 08/17/24 18:20 Sodium 141 mmol/L (136-145) 08/17/24 18:20 Potassium 3.0 mmol/L (3.5-5.1) L 08/17/24 19:55 Chloride 105 mmol/L (98-107) 08/17/24 18:20 Carbon Dioxide 28 mmol/L (21-32) 08/17/24 18:20 Anion Gap 8 (3-11) 08/17/24 18:20 BUN 9 mg/dl (6-23) 08/17/24 18:20 Creatinine 0.78 mg/dl (0.6-1.2) 08/17/24 18:20 Est Cr Clr Drug Dosing Not Reportable 08/17/24 18:20 eGFR 90.76 08/17/24 18:20 BUN/Creatinine Ratio 11.5 (10-20) 08/17/24 18:20 Glucose 73 mg/dl (70-99(Fasting)) 08/17/24 18:20 Calcium 9.6 mg/dl (8.6-10.3) 08/17/24 18:20 Magnesium 2.1 mg/dl (1.7-2.4) 08/17/24 18:20 Troponin I High Sens 25.4 pg/ml (0-14) H 08/17/24 19:55 Lipase 16 U/L (11-82) 08/17/24 18:20 Impressions Chest X-Ray 08/17/24 18:15 Chest radiograph, one view History: Chest pain Comparison: None Findings: Single AP view of the chest performed. No focal consolidation or pleural effusion. No pneumothorax. The cardiomediastinal silhouette is within normal limits. Normal pulmonary vascularity. No evidence for lymphadenopathy. No visualized bony or soft tissue abnormality. Impression: Normal chest radiograph Electronically signed by Musa Mendoza 08-17-2024 7:06 PM Diagnostic Findings EKG as per my interpretation :Rate 110, sinus tachycardia, normal axis, T wave abnormalities septal leads
[2024-08-17] MEDS: POTASSIUM CHLORIDE CRTAB 20 MEQ TABCR PO STA (22:55)
[2024-08-17 23:21] LABS: Thyroid Stimulating Hormone 0.819 uIu/ml (0.300-4.500)
[2024-08-17] MEDS ORDERED: ALPRAZolam 0.5 MG TABLET PO PRN (23:38)
[2024-08-17] MEDS ORDERED: oxyCODONE HCL IR 5 MG TAB (IMMEDIATE RELEASE) PO PRN (23:39)
[2024-08-17] MEDS ORDERED: ACETAMINOPHEN 325 MG TAB PO PRN (23:39)
[2024-08-17] MEDS ORDERED: PROMETHAZINE 6.25 MG/50.25 ML BAG IV PRN (23:39)
[2024-08-17] MEDS ORDERED: NITROGLYCERIN SL 0.4 MG/TAB TAB SL PRN (23:48)
[2024-08-17] MEDS: POTASSIUM CHLORIDE / WTR 10 MEQ/100 ML PLCT IV SCH (23:54)
[2024-08-17] MEDS: POTASSIUM CHLORIDE CRTAB 20 MEQ TABCR PO ONE (23:54)
[2024-08-18] MEDS: APIXABAN 5 MG TABLET PO SCH (00:28)
[2024-08-18] MEDS: METOPROLOL TARTRATE 25 MG TAB PO STA (00:28)
[2024-08-18 04:35] VITALS: O2SAT 98
[2024-08-18 06:27] LABS: Basophils # (auto) 0.05 K/uL (0.00-0.20); Basophils % (auto) 0.7 %; Eosinophils # (auto) 0.23 K/uL (0.00-0.50); Eosinophils % (auto) 3.4 %; Hematocrit (blood only) 37.5 % (37.0-47.0); Hemoglobin 12.3 g/dl (12.0-16.0); Immature Granulocytes # (auto) 0.01 K/uL (0.01-0.20); Immature Granulocytes % (auto) 0.1 %; Lymphocytes # (auto) 2.32 K/uL (1.20-3.40); Lymphocytes % (auto) 34.1 %; Mean Corpuscular Hemoglobin 30.5 pg (25.0-34.0); Mean Corpuscular Hgb Conc 32.8 g/dL (32.0-36.0); Mean Corpuscular Volume 93.1 fL (80.0-100.0); Mean Platelet Volume 11.2 fL (9.4-12.4); Monocytes # (auto) 0.76 K/uL (0.11-0.59); Monocytes % (auto) 11.2 %; Neutrophils # (auto) 3.43 K/uL (1.40-6.50); Neutrophils % (auto) 50.5 %; Platelet Count 268 K/uL (130-400); RDW Coefficient of Variation 13.2 % (11.5-14.5); RDW Standard Deviation 45.2 fL (36.4-46.3); Red Blood Count 4.03 M/uL (4.20-5.40)
[2024-08-18] MEDS: PANTOprazole 40 MG TAB PO SCH (06:32)
[2024-08-18 07:14] LABS: BUN Creatinine Ratio 14.5 (10-20); Troponin I High Sensitivity 21.6 pg/ml (0-14)
[2024-08-18 07:28] VITALS: RESP 18; TEMP 98.1
[2024-08-18] MEDS: FLUoxetine HCL 20 MG CAP PO SCH (09:31)
[2024-08-18] MEDS: ROSUVASTATIN CALCIUM 5 MG TAB PO SCH (09:33)
[2024-08-18] MEDS: CYANOCOBALAMIN (B-12) 500 MCG TABLET PO SCH (09:33)
[2024-08-18] MEDS: METOPROLOL TARTRATE 25 MG TAB PO SCH (09:33)
[2024-08-18] MEDS: buPROPion XL 300 MG TABCR PO SCH (09:34)
[2024-08-18] MEDS: FAMOTIDINE 20 MG TAB PO SCH (09:35)
[2024-08-18 11:41] VITALS: BP 118/81; PULSE 85
--- NOTE | 2024-08-18 12:09 | Cardiology Consultation ---
Date of Consultation August 18, 2024 Assessment & Plan (1) PSVT (paroxysmal supraventricular tachycardia): (2) Paroxysmal atrial flutter: (3) Palpitations: Plan 54 year old female with past medical history of paroxysmal atrial fibrillation s/p ablation in 2020 and 2021, HTN, RA, who presents with palpitations. In ED, initial heart rate in 180s, possible SVT, spontaneously converted, EKG with sinus tachycardia, 108 bpm. Labs with hypokalemia on presentation, now corrected. - feeling well today on exam from cardiac standpoint - sinus rhythm on telemetry, rates 80-90s - start metoprolol succinate 25 mg daily - start Eliquis 5 mg twice daily if patient agreeable - continue to monitor on telemetry - no further cardiac testing inpatient - follow up with outpatient cardiology Case discussed with attending physician, further recommendations per Dr. Fuller. I spent a total of 30 minutes on the date of service in preparation, delivery, and documentation of the care provided to this patient excluding any time spent in the performance of separately billed services. This visit was a split-shared visit with the substantial portion of the decision making performed by the supervising sales research analyst/billing provider. Bekah Escobar PA-C [facility] Supervising Physician Co-Signing Physician Notes I have reviewed the advanced practitioner's documentation on the date of service referenced in note, and I agree with, and take responsibility for the plan of care. 54-year-old female with known history of paroxysmal atrial fibrillation with prior ablation previously on sotalol and Eliquis for the past year has not been on any medications presents with intermittent episodes of palpitations have been going on once or twice per week. Usually last for about 30 minutes to 1 hour but never longer than that. However yesterday patient had palpitations her heart rate was up to 180 bpm she did not feel well lasted for almost the entire day In the emergency room converted to sinus rhythm We discussed about further options Medical therapy follow-up with EP for further evaluation Initiation of sotalol will wait 3 days in the hospital. Referred to follow-up with EP for further management plan. Take metoprolol XL and Eliquis. Zio patch monitor as outpatient and EP follow-up with Dr. Laboy I spent a total of [30] minutes coordinating, documenting, and providing care for this patient excluding time spent in the performance of separately billed services or time spent by another provider. History of Present Illness Reason for Consultation: tachyarrythmia, hx paf Requesting Physician: Rebecca olson Attending Physician: Roque Livingston MD History of Present Illness 54 year old female with past medical history of paroxysmal atrial fibrillation s/p ablation in 2020 and 2021, HTN, RA, who presents with palpitations. States she did not feel well yesterday and stayed in bed. Had heart racing and palpitations, watch showed heart rate in 180s. Had mild shortness of breath. States symptoms lasted about 8 hours. In ED, initial heart rate in 180s, spontaneously converted, EKG with sinus tachycardia, 108 bpm. Labs with hypokal emia, K 3.0. Admitted for further workup. On exam today, she states she is feeling better. Denies chest pain, palpitations, shortness of breath, edema. Previously was on Eliquis, sotalol, this was discontinued at last outpatient EP appointment. Had Zio 02/2023 which showed episodes of afib with RVR. She denies abnormal bleeding. Vapes nicotine daily. Denies alcohol use. Normal appetite. Allergies Allergy/AdvReac Type Severity Reaction Status Date / Time No Known Allergies Allergy Mild Verified 10/10/21 22:44 Home Medications Medication Instructions Recorded Confirmed Type fluoxetine 20 mg capsule (Prozac) 60 mg PO QAM 09/14/18 08/17/24 History alprazolam 0.5 mg tablet 0.5 mg PO BID PRN Anxiety 10/10/21 08/17/24 History etanercept 50 mg/mL (1 mL) 50 mg subcut WK 10/10/21 08/17/24 History subcutaneous pen injector (Enbrel SureClick) famotidine 20 mg tablet 20 mg PO AMHS 07/25/22 08/17/24 History bupropion HCl 300 mg 24 hr tablet, 300 mg PO QAM 08/17/24 08/17/24 History extended release cyanocobalamin (vitamin B-12) 1,000 mcg sublingual DAILY 08/17/24 08/17/24 History 1,000 mcg sublingual tablet estradiol 0.05 mg-norethindrone 1 patch transdermal 2XWK 08/17/24 08/17/24 History 0.14 mg/24 hr semiwkly transderm patch (CombiPatch) glycopyrrolate 1 mg tablet 1 mg PO BID 08/17/24 08/17/24 History pantoprazole 40 mg tablet,delayed 40 mg PO DAILYBB 08/17/24 08/17/24 History release rosuvastatin 5 mg tablet 5 mg PO QAM 08/17/24 08/17/24 History semaglutide (weight loss) 1 mg/0.5 1 mg subcut WK 08/17/24 08/17/24 History mL subcutaneous pen injector (Weanandvy) apixaban 5 mg tablet (Eliquis) 5 mg PO BID #60 tabs 08/18/24 Rx metoprolol succinate 25 mg 25 mg PO BID #60 tabs 08/18/24 Rx tablet,extended release 24 hr potassium chloride 20 mEq 20 meq PO DAILY #5 tabs 08/18/24 Rx tablet,extended release Patient History Medical History Tobacco abuse Atrial fibrillation with RVR Atrial flutter with rapid ventricular response Hypokalemia DVT prophylaxis Acute decompensated heart failure Atrial flutter with rapid ventricular response Respiratory distress Admitted to intensive care unit Atrial flutter GERD (gastroesophageal reflux disease) History of TMJ disorder Atrial fibrillation + FLUTTER (NEWLY DX) On Eliquis History of kidney stones Anxiety Surgical History History of esophagogastroduodenoscopy (EGD) H/O wisdom tooth extraction History of colonoscopy Family History Father Alcohol use Grandmother (Paternal) Breast cancer Other No family history of adverse response to anesthesia No significant family history Social History Smoking Status: Current every day smoker Tobacco Type: E-cigarettes / Vaping Cigarettes Per Day: 1 CART. DAILY; Second Hand Exposure: No; Do You Dip or Chew Tobacco: No; Hx Alcohol Use: Yes Alcohol type: beer, wine and hard liquor Alcohol Intake Frequency: 2-3 x/Week Alcohol Intake Frequency Comment: 6 drinks/week Hx Substance Use: No Preferred Language: Macedonian Communication Ability: Effective Trace Clerk Required: No Beliefs That Will Affect Care: None marital status: Current Living Situation: Spouse How many Children do You have: 2 Feels Safe at Home: Yes Safety Concerns: Feels Safe At This Time Assistive Devices: Glasses Review of Systems Review of Systems: CONSTITUTIONAL: No change in weight, No weakness, No fatigue and No fevers, No sweats or chills. PULMONARY: No cough, sputum, or hemoptysis, No wheezing, No shortness of breath and No recent change in breathing. CARDIOVASCULAR: No chest pain, No dyspnea on exertion, No edema, No palpitations and No syncope. GASTROINTESTINAL: No abdominal pain, No change in bowel habits, No significant heartburn, No nausea, No vomiting, No diarrhea, No constipation, No blood in stools or black tarry stools. No dysphagia. HEMATOLOGIC: No abnormal bleeding and No bruising. NEUROLOGICAL: Normal balance, No headaches and No weakness. Physical Exam Physical Exam: General: No acute distress. A+Ox3. HEENT: Normocephalic. Atraumatic. PERRL. EOMI. Conjunctiva and sclera clear. NECK: No carotid bruits. No JVD. Carotid upstrokes are brisk. Heart: Tachycardic, regular. S1 and S2 noted. No murmur. No rubs or gallops. PMI non displaced. Lungs: Clear to auscultation. No wheezes. No rhonchi. No rales. Abdomen: Normal bowel sounds. Soft. Nontender. No masses or organomegaly. No abdominal bruits. Extremities: No edema. No clubbing or cyanosis. Pulses: radial=2/4, posterior tibial=2/4, dorsalis pedis = 2/4. NEURO: No focal deficits. PSYCH: Appropriate affect and insight. Results & Data Vital Signs (Past 12 Hours) Vital Signs Temp Pulse Resp BP Pulse Ox O2 Del Method 08/18/24 11:40 36.7 C 85 18 118/81 98 Room Air 08/18/24 07:27 36.7 C 83 18 121/78 98 Room Air 08/18/24 03:40 36.6 C 89 16 113/73 98 Room Air Laboratory Results Cardiac Enzymes 08/17/24 08/17/24 08/18/24 Range/Units 18:20 19:55 05:23 Troponin I High Sens 17.4 H 25.4 H 21.6 H (0-14) pg/ml Coagulation 08/17/24 Range/Units 18:20 PT 10.9 (9.0-12.0) Seconds APTT 29 (21-31) Seconds CBC 08/17/24 08/18/24 Range/Units 18:20 05:23 WBC 9.03 6.80 (4.8-10.8) K/ul RBC 4.84 4.03 L (4.20-5.40) M/uL Hgb 14.8 12.3 (12.0-16.0) g/dl Hct 43.5 37.5 (37.0-47.0) % Plt Count 338 268 (130-400) K/uL Neut # (Auto) 4.64 3.43 (1.40-6.50) K/uL Lymph # (Auto) 3.01 2.32 (1.20-3.40) K/uL [place] # (Auto) 1.13 H 0.76 H (0.11-0.59) K/uL Eos # (Auto) 0.16 0.23 (0.00-0.50) K/uL Baso # (Auto) 0.07 0.05 (0.00-0.20) K/uL Comprehensive Metabolic Panel 08/17/24 08/17/24 08/18/24 Range/Units 18:20 19:55 05:23 Sodium 141 142 (136-145) mmol/L Potassium TNP 3.0 L 4.0 D Chloride 105 110 H (98-107) mmol/L Carbon Dioxide 28 28 (21-32) mmol/L BUN 9 9 (6-23) mg/dl Creatinine 0.78 0.62 (0.6-1.2) mg/dl Glucose 73 81 (70-99(Fasting)) mg/dl Calcium 9.6 9.0 (8.6-10.3) mg/dl Intake and Output 08/17/24 08/18/24 08/18/24 22:59 06:59 14:59 Intake Total 1000 / 1200 200 / 1200 Balance 1000 / 1200 200 / 1200 Intake: IV 1000 / 1200 200 / 1200 Potassium Chloride / Wtr 10 meq 200 / 200 In 100 ml @ 100 mls/hr IV Q1H [facility] Rx#:[id number] Sodium Chloride 0.9% 1,000 ml @ 1000 / 1000 999 mls/hr IV .Q1H1M [facility] Rx#: [id number] Other: Weight 59.8 kg Weight Measurement Method Standing Scale Medications Administered EKG 08/17/24: sinus tachycardia, 108 bpm, nonspecific ST abnormality
--- NOTE | 2024-08-18 13:18 | Electrocardiogram Report ---
Test Reason : Blood Pressure : */* mmHG Vent. Rate : 108 BPM Atrial Rate : 108 BPM P-R Int : 116 ms QRS Dur : 72 ms QT Int : 310 ms P-R-T Axes : 64 65 67 degrees QTcB Int : 415 ms Sinus tachycardia Nonspecific ST abnormality Abnormal ECG When compared with ECG of 26-Jul-2022 06:46, Vent. rate has increased by 40 bpm QT has shortened Confirmed by Musa Gonzalez ([id number]) on 08/18/2024 1:17:38 PM Referred By: Confirmed By: Musa Gonzalez
--- NOTE | 2024-08-18 13:41 | Hospitalist Progress Note ---
Date of Service August 18, 2024 Assessment & Plan (1) PSVT (paroxysmal supraventricular tachycardia): Plan: Assessment and plan below following discussion of case with ED provider and reviewing patient history/pertinent normal/abnormal diagnostic test results. PSVT H/O PAF/atrial flutter S/P Ablation X2 currently not on maintenance medication/anticoagulation --ECHO: Pending --Normal TSH --CXR: No acute process Received IV fluids Monitor and replete electrolytes as needed Continue metoprolol, Eliquis Appreciate cardiology input Monitor on telemetry Needs follow-up with cardiology on discharge Mild troponin elevation Likely demand ischemia secondary to above Denies any chest pain Monitor Hypokalemia Replete electrolytes as needed Magnesium within normal limits Monitor Hypertension Continue metoprolol Monitor blood pressure Hyperlipidemia Continue Crestor Rheumatoid arthritis on Enbrel Anxiety disorder, at baseline ongoing vape use Continue home medications DVT Px: Eliquis Code Status Full Code Admission and Anticipated Discharge Date Admission Date: August 17, 2024 Subjective Patient is seen and examined at bedside States feeling tired today but otherwise no complaints Palpitations resolved Sinus on monitor Denies any chest pain, dizziness, nausea, vomiting, abdominal pain, diarrhea Review of Systems Review of Systems: All systems reviewed & are unremarkable except as noted in Subjective Physical Exam Physical Exam: Physical Exam: Vitals signs as noted above General Appearance:Moderately built and nourished, no apparent distress Head: normocephalic, Atraumatic Eyes: normal inspection, EOMI Neck: supple, Trachea midline Respiratory/Chest: Normal breath sounds, CTA, No accessory muscle use Cardiovascular: S1, S2, No murmur Abdomen/GI:Soft, Non tender, Bowel sounds present Extremities/Musculoskeletal:normal inspection, no edema Neurologic/Psych:AAOX3, grossly no focal neurological deficits Skin: normal color, warm Results & Data Results & Data Vital Signs (Past 12 Hours) Vital Signs Temp Pulse Resp BP Pulse Ox O2 Del Method 08/18/24 11:40 36.7 C 85 18 118/81 98 Room Air 08/18/24 07:27 36.7 C 83 18 121/78 98 Room Air 08/18/24 03:40 36.6 C 89 16 113/73 98 Room Air Laboratory Results Short CBC 08/17/24 08/18/24 Range/Units 18:20 05:23 WBC 9.03 6.80 (4.8-10.8) K/ul Hgb 14.8 12.3 (12.0-16.0) g/dl Hct 43.5 37.5 (37.0-47.0) % Plt Count 338 268 (130-400) K/uL BMP 08/17/24 08/17/24 08/18/24 18:20 19:55 05:23 Sodium 141 142 Potassium TNP 3.0 L 4.0 D Chloride 105 110 H Carbon Dioxide 28 28 BUN 9 9 Creatinine 0.78 0.62 Glucose 73 81 Calcium 9.6 9.0
--- NOTE | 2024-08-18 14:00 | Discharge Summary ---
Date of Service August 18, 2024 Admission HPI Per Admitting Provider History obtained from patient, family, and records. Medical history significant for PAF/atrial flutter status post ablation currently not on maintenance medication/anticoagulation, mild MR, hypertension, rheumatoid arthritis on Enbrel, GERD, anxiety disorder, ongoing vape use. Last confinement July 2022 for multifocal pneumonia and iron deficiency anemia. Patient off sotalol and Eliquis Rx following last outpatient [facility] visit last February,. Patient with weekly episodes of palpitations with occasional SOB since August,. No chest pain. No unusual stress. Patient did not inform relationship advisor because she knew she might have to go for appointments. Symptoms noted to be worse yesterday. She told her who urged her to come to ER. Patient noted to be in SVT, heart rate 180s upon arrival at the ER. Spontaneous conversion later noted. Patient currently comfortable. Medical History as above Surgical History : None Family History : Breast cancer, alcoholism Personal/Social history : Ongoing vape use, occasional EtOH intake, [employer] employee Admission Exam Per Admitting Provider GENERAL: Comfortable, pleasant, slightly anxious, no respiratory distress SKIN: Normal color, warm HEENT: [place] palpebral conjunctivae, no ptosis, moist buccal mucosa NECK : Supple, no tenderness CHEST : CTA, no tenderness HEART : RRR, no obvious murmurs ABDOMEN: Some distention, nontender EXTREMITIES : No LE swelling/tenderness, palpable pulses, no other conspicuous deformities noted NEUROLOGIC : Coherent, no facial asymmetry, no other gross focality Principal Diagnosis Paroxysmal supraventricular tachycardia Hypokalemia Discharge Data Allergies Allergy/AdvReac Type Severity Reaction Status Date / Time No Known Allergies Allergy Mild Verified 10/10/21 22:44 Consultations 08/17/24 22:31 ED Decision to Admit Stat 08/17/24 23:56 Consult Cardiology Routine Procedures Performed Laboratory Results WBC 6.80 K/ul (4.8-10.8) 08/18/24 05:23 RBC 4.03 M/uL (4.20-5.40) L 08/18/24 05:23 Hgb 12.3 g/dl (12.0-16.0) 08/18/24 05:23 Hct 37.5 % (37.0-47.0) 08/18/24 05:23 MCV 93.1 fL (80.0-100.0) 08/18/24 05:23 MCH 30.5 pg (25.0-34.0) 08/18/24 05:23 MCHC 32.8 g/dL (32.0-36.0) 08/18/24 05:23 RDW Std Deviation 45.2 fL (36.4-46.3) 08/18/24 05:23 RDW Coeff of Bridget 13.2 % (11.5-14.5) 08/18/24 05:23 Plt Count 268 K/uL (130-400) 08/18/24 05:23 MPV 11.2 fL (9.4-12.4) 08/18/24 05:23 Immature Gran % (Auto) 0.1 % 08/18/24 05:23 Neut % (Auto) 50.5 % 08/18/24 05:23 Lymph % (Auto) 34.1 % 08/18/24 05:23 [place] % (Auto) 11.2 % 08/18/24 05:23 Eos % (Auto) 3.4 % 08/18/24 05:23 Baso % (Auto) 0.7 % 08/18/24 05:23 Neut # (Auto) 3.43 K/uL (1.40-6.50) 08/18/24 05:23 Lymph # (Auto) 2.32 K/uL (1.20-3.40) 08/18/24 05:23 [place] # (Auto) 0.76 K/uL (0.11-0.59) H 08/18/24 05:23 Eos # (Auto) 0.23 K/uL (0.00-0.50) 08/18/24 05:23 Baso # (Auto) 0.05 K/uL (0.00-0.20) 08/18/24 05:23 Immature Gran # (Auto) 0.01 K/uL (0.01-0.20) 08/18/24 05:23 PT 10.9 Seconds (9.0-12.0) 08/17/24 18:20 INR 1.0 (0.9-1.1) 08/17/24 18:20 APTT 29 Seconds (21-31) 08/17/24 18:20 PTT Ratio 1.1 08/17/24 18:20 D-Dimer < 190 ug/L FEU (0-500) 08/17/24 18:20 Sodium 142 mmol/L (136-145) 08/18/24 05:23 Potassium 4.0 mmol/L (3.5-5.1) D 08/18/24 05:23 Chloride 110 mmol/L (98-107) H 08/18/24 05:23 Carbon Dioxide 28 mmol/L (21-32) 08/18/24 05:23 Anion Gap 4 (3-11) 08/18/24 05:23 BUN 9 mg/dl (6-23) 08/18/24 05:23 Creatinine 0.62 mg/dl (0.6-1.2) 08/18/24 05:23 Est Cr Clr Drug Dosing 83.0 ml/min 08/18/24 05:23 eGFR 106.42 08/18/24 05:23 BUN/Creatinine Ratio 14.5 (10-20) 08/18/24 05:23 Glucose 81 mg/dl (70-99(Fasting)) 08/18/24 05:23 Calcium 9.0 mg/dl (8.6-10.3) 08/18/24 05:23 Magnesium 2.1 mg/dl (1.7-2.4) 08/17/24 18:20 Troponin I High Sens 21.6 pg/ml (0-14) H 08/18/24 05:23 Lipase 16 U/L (11-82) 08/17/24 18:20 TSH 0.819 uIu/ml (0.300-4.500) 08/17/24 19:55 Impressions Chest X-Ray 08/17/24 18:15 Chest radiograph, one view History: Chest pain Comparison: None Findings: Single AP view of the chest performed. No focal consolidation or pleural effusion. No pneumothorax. The cardiomediastinal silhouette is within normal limits. Normal pulmonary vascularity. No evidence for lymphadenopathy. No visualized bony or soft tissue abnormality. Impression: Normal chest radiograph Electronically signed by Musa Mendoza 08-17-2024 7:06 PM Hospital Course (1) PSVT (paroxysmal supraventricular tachycardia): Assessment and plan below following discussion of case with ED provider and revi juarez patient history/pertinent normal/abnormal diagnostic test results. PSVT H/O PAF/atrial flutter S/P Ablation X2 currently not on maintenance medication/anticoagulation --ECHO: Left ventricular ejection fraction is borderline reduced. EF 50%. Mild to moderate mitral regurgitation. Mitral regurgitant jet is eccentrically directed. Normal inferior vena cava size and collapsibility with sniff indicates a normal right atrial pressure of 3 mmHg. --Normal TSH --CXR: No acute process Received IV fluids Monitor and replete electrolytes as needed Continue metoprolol succinate 25 mg twice a day, Eliquis 5 mg twice a day Appreciate cardiology input: Advised to discharge on Toprol XL twice a day along with Eliquis. ZIO monitor as outpatient. EP follow-up as outpatient Monitor on telemetry Needs follow-up with cardiology on discharge Mild troponin elevation Likely demand ischemia secondary to above Denies any chest pain Monitor Hypokalemia Replete electrolytes as needed Magnesium within normal limits Monitor Hypertension Continue metoprolol Monitor blood pressure Hyperlipidemia Continue Crestor Rheumatoid arthritis on Enbrel Anxiety disorder, at baseline ongoing vape use Continue home medications DVT Px: Eliquis Code Status Full Code Disposition Home Total Time Total Time Spent Total Time Spent (In Minutes): 54 minutes Discharge Plan Discharge Items Patient Disposition: Home - Self-Care Reason For Visit: PAF Discharge Diagnosis: Paroxysmal supraventricular tachycardia Hypokalemia Condition on Discharge: Fair Activity: Per Instructions section Exercise/Sports: Wait until after follow-up appointment Non-emergency contact: Primary Care Provider and Distance Learning Administrator Call non-emergency contact if: you have any medication questions, your symptoms worsen, your pain is concerning for you and you have a fever Follow-up/Referrals: Balbir Hernandez MD [Primary Care Provider] - Diet: Heart Healthy Add Attending Provider Instructions: Follow-up with your primary care physician in 1 week Follow-up with your relationship advisor in 2 to 3 weeks as advised -- Get basic metabolic panel, magnesium levels (blood work) in 1 week and follow-up with your physician for further recommendations. --Start taking metoprolol succinate 25 mg twice daily along with Eliquis 5 mg twice daily as recommended by your relationship advisor. --Get ZIO monitor (arranged as outpatient) to rule out arrhythmias as recommended by your relationship advisor. Seek immediate medical attention if your symptoms reoccur or worsen Please review medication list provided on discharge for any medication changes as instructed. Please call if you have any questions or problems. You can reach a [facility] hospitalist on duty at [facility] 24 hours a day by calling [phone] Pending Studies at Discharge: No Stand-Alone Forms: My [facility], Smoking Cessation Medications and DC Order Prescriptions: New Eliquis 5 mg Tablet 5 mg PO BID Qty: 60 1RF metoprolol succinate 25 mg tablet extended release 24 hr 25 mg PO BID Qty: 60 1RF potassium chloride 20 mEq tablet extended release 20 meq PO DAILY Qty: 5 0RF Continued fluoxetine [Prozac] 20 mg Capsule 60 mg PO QAM alprazolam 0.5 mg tablet 0.5 mg PO BID PRN (Reason: Anxiety) Enbrel SureClick 50 mg/mL (1 mL) pen injector 50 mg SUBCUT WK famotidine 20 mg tablet 20 mg PO AMHS Wegovy 1 mg/0.5 mL pen injector 1 mg SUBCUT WK bupropion HCl 300 mg tablet extended release 24 hr 300 mg PO QAM CombiPatch 0.05-0.14 mg/24 hr patch semiweekly 1 patch transdermal 2XWK glycopyrrolate 1 mg tablet 1 mg PO BID pantoprazole 40 mg tablet,delayed release (DR/EC) 40 mg PO DAILYBB rosuvastatin 5 mg tablet 5 mg PO QAM cyanocobalamin (vitamin B-12) 1,000 mcg Tablet, Sublingual 1,000 mcg SUBLINGUAL DAILY Discharge Orders: Discharge Order (Routine); Ordered 08/18/24 Ordered By: Roque Livingston Admission Data Admit Date/Time: 08/17/24 22:42 Attending Provider: Roque Livingston Admit Provider: Juarez Jerome Primary Care Provider: Balbir Hernandez Other Providers: Juarez Jerome; Shital Fuller
== END 2024-08-18 15:57 | disposition home or self-care (01) ==
LOC: ED 18:05 → 2E 18:05

== ENCOUNTER 2025-01-14 22:30 | Inpatient (IN) ==
--- NOTE | 2025-01-14 23:04 | Emergency Department Note ---
Impression & Plan Severe sepsis, Total body pain, Elevated LFTs ED Provider Note Name: TAYLOR COX Age: 54 Sex: Female Arrives Via: Walk-In Informant: Patient, ED Provider: Dante Islas MD Chief Complaint: Diffuse body pain Impression: As per impression above Medical Decision Making: Pleasant 54-year-old female with a history of RA, A-fib amongst other arrives for evaluation of diffuse body aches and pain. This is following an initial upper respiratory like illness. She has been taking large doses of prednisone, Aleve without much improvement in her symptoms. On examination patient is dehydrated and tachycardic. She was given initial 500 mL liter bolus of fluid as she has a history of fluid overload. As heart rate did improve somewhat that another 1 L was then ordered with good improvement in heart rate. Laboratory workup remarkable for quite elevated white blood cell count of 24. With the report of infectious like symptoms earlier in the week and now tachycardia there is concern that underlying severe sepsis. At this point blood cultures and lactic acid were obtained. She was given broad-spectrum antibiotic and Zosyn. Other laboratory workup is relatively benign other than an elevated LFTs. She has 0 tenderness to palpation of the right upper quadrant she is not having nausea or vomiting she is able to sit up without any discomfort and she does not have an elevated bilirubin. I think it is less likely that this is an acute surgical abdomen and we will hold off on CT imaging of the abdomen at this time. Other infectious workup negative for chest x-ray and urinalysis is reassuring. Her COVID testing is negative. Patient was given small doses of Dilaudid with good improvement in her pain. I discussed the case with Dr. Jerome given the patient's findings as well as her history of immunocompromise state and he will bring her in for further management and evaluation Triage/Nursing Notes reviewed by Me External Chart Review by me: I reviewed a discharge summary from 08/18/2024 discussing past medical history. Differential:Infection, dehydration, metabolic abnormality, hypo/hyperglycemia, electrolyte disturbance, anemia, hypoxia, cardiac sources, intracerebral event, toxicologic, neurologic, as well as other pathologies. Vital Signs: reviewed and remarkable for tachycardia Interventions: dilaudid iv x 2, nss bolus 1.5L IV Labs:ED labs Reviewed by me and remarkable for elevated wbc, elevated lfts Imaging:X ray results are stated below per my interpretation: Chest: 1 view: No infiltrate, no effusion, normal cardiac border. EKG:As per my interpretation. Indication tachycardia. Sinus tachycardia 103 bpm with PVCs noted. There is no ischemia appreciated. When compared to EKG of 08/17/2024 no significant change. Cardiac/Tele Monitoring: Cardiac Monitoring: An Order was placed for continuous cardiac monitoring. The monitor shows a rate of 105 with a sinus tach rhythm. Consults:I discussed case with Dr. Jerome who will evaluate the patient for hospitalization Plan: Disposition:Hospitalization. Condition: Fair History of Present Illness: 54-year-old female with a history of severe RA, A- fib, arrives for evaluation of worsening RA flare. States that for the last 5 to 6 days she has been feeling bit under the weather with a cough sore throat runny nose and some body aches. Over the last 3 to 4 days she had severe worsening of her body aches. Primarily in her joints but also feels quite fatigued and washed out. She felt this was consistent with her previous RA flares though started taking increasing doses of prednisone. She believes she took roughly 120 mg of prednisone today. Due to persistent pain and inability to sleep due to it she arrives to the ER for further evaluation patient notes currently having diffuse bodyaches. She denies any specific shortness of breath. She has been having increasing rashes. These are consistent with her previous RA flares. The result and nodules over hands and arms and some other places on her body as well as some open ulcerations on the top of her tongue. States these are severely painful. Denies any specific headache or neurologic deficits or fevers. She is not currently having any difficulty breathing. She has not had any recent palpitations or lightheadedness. Patient notes she is also been taking increasing doses of Aleve in addition to her prednisone. She does take Eliquis for A-fib. She is adamant though that she has not been having any black or bloody stools. Past Medical History:See Below Home Medications:See Below Allergies: No known drug allergy Vitals:Blood Pressure: 153/81, Pulse 108, RR 20, T 36.7C, O2 97% on RA Physical Exam: GENERAL: Patient is very uncomfortable appearing and in moderate distress. Mildly dehydrated appearing EENT: Ulcerations over top of tongue RESPIRATORY: No dyspnea. Clear to auscultation and equal bilaterally. CARDIOVASCULAR: Tachycardic.No murmur appreciated. GASTROINTESTINAL: Abdomen soft, non-tender, no peritonitis. EXTREMITIES: Normal motion all extremities, no cyanosis, no edema. NEUROLOGIC: Alert and oriented. No focal neurologic deficits appreciated SKIN: Nodules over palmar aspect fingers as well as a few over lateral arms and left neck. No rash, no jaundice, no diaphoresis. PSYCH: Appropriate GCS: 15 ED Course: Times/Reassessments: Patient's heart rate is starting to come down she is much more comfortable with pain medication. Agreeable Dante Islas MD Past Med/Surg History Problem List (Updated 01/15/25 @ 03:08 by Dante Islas MD) Elevated LFTs (Acute) Total body pain (Acute) Severe sepsis (Acute) PSVT (paroxysmal supraventricular tachycardia) Elevated troponin (Acute) Palpitations (Acute) Bilateral pleural effusion (Acute) Immunosuppressed status Bilateral pneumonia (Acute) Acute respiratory failure with hypoxia (Acute) Paroxysmal atrial flutter Hypertension Per records RA (rheumatoid arthritis) On Arava Open wound of lip due to dog bite Encounter for pre-operative examination Medical History Tobacco abuse Atrial fibrillation with RVR Atrial flutter with rapid ventricular response Hypokalemia DVT prophylaxis Acute decompensated heart failure Atrial flutter with rapid ventricular response Respiratory distress Admitted to intensive care unit Atrial flutter GERD (gastroesophageal reflux disease) History of TMJ disorder Atrial fibrillation + FLUTTER (NEWLY DX) On Eliquis History of kidney stones Anxiety Surgical History History of esophagogastroduodenoscopy (EGD) H/O wisdom tooth extraction History of colonoscopy Family History Father Alcohol use Grandmother (Paternal) Breast cancer Other No family history of adverse response to anesthesia No significant family history Social History Smoking Status: Current every day smoker Tobacco Type: E-cigarettes / Vaping Cigarettes Per Day: 1 CART. DAILY; Second Hand Exposure: No; Do You Dip or Chew Tobacco: No; Hx Alcohol Use: Yes Alcohol type: beer, wine and hard liquor Alcohol Intake Frequency: 2-3 x/Week Alcohol Intake Frequency Comment: 6 drinks/week Hx Substance Use: No Preferred Language: Frisian Communication Ability: Effective Control Valve Mechanic Required: No Beliefs That Will Affect Care: None marital status: Current Living Situation: Spouse How many Children do You have: 2 Feels Safe at Home: Yes Assistive Devices: Glasses Allergies Allergies Allergy/AdvReac Type Severity Reaction Status Date / Time No Known Allergies Allergy Mild Verified 01/15/25 01:33 Home Meds Home Medications Medication Instructions Recorded Confirmed alprazolam 0.5 mg tablet 0.5 mg PO BID PRN Anxiety 10/10/21 01/15/25 etanercept 50 mg/mL (1 mL) 50 mg subcut WK 10/10/21 01/15/25 subcutaneous pen injector ([place]) famotidine 20 mg tablet 20 mg PO AMHS 07/25/22 01/15/25 cyanocobalamin (vitamin B-12) 1,000 mcg sublingual QAM 08/17/24 01/15/25 1,000 mcg sublingual tablet glycopyrrolate 1 mg tablet 1 mg PO BID 08/17/24 01/15/25 pantoprazole 40 mg tablet,delayed 40 mg PO DAILYBB 08/17/24 01/15/25 release rosuvastatin 5 mg tablet 5 mg PO QAM 08/17/24 01/15/25 semaglutide (weight loss) 1 mg/0.5 1 mg subcut WK 08/17/24 01/15/25 mL subcutaneous pen injector ([place]) apixaban 5 mg tablet (Eliquis) 5 mg PO BID 01/15/25 01/15/25 estradiol 0.1 mg/24 hr weekly 1 patch topical WK 01/15/25 01/15/25 transdermal patch metoprolol succinate 25 mg 25 mg PO AMHS 01/15/25 01/15/25 tablet,extended release 24 hr progesterone micronized 100 mg 100 mg PO QAM 01/15/25 01/15/25 capsule venlafaxine 75 mg capsule,extended 75 mg PO QAM 01/15/25 01/15/25 release 24 hr Results & Data (ED) Vital Signs Vital Signs - 24 hr 01/14/25 22:35 01/14/25 22:44 01/15/25 01:37 Temperature 36.7 C 37 C Temperature Source Oral Oral Pulse Rate 115 H 108 H Pulse Rate [Apical] 99 H Pulse Rhythm Regular Pulse Strength Normal Respiratory Rate 20 18 Respiratory Effort / Characteristics Non-Labored Spontaneous Respiratory Depth Normal Normal Respiratory Pattern Regular Blood Pressure 153/81 H Blood Pressure [Right Arm] 153/95 H Blood Pressure Mean 105 Blood Pressure Mean [Right Arm] 114 Blood Pressure Position Lying Pulse Oximetry 97 96 Oxygen Delivery Method Room Air Room Air Sepsis Recent Fever Within 48 Hours No Sepsis New/Unexplained Change in Mental Status N/A Sepsis Action Taken by Nursing No Action Required 01/15/25 01:58 Temperature Temperature Source Pulse Rate 96 H Pulse Rate [Apical] Pulse Rhythm Pulse Strength Respiratory Rate Respiratory Effort / Characteristics Respiratory Depth Respiratory Pattern Blood Pressure Blood Pressure [Right Arm] Blood Pressure Mean Blood Pressure Mean [Right Arm] Blood Pressure Position Pulse Oximetry Oxygen Delivery Method Sepsis Recent Fever Within 48 Hours Sepsis New/Unexplained Change in Mental Status Sepsis Action Taken by Nursing Laboratory Data 01/14/25 22:41 01/14/25 22:41 Lab Results 01/14/25 01/14/25 01/14/25 Range/Units 22:41 22:46 22:47 WBC 24.95 H (4.8-10.8) K/ul RBC 4.18 L (4.20-5.40) M/uL Hgb 13.0 (12.0-16.0) g/dL Hct 38.6 (37.0-47.0) % MCV 92.3 (80.0-100.0) fL MCH 31.1 (25.0-34.0) pg MCHC 33.7 (32.0-36.0) g/dL RDW Std Deviation 44.7 (36.4-46.3) fL RDW Coeff of Bridget 13.2 (11.5-14.5) % Plt Count 451 H (130-400) K/uL MPV 10.3 (9.4-12.4) fL Immature Gran % (Auto) 0.4 % Neut % (Auto) 80.4 % Lymph % (Auto) 10.7 % [place] % (Auto) 8.1 % Eos % (Auto) 0.2 % Baso % (Auto) 0.2 % Neut # (Auto) 20.06 H (1.40-6.50) K/uL Lymph # (Auto) 2.67 (1.20-3.40) K/uL [place] # (Auto) 2.02 H (0.11-0.59) K/uL Eos # (Auto) 0.04 (0.00-0.50) K/uL Baso # (Auto) 0.05 (0.00-0.20) K/uL Immature Gran # (Auto) 0.11 (0.01-0.20) K/uL ESR 16 (0-30) mm/hr PT 10.3 (9.0-12.0) Seconds INR 1.0 (0.9-1.1) VBG pH (7.36-7.41) VBG pCO2 (38-50) mmHg VBG pO2 mmHg VBG HCO3 mmol/L VBG O2 Saturation % VBG Base Excess mEq/L Sodium 141 (136-145) mmol/L Potassium 3.7 (3.5-5.1) mmol/L Chloride 105 (98-107) mmol/L Carbon Dioxide 25 (21-32) mmol/L Anion Gap 11 (3-11) BUN 15 (6-23) mg/dl Creatinine 0.72 (0.6-1.2) mg/dl Est Cr Clr Drug Dosing 79.2 ml/min eGFR 99.92 BUN/Creatinine Ratio 20.8 H (10-20) Glucose 136 H (70-99(Fasting)) mg/dl Lactate (0.4-2.0) mmol/L Calcium 9.3 (8.6-10.3) mg/dl Magnesium 2.1 (1.7-2.4) mg/dl Total Bilirubin 0.2 (0.2-1.0) mg/dl Direct Bilirubin 0.0 (0-0.2) mg/dl AST 130 H (13-39) U/L ALT 236 H (7-52) U/L Alkaline Phosphatase 101 (34-104) U/L Total Creatine Kinase 60 (26-192) U/L Troponin I High Sens 5.7 (0-14) pg/ml C-Reactive Protein 0.79 H (0-0.5) mg/dl Total Protein 7.1 (6.0-8.3) gm/dl Albumin 4.1 (3.4-5.0) gm/dl Procalcitonin (0-0.5) ng/ml TSH 0.586 (0.300-4.500) uIu/ml Urine Color Yellow Urine Appearance Cloudy A (Clear) Urine pH 5.5 (4.5-7.5) Ur Specific [place] 1.035 H (1.000-1.030) Urine Protein Trace H (Negative) Urine Glucose (UA) Negative (Negative) Urine Ketones Trace H (Negative) Urine Blood 1+ H (Negative) Urine Nitrite Negative (Negative) Urine Bilirubin Negative (Negative) Urine Urobilinogen Negative (Negative) Ur Leukocyte Esterase Negative (Negative) Urine WBC (Auto) 0-5 (0-5) /hpf Urine RBC (Auto) >20 H (0-2) /hpf U Hyaline Cast (Auto) 0-2 (0-2) /lpf U Epithel Cells (Auto) 6-10 H (0-2) /hpf Urine Bacteria (Auto) 2+ H (None Seen) Urine Comment Lyme Disease Screen Negative (Negative) SARS-CoV-2 (PCR) (Negative) Influenza Type A (PCR) (Neg) Influenza Type B (PCR) (Neg) RSV (RT-PCR) (Neg) 01/14/25 01/15/25 01/15/25 Range/Units 23:43 00:03 00:15 WBC (4.8-10.8) K/ul RBC (4.20-5.40) M/uL Hgb (12.0-16.0) g/dL Hct (37.0-47.0) % MCV (80.0-100.0) fL MCH (25.0-34.0) pg MCHC (32.0-36.0) g/dL RDW Std Deviation (36.4-46.3) fL RDW Coeff of Bridget (11.5-14.5) % Plt Count (130-400) K/uL MPV (9.4-12.4) fL Immature Gran % (Auto) % Neut % (Auto) % Lymph % (Auto) % [place] % (Auto) % Eos % (Auto) % Baso % (Auto) % Neut # (Auto) (1.40-6.50) K/uL Lymph # (Auto) (1.20-3.40) K/uL [place] # (Auto) (0.11-0.59) K/uL Eos # (Auto) (0.00-0.50) K/uL Baso # (Auto) (0.00-0.20) K/uL Immature Gran # (Auto) (0.01-0.20) K/uL ESR (0-30) mm/hr PT (9.0-12.0) Seconds INR (0.9-1.1) VBG pH 7.44 H (7.36-7.41) VBG pCO2 40 (38-50) mmHg VBG pO2 70 mmHg VBG HCO3 27 mmol/L VBG O2 Saturation 94.3 % VBG Base Excess 2.8 mEq/L Sodium (136-145) mmol/L Potassium (3.5-5.1) mmol/L Chloride (98-107) mmol/L Carbon Dioxide (21-32) mmol/L Anion Gap (3-11) BUN (6-23) mg/dl Creatinine (0.6-1.2) mg/dl Est Cr Clr Drug Dosing ml/min eGFR BUN/Creatinine Ratio (10-20) Glucose (70-99(Fasting)) mg/dl Lactate 1.2 (0.4-2.0) mmol/L Calcium (8.6-10.3) mg/dl Magnesium (1.7-2.4) mg/dl Total Bilirubin (0.2-1.0) mg/dl Direct Bilirubin (0-0.2) mg/dl AST (13-39) U/L ALT (7-52) U/L Alkaline Phosphatase (34-104) U/L Total Creatine Kinase (26-192) U/L Troponin I High Sens (0-14) pg/ml C-Reactive Protein (0-0.5) mg/dl Total Protein (6.0-8.3) gm/dl Albumin (3.4-5.0) gm/dl Procalcitonin < 0.02 (0-0.5) ng/ml TSH (0.300-4.500) uIu/ml Urine Color Urine Appearance (Clear) Urine pH (4.5-7.5) Ur Specific [place] (1.000-1.030) Urine Protein (Negative) Urine Glucose (UA) (Negative) Urine Ketones (Negative) Urine Blood (Negative) Urine Nitrite (Negative) Urine Bilirubin (Negative) Urine Urobilinogen (Negative) Ur Leukocyte Esterase (Negative) Urine WBC (Auto) (0-5) /hpf Urine RBC (Auto) (0-2) /hpf U Hyaline Cast (Auto) (0-2) /lpf U Epithel Cells (Auto) (0-2) /hpf Urine Bacteria (Auto) (None Seen) Urine Comment Lyme Disease Screen (Negative) SARS-CoV-2 (PCR) NEGATIVE (Negative) Influenza Type A (PCR) Negative (Neg) Influenza Type B (PCR) Negative (Neg) RSV (RT-PCR) Negative (Neg) Administered Medications Potassium Chloride/Sodium Chloride (1/2 Nss + 20meq Kcl 1000ml) 20 meq in 1,000 mls @ 100 mls/hr IV .Q10H ONE Stop: 01/15/25 10:59 Last Admin: 01/15/25 01:50 Dose: 100 mls/hr Documented By: millie Discontinued Medications Hydromorphone HCl (Hydromorphone Inj 0.5 Mg/0.5 Ml Syr) 0.5 mg IV NOW STA Stop: 01/14/25 22:58 Last Admin: 01/14/25 23:11 Dose: 0.5 mg Documented By: millie Hydromorphone HCl (Hydromorphone Inj 1 Mg/Ml Syringe) 1 mg IV NOW STA Stop: 01/14/25 23:48 Last Admin: 01/15/25 00:32 Dose: 1 mg Documented By: millie Sodium Chloride (Nss) 500 mls @ 999 mls/hr IV .Q31M ONE Stop: 01/14/25 23:27 Last Infusion: 01/15/25 01:36 Dose: Infused Documented By: tcm Admin: 01/14/25 23:22 Dose: 999 mls/hr Documented By: millie Pantoprazole Sodium (Protonix) 40 mg in 10 mls @ 5 mls/min IV NOW ONE Stop: 01/14/25 22:58 Last Admin: 01/14/25 23:12 Dose: 5 mls/min Documented By: millie Piperacillin Sod/Tazobactam Sod (Zosyn) 4.5 gm in 100 mls @ 200 mls/hr IV NOW ONE; Protocol Stop: 01/15/25 01:16 Last Infusion: 01/15/25 02:52 Dose: Infused Documented By: tcm Admin: 01/15/25 01:50 Dose: 200 mls/hr Documented By: millie Sodium Chloride (Nss) 1,000 mls @ 999 mls/hr IV .Q1H1M ONE Stop: 01/15/25 01:47 Last Infusion: 01/15/25 02:52 Dose: Infused Documented By: tcm Admin: 01/15/25 01:50 Dose: 999 mls/hr Documented By: millie Loratadine (Loratadine 10 Mg Tab) 10 mg PO NOW ONE Stop: 01/15/25 01:43 Last Admin: 01/15/25 01:58 Dose: 10 mg Documented By: tcm Imaging Data Radiologist's Impression: Chest X-Ray 01/14/25 23:43 EXAM: XR chest 1V portable CLINICAL HISTORY: elevated WBC TECHNIQUE: An X-ray image of the chest is obtained in AP projection. COMPARISON: 08/17/2024 FINDINGS: Pulmonary Parenchyma: Lungs are clear bilaterally. No evidence of consolidation, collapse, or focal opacities. No pulmonary nodules are identified. No evidence of pleural effusion or pleural thickening. Heart and Mediastinum: Heart size and shape are normal. No mediastinal widening or masses. No hilar or mediastinal lymphadenopathy. Bony Thorax: Bony thorax appears intact without fractures or deformities. ECG leads. Soft Tissues: Soft tissues overlying the chest wall are unremarkable. IMPRESSION: No acute cardiopulmonary abnormalities are identified. No interval changes since the last study. Electronically signed by Shar Boyd 01-15-2025 01:34 AM Discharge Plan Visit Data Chief Complaint: Pain (Generalized) Stated Complaint: POSS RA FLARE, JOINT PAIN ALL OVER BODY FEW WEEKS ED Provider: Dante Islas Discharge Problem: Severe sepsis, Total body pain, Elevated LFTs Patient Disposition: Admitted As Inpatient Condition: Fair Forms Stand Alone Forms: [facility] [employer] Prescriptions Prescriptions: No Action alprazolam 0.5 mg tablet 0.5 mg PO BID PRN (Reason: Anxiety) Enbrel SureClick 50 mg/mL (1 mL) pen injector 50 mg SUBCUT WK Rx Instructions: sundays famotidine 20 mg tablet 20 mg PO AMHS Wegovy 1 mg/0.5 mL pen injector 1 mg SUBCUT WK Rx Instructions: sundays glycopyrrolate 1 mg tablet 1 mg PO BID pantoprazole 40 mg tablet,delayed release (DR/EC) 40 mg PO DAILYBB rosuvastatin 5 mg tablet 5 mg PO QAM cyanocobalamin (vitamin B-12) 1,000 mcg Tablet, Sublingual 1,000 mcg SUBLINGUAL QAM venlafaxine 75 mg capsule,extended release 24hr 75 mg PO QAM progesterone micronized 100 mg capsule 100 mg PO QAM Eliquis 5 mg tablet 5 mg PO BID metoprolol succinate 25 mg tablet extended release 24 hr 25 mg PO AMHS estradiol 0.1 mg/24 hr patch weekly 1 patch topical WK Rx Instructions: sundays Referrals Referrals: Balbir Hernandez MD [Primary Care Provider] -
[2025-01-14 23:06] LABS: Hematocrit (blood only) 38.6 % (37.0-47.0); Hemoglobin 13.0 g/dL (12.0-16.0); Mean Corpuscular Hemoglobin 31.1 pg (25.0-34.0); Mean Corpuscular Volume 92.3 fL (80.0-100.0); Platelet Count 451 K/uL (130-400); RDW Standard Deviation 44.7 fL (36.4-46.3); Red Blood Count 4.18 M/uL (4.20-5.40); White Blood Count 24.95 K/ul (4.8-10.8)
[2025-01-14] MEDS: HYDROmorphone INJ 0.5 MG/0.5 ML SYR IV STA (23:11)
[2025-01-14] MEDS: PANTOprazole 40 MG/10 ML SYR IV ONE (23:12)
[2025-01-14] MEDS: SODIUM CHLORIDE 0.9% 500 ML IV ONE (23:22)
[2025-01-14 23:29] LABS: Alanine Aminotransferase 236.0 U/L (7-52); Albumin Level 4.1 gm/dl (3.4-5.0); Alkaline Phosphatase 101.0 U/L (34-104); Anion Gap 11.0 (3-11); Bilirubin,Total 0.2 mg/dl (0.2-1.0); Blood Urea Nitrogen 15.0 mg/dl (6-23); Calcium 9.3 mg/dl (8.6-10.3); Carbon Dioxide 25.0 mmol/L (21-32); Chloride 105.0 mmol/L (98-107); Creatine Kinase 60.0 U/L (26-192); Creatinine Clr Calc Pharmacy 79.2 ml/min; Glucose 136.0 mg/dl (70-99(Fasting)); Magnesium 2.1 mg/dl (1.7-2.4); Potassium 3.7 mmol/L (3.5-5.1); Sodium 141.0 mmol/L (136-145); Total Protein 7.1 gm/dl (6.0-8.3)
[2025-01-14 23:43] LABS: Thyroid Stimulating Hormone 0.586 uIu/ml (0.300-4.500)
[2025-01-15 00:05] LABS: Appearance Urine Cloudy (Clear); Bacteria Urine Automated 2+ (None Seen); Cast Urine Automated 0-2 /lpf (0-2); Glucose Urine UA Negative (Negative); RBC Urine Automated >20 /hpf (0-2); WBC Urine Automated 0-5 /hpf (0-5)
[2025-01-15 00:20] LABS: Base Excess VBG 2.8 mEq/L; HCO3 VBG 27 mmol/L; Oxygen Saturation VBG 94.3 %; PCO2 VBG 40 mmHg (38-50); PO2 VBG 70 mmHg; pH VBG 7.44 (7.36-7.41)
[2025-01-15] MEDS: HYDROmorphone INJ 1 MG/ML SYRINGE IV STA (00:32)
[2025-01-15 01:03] LABS: Immature Granulocytes # (auto) 0.11 K/uL (0.01-0.20); Immature Granulocytes % (auto) 0.4 %
[2025-01-15 01:04] LABS: Influenza A virus by PCR Negative (Neg); Influenza B virus by PCR Negative (Neg); SARS CoV2 RNA(COVID-19) Ceph NEGATIVE (Negative)
[2025-01-15] MEDS ORDERED: PROMETHAZINE 6.25 MG/50.25 ML BAG IV PRN (01:05)
[2025-01-15] MEDS ORDERED: ACETAMINOPHEN 500 MG TAB PO PRN (01:05)
[2025-01-15 01:20] LABS: INR 1.0 (0.9-1.1); Prothrombin Time 10.3 Seconds (9.0-12.0)
--- NOTE | 2025-01-15 01:34 | XRay Report ---
EXAM: XR chest 1V portable CLINICAL HISTORY: elevated WBC TECHNIQUE: An X-ray image of the chest is obtained in AP projection. COMPARISON: 08/17/2024 FINDINGS: Pulmonary Parenchyma: Lungs are clear bilaterally. No evidence of consolidation, collapse, or focal opacities. No pulmonary nodules are identified. No evidence of pleural effusion or pleural thickening. Heart and Mediastinum: Heart size and shape are normal. No mediastinal widening or masses. No hilar or mediastinal lymphadenopathy. Bony Thorax: Bony thorax appears intact without fractures or deformities. ECG leads. Soft Tissues: Soft tissues overlying the chest wall are unremarkable. IMPRESSION: No acute cardiopulmonary abnormalities are identified. No interval changes since the last study. Electronically signed by Shar Boyd 01-15-2025 01:34 AM
--- NOTE | 2025-01-15 01:40 | History & Physical Report ---
Date of Service January 15, 2025 Assessment & Plan (1) Sepsis: Plan: Assessment and plan below following discussion of case with ED provider and reviewing patient history/pertinent normal/abnormal diagnostic test results. Sepsis Immunocompromised patient History RA currently on Enbrel and self-directed steroid Rx (Patient cannot remember current dose from Medrol Dosepak.) PAF/atrial flutter status post ablation on Eliquis, patient NSR mild to moderate MR hypertension, slightly elevated secondary to illness/anxiety Transaminitis, patient without abdominal pain complaints Steroid-induced hyperglycemia rule out DM ongoing vape use Admit to med/tele CS, Rheumatology consult re: protracted RA flareup (Patient known to Dr. Armas) Prednisone 5 mg p.o. daily for now until patient able to ascertain last dose for Medrol Dosepak Follow LFTs, liver ultrasound if with progression Check hemoglobin A1c DVT prophylaxis. Eliquis Full code Text document was generated using [employer]fin voice recognition software. It may contain grammatical or spelling errors. Kindly contact undersigned for clarification of any documentation item in question. History of Present Illness Chief Complaint: Worsening body aches Primary Care Provider: Balbir Hernandez MD History obtained from patient, family, and records. Medical history significant for PAF/atrial flutter status post ablation on Eliquis, mild to moderate MR, hypertension, rheumatoid arthritis on Enbrel currently on steroid Rx, GERD, anxiety disorder, ongoing vape use. Last confinement July 2024 for PSVT in the setting of hypokalemia. Cardiology recommended resumption of Eliquis on discharge for history PAF. 2 months ago, patient noted increased joint soreness/swelling of the hands and feet. Patient also later noted some skin scars with clear drainage. Not improving with OTC NSAID Rx, ice and prolonged steroid taper recommended by patient [facility] entry level chemist. Last week, patient choked on a pickle. Junky cough symptoms with shortness of breath. No headache, no chest pain, no abdominal pain, no bleeding. Fever, chills at home. Joint swelling and sores from RA flareup worse over the last few days. Patient self-medicating with Medrol Dosepak. IV Zosyn administered at the ER. Medical History as above Surgical History : None Family History : Breast cancer, alcoholism Personal/Social history : Ongoing vape use, occasional EtOH intake, [employer] employee Allergies Allergy/AdvReac Type Severity Reaction Status Date / Time No Known Allergies Allergy Mild Verified 01/15/25 01:33 Home Medications Medication Instructions Recorded Confirmed Type alprazolam 0.5 mg tablet 0.5 mg PO BID PRN Anxiety 10/10/21 01/15/25 History etanercept 50 mg/mL (1 mL) 50 mg subcut WK 10/10/21 01/15/25 History subcutaneous pen injector (Enbrel SureClick) famotidine 20 mg tablet 20 mg PO AMHS 07/25/22 01/15/25 History cyanocobalamin (vitamin B-12) 1,000 mcg sublingual QAM 08/17/24 01/15/25 History 1,000 mcg sublingual tablet glycopyrrolate 1 mg tablet 1 mg PO BID 08/17/24 01/15/25 History pantoprazole 40 mg tablet,delayed 40 mg PO DAILYBB 08/17/24 01/15/25 History release rosuvastatin 5 mg tablet 5 mg PO QAM 08/17/24 01/15/25 History semaglutide (weight loss) 1 mg/0.5 1 mg subcut WK 08/17/24 01/15/25 History mL subcutaneous pen injector (Wegovy) apixaban 5 mg tablet (Eliquis) 5 mg PO BID 01/15/25 01/15/25 History estradiol 0.1 mg/24 hr weekly 1 patch topical WK 01/15/25 01/15/25 History transdermal patch metoprolol succinate 25 mg 25 mg PO AMHS 01/15/25 01/15/25 History tablet,extended release 24 hr progesterone micronized 100 mg 100 mg PO QAM 01/15/25 01/15/25 History capsule venlafaxine 75 mg capsule,extended 75 mg PO QAM 01/15/25 01/15/25 History release 24 hr Past Med/Surg History Problem List (Updated 01/15/25 @ 04:06 by Juarez Jerome MD) Sepsis Elevated LFTs (Acute) Total body pain (Acute) Severe sepsis (Acute) PSVT (paroxysmal supraventricular tachycardia) Elevated troponin (Acute) Palpitations (Acute) Bilateral pleural effusion (Acute) Immunosuppressed status Bilateral pneumonia (Acute) Acute respiratory failure with hypoxia (Acute) Paroxysmal atrial flutter Hypertension Per records RA (rheumatoid arthritis) On Arava Open wound of lip due to dog bite Encounter for pre-operative examination Medical History Tobacco abuse Atrial fibrillation with RVR Atrial flutter with rapid ventricular response Hypokalemia DVT prophylaxis Acute decompensated heart failure Atrial flutter with rapid ventricular response Respiratory distress Admitted to intensive care unit Atrial flutter GERD (gastroesophageal reflux disease) History of TMJ disorder Atrial fibrillation + FLUTTER (NEWLY DX) On Eliquis History of kidney stones Anxiety Surgical History History of esophagogastroduodenoscopy (EGD) H/O wisdom tooth extraction History of colonoscopy Family History Father Alcohol use Grandmother (Paternal) Breast cancer Other No family history of adverse response to anesthesia No significant family history Social History Smoking Status: Current every day smoker Tobacco Type: E-cigarettes / Vaping Cigarettes Per Day: 1 CART. DAILY; Second Hand Exposure: No; Do You Dip or Chew Tobacco: No; Tobacco Cessation Education Requested by Patient: No Hx Alcohol Use: Yes Alcohol type: beer, wine and hard liquor Alcohol Intake Frequency: 2-3 x/Week Alcohol Intake Frequency Comment: 6 drinks/week Hx Substance Use: No Preferred Language: Czech Communication Ability: Effective Casing Flusher Required: No Beliefs That Will Affect Care: None marital status: Current Living Situation: Spouse How many Children do You have: 2 Other Information That Helps Us Care for You: No Feels Safe at Home: Yes Safety Concerns: Feels Safe At This Time Assistive Devices: Glasses Review of Systems Review of Systems: As per HPI, all other systems reviewed and negative Physical Exam Physical Exam: GENERAL: slightly anxious, no respiratory distress SKIN: Normal color, warm HEENT: [place] palpebral conjunctivae, no ptosis, moist buccal mucosa NECK : Supple, no tenderness CHEST : CTA, no tenderness HEART : Tachycardic, no obvious murmurs ABDOMEN: Some distention, nontender EXTREMITIES : Dry ulcerations over extremities, tender phalangeal nodularities, no LE swelling, palpable pulses NEUROLOGIC : Coherent, no facial asymmetry, no other gross focality Results & Data Results & Data Vital Signs (Past 12 Hours) Vital Signs Temp Pulse Pulse Resp BP BP Pulse Ox 01/15/25 01:37 37 C 99 H 18 153/95 H 96 01/14/25 22:44 108 H 01/14/25 22:35 36.7 C 115 H 20 153/81 H 97 O2 Del Method 01/15/25 01:37 Room Air 01/14/25 22:44 01/14/25 22:35 Room Air Laboratory Results Laboratory Results WBC 24.95 K/ul (4.8-10.8) H 01/14/25 22:41 RBC 4.18 M/uL (4.20-5.40) L 01/14/25 22:41 Hgb 13.0 g/dL (12.0-16.0) 01/14/25 22:41 Hct 38.6 % (37.0-47.0) 01/14/25 22:41 MCV 92.3 fL (80.0-100.0) 01/14/25 22:41 MCH 31.1 pg (25.0-34.0) 01/14/25 22:41 MCHC 33.7 g/dL (32.0-36.0) 01/14/25 22:41 RDW Std Deviation 44.7 fL (36.4-46.3) 01/14/25 22:41 RDW Coeff of Bridget 13.2 % (11.5-14.5) 01/14/25 22:41 Plt Count 451 K/uL (130-400) H 01/14/25 22:41 MPV 10.3 fL (9.4-12.4) 01/14/25 22:41 Immature Gran % (Auto) 0.4 % 01/14/25 22:41 Neut % (Auto) 80.4 % 01/14/25 22:41 Lymph % (Auto) 10.7 % 01/14/25 22:41 [place] % (Auto) 8.1 % 01/14/25 22:41 Eos % (Auto) 0.2 % 01/14/25 22:41 Baso % (Auto) 0.2 % 01/14/25 22:41 Neut # (Auto) 20.06 K/uL (1.40-6.50) H 01/14/25 22:41 Lymph # (Auto) 2.67 K/uL (1.20-3.40) 01/14/25 22:41 [place] # (Auto) 2.02 K/uL (0.11-0.59) H 01/14/25 22:41 Eos # (Auto) 0.04 K/uL (0.00-0.50) 01/14/25 22:41 Baso # (Auto) 0.05 K/uL (0.00-0.20) 01/14/25 22: Immature Gran # (Auto) 0.11 K/uL (0.01-0.20) 01/14/25 22: ESR 16 mm/hr (0-30) 01/14/25 22: PT 10.3 Seconds (9.0-12.0) 01/14/25 22:47 INR 1.0 (0.9-1.1) 01/14/25 22:47 VBG pH 7.44 (7.36-7.41) H 01/15/25 00:03 VBG pCO2 40 mmHg (38-50) 01/15/25 00:03 VBG pO2 70 mmHg 01/15/25 00:03 VBG HCO3 27 mmol/L 01/15/25 00:03 VBG O2 Saturation 94.3 % 01/15/25 00:03 VBG Base Excess 2.8 mEq/L 01/15/25 00:03 Sodium 141 mmol/L (136-145) 01/14/25 22: Potassium 3.7 mmol/L (3.5-5.1) 01/14/25 22: Chloride 105 mmol/L (98-107) 01/14/25 22:41 Carbon Dioxide 25 mmol/L (21-32) 01/14/25 22:41 Anion Gap 11 (3-11) 01/14/25 22:41 BUN 15 mg/dl (6-23) 01/14/25 22: Creatinine 0.72 mg/dl (0.6-1.2) 01/14/25 22:41 Est Cr Clr Drug Dosing 79.2 ml/min 01/14/25 22:41 eGFR 99.92 01/14/25 22:41 BUN/Creatinine Ratio 20.8 (10-20) H 01/14/25 22:41 Glucose 136 mg/dl (70-99(Fasting)) H 01/14/25 22:41 Lactate 1.2 mmol/L (0.4-2.0) 01/15/25 00:03 Calcium 9.3 mg/dl (8.6-10.3) 01/14/25 22:41 Magnesium 2.1 mg/dl (1.7-2.4) 01/14/25 22:41 Total Bilirubin 0.2 mg/dl (0.2-1.0) 01/14/25 22:41 Direct Bilirubin 0.0 mg/dl (0-0.2) 01/14/25 22:41 AST 130 U/L (13-39) H 01/14/25 22:41 ALT 236 U/L (7-52) H 01/14/25 22:41 Alkaline Phosphatase 101 U/L (34-104) 01/14/25 22:41 Total Creatine Kinase 60 U/L (26-192) 01/14/25 22:41 Troponin I High Sens 5.7 pg/ml (0-14) 01/14/25 22:41 C-Reactive Protein 0.79 mg/dl (0-0.5) H 01/14/25 22:41 Total Protein 7.1 gm/dl (6.0-8.3) 01/14/25 22: Albumin 4.1 gm/dl (3.4-5.0) 01/14/25 22:41 Procalcitonin < 0.02 ng/ml (0-0.5) 01/14/25 23:43 TSH 0.586 uIu/ml (0.300-4.500) 01/14/25 22:41 Urine Color Yellow 01/14/25 22:46 Urine Appearance Cloudy (Clear) A 01/14/25 22:46 Urine pH 5.5 (4.5-7.5) 01/14/25 22:46 Ur Specific [place] 1.035 (1.000-1.030) H 01/14/25 22:46 Urine Protein Trace (Negative) H 01/14/25 22:46 Urine Glucose (UA) Negative (Negative) 01/14/25 22:46 Urine Ketones Trace (Negative) H 01/14/25 22:46 Urine Blood 1+ (Negative) H 01/14/25 22:46 Urine Nitrite Negative (Negative) 01/14/25 22:46 Urine Bilirubin Negative (Negative) 01/14/25 22:46 Urine Urobilinogen Negative (Negative) 01/14/25 22:46 Ur Leukocyte Esterase Negative (Negative) 01/14/25 22:46 Urine WBC (Auto) 0-5 /hpf (0-5) 01/14/25 22:46 Urine RBC (Auto) >20 /hpf (0-2) H 01/14/25 22:46 U Hyaline Cast (Auto) 0-2 /lpf (0-2) 01/14/25 22:46 U Epithel Cells (Auto) 6-10 /hpf (0-2) H 01/14/25 22:46 Urine Bacteria (Auto) 2+ (None Seen) H 01/14/25 22:46 Urine Comment 01/14/25 22:46 SARS-CoV-2 (PCR) NEGATIVE (Negative) 01/15/25 00:15 Influenza Type A (PCR) Negative (Neg) 01/15/25 00:15 Influenza Type B (PCR) Negative (Neg) 01/15/25 00:15 RSV (RT-PCR) Negative (Neg) 01/15/25 00:15 Impressions Chest X-Ray 01/14/25 23:43 EXAM: XR chest 1V portable CLINICAL HISTORY: elevated WBC TECHNIQUE: An X-ray image of the chest is obtained in AP projection. COMPARISON: 08/17/2024 FINDINGS: Pulmonary Parenchyma: Lungs are clear bilaterally. No evidence of consolidation, collapse, or focal opacities. No pulmonary nodules are identified. No evidence of pleural effusion or pleural thickening. Heart and Mediastinum: Heart size and shape are normal. No mediastinal widening or masses. No hilar or mediastinal lymphadenopathy. Bony Thorax: Bony thorax appears intact without fractures or deformities. ECG leads. Soft Tissues: Soft tissues overlying the chest wall are unremarkable. IMPRESSION: No acute cardiopulmonary abnormalities are identified. No interval changes since the last study. Electronically signed by Shar Boyd 01-15-2025 01:[address] chest: Diffuse ground-glass hase with subpleural atelectasis are noted involving dependent portion of both lower lobes - possibility of mild basal congestion.
[2025-01-15] MEDS ORDERED: LORazepam 0.5 MG TAB PO PRN (01:42)
[2025-01-15] MEDS: PIPERACILLIN/TAZOBACTAM 4.5 GM/100 ML BAG IV ONE (01:50)
[2025-01-15] MEDS: SODIUM CHLORIDE 0.9% 1,000 ML IV ONE (01:50)
[2025-01-15] MEDS: SODIUM CHLOR 0.45% + 20MEQ KCL 20 MEQ/1,000 ML BAG IV ONE (01:50)
[2025-01-15] MEDS: LORATADINE 10 MG TAB PO ONE (01:58)
[2025-01-15] MEDS: OPTIRAY 320 100ml IV ONE ×2 (03:22→03:58)
--- NOTE | 2025-01-15 04:20 | CT Scan Report ---
EXAM: CT chest diagnostic w con CLINICAL HISTORY: cough TECHNIQUE: Contiguous axial images were obtained from the neck base through the upper abdomen following intravenous administration of contrast material. If IV contrast material had not been administered, the likelihood of detecting abnormalities relevant to the patient's condition would have been substantially decreased. In addition, sagittal and coronal reconstructions were performed. CT scan was performed according to ALARA (as low as reasonably achievable). 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 FINDINGS: Mild cardiomegaly. Mild dilatation of pulmonary trunk ,bilateral main pulmonary artery up to subsegmental level with mild tortuosity - suggest possibility of pulmonary arterial hypertension. Diffuse ground-glass hase with subpleural atelectasis are noted involving dependent portion of both lower lobes - possibility of mild basal congestion. The lungs are clear, with no focal areas of consolidation. No pulmonary nodules are seen. The central airways are patent. There are no pleural effusions. No pneumothorax is seen. No axillary, hilar, or mediastinal adenopathy is identified. The visualized thyroid is unremarkable. The aorta are of normal size and configuration. No pericardial effusion is identified. Imaged portions of the upper abdomen are unremarkable. No aggressive appearing osseous lesions are identified. IMPRESSION: Diffuse ground-glass hase with subpleural atelectasis are noted involving dependent portion of both lower lobes - possibility of mild basal congestion. Prior bilateral pleural effusion and pulmonary edema is resolved. Electronically signed by Luisito Youngblood 01-15-2025 04:19 AM
[2025-01-15 06:04] LABS: Hematocrit (blood only) 35.6 % (37.0-47.0); Hemoglobin 11.9 g/dL (12.0-16.0); Immature Granulocytes # (auto) 0.08 K/uL (0.01-0.20); Immature Granulocytes % (auto) 0.5 %; Mean Corpuscular Hemoglobin 31.9 pg (25.0-34.0); Mean Corpuscular Volume 95.4 fL (80.0-100.0); Platelet Count 365 K/uL (130-400); RDW Standard Deviation 46.5 fL (36.4-46.3); Red Blood Count 3.73 M/uL (4.20-5.40); White Blood Count 16.63 K/ul (4.8-10.8)
[2025-01-15 06:22] LABS: Alanine Aminotransferase 199.0 U/L (7-52); Albumin Globulin Ratio 1.4 (0.9-2); Albumin Level 3.7 gm/dl (3.4-5.0); Alkaline Phosphatase 92.0 U/L (34-104); Anion Gap 6.0 (3-11); Bilirubin,Total 0.3 mg/dl (0.2-1.0); Blood Urea Nitrogen 13.0 mg/dl (6-23); Calcium 8.3 mg/dl (8.6-10.3); Carbon Dioxide 28.0 mmol/L (21-32); Chloride 106.0 mmol/L (98-107); Creatinine Clr Calc Pharmacy 90.7 ml/min; Globulin 2.7 gm/dl (2.5-4.0); Glucose 117.0 mg/dl (70-99(Fasting)); Potassium 4.7 mmol/L (3.5-5.1); Sodium 140.0 mmol/L (136-145); Total Protein 6.4 gm/dl (6.0-8.3)
[2025-01-15 07:23] LABS: Hemoglobin A1C 5.4 % (4.5-5.6)
[2025-01-15] MEDS: CYANOCOBALAMIN (B-12) 500 MCG TABLET PO SCH (08:36)
[2025-01-15] MEDS: AMPICILLIN/SULBACTAM SOD 3,000 MG/100 ML BAG IV SCH (08:36)
[2025-01-15] MEDS: APIXABAN 5 MG TABLET PO SCH (08:36)
[2025-01-15] MEDS: METOPROLOL SUCC 25MG EXT REL TAB PO SCH (08:36)
[2025-01-15] MEDS: VENLAFAXINE HCL XR 75 MG CAPXR PO SCH (08:36)
[2025-01-15] MEDS: FAMOTIDINE 20 MG TAB PO SCH (08:38)
--- NOTE | 2025-01-15 11:27 | XRay Report ---
XR lumbar spine 2-3V CLINICAL HISTORY: ble radicular symptoms COMPARISON STUDY: None FINDINGS: No fracture or subluxation. There are mild diffuse degenerative changes. IMPRESSION: No fracture seen. ACT 112: Negative or not required by law. Electronically signed by: Po Hawley M.D. 01/15/2025 11:26 AM
--- NOTE | 2025-01-15 13:40 | Rheumatology Consultation ---
Rheumatology Consultation DOS January 15, [address] Jerome Attending Physician Dr Virk Reason for Consultation RA Flare Assessment & Plan (1) Sepsis: on antibiotics, being treated for likely respiratory illness. Agree with continued treatment of antibiotics as an outpatient Given her immunocompromised state (2) RA (rheumatoid arthritis): currently having a flare of rheumatoid arthritis. At this point she is doing better so I would continue 20 mg of prednisone and discharge her on that dose. She should be able to resume Enbrel this coming Monday. Likely will need to work on changing her regimen as an outpatient given her persistent flares. The nodule she has could potentially be RA nodules or could be viral in nature. I did take some clinical images and will have Dermatology look at them. I spoke with the hospitalist and sounds like she will be getting set up with Dermatology through [facility] as an outpatient. Rheumatoid arthritis location: multiple sites Rheumatoid factor presence: without rheumatoid factor Qualified Code(s): M06.09 - Rheumatoid arthritis without rheumatoid factor, multiple sites Plan 1. Continue 20 mg of prednisone daily and discharge her on this dose. 2. agree with antibiotics for possible secondary bacterial pneumonia 3. patient should be able to resume Enbrel on Monday 4. will work on adjusting outpatient regimen for RA at follow up appointment 5. agree with Dermatology evaluation for her nodules 6. will get set up with me for an outpatient follow up next Monday likely at 2:40 p.m. 7. thank you for the consult in involving me in this patient's care History of Present Illness Reason for Consultation: RA FLare Requesting Physician: Dr Jerome Attending Physician: Carmita Virk MD History of Present Illness Roseanne is a well-known patient to me with longstanding rheumatoid arthritis. She has currently on Enbrel and takes this every Monday. She denies any missed doses. She reports recently that she has had a mild cold but also choked on a pickled egg. Since that time her voice has been a little horse. She also started to note increasing joint pains as of late. She had sent me a [facility] message yesterday about worsening pain Similar to what she did back in October that responded to the Medrol Dosepak at that time. She reports that she is still 4 tabs of the Medrol in the morning 4 tabs in the mid afternoon and then evening. Later that night her pain was so severe she decided to come to the Emergency Room. She was admitted for an RA flare and possible infection given her recent illness with reported fevers and chills at home along with elevated white count of 24. In total she did take about 60 mg of prednisone yesterday. Chest x-ray looked good what CT imaging did show some ground-glass appearance in the bases of both lungs. She was placed on IV antibiotics and started on prednisone 5 mg daily. I discussed her case with the hospitalist and he gave an extra sure 15 mg of prednisone today to get 20 mg for the day. She also reports these nodules that come out during her flares. Lately she has these lesions on her face, both elbows as well as both hands. Some of the lesions have been present for several weeks on the hands. She states she gets these nodule every time she flares. these nodules will completely resolve though. The hospitalist did send me some pictures of these nodules and they did not specifically look like RA nodules. Question some vasculopathy for the hand lesions. She also has gotten these lesions on her back side. When I saw her today, she was sitting comfortably in the bed. She reports that she does feel much better than she did yesterday. She does still have a hoarse voice and some coughing. She also does report some pain and swelling to the left lateral ankle. Her is in the room helping with the history. Imaging and lab results were reviewed. Allergies Allergy/AdvReac Type Severity Reaction Status Date / Time No Known Allergies Allergy Mild Verified 01/15/25 01:33 Home Medications Medication Instructions Recorded Confirmed Type alprazolam 0.5 mg tablet 0.5 mg PO BID PRN Anxiety 10/10/21 01/15/25 History etanercept 50 mg/mL (1 mL) 50 mg subcut WK 10/10/21 01/15/25 History subcutaneous pen injector (Enbrel SureJuanick) famotidine 20 mg tablet 20 mg PO AMHS 07/25/22 01/15/25 History cyanocobalamin (vitamin B-12) 1,000 mcg sublingual QAM 08/17/24 01/15/25 History 1,000 mcg sublingual tablet glycopyrrolate 1 mg tablet 1 mg PO BID 08/17/24 01/15/25 History pantoprazole 40 mg tablet,delayed 40 mg PO DAILYBB 08/17/24 01/15/25 History release rosuvastatin 5 mg tablet 5 mg PO QAM 08/17/24 01/15/25 History semaglutide (weight loss) 1 mg/0.5 1 mg subcut WK 08/17/24 01/15/25 History mL subcutaneous pen injector (Franklyn) apixaban 5 mg tablet (Eliquis) 5 mg PO BID 01/15/25 01/15/25 History estradiol 0.1 mg/24 hr weekly 1 patch topical WK 01/15/25 01/15/25 History transdermal patch metoprolol succinate 25 mg 25 mg PO AMHS 01/15/25 01/15/25 History tablet,extended release 24 hr progesterone micronized 100 mg 100 mg PO QAM 01/15/25 01/15/25 History capsule venlafaxine 75 mg capsule,extended 75 mg PO QAM 01/15/25 01/15/25 History release 24 hr Patient History Medical History Tobacco abuse Atrial fibrillation with RVR Atrial flutter with rapid ventricular response Hypokalemia DVT prophylaxis Acute decompensated heart failure Atrial flutter with rapid ventricular response Respiratory distress Admitted to intensive care unit Atrial flutter GERD (gastroesophageal reflux disease) History of TMJ disorder Atrial fibrillation + FLUTTER (NEWLY DX) On Eliquis History of kidney stones Anxiety Surgical History History of esophagogastroduodenoscopy (EGD) H/O wisdom tooth extraction History of colonoscopy Family History Father Alcohol use Grandmother (Paternal) Breast cancer Other No family history of adverse response to anesthesia No significant family history Social History Smoking Status: Current every day smoker Tobacco Type: E-cigarettes / Vaping Cigarettes Per Day: 1 CART. DAILY; Second Hand Exposure: No; Do You Dip or Chew Tobacco: No; Tobacco Cessation Education Requested by Patient: No Hx Alcohol Use: Yes Alcohol type: beer, wine and hard liquor Alcohol Intake Frequency: 2-3 x/Week Alcohol Intake Frequency Comment: 6 drinks/week Hx Substance Use: No Preferred Language: Urdu Communication Ability: Effective Elderly Companion Required: No Beliefs That Will Affect Care: None marital status: Current Living Situation: Spouse How many Children do You have: 2 Other Information That Helps Us Care for You: No Feels Safe at Home: Yes Safety Concerns: Feels Safe At This Time Assistive Devices: Glasses Review of Systems Constitutional: Fever, chills Eyes: normal Ear, Nose, Mouth, Throat: mouth ulcer Respiratory: cough Cardiovascular: Additional Comments: no chest pain Musculoskeletal: joint pain, swelling Integumentary: skin lesions Physical Exam Physical Exam: comfortable sitting in bed, no acute distress Eyes: PERRL, conjunctivae normal, anicteric sclerae ENMT: normal exam except for ulcer noted on the tongue Respiratory: normal respiratory effort, lungs clear to auscultation Cardiovascular: RRR, no murmur, no edema Musculoskeletal: tenderness to exam of the small joints of both hands but no synovitis or dactylitis. Mild swelling noted to the left lateral ankle with tenderness on exam Skin: nodules noted to both elbows, have the appearance of molluscum. Has vasculopathy lesions of both palmar aspect of the hands. To nodules noted to the left bridge of the nose and left chin Results & Data Vital Signs (Past 12 Hours) Vital Signs Temp Pulse Pulse Pulse Resp BP Pulse Ox 01/15/25 11:24 36.7 C 94 H 16 158/77 H 97 01/15/25 07:23 36.5 C 81 16 158/98 H 100 01/15/25 07:06 100 H 01/15/25 04:13 103 H 01/15/25 04:00 36.4 C L 100 H 14 137/73 97 01/15/25 03:53 36.4 C L 100 H 14 137/73 97 01/15/25 03:53 01/15/25 03:44 96 H 01/15/25 01:58 96 H 01/15/25 01:37 37 C 99 H 18 153/95 H 96 Pulse Ox O2 Del Method O2 Del Method 01/15/25 11:24 Room Air 01/15/25 07:23 Room Air 01/15/25 07:06 01/15/25 04:13 01/15/25 04:00 Room Air 01/15/25 03:53 Room Air 01/15/25 03:53 97 Room Air 01/15/25 03:44 Room Air 01/15/25 01:58 01/15/25 01:37 Room Air Laboratory Results reviewed Diagnostic Findings reviewed
--- NOTE | 2025-01-15 13:51 | Communication Note ---
Date of Service: January 15, 2025 Patient was seen and examined at bedside. 54 yo F w/ PMH of PAF/atrial flutter s/p ablation on Eliquis, mild to moderate MR, hypertension, rheumatoid arthritis on Enbrel currently on steroid Rx, GERD, anxiety disorder, ongoing vape use presents increasing multiple bilateral joint pain associated with increasing skin rash. Patient reported that she had been taking steroid on and off more frequently since last 6 weeks due to increasing pain and skin sores. Patient reports she gets the skin sores when she gets flareup of rheumatoid arthritis. They improve on their own once her joint pain improves. This time prior to arrival, she had more severe and widespread b/l joints pain along with more severe skin sores. She had been taking steroid for about 3 days prior to arrival. 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 Of note, her last confinement July 2024 for PSVT in the setting of hypokalemia. Cardiology recommended resumption of Eliquis on discharge for history PAF. She is being managed for the following: Likely Bronchitis or developing pneumonia or possible aspiration pneumonitis Sepsis POA: iso above. WBC, Heart rate elevated at presentation. Immunocompromised patient: History RA currently on Enbrel and self-directed steroid Rx Likely flareup of rheumatoid arthritis, recurrent Unspecified dermatitis: discussed with dermatology office provider, shared picture of the skin rashes with them, recommendation was to continue on po steroid and they will assess the patient at dermatology office next week. 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 Admitting CT chest with diffuse ground glass opacity at bases. WBC trending down, heart rate improving, continue with Unasyn. f/u speech eval Patient reports improving joint pain, discussed with rheumatology, continue with prednisone 20 mg daily. Rheumatology evaluated the patient, will possibly reeval again as an outpatient coming Monday. Recommends discharge on 20 mg prednisone daily Follow-up with dermatology upon discharge. Transaminitis, patient without abdominal pain complaints , LFT improving, repeat CMP in AM. If no improvement consider US liver. Will get hepatitis panel in AM. Other chronic medical conditions: Continue with/resume home meds as when able. PAF/atrial flutter status post ablation on Eliquis, patient NSR mild to moderate MR hypertension, slightly elevated secondary to illness/anxiety . Monitor. Steroid-induced hyperglycemia ruled out DM , A1c of 5.4 this admission. ongoing vape use, Counseled regarding cessation. DVT prophylaxis. [employer] Full code Text document was generated using [employer] voice recognition software. It may contain grammatical or spelling errors. Kindly contact undersigned for clarification of any documentation item in question. For detailed information on the patient, refer to today's H&P note. Patient's was updated at bedside. Total time spent: 1 hour 10 minutes.
--- NOTE | 2025-01-15 18:49 | Electrocardiogram Report ---
Test Reason : Blood Pressure : */* mmHG Vent. Rate : 103 BPM Atrial Rate : 103 BPM P-R Int : 122 ms QRS Dur : 84 ms QT Int : 330 ms P-R-T Axes : 61 55 53 degrees QTcB Int : 432 ms Sinus tachycardia with occasional Premature ventricular complexes Otherwise normal ECG When compared with ECG of 17-Aug-2024 18:13, Premature ventricular complexes are now Present Confirmed by Musa Gonzalez ([id number]) on 01/15/2025 6:48:53 PM Referred By: REFERRED SELF Confirmed By: Musa Gonzalez
[2025-01-15] MEDS: MoRPHine SULFATE 4 MG/ML 1 ML CARP\\VIAL IV PRN (21:48)
[2025-01-16 07:14] LABS: Hematocrit (blood only) 35.5 % (37.0-47.0); Hemoglobin 11.7 g/dL (12.0-16.0); Mean Corpuscular Hemoglobin 31.6 pg (25.0-34.0); Mean Corpuscular Volume 95.9 fL (80.0-100.0); Platelet Count 365 K/uL (130-400); RDW Standard Deviation 48.1 fL (36.4-46.3); Red Blood Count 3.70 M/uL (4.20-5.40); White Blood Count 12.46 K/ul (4.8-10.8)
[2025-01-16 07:43] VITALS: BP 147/88; RESP 18; TEMP 97.7; O2SAT 99
[2025-01-16 07:44] LABS: Alanine Aminotransferase 133.0 U/L (7-52); Albumin Globulin Ratio 1.3 (0.9-2); Albumin Level 3.5 gm/dl (3.4-5.0); Alkaline Phosphatase 78.0 U/L (34-104); Anion Gap 6.0 (3-11); Bilirubin,Total 0.2 mg/dl (0.2-1.0); Blood Urea Nitrogen 10.0 mg/dl (6-23); Calcium 8.6 mg/dl (8.6-10.3); Carbon Dioxide 32.0 mmol/L (21-32); Chloride 106.0 mmol/L (98-107); Creatinine Clr Calc Pharmacy 95.3 ml/min; Globulin 2.6 gm/dl (2.5-4.0); Glucose 85.0 mg/dl (70-99(Fasting)); Magnesium 2.4 mg/dl (1.7-2.4); Potassium 4.2 mmol/L (3.5-5.1); Sodium 144.0 mmol/L (136-145); Total Protein 6.1 gm/dl (6.0-8.3)
[2025-01-16 07:57] VITALS: PULSE 101
[2025-01-16] MEDS: predniSONE 20 MG TAB PO SCH (08:35)
[2025-01-16 09:03] LABS: Hep B Surface Ag with confirm Negative (Negative)
[2025-01-16 09:08] LABS: Hep C Ab Rflx HepCQuant RNA Negative (Negative)
--- NOTE | 2025-01-16 11:12 | Discharge Summary ---
Date of Service January 16, 2025 Admission HPI Per Admitting Provider History obtained from patient, family, and records. Medical history significant for PAF/atrial flutter status post ablation on Eliquis, mild to moderate MR, hypertension, rheumatoid arthritis on Enbrel currently on steroid Rx, GERD, anxiety disorder, ongoing vape use. Last confinement July 2024 for PSVT in the setting of hypokalemia. Cardiology recommended resumption of Eliquis on discharge for history PAF. 2 months ago, patient noted increased joint soreness/swelling of the hands and feet. Patient also later noted some skin scars with clear drainage. Not improving with OTC NSAID Rx, ice and prolonged steroid taper recommended by patient [facility] [place]. Last week, patient choked on a pickle. Junky cough symptoms with shortness of breath. No headache, no chest pain, no abdominal pain, no bleeding. Fever, chills at home. Joint swelling and sores from RA flareup worse over the last few days. Patient self-medicating with Medrol Dosepak. IV Zosyn administered at the ER. Medical History as above Surgical History : None Family History : Breast cancer, alcoholism Personal/Social history : Ongoing vape use, occasional EtOH intake, [employer] employee Admission Exam Per Admitting Provider GENERAL: slightly anxious, no respiratory distress SKIN: Normal color, warm HEENT: Twilight palpebral conjunctivae, no ptosis, moist buccal mucosa NECK : Supple, no tenderness CHEST : CTA, no tenderness HEART : Tachycardic, no obvious murmurs ABDOMEN: Some distention, nontender EXTREMITIES : Dry ulcerations over extremities, tender phalangeal nodularities, no LE swelling, palpable pulses NEUROLOGIC : Coherent, no facial asymmetry, no other gross focality Principal Diagnosis Likely Bronchitis or developing pneumonia or possible aspiration pneumonitis Sepsis POA Immunocompromised patient Likely flareup of rheumatoid arthritis, recurrent Unspecified dermatitis Transaminitis Discharge Exam GENERAL: NAD, no respiratory distress SKIN: Normal color, warm HEENT: Twilight palpebral conjunctivae, no ptosis, moist buccal mucosa NECK : Supple, no tenderness CHEST : CTA, no tenderness HEART : RRR, no obvious murmurs ABDOMEN: No distention, nontender EXTREMITIES : Dry ulcerations over extremities and butt cheeks getting better, tongue sore getting better, no LE swelling, palpable pulses NEUROLOGIC : Coherent, no facial asymmetry, no other gross focality Discharge Data Allergies Allergy/AdvReac Type Severity Reaction Status Date / Time No Known Allergies Allergy Mild Verified 01/15/25 01:33 Consultations 01/15/25 00:49 ED Decision to Admit Stat 01/15/25 04:54 Consult Rheumatology Routine Ordered Studies 01/15/25 01:41 CT chest diagnostic w con Stat Hospital Course (1) Sepsis: Plan 54 yo F w/ PMH of PAF/atrial flutter s/p ablation on Eliquis, mild to moderate MR, hypertension, rheumatoid arthritis on Enbrel currently on steroid Rx, GERD, anxiety disorder, ongoing vape use presents increasing multiple bilateral joint pain associated with increasing skin rash. Patient reported that she had been taking steroid on and off more frequently since last 6 weeks due to increasing pain and skin sores. Patient reports she gets the skin sores when she gets flareup of rheumatoid arthritis. They improve on their own once her joint pain improves. This time prior to arrival, she had more severe and widespread b/l joints pain along with more severe skin sores. She had been taking steroid for about 3 days prior to arrival. 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 Of note, her last confinement July 2024 for PSVT in the setting of hypokalemia. Cardiology recommended resumption of Eliquis on discharge for history PAF. She was managed for the following: Likely Bronchitis or developing pneumonia or possible aspiration pneumonitis Sepsis POA: iso above. WBC, Heart rate elevated at presentation. Immunocompromised patient: History RA currently on Enbrel and self-directed steroid Rx Likely flareup of rheumatoid arthritis, recurrent Unspecified dermatitis: discussed with dermatology office provider 01/15, shared picture of the skin rashes with them, recommendation was to continue on po steroid and they will assess the patient at dermatology office next week. Pt is made aware of our conversation. She is advised to f/u with them within a week time. 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 Admitting CT chest with diffuse ground glass opacity at bases. WBC trending down, heart rate improving, continue with Unasyn--> to [place] to complete 7 d course. Speech note noted. Patient reports improving joint pain and improving nodules pain, c/w prednisone 20 mg daily. Rheumatology evaluated the patient, will possibly reeval again as an outpatient coming Monday. Recommends discharge on 20 mg prednisone daily Follow-up with dermatology upon discharge. Pt feels significantly better, and would want to go home today, pt advised to f/u on blood culture results during pcp visit within a week time. Transaminitis, patient without abdominal pain complaints , LFT improving, repeat CMP in a week of discharge. HOld stating, Hep panel neg or pending. Other chronic medical conditions: Continue with/resume home meds as when able. PAF/atrial flutter status post ablation on Eliquis, patient NSR mild to moderate MR hypertension, slightly elevated secondary to illness/anxiety . Monitor. Steroid-induced hyperglycemia ruled out DM , A1c of 5.4 this admission. ongoing vape use, Counseled regarding cessation. DVT prophylaxis. Eliquis Full code Patient is being discharged with following instructions at the point of discharge: Follow-up with your primary care physician within a week time and likely you will need labs CBC/CMP/magnesium/phosphorus. Follow-up on final results of your blood culture [drawn while inpatient] during your PCP visit within a week time. Continue antibiotic to complete 7 days treatment course for possible bronchitis versus developing pneumonia. For your recurrent flareup of rheumatoid arthritis, follow-up with rheumatology in 1 week's time upon discharge. For your dermatitis, follow-up with dermatology within a week upon discharge. You are being discharged on prednisone 20 mg daily with 1 week course, recommend that you be in touch with your rheumatology for further management/prescription for your joint pain/rheumatoid arthritis flareup. Your liver enzymes were elevated and gradually downtrended while in hospital. Recommend that you follow-up on liver enzymes in about a week time upon discharge, coordinate with your PCP office to set up the test. Take your medications as above. Take your medications as prescribed. Please make sure that you are able to get your medications today by calling your pharmacy before you leave the hospital so that your treatment continuity is not broken. Text document was generated using [employer] voice recognition software. It may contain grammatical or spelling errors. Kindly contact undersigned for clarification of any documentation item in question. Home Health Attestation I certify that this patient is under my care and that I, or a physicians licensed sales assistant working with me, had a face to-face encounter that meets the home health [id number] encounter requirements with this patient. The encounter with the patient was in whole, or in part, for the following medical condition, which is the primary reason for home health care (list medical condition): I certify that, based on my findings, the following services are medically necessary home health services: My clinical findings support the need for the above services because: Further, I certify that my clinical findings support that this patient is homebound (i.e. absences from home require considerable and taxing effort and are for medical reasons or denominational services or infrequently or of short duration when for other reasons) because: Certification for Home Health Services: Based on the above findings, I certify that this patient is confined to the home and needs intermittent senior living care, physical therapy and/or speech therapy or continues to need occupational therapy. The patient is under my care, and I have initiated the establishment of the plan of care. This patient will be followed by a physician who will periodically review the plan of care. Total Time Total Time Spent Total Time Spent (In Minutes): 45 Discharge Plan Discharge Items Patient Disposition: Home - Self-Care Reason For Visit: SEPSIS Discharge Diagnosis: Likely Bronchitis or developing pneumonia or possible aspiration pneumonitis Sepsis POA Immunocompromised patient Likely flareup of rheumatoid arthritis, recurrent Unspecified dermatitis Transaminitis Condition on Discharge: Fair Activity: Resume your previous activity Non-emergency contact: Primary Care Provider Call non-emergency contact if: you have any medication questions Follow-up/Referrals: Balbir Hernandez MD [Primary Care Provider] - (Date & Time 01/23/2025 10:40 AM Provider: Balbir Hernandez MD [facility] ) Aj De La Fuente MD [Physician] - Diet: Heart Healthy Addtl Attending Provider Instructions: Follow-up with your primary care physician within a week time and likely you will need labs CBC/CMP/magnesium/phosphorus. Follow-up on final results of your blood culture [drawn while inpatient] during your PCP visit within a week time. Continue antibiotic to complete 7 days treatment course for possible bronchitis versus developing pneumonia. For your recurrent flareup of rheumatoid arthritis, follow-up with rheumatology in 1 week's time upon discharge. For your dermatitis, follow-up with dermatology within a week upon discharge. You are being discharged on prednisone 20 mg daily with 1 week course, recommend that you be in touch with your rheumatology for further management/prescription for your joint pain/rheumatoid arthritis flareup. Your liver enzymes were elevated and gradually downtrended while in hospital. Recommend that you follow-up on liver enzymes in about a week time upon discharge, coordinate with your PCP office to set up the test. Take your medications as above. Take your medications as prescribed. Please make sure that you are able to get your medications today by calling your pharmacy before you leave the hospital so that your treatment continuity is not broken. Pending Studies at Discharge: Yes Stand-Alone Forms: [facility], Smoking Cessation Medications and DC Order Prescriptions: New prednisone 20 mg Tablet 20 mg PO DAILY 7 Days Qty: 7 0RF amoxicillin-pot clavulanate 875-125 mg tablet 1 tab PO BID 5 Days Qty: 10 0RF Probiotic 3 billion cell capsule 3,000 mmu cells PO DAILY 7 Days Qty: 7 0RF Rx Instructions: administer with a meal oxycodone 5 mg tablet 5 mg PO QID PRN (Reason: pain) 5 Days Qty: 20 0RF Continued alprazolam 0.5 mg tablet 0.5 mg PO BID PRN (Reason: Anxiety) Enbrel SureClick 50 mg/mL (1 mL) pen injector 50 mg SUBCUT WK Rx Instructions: sundays famotidine 20 mg tablet 20 mg PO [facility] Wegovy 1 mg/0.5 mL pen injector 1 mg SUBCUT WK Rx Instructions: sundays glycopyrrolate 1 mg tablet 1 mg PO BID pantoprazole 40 mg tablet,delayed release (DR/EC) 40 mg PO DAILYBB cyanocobalamin (vitamin B-12) 1,000 mcg Tablet, Sublingual 1,000 mcg SUBLINGUAL QAM venlafaxine 75 mg capsule,extended release 24hr 75 mg PO QAM progesterone micronized 100 mg capsule 100 mg PO QAM Eliquis 5 mg tablet 5 mg PO BID metoprolol succinate 25 mg tablet extended release 24 hr 25 mg PO [facility] estradiol 0.1 mg/24 hr patch weekly 1 patch topical WK Rx Instructions: sundays Held rosuvastatin 5 mg tablet 5 mg PO QAM Hold Instructions: Resume on 01/23/25. Resume with PCP clearance once your liver enzymes are tested again in a week time. Discharge Orders: Discharge Order (Routine); Ordered 01/16/25 Ordered By: Carmita Virk Admission Data Admit Date/Time: 01/15/25 01:41 Attending Provider: Carmita Virk Admit Provider: Juarez Jerome Primary Care Provider: Balbir Hernandez Other Providers: Juarez Jerome; José Manuel Armas
[2025-01-19 22:27] LABS: Hepatitis A Antibody IgM NON-REACTIVE (NON-REACTIVE); Hepatitis B Core Antibody IgM NON-REACTIVE (NON-REACTIVE)
== END 2025-01-16 11:45 | disposition home or self-care (01) | DRG 871 ==
LOC: ED 22:30 → SUATTDRO 01-15 01:41 → 2N 01-15 01:41